=== PATIENT | female | born 1950 | race Caucasian/White ===

== ENCOUNTER 2020-04-26 14:50 | Outpatient (REF) | payer MEDICARE, SELFPAY ==
--- NOTE | 2020-04-26 14:50 | MM_ITS ---
EXAMINATION: BONE DENSITOMETRY CLINICAL INDICATION: Screening for osteoporosis. COMPARISON: Previous BD dated 04/26/2018 and baseline BD dated 04/28/2012. TECHNIQUE: Using a [employer] DXA System (software version: 13.1) manufactured by [employer], dual-energy x-ray absorptiometry was performed of the lumbar spine and left hip. The images are of good technical quality. Summary results are attached. FINDINGS: AP SPINE L1-L4: Current: BMD 0.833 g/cm2, Z-score -1.1, T-score -2.9, osteoporosis, 1.0% decrease from previous, 7.8% decrease from baseline (<5% change is not significant). Prior: BMD 0.841 g/cm2. Baseline: BMD 0.903 g/cm2. LEFT FEMUR, NECK: Current: BMD 0.647 g/cm2, Z-score -1.1, T-score -2.8, osteoporosis. Prior: BMD 0.638 g/cm2. Baseline: BMD 0.714 g/cm2. LEFT FEMUR, TOTAL: Current: BMD 0.711 g/cm2, Z-score -0.9, T-score -2.4, osteopenia, 3.8% decrease from previous, 9.8% decrease from baseline (<5% change is not significant). Prior: BMD 0.739 g/cm2. Baseline: BMD 0.788 g/cm2. IDENTIFIED RISK FACTORS: Rheumatoid arthritis, osteoporosis, tobacco use (current smoker), glucocorticoids (chronic), menopause. HISTORY OF FRACTURE: None listed. MEDICATIONS: None listed. MM/XR DEXA axial skeleton IMPRESSION: 1. DIAGNOSIS: Osteoporosis based on the lowest T-score value of -2.9 in the lumbar spine applying World Health Organization criteria. 2. 10-YEAR FRACTURE RISK PREDICTION, FRAX: Major osteoporotic fracture (clinical spine, forearm, hip or shoulder) 37.0%. Hip fracture 19.8%. 3. Treatment Recommendations: NOF guidelines recommend consideration for treatment in postmenopausal women and men age 50 and older presenting with the following: -A hip or vertebral (clinical or morphometric) fracture. -T-score less than or equal to -2.5 at the femoral neck or spine after appropriate evaluation to exclude secondary causes. -Low bone mass at the hip or spine and a 10-year fracture probability by FRAX of greater than or equal to 3% for hip fracture or greater than or equal to 20% for major osteoporotic fracture based on the [place] adapted WHO algorithm. 4. Other Recommendations: All treatment decisions require clinical judgment and consideration of individual patient factors, including patient preferences, comorbidities, previous drug use, risk factors not captured in the FRAX model (e.g. frailty, falls, vitamin D deficiency, increased bone turnover, interval significant decline in bone density) and possible under or overestimation of fracture risk by FRAX. Additional medical evaluation for secondary cause of low bone mineral density may be appropriate. FUTURE SCAN RECOMMENDATION: People with diagnosed cases of osteoporosis or at high risk for fracture should have regular bone mineral density tests. For patients eligible for Medicare, routine testing is allowed once every 2 years. The testing frequency can be increased to one year for patients who have rapidly progressing disease, those who are receiving or discontinuing medical therapy to restore bone mass, or have additional risk factors.
== END 2020-04-26 14:51 | disposition home or self-care (01) ==
LOC: HO.MAMMO 14:50
PROVIDERS: PCP Internal Medicine; Visit Provider Student in an Organized Health Care Education/Training Program
DX: M81.0 Age-related osteoporosis without current pathological fracture (principal); M06.9 Rheumatoid arthritis, unspecified; F17.200 Nicotine dependence, unspecified, uncomplicated; M11.20 Other chondrocalcinosis, unspecified site; Z78.0 Asymptomatic menopausal state; Z79.52 Long term (current) use of systemic steroids
CPT/HCPCS: 77080

== ENCOUNTER 2020-09-03 14:16 | Outpatient (REF) | payer MEDICARE, SELFPAY ==
--- NOTE | ~2020-09-03 | XR_ITS ---
EXAMINATION: XR CHEST CLINICAL INFORMATION: Cough COMPARISON: Chest radiographs 03/16/2019, 10/19/2018 TECHNIQUE: 2 views of the chest were obtained. FINDINGS: There is mild hyperinflation similar to prior exams. There is no airspace consolidation or definite groundglass opacity. The heart is normal in size and the vascularity is normal. The costophrenic sulci are clear. The hilar and mediastinal contours and bony structures are unremarkable. XR/XR chest 2V IMPRESSION: Unremarkable examination.
[2020-09-03 16:27] LABS: Alanine Aminotransferase 17 U/L (0-31); Albumin Level 4.2 g/dL (3.5-5.0); Alkaline Phosphatase 59 U/L (39-117); Anion Gap 15 (12-20); Aspartate Amino Transferase 18 U/L (5-31); Bilirubin Total 0.6 mg/dL (0.0-1.0); Blood Urea Nitrogen 19 mg/dL (9-16); Calcium 9.5 mg/dL (8.4-10.2); Carbon Dioxide 34 mmol/L (22-29); Chloride 99 mmol/L (96-108); Cholesterol 195 mg/dL; Estimated Glomerular Filt Rate > 60; Glucose Random 79 mg/dL (60-115); HDL Cholesterol 49 mg/dL; LDL Cholesterol Calculated 106 mg/dl; Potassium 3.6 mmol/L (3.3-5.1); Sodium 144 mmol/L (135-145); Total Protein 6.8 g/dL (6.5-8.0); Triglycerides 201 mg/dL
[2020-09-07 13:26] LABS: Vitamin D 25-OH, D2 <4 ng/mL; Vitamin D 25-OH, D3 22 ng/mL; Vitamin D 25-OH, Total 22 ng/mL (30-100)
== END 2020-09-03 14:17 | disposition home or self-care (01) ==
LOC: HO.LAB 14:16
PROVIDERS: PCP Internal Medicine; Referring Provider Internal Medicine; Visit Provider Student in an Organized Health Care Education/Training Program
DX: M11.20 Other chondrocalcinosis, unspecified site (principal); M81.0 Age-related osteoporosis without current pathological fracture; R05 Cough; E11.9 Type 2 diabetes mellitus without complications; Z79.52 Long term (current) use of systemic steroids
CPT/HCPCS: 36415; 71046; 80053; 80061; 82306; 99212

== ENCOUNTER → 2021-03-18 13:04 | Outpatient (BNVA) | payer MEDICARE, SELFPAY | PROVIDERS: PCP Internal Medicine; Visit Provider Nurse Practitioner Family | DX: M81.0 Age-related osteoporosis without current pathological fracture (principal); M11.20 Other chondrocalcinosis, unspecified site; F17.200 Nicotine dependence, unspecified, uncomplicated; Z71.6 Tobacco abuse counseling; Z79.52 Long term (current) use of systemic steroids | CPT/HCPCS: 99212 ==

== ENCOUNTER 2021-06-06 08:26 | Outpatient (REF) | payer MEDICARE, SELFPAY ==
[2021-06-06 08:46] LABS: MANUAL DIFF FLAG NO
[2021-06-06 09:13] LABS: Basophils Absolute Auto 0.1 X10*3/uL (0.0-0.2); Basophils Percent Auto 0.4 % (0-2); Eosinophils Absolute Auto 0.3 X10*3/uL (0.0-0.4); Eosinophils Percent Auto 2.1 % (0-4); Hematocrit 43.6 % (37.0-47.0); Hemoglobin 14.9 g/dl (12.0-16.0); Imm Gran Abs Auto 0.07 X10*3/uL (0.00-0.03); Imm Gran Pct Auto 0.6 % (0.0-0.4); Lymphocytes Absolute Auto 1.9 X10*3/uL (1.2-4.9); Lymphocytes Percent Auto 15.1 % (20-40); Mean Corpuscular HGB Conc 34.2 g/dl (31.0-35.0); Mean Corpuscular Volume 93.6 fL (80.0-98.0); Mean Platelet Volume 10.7 fL (9.4-12.3); Monocytes Percent Auto 7.6 % (2-11); Neutrophils Absolute Auto 9.4 x10*3/uL (2.0-8.3); Neutrophils Percent Auto 74.2 % (45-73); Platelet Count 266 X10*3/uL (160-400); Red Blood Count 4.66 X10*6/uL (4.20-5.50); Red Cell Distribution Width 12.3 % (11.0-16.0); White Blood Count 12.7 X10*3/uL (4.8-10.8)
[2021-06-06 10:16] LABS: Thyroid Stimulating Hormone 1.83 uIU/mL (0.32-4.0)
[2021-06-06 10:22] LABS: Alanine Aminotransferase 10 U/L (0-31); Albumin Level 3.9 g/dL (3.5-5.0); Alkaline Phosphatase 58 U/L (39-117); Anion Gap 15 (12-20); Aspartate Amino Transferase 16 U/L (5-31); Bilirubin Total 0.8 mg/dL (0.0-1.0); Blood Urea Nitrogen 21 mg/dL (9-16); Calcium 9.4 mg/dL (8.4-10.2); Carbon Dioxide 29 mmol/L (22-29); Chloride 99 mmol/L (96-108); Cholesterol 165 mg/dL; Estimated Glomerular Filt Rate 51; Glucose Fasting 90 mg/dL (60-99); HDL Cholesterol 43 mg/dL; LDL Cholesterol Calculated 100 mg/dl; Potassium 3.1 mmol/L (3.3-5.1); Sodium 140 mmol/L (135-145); Total Protein 6.5 g/dL (6.5-8.0); Triglycerides 110 mg/dL
== END 2021-06-06 08:27 | disposition home or self-care (01) ==
LOC: HO.LAB 08:26
PROVIDERS: PCP Internal Medicine; Visit Provider Internal Medicine
DX: Z00.00 Encounter for general adult medical examination without abnormal findings (principal); Z20.822 Contact with and (suspected) exposure to COVID-19; E03.9 Hypothyroidism, unspecified; E11.9 Type 2 diabetes mellitus without complications; R09.89 Other specified symptoms and signs involving the circulatory and respiratory systems
CPT/HCPCS: 36415; 80053; 80061; 84443; 85025; U0003; U0005

== ENCOUNTER 2021-07-27 09:47 | Emergency (ER) | payer MEDICARE, SELFPAY ==
--- NOTE | ~2021-07-27 | US_ITS ---
EXAMINATION: US VENOUS WITH DOPPLER UPPER EXTREMITY, RIGHT CLINICAL INFORMATION: Swelling COMPARISON: None TECHNIQUE: Ultrasound of the upper extremity is performed using compression sonography and color and pulse Doppler flow with assessment of augmentation of flow. There is also imaging and Doppler assessment of the jugular and subclavian veins. Spectral analysis with color-flow imaging is performed. FINDINGS: Respiratory variation, normal compression, and augmented flow are noted throughout the upper extremity including the axillary, brachial, cubital, and radial and ulnar veins. The distal brachial veins are not well visualized which may be due to small size. There is normal flow in the internal jugular and subclavian veins. There is no visible deep or superficial thrombophlebitis. If the patient's symptoms progress, a followup ultrasound in 5 -7 days might be of value to exclude proximal propagation from a nonvisualized distal arm vein. There is a mildly prominent lymph node in the right axilla that measures up to 0.8 cm in short axis. US/US venous duplex UE RT IMPRESSION: No DVT demonstrated in the right upper extremity.
[2021-07-27 09:51] VITALS: BP 146/78; PULSE 71; RESP 18; TEMP 36.8; O2SAT 97; BMI 21.6
--- NOTE | 2021-07-27 10:16 | ED_ITS ---
HPI - Extremity Problem General Chief complaint: Extremity Problem Stated complaint: R ARM SWELLING PAIN Time Seen by Provider: 07/27/21 10:14 Source: patient Mode of arrival: ambulatory Limitations: no limitations History of Present Illness HPI Narrative: Patient is a 70 year old female presenting to the emergency department today with right arm pain. Patient states that for the last few weeks, she has had right arm pain, specifically in the right shoulder. Patient states that she has not been able to lift her right shoulder up anymore. Patient denies any dizziness, lightheadedness, abdominal pain, nausea, vomiting, fever, chills, blurry vision, double vision, loss of vision, chest pain, difficulty breathing, shortness of breath, back pain, night sweats, pain with urination, increased urinary frequency, increased urinary urgency, blood in her urine or stool, syncope or a near syncopal episode, recent trauma or falls, bowel incontinence, bladder incontinence, bowel retention, bladder retention, or any other complaints at this time. Patient states that she has a history of rheumatoid arthritis and she is not currently taking any medication for it or following up with her assistant branch manager. MD Complaint: extremity pain Onset (ago): week(s) Pain Consistency: intermittent Location: right and upper extremity Quality: aching Radiation: none Relieving factors: nothing Exacerbating factors: range of motion Associated symptoms: denies other symptoms Related Data Previous Rx's Medication Instructions Recorded hydrochlorothiazide 25 mg tablet 25 mg PO DAILY #90 tab 08/12/20 ibuprofen 800 mg tablet 800 mg PO Q8H PRN #90 tab 01/21/21 atorvastatin 10 mg tablet 10 mg PO DAILY #90 tab 03/27/21 nadolol 40 mg tablet 40 mg PO DAILY #100 tab 04/09/21 lorazepam 1 mg tablet 1 mg PO BEDTIME #90 tab 04/17/21 prednisone 2.5 mg tablet 2.5 mg PO DAILY #30 tab 06/23/21 Allergies Allergy/AdvReac Type Severity Reaction Status Date / Time Penicillins [PENICILLINS] Allergy Intermediate HIVES/ITCHI Verified 06/23/21 09:19 NG Review of Systems Constitutional: Constitutional: Reports no additional constitutional complaints, Denies chills, Denies fever(s) and Denies night sweats Eyes: Eyes: Reports no additional eye complaints, Denies blurry vision, Denies change in vision, Denies diplopia, Denies eye discharge, Denies loss of vision and Denies eye pain ENT: Denies dizziness Cardiovascular: Cardiovascular: Reports no additional cardiovascular complaints, Denies chest pain, Denies lightheadedness, Denies Loss of Consciousness and Denies dyspnea Respiratory: Respiratory: Reports no additional respiratory complaints and Denies dyspnea Gastrointestinal: Gastrointestinal: Reports no additional gastrointestinal complaints, Denies abdominal pain, Denies melena, Denies hematochezia, Denies change in bowel habits and Denies change in stool character Genitourinary: Genitourinary: Denies hematuria, Denies urinary frequency, Denies dysuria, Denies urinary incontinence, Denies urinary hesitancy and Denies urinary urgency Musculoskeletal: Musculoskeletal: Reports no additional musculoskeletal complaints, Denies numbness and Denies tingling Comments: right shoudler pain Neurologic: Denies dizziness, Denies loss of vision, Denies numbness and Denies tingling Psychiatric: Psychiatric: Reports no additional psychiatric complaints Endocrine: Endocrine: Reports no additional endocrine complaints Hematologic/Lymphatic: Hematologic/Lymphatic: Reports no additional hematologic/lymphatic complaints Allergic/Immunologic: Allergic/Immunologic: Reports no additional allergic/immunologic complaints [facility] Past Medical History Attestation statement: The following information was validated with the patient. Source: old records reviewed Medical History Anxiety Back pain Hyperlipidemia Hypertension Osteoporosis Pseudogout Surgical History No pertinent past surgical history Family History Family History Father Lung cancer Mother Diabetes Renal failure Social History Social History Housing: House Alcohol intake: never Patient Tobacco Use Status: Current everyday Tobacco user Tobacco use type: Cigarette Cigarettes Per Day: 10 e-Cigarette/Vaping Use: Never Used Second Hand Smoke Exposure: No Advance Directives: No Advance Directives Information Provided: Yes service: No Current occupational status: retired Physical Exam Vital Signs: Vital Signs: Last Vital Signs Temp 98.3 F 07/27/21 09:51 Pulse 71 07/27/21 09:51 Resp 18 07/27/21 09:51 BP 146/78 H 07/27/21 09:51 Pulse Ox 97 07/27/21 09:51 BMI result Body Mass Index 21.6 Const: General: cooperative, no acute distress, alert and awake Nutritional Appearance: well nourished Orientation/consciousness: patient oriented x3 Limitations: no limitations HENMT: Head: Yes normal to inspection and Yes atraumatic Ears: hearing grossly normal bilaterally and external ears normal General nose exam: Normal external nose present, no nasal discharge noted and no epistaxis Face and sinus: Yes normal facial exam, No abrasion and No laceration Mouth: Normal oral and palatal mucosa present, no drooling and no muffled voice Eyes: General: appearance normal, both eyes and all related structures Periorbital: periorbital findings normal Eyelids: Yes eyelids normal Conjunctivae: conjunctivae normal Pupils: Equal, round and reactive pupils present EOM: EOMs intact bilaterally Neck: Neck: Yes normal visual inspection, Yes full ROM and Yes no lymphadenopathy Chest: Chest palpation & inspection: normal inspection of the chest Resp: Effort & Inspection: normal respiratory effort and able to speak in complete sentences Auscultation: clear to auscultation bilaterally Cardio: Rhythm: regular rhythm Heart sounds: S1 normal heart sound present GI: Inspection: Yes normal to inspection Neuro: General: patient oriented x3 and moves all extremities Cranial nerves: Yes Equal, round and reactive pupils present Cognition (Neuro): normal cognition Motor exam (neuro): 5/5 motor strength present throughout Sensory Exam: Normal double simultaneous stimulation for sensation Coordination: [id number] test normal Extrem: General: Yes normal to inspection and Yes capillary refill normal Right upper extremity: normal to inspection and shoulder/upper arm Details: tenderness Location: of the proximal humerus and abnormal ROM Details: pain with passive ROM (unable to lift the right shoulder ) Psych: Appearance: grossly normal Mental Status: mental status grossly normal Affect: normal affect Attitude: cooperative Thought process: Normal thought process present Thought content: Normal thought content present Insight: Good insight present (Psych) NIH Stroke Scale Internal: Initial- Upon Arrival Time: 10:14 Level of Consciousness: Alert Level of Consciousness Questions: Answers both questions correctly Level of Consciousness Commands: Performs both tasks correctly Best Gaze: Normal Visual: No visual loss Facial Palsy: Normal Motor Arm (Right): No drift Motor Arm (Left): No drift Motor Leg (Right): No drift Motor Leg (Left): No drift Limb Ataxia: Absent Sensory: Normal Best Language: No aphasia Dysarthia: Normal Extinction and Inattention: No abnormality Score: 0 MDM - Extremity (Nontraumatic) MDM Narrative Medical decision making narrative: Patient is a 70 year old female presenting to the emergency department today with right shoulder pain. Patient's physical exam showed pain to palpation of the right upper arm as well as the patient's inability to lift the right arm above her head. Patient's right upper arm US was negative for DVT. Patient's current presentation is most consistent with a frozen shoulder. I explained my physical exam findings as well as all test results to the patient. I answered all questions asked by the patient. I stressed the importance of the patient taking her medication as prescribed. I stressed the importance of the patient following up with her primary care provider, her assistant branch manager, and an orthopedist. I stressed the importance of the patient returning to the emergency department immediately if her symptoms were to worsen or if she were to develop any dizziness, shortness of breath, difficulty breathing, chest pain, blurry vision, loss of vision, nausea, vomiting, abdominal pain, fever, chills, back pain, or any other complaints. Patient verbalized agreement and understanding with this treatment plan and discharge. Differential Diagnosis Differential diagnosis: Likely deep venous thrombosis of upper extremity (frozen shoulder, rotator cuff injury) Medical Records Attestation: I reviewed the patient's medical records. Imaging Data US Right Upper Extremeity: Attestation: I personally reviewed and interpreted this imaging study as follows: Radiologist's impression: EXAMINATION:? US VENOUS WITH DOPPLER UPPER EXTREMITY, RIGHT CLINICAL INFORMATION:? Swelling COMPARISON:? None TECHNIQUE: Ultrasound of the upper extremity is performed using compression sonography and color and pulse Doppler flow with assessment of augmentation of flow. There is also imaging and Doppler assessment of the jugular and subclavian veins. Spectral analysis with color-flow imaging is performed. FINDINGS: Respiratory variation, normal compression, and augmented flow are noted throughout the upper extremity including the axillary, brachial, cubital, and radial and ulnar veins. The distal brachial veins are not well visualized which may be due to small size. There is normal flow in the internal jugular and subclavian veins. There is no visible deep or superficial thrombophlebitis. If the patient's symptoms progress, a followup ultrasound in 5 -7 days might be of value to exclude proximal propagation from a nonvisualized distal arm vein. There is a mildly prominent lymph node in the right axilla that measures up to 0.8 cm in short axis. US/US venous duplex UE RT IMPRESSION: No DVT demonstrated in the right upper extremity. Dictated By: LETICIA SHARMA MD Signed By: Electronically signed by LETICIA SHARMA MD Discharge Plan Discharge Clinical Impression: Frozen shoulder syndrome Patient Disposition: Home, Self-Care Instructions: Adhesive Capsulitis (ED) Additional Instructions: Call to schedule a follow up appointment with an Orthopedic provider. Follow up with your primary care provider. Return to the emergency department immediately if your symptoms worsen or if you develop any dizziness, shortness of breath, difficulty breathing, chest pain, blurry vision, loss of vision, nausea, vomiting, abdominal pain, fever, chills, back pain, or any other complaints. Prescriptions: No Action hydrochlorothiazide 25 mg tablet 25 mg PO DAILY Qty: 90 8RF ibuprofen 800 mg tablet 800 mg PO Q8H PRN (Reason: pain) Qty: 90 8RF atorvastatin 10 mg tablet 10 mg PO DAILY Qty: 90 2RF nadolol 40 mg tablet 40 mg PO DAILY Qty: 100 5RF lorazepam 1 mg tablet 1 mg PO BEDTIME Qty: 90 5RF prednisone 2.5 mg tablet 2.5 mg PO DAILY Qty: 30 0RF Referrals: Andriy Sherwood MD [Primary Care Provider] - 2 days Interventions: ED Discharge Assessment Last Done: 07/27/21 11:44 Discharge Date/Time: 07/27/21 11:44 Print Language: Ukrainian
== END 2021-07-27 11:44 | disposition home or self-care (01) ==
PROVIDERS: Emergency Provider Emergency Medicine; PCP Internal Medicine
DX: M75.01 Adhesive capsulitis of right shoulder (principal); R60.0 Localized edema; Z79.899 Other long term (current) drug therapy
CPT/HCPCS: 93971; 99283

== ENCOUNTER 2021-12-01 09:24 | Outpatient (REF) | payer MEDICARE, SELFPAY ==
--- NOTE | ~2021-12-01 | XR_ITS ---
EXAMINATION: XR CHEST CLINICAL INFORMATION: R07.9 - Chest pain, unspecified COMPARISON: Chest radiographs 09/03/2020, 03/16/2019 TECHNIQUE: 2 views of the chest were obtained. FINDINGS: There is a vague 1.6 cm opacity left midlung field, 5 cm lateral to the hilum representing new finding from prior studies. There is no correlate on the lateral view. The finding overlies confluence of the left anterior and left posterior ribs. There is no visible rib fracture or bony destructive process. The remainder of the lungs are clear clear and there is no lobar or segmental airspace consolidation, pneumothorax, pleural reaction, or effusion. Mild hyperinflation is stable. Heart size normal. Hilar and mediastinal contours are unremarkable. PSA to call report. XR/XR chest 2V IMPRESSION: -Irregular opacity overlying left midlung zone on frontal view. No correlate on lateral projection. -Heart size normal. No pneumothorax, pleural reaction, or effusion. -Further evaluation may be obtained with noncontrast CT chest.
[2021-12-01 09:44] LABS: MANUAL DIFF FLAG NO
[2021-12-01 10:12] LABS: Basophils Percent Auto 0.5 % (0-2); Eosinophils Absolute Auto 0.4 X10*3/uL (0.0-0.4); Eosinophils Percent Auto 4.8 % (0-4); Hematocrit 47.6 % (37.0-47.0); Imm Gran Abs Auto 0.02 X10*3/uL (0.00-0.03); Imm Gran Pct Auto 0.2 % (0.0-0.4); Lymphocytes Absolute Auto 2.3 X10*3/uL (1.2-4.9); Lymphocytes Percent Auto 27.6 % (20-40); Mean Corpuscular HGB Conc 33.6 g/dl (31.0-35.0); Mean Corpuscular Hemoglobin 31.5 pg (27.0-33.0); Mean Corpuscular Volume 93.7 fL (80.0-98.0); Mean Platelet Volume 10.4 fL (9.4-12.3); Monocytes Absolute Auto 0.7 X10*3/uL (0.1-1.2); Monocytes Percent Auto 7.8 % (2-11); Neutrophils Percent Auto 59.1 % (45-73); Platelet Count 209 X10*3/uL (160-400); Red Blood Count 5.08 X10*6/uL (4.20-5.50); Red Cell Distribution Width 13.2 % (11.0-16.0); White Blood Count 8.5 X10*3/uL (4.8-10.8)
[2021-12-01 10:58] LABS: Alanine Aminotransferase 20 U/L (0-31); Albumin Level 4.3 g/dL (3.5-5.0); Alkaline Phosphatase 57 U/L (39-117); Anion Gap 14 (12-20); Aspartate Amino Transferase 20 U/L (5-31); Bilirubin Total 0.8 mg/dL (0.0-1.0); Blood Urea Nitrogen 20 mg/dL (9-16); Calcium 9.7 mg/dL (8.4-10.2); Carbon Dioxide 30 mmol/L (22-29); Chloride 99 mmol/L (96-108); Cholesterol 203 mg/dL; Estimated Glomerular Filt Rate > 60; Glucose Fasting 97 mg/dL (60-99); HDL Cholesterol 55 mg/dL; LDL Cholesterol Calculated 130 mg/dl; Potassium 3.8 mmol/L (3.3-5.1); Sodium 139 mmol/L (135-145); Total Protein 6.8 g/dL (6.5-8.0); Triglycerides 93 mg/dL
[2021-12-01 11:12] LABS: Thyroid Stimulating Hormone 1.42 uIU/mL (0.32-4.0)
== END 2021-12-01 09:25 | disposition home or self-care (01) ==
LOC: HO.LAB 09:24
PROVIDERS: PCP Internal Medicine; Visit Provider Internal Medicine
DX: Z00.00 Encounter for general adult medical examination without abnormal findings (principal); Z13.9 Encounter for screening, unspecified; Z13.0 Encounter for screening for diseases of the blood and blood-forming organs and certain disorders involving the immune mechanism; R07.9 Chest pain, unspecified; E03.9 Hypothyroidism, unspecified
CPT/HCPCS: 36415; 71046; 80053; 80061; 84443; 85025

== ENCOUNTER 2021-12-12 07:47 | Emergency (ER) | payer MEDICARE, SELFPAY ==
[2021-12-12 07:50] VITALS: BP 182/86; PULSE 67; RESP 17; TEMP 36.1; O2SAT 98; BMI 21.9
--- NOTE | 2021-12-12 08:03 | ED_ITS ---
HPI - Back Pain/Injury General Chief Complaint: Back Pain/Injury Stated Complaint: muscle spasms in back and side Time Seen by Provider: 12/12/21 08:03 Source: patient Mode of arrival: ambulatory Limitations: no limitations History of Present Illness HPI Narrative: 70-year-old female with the history of chronic back pain presents for muscle spasms that have been ongoing for months. Muscle spasm is worsening yesterday, patient says it started in the left side of her neck muscles and is now radiating all the way down her left side of her back. She has pain with movement. Patient states she has a history of rheumatoid arthritis but is not on medication for this. Patient states she took 800 ibuprofen this morning and it did not help. NO chest pain, no shortness of breath, no abdominal pain, admitting no, no urinary retention, no incontinence of bowel or bladder, no history of IV drug use, no history of cancer, no saddle paresthesias. Related Data Previous Rx's Medication Instructions Recorded hydrochlorothiazide 25 mg tablet 25 mg PO DAILY #90 tabs 08/12/20 atorvastatin 10 mg tablet 10 mg PO DAILY #90 tabs 03/27/21 nadolol 40 mg tablet 40 mg PO DAILY #100 tabs 04/09/21 albuterol sulfate 2.5 mg (3 mL) inhalation Q4H PRN 08/06/21 bronchospasm 30 days #90 mL lorazepam 1 mg tablet 1 mg PO BID anxiety #60 tabs 09/24/21 tizanidine 4 mg capsule 4 mg PO Q8H PRN muscle spasticity 12/04/21 #60 caps azithromycin 250 mg tablet See Rx Instructions PO .COMPLEX #6 12/08/21 tabs triamcinolone acetonide 0.5 % 1 appl topical TID #15 grams 12/08/21 topical cream cyclobenzaprine 5 mg tablet 5 mg PO TID 5 days #15 tabs 12/12/21 prednisone 20 mg tablet 40 mg PO DAILY 5 days #10 tabs 12/12/21 Allergies Allergy/AdvReac Type Severity Reaction Status Date / Time Penicillins [PENICILLINS] Allergy Intermediate HIVES/ITCHI Verified 12/08/21 10:44 NG Review of Systems Constitutional: Constitutional: Denies body ache(s), Denies chills, Denies fatigue, Denies fever(s), Denies malaise and Denies weakness Eyes: Eyes: Denies diplopia Cardiovascular: Cardiovascular: Denies chest pain, Denies syncope, Denies leg edema, Denies lightheadedness, Denies Loss of Consciousness, Denies palpitations and Denies dyspnea Respiratory: Respiratory: Denies chest congestion, Denies cough and Denies dyspnea Gastrointestinal: Gastrointestinal: Denies abdominal pain, Denies hem atochezia, Denies constipation, Denies fecal incontinence, Denies diarrhea and Denies vomiting Genitourinary: Genitourinary: Denies urinary incontinence Musculoskeletal: Musculoskeletal: Denies abnormal gait, Reports back pain, Reports muscle cramps and Denies numbness Neurologic: Denies abnormal gait, Denies confusion, Denies syncope, Denies focal weakness, Denies numbness, Denies radicular pain, Denies Sensory deficit (Neuro), Denies paresthesias and Denies weakness Psychiatric: Psychiatric: Denies anxiety, Denies confusion and Denies depression Endocrine: Endocrine: Denies fatigue and Denies palpitations PMFSH Past Medical History Surgical History No pertinent past surgical history Family History Family History Father Lung cancer Mother Diabetes Renal failure Social History Social History Housing: House Alcohol intake: never Patient Tobacco Use Status: Current everyday Tobacco user Tobacco use type: Cigarette Cigarettes Per Day: 10 e-Cigarette/Vaping Use: Never Used Second Hand Smoke Exposure: No Advance Directives: No Advance Directives Information Provided: Yes service: No Current occupational status: retired Current occupational exposures/hazards: No Cognitive needs: No Hearing needs: No Vision needs: Yes Physical Exam Vital Signs: Vital Signs: Last Vital Signs Temp 97 F 12/12/21 07:50 Pulse 67 12/12/21 07:50 Resp 17 12/12/21 07:50 BP 182/86 H 12/12/21 07:50 Pulse Ox 98 12/12/21 07:50 O2 Del Method 12/12/21 07:50 BMI result Body Mass Index 21.9 Const: General: No confusion Nutritional Appearance: well nourished Orientation/consciousness: No confusion Limitations: no limitations Eyes: Conjunctivae: conjunctivae normal Pupils: Equal, round and reactive pupils present EOM: EOMs intact bilaterally Neck: Neck: Yes full ROM, Yes no lymphadenopathy and Yes supple Resp: Effort & Inspection: normal respiratory effort and able to speak in complete sentences Auscultation: clear to auscultation bilaterally, no crackles, no rales, no rhonchi and no wheezes Cardio: Rate: regular rate Rhythm: regular rhythm Heart sounds: S1 normal heart sound present and S2 normal heart sound present GI: Inspection: Yes normal to inspection Palpation (GI): Soft to palpation, nontender, no guarding and not rigid Percussion: Yes normal to percussion Auscultation: normal bowel sounds : General: Yes no CVA tenderness Back/Spine/Pelvis: Back: no CVA tenderness Cervical Spine: normal cervical lordosis, cervical ROM normal, No Cervical spine tenderness and No cervical ROM abnormal Thoracic/Lumbar Spine: straight leg raise negative bilaterally, paraspinal muscle tenderness on the left, No thoracic spinal tenderness and No lumbar spinal tenderness Pelvis: no pain with anterior-posterior compression and no pain with lateral compression Skin: General skin exam: no rashes or lesions noted Neuro: General: No confusion Cranial nerves: Yes Equal, round and reactive pupils present Sensory Exam: No Sensory deficit (Neuro) Extrem: Right lower extremity: normal to inspection, full ROM and normal capillary refill Left lower extremity: normal to inspection, full ROM and normal capillary refill Psych: Appearance: grossly normal Affect: normal affect Attitude: cooperative Thought process: Normal thought process present Course Course Course Narrative: 7-year-old female presents with muscle spasm in the left side of her back that has been ongoing and worsened yesterday. On exam, patient is hypertensive but otherwise has stable vitals Patient has no vertebral point tenderness, no red flag symptoms Patient is very tender over her left upper trapezius, and all along her left side of her paraspinous back muscle Patient has a normal gait, has intact bilateral lower extremity motor strength, pulses, DTRs, and sensation Will discharge paper shunt with prescription for prednisone and Flexeril, counseled patient to stop her tizanidine, counseled patient to continue with her ibuprofen, counseled patient to contact her PCP for physical therapy referral Gave return precautions of sudden leg weakness, bowel or bladder incontinence, being unable to pass urine, saddle paresthesias, fevers. Discharge Plan Discharge Clinical Impression: Muscle spasm of back Patient Disposition: Home, Self-Care Instructions: Muscle Spasm (ED) Additional Instructions: You have in his prescribed tizanidine by another physician. Please stop this medication. Please continue to take your 800 ibuprofen at home. Please take the prednisone I prescribed to your pharmacy. Please take the cyclobenzaprine which is a muscle relaxant I prescribed to her pharmacy. Please return to the emergency room if you have sudden leg weakness, fevers, incontinence of bowel or bladder, or numbness or tingling in your groin, or for any other new or concerning symptoms Prescriptions: New prednisone 20 mg tablet 40 mg PO DAILY 5 Days Qty: 10 0RF cyclobenzaprine 5 mg tablet 5 mg PO TID 5 Days Qty: 15 0RF No Action hydrochlorothiazide 25 mg tablet 25 mg PO DAILY Qty: 90 8RF atorvastatin 10 mg tablet 10 mg PO DAILY Qty: 90 2RF nadolol 40 mg tablet 40 mg PO DAILY Qty: 100 5RF albuterol sulfate 2.5 mg /3 mL (0.083 %) solution for nebulization 2.5 mg inhalation Q4H PRN (Reason: bronchospasm) 30 Days Qty: 90 8RF Rx Instructions: DX: J44.9 tizanidine 4 mg capsule 4 mg PO Q8H PRN (Reason: muscle spasticity) Qty: 60 5RF Rx Instructions: substitute tabs lorazepam 1 mg tablet 1 mg PO BID Qty: 60 5RF azithromycin 250 mg tablet See Rx Instructions PO .COMPLEX Qty: 6 0RF Rx Instructions: take 500 mg today (day 1), then 250 mg for 4 days (days 2-5) PO triamcinolone acetonide 0.5 % cream 1 appl topical TID Qty: 15 3RF Interventions: ED Discharge Assessment Last Done: 12/12/21 09:24 Discharge Date/Time: 12/12/21 09:25
== END 2021-12-12 09:25 | disposition home or self-care (01) ==
PROVIDERS: Emergency Provider Emergency Medicine Emergency Medical Services; PCP Internal Medicine
DX: M54.50 Low back pain, unspecified (principal); M62.830 Muscle spasm of back; F17.210 Nicotine dependence, cigarettes, uncomplicated; Z71.6 Tobacco abuse counseling; Z79.899 Other long term (current) drug therapy
CPT/HCPCS: 99283

== ENCOUNTER 2021-12-15 10:18 | Outpatient (REF) | payer MEDICARE, SELFPAY ==
--- NOTE | ~2021-12-15 | CT_ITS ---
EXAMINATION: CT CHEST WITHOUT CONTRAST CLINICAL INFORMATION: Follow-up left lung opacity. COMPARISON: Previous chest x-ray most recent November 2021. TECHNIQUE: Multidetector volumetric CT imaging of the chest was done. Axial MIP volume rendering provided. Sagittal and coronal reformatted images were obtained. This CT examination was performed using dose optimization techniques as appropriate, variously including the following: *Automated exposure control *Adjustment of mA and/or kV according to patient size (this includes techniques or standardized protocols for targeted exams where dose is matched to indication/reason for exam; i.e. extremities or head) *Use of iterative reconstruction technique DLP: 186 mGy-cm FINDINGS: LUNGS: There is evidence of paraseptal emphysema. There is a 5 mm irregularly-shaped right upper lobe nodule axial image 149 series 5. There is an irregular parenchymal density in the posterior segment of the left upper lobe abutting the major fissure. This retracts the pleural fissure. There is surrounding mild bronchiectasis and increased peribronchial attenuation. This measures 0.3 x 1.6 cm in AP and transverse dimension axial image 183 series 5, and 2 cm in longitudinal dimension for example sagittal reconstructed image 37. There is a heterogeneous semisolid left lower lobe nodule. This measures 3 x 2 cm. There are several denser more solid-appearing components. Largest solid component measures 5 x 12 mm. This abuts the pleural surface and there is some adjacent pleural thickening. There is a 1 cm ground-glass attenuation right lower lobe nodule axial image 291 series 5. There is a heterogeneous semisolid irregularly-shaped 5 x 13 mm left lower lobe nodule axial image 375 series 5. There is scarring or subsegmental atelectasis in the dependent bilateral lower lobes. No endobronchial or endotracheal lesion seen. MEDIASTINUM: The thoracic aorta is upper normal in size. There is mild aortic valve and coronary artery calcification. The heart does not appear enlarged. There is no pericardial effusion. There are no enlarged hilar or mediastinal lymph nodes. The visualized thyroid gland is normal. PLEURA: There is no pleural effusion. No pleural mass or thickening. AXILLA: No lymphadenopathy. UPPER ABDOMEN: There is a 3 cm left renal cyst. There is a small left renal stone. There is dilatation of the abdominal aorta measuring at least 3.2 cm. There are small low-attenuation lesions in the liver probably representing small cysts. The largest measures 7 mm in the left lobe. There is diverticulosis of the colon. OSSEOUS STRUCTURES: There are degenerative changes of the spine. CT/CT chest wo con IMPRESSION: Paraseptal emphysema. Multiple pulmonary nodules suspicious for neoplasm, largest measuring 2 x 3 cm in the left lower lobe. Follow-up PET/CT scan recommended. Fleischner guidelines were followed. Findings will be communicated by the [place] work flow cut out operator.
== END 2021-12-15 10:19 | disposition home or self-care (01) ==
LOC: HO.CT 10:18
PROVIDERS: PCP Internal Medicine; Visit Provider Internal Medicine
DX: R91.8 Other nonspecific abnormal finding of lung field (principal)
CPT/HCPCS: 71250

== ENCOUNTER → 2021-12-19 13:33 | Outpatient (BNVA) | payer MEDICARE, SELFPAY | PROVIDERS: PCP Internal Medicine; Visit Provider Internal Medicine Pulmonary Disease | DX: R91.8 Other nonspecific abnormal finding of lung field (principal); J43.9 Emphysema, unspecified; Z80.1 Family history of malignant neoplasm of trachea, bronchus and lung | CPT/HCPCS: 99202 ==

== ENCOUNTER 2022-01-04 08:51 | Emergency (ER) | payer MEDICARE, SELFPAY ==
[2022-01-04 09:47] VITALS: BP 144/84; PULSE 78; RESP 18; TEMP 36.6; O2SAT 98; BMI 21.6
== END 2022-01-04 14:34 | disposition left against medical advice (07) ==
PROVIDERS: Emergency Provider Emergency Medicine; PCP Internal Medicine
DX: M54.50 Low back pain, unspecified (principal); R42 Dizziness and giddiness
CPT/HCPCS: 99281

== ENCOUNTER 2022-02-02 07:43 | Outpatient (REF) | payer MEDICARE, SELFPAY ==
--- NOTE | 2022-02-02 16:07 | PFT_ITS ---
FLOWS: FEV1 50% of predicted at 1.10 L. FVC 62% of predicted at 1.82 L. FEV1 to FVC ratio of 0.60. No bronchodilator response. LUNG VOLUMES: Total lung capacity 95% of predicted at 4.76 L. Residual volume 135% of predicted at 2.97 L. Slow vital capacity 64% predicted at 1.79 L. Expiratory reserve volume 80% of predicted at 0.52 L. Diffusion capacity is moderately decreased. In comparison to pulmonary function test from January 2017, FEV1 has decreased by 0.27 L, FVC has decreased by 0.27 L, total lung capacity has been without significant changes, residual volume has increased by 0.20 L, slow vital capacity has decreased by 0.49 L, diffusion capacity has decreased by 5.29 mL/minute per mmHg. IMPRESSION: Moderate to severe obstructive ventilatory defect with no bronchodilator response. Increased residual volume suggests air trapping. Decreased diffusion capacity suggests emphysema. MD LATESHA Hill/MODL / [id number]
== END 2022-02-02 07:44 | disposition home or self-care (01) ==
LOC: HO.RESP 07:43
PROVIDERS: PCP Internal Medicine; Visit Provider Internal Medicine Pulmonary Disease
DX: J43.9 Emphysema, unspecified (principal)
CPT/HCPCS: 94060; 94727; 94729

== ENCOUNTER 2022-02-03 09:03 | Outpatient (REF) | payer MEDICARE, SELFPAY ==
--- NOTE | ~2022-02-03 | PE_ITS ---
EXAMINATION: Fluorine-18 FDG PET/CT Scan CLINICAL INDICATION: Initial treatment management. Pulmonary nodules. PROCEDURE: 64 minutes following the intravenous administration of 15.6 mCi of fluorine 18 FDG, images from the base of the skull to the mid thighs were obtained using a combined PET/CT scanner with CT scan based attenuation correction. No oral contrast was administered. No intravenous contrast was administered. Transverse, coronal, sagittal, and volume reconstruction projections were obtained. The patient's blood glucose as determined by a finger stick, was 105 mg/dl immediately prior to injection. Total CT exam dose-length product 255.10 mGy-cm * These CT images were obtained using dose optimization techniques as appropriate, variously including the following: Automated exposure control * Adjustment of mA and/or kV according to patient size (this includes techniques or standardized protocols for targeted exams where dose is matched to indication/reason for exam; i.e. extremities or head) * Use of iterative reconstruction technique COMPARISON: No previous PET/CT scan is available for comparison. CT scan of the chest dated 12/15/2021 is available for comparison. FINDINGS: (Slice numbers described in this report are numbered superiorly to inferiorly with slice #1 in the head) NECK AND VISUALIZED HEAD: There is a focus of abnormally increased FDG activity in the posterior aspect of the mid left parotid gland, SUVmax 6.4, slice 29/267. This corresponds to a soft tissue density on the CT images that measures 0.9 x 0.7 cm in largest transverse dimensions. There is mild diffusely increased FDG activity in the thyroid gland, likely related to autoimmune thyroid disease such as Christina's thyroiditis or Graves' disease. No other foci of abnormal FDG activity are noted in the neck or visualized head. The distribution of FDG activity is otherwise physiological. There is no cervical lymphadenopathy. THORAX: There is a focus of mildly increased activity abutting the posterolateral pleura in the superior segment of the left lower lobe, SUVmax 2.7, slice 91/267. This corresponds to a subcentimeter solid pulmonary nodule on the CT images that measures 2.6 x 2.1 cm in largest transverse dimensions, and approximately 2.6 cm cephalocaudad. This is not significantly changed in appearance from the CT scan dated 12/15/2021. A more intense left upper lobe FDG avid focus abuts the medial aspect of the interlobar fissure and is inseparable on the CT images from the superior surface of the left pulmonary artery. No additional foci of abnormal FDG activity are present in the chest. There is a 0.6 cm right upper lobe nodule, slice 77/267 which is too small to be characterized on the FDG PET images and is unchanged in appearance from 12/15/2021. There is an additional 0.9 x 0.5 cm nodule, slice 108/267 which is also too small to be characterized on the FDG PET images and is unchanged from 12/15/2021. A few additional small subcentimeter nodules visualized on that diagnostic CT scan are not apparent on these nondiagnostic CT images. There is some mild by basilar scarring or atelectasis unchanged from 12/15/2021 with no associated abnormal FDG activity. There is no pleural or pericardial fluid, or pneumothorax. There is no mediastinal, supraclavicular, or axillary lymphadenopathy. ABDOMEN AND PELVIS: There are no foci of abnormal FDG activity present in the abdomen or pelvis. T there is diverticulosis without evidence of diverticulitis. Here is mild FDG activity throughout the gastrointestinal tract without a suspicious focal component. There is diverticulosis without evidence of diverticulitis. The hollow viscera are otherwise unremarkable. The liver, gallbladder, and spleen are unremarkable. A hypodense cyst laterally in the upper pole of the left kidney is markedly FDG photopenic and likely a simple cyst, and appears unchanged from 12/15/2021. A punctate calcified nonobstructing left lower pole renal calculus is unchanged from 12/15/2021. The kidneys, adrenal glands, and pancreas are otherwise unremarkable. There is no retroperitoneal, mesenteric, pelvic or inguinal lymphadenopathy. Multiple subcentimeter densely calcified foci which likely represent calcified lymph nodes are present in the mid left abdomen, most prominently at the level of the pelvic inlet. MUSCULOSKELETAL: No foci of abnormal FDG activity are present in the osseous structures. There are degenerative changes in the spine. There is compression deformity in the superior endplate of L4, with no associated abnormal FDG activity, likely due to a chronic compression fracture. There are no suspicious sclerotic or lytic lesions visualized. VASCULAR: Diffuse vascular calcifications including coronary are noted. There is aneurysmal dilatation of the infrarenal abdominal aorta measuring 3.5 cm in largest diameter. PET/PET CT fusion skull to thigh IMPRESSION: 1. A subsolid 2.6 cm nodule that abuts the posterolateral pleura of the left lower lobe shows mild FDG activity and is strongly suspicious for malignancy. 2. A second more intense focus of abnormal FDG activity activity is present medially and posteriorly in the left upper lobe abutting the interlobar fissure. This is not well delineated on the CT images, but is strongly suspicious for a malignant lesion, possibly a synchronous primary malignancy because of the marked difference in FDG intensity compared to the previously described nodule, or this may represent a metastasis. 3. A few additional subcentimeter pulmonary nodules are visualized, unchanged from the prior 12/15/2021 CT scan and all too small to be characterized on the FDG PET images. Additional small nodules visualized on the 12/15/2021 CT scan are not well visualized on these nondiagnostic CT images. 4. There there is a soft tissue density in the left parotid gland that shows abnormal FDG activity. While this could be due to a primary or metastatic malignancy, benign lesions such as pleomorphic adenomas and Warthin's tumors are frequently FDG avid. Clinical correlation is recommended. Biopsy may be necessary to determine the etiology of this lesion, if clinically indicated. 5. No additional abnormalities suspicious for other metastatic or malignant lesions are noted. 6. Aneurysmal dilatation of the infrarenal abdominal aorta, measuring 3.5 cm. 7. Diffuse vascular calcifications including coronary.
== END 2022-02-03 09:04 | disposition home or self-care (01) ==
LOC: HO.PET 09:03
PROVIDERS: Visit Provider Internal Medicine Pulmonary Disease
DX: Z13.89 Encounter for screening for other disorder (principal)

== ENCOUNTER → 2022-02-05 09:37 | Outpatient (BNVA) | payer MEDICARE, SELFPAY | PROVIDERS: PCP Internal Medicine; Visit Provider Internal Medicine Pulmonary Disease | DX: J43.9 Emphysema, unspecified (principal); R91.8 Other nonspecific abnormal finding of lung field | CPT/HCPCS: 99212 ==

== ENCOUNTER → 2022-02-16 09:02 | Outpatient (BNVA) | payer MEDICARE, SELFPAY | PROVIDERS: PCP Internal Medicine; Visit Provider Internal Medicine Pulmonary Disease | DX: J43.9 Emphysema, unspecified (principal); R91.8 Other nonspecific abnormal finding of lung field | CPT/HCPCS: 99212 ==

== ENCOUNTER → 2022-04-06 10:12 | Outpatient (BNVA) | payer MEDICARE, SELFPAY | PROVIDERS: PCP Internal Medicine; Visit Provider Internal Medicine Pulmonary Disease | DX: J43.9 Emphysema, unspecified (principal); R91.8 Other nonspecific abnormal finding of lung field; K11.8 Other diseases of salivary glands | CPT/HCPCS: 99212 ==

== ENCOUNTER 2022-04-20 10:23 | Day surgery (SDC) | payer MEDICARE, SELFPAY ==
[2022-04-15 14:49] VITALS: BMI 21.2
[2022-04-20] VITALS (9 sets, daily range): BP systolic 124–154; BP diastolic 54–74; PULSE 56–68; RESP 16–22; TEMP 36.6–36.7; O2SAT 92–100; BMI 21.1
--- NOTE | 2022-04-20 10:37 | MHC.SHP ---
Pre-Procedural Eval Section A Date of Service: 04/20/22 The patient is an INPATIENT: No Changes since office visit: Yes Patient answered all questions; No Cold of Flu in the past 2 weeks, No New Medical Problems and No Changes in Medication The History & Physical has been completed within 30 days and I have reviewed it.: Yes Section B Chief Complaint: Other nonspecific abnormal finding of lung field Allergies: Allergies Allergy/AdvReac Type Severity Reaction Status Date / Time Penicillins [PENICILLINS] Allergy Intermediate HIVES/ITCHI Verified 04/06/22 10:27 NG Plan I have reviewed the history and physical and performed a pertinent physical examination on my patient. No changes have occurred unless specified.
--- NOTE | 2022-04-20 11:12 | HO.ANESPROP2 ---
HPI - Anesthesia Eval Consult details Narrative: 71 F F for EBUS PMFSH Active Problems Active Problems: All Active Problems (Updated 04/15/22 @ 14:37 by Aniya Ledezma RN) half-way systemic steroid user (Acute) Pulmonary nodules (Acute) Emphysema lung (Acute) Dilatation of aorta (Acute) Nodule of parotid gland (Acute) Personal history of nicotine dependence (Acute) Pseudogout (Acute ~2016) Osteoporosis (Acute ~2018) Hypertension (Acute) Hyperlipidemia (Acute) Anxiety (Acute) Past Medical History Medical History (Updated 04/15/22 @ 14:37 by Aniya Ledezma RN) Anxiety Back pain Family history of lung cancer Hyperlipidemia Hypertension Osteoporosis (~2018) Personal history of nicotine dependence Pseudogout (~2016) Family History Family History Father Lung cancer Mother Diabetes Renal failure Family history of problems with anesthesia: No Surgical History Surgical History (Updated 02/05/22 @ 13:04 by Monserrat Drake PA-C) History of colonoscopy History of Problems with Anesthesia: No Social History Social History Housing: House Alcohol intake: never Patient Tobacco Use Status: Never used Tobacco Tobacco use type: Cigarette Cigarettes Per Day: 10 e-Cigarette/Vaping Use: Never Used Second Hand Smoke Exposure: No service: No Current occupational status: retired Current occupational exposures/hazards: No Cognitive needs: No Hearing needs: No Vision needs: Yes Meds Allergies Allergy/AdvReac Type Severity Reaction Status Date / Time Penicillins [PENICILLINS] Allergy Intermediate HIVES/ITCHI Verified 04/06/22 10:27 NG Exam Exam Date and Time: April 20, 2022 1112 Height,Weight and Vital Signs: Height 5 ft 5 in Weight 57.606 kg Airway Mallampati Class: III TM Dist: >3cm Neck ROM: Full Denture: Upper and Lower Loose/Missing/Broken Teeth: Yes Heart: S1,S2 Lungs: b/l breath sounds Assessment and Plan Assessment Anesthesia Assessment: Anesthesia Plan Discussed and Chart Reviewed Final Anesthetic Review Family History of Problems with Anesthesia: No History of Problems with Anesthesia: No NPO: Yes ASA Class: III Final Preanesthetic Review: Meds/Allgs Chart Reviewed, Consent Obtained/Reviewed and Anes Risks/Benef Reviewed Patient Risk: Intermediate Procedure Risk: Intermediate Anesthetic Plan Anesthetic Plan: GA Disposition: Standard PACU
[2022-04-20] MEDS: Lactated Ringers 1,000 ML 50 ML IVCONT (11:40)
--- NOTE | 2022-04-20 15:02 | PM.OP ---
Brief Operative Note Date of Service: 04/20/22 Pre-op diagnosis: Lung cancer Post-op diagnosis: same Procedure: Flexible bronchoscope with EBUS advanced through the ET tube with patient intubated for the procedure. Secondary to never diameter patient airways it was impossible to reach left upper lobe bronchus with the EBUS scope. Lymph node sampling under EBUS guidance at station 7 and proximal station 5 was performed with aspirate sent for pathologic testing. After the biopsies no further bleeding was noted. Patient was returned to PACU in stable condition. Surgeon: Garland Pena MD Anesthesia: GETA Was an Post Hole Digging Machine Operator used for this Procedure?: No Estimated blood loss (mL): 0 Disposition: PACU
== END 2022-04-20 15:17 | disposition home or self-care (01) ==
PROVIDERS: PCP Internal Medicine; Visit Provider Internal Medicine Pulmonary Disease
DX: R91.8 Other nonspecific abnormal finding of lung field (principal); J43.9 Emphysema, unspecified; Z80.1 Family history of malignant neoplasm of trachea, bronchus and lung; K11.8 Other diseases of salivary glands; M54.9 Dorsalgia, unspecified; F41.1 Generalized anxiety disorder; Z88.0 Allergy status to penicillin; E78.5 Hyperlipidemia, unspecified; I10 Essential (primary) hypertension; M81.0 Age-related osteoporosis without current pathological fracture; F17.210 Nicotine dependence, cigarettes, uncomplicated
CPT/HCPCS: 31652; 31615; 88172; 88173; 88177; 88305; J0171; J1100; J2250; J2405; J3010

== ENCOUNTER 2022-05-04 16:22 | Inpatient (IN) | payer MEDICARE, SELFPAY ==
--- NOTE | ~2022-05-04 | XR_ITS ---
EXAMINATION: XR CHEST CLINICAL INFORMATION: Covid and shortness of breath COMPARISON: CT chest 12/15/2021, PET/CT 02/03/2022 Chest radiograph 12/01/2021 TECHNIQUE: Frontal view of the chest was obtained. FINDINGS: The heart Vessels appear normal. No infiltrates or pleural effusions are seen. No masses that were seen on the prior chest CT and PET/CT are not well visualized on the current study. There is one area of increased density seen in the left mid to upper lobe overlying the left anterior 2nd-3rd intercostal space anteriorly corresponding to the mass and the superior segment of the left lower lobe seen on the prior CT (3:26). XR/XR chest 1V IMPRESSION: 1. No acute intrathoracic disease. 2. Multiple mass lesions seen previously not well identified on the current study. There is one area of increased density seen in the left mid to upper lobe.
--- NOTE | ~2022-05-04 | CT_ITS ---
EXAMINATION: CT ANGIOGRAM OF THE CHEST WITH AND WITHOUT CONTRAST (CT PULMONARY ANGIOGRAM FOR PE) CLINICAL INFORMATION: Reason for Exam SOB, COVID+, DDIMER+ COMPARISON: Chest radiograph earlier today, prior chest CTs 12/15/2021 and PET/CT 02/03/2022 TECHNIQUE: Prior to contrast administration, noncontrast localization images were obtained. Subsequently, multidetector volumetric imaging was performed from the thoracic inlet to below the diaphragms following the administration of 44 mL Omnipaque 350 intravenous contrast. No contrast reaction reported Sagittal, coronal, and MIP oblique sagittal reformatted images were obtained on the CT workstation, uploaded to PACS, and reviewed. This CT examination was performed using dose optimization techniques as appropriate, variously including the following: *Automated exposure control *Adjustment of mA and/or kV according to patient size (this includes techniques or standardized protocols for targeted exams where dose is matched to indication/reason for exam; i.e. extremities or head) *Use of iterative reconstruction technique Total exam dose-length product 225 mGy-cm FINDINGS: QUALITY OF STUDY/CONTRAST BOLUS: Satisfactory. PULMONARY ARTERIES: No central or segmental pulmonary emboli. THORACIC AORTA: No aneurysm or dissection. LUNG: Again seen is a groundglass masslike area in the superior segment of the left lower lobe measuring about 2.4 cm (8:93) A plaque-like density is seen in the left upper lobe running along the major fissure, similar in appearance to prior (8:144). A pleural-based right lower lobe opacity seen posterior medially measuring about 1.4 cm is unchanged (8:235). A 1.2 cm subpleural opacity is again noted in the left upper lobe, unchanged (8:285). There is a new smaller branching opacity seen in the right upper lobe (8:114-125). PLEURA: No pleural effusion or pneumothorax. MEDIASTINUM: Normal heart size. No pericardial effusion. No hilar or mediastinal lymphadenopathy. No evidence of septal bowing or right heart strain. CHEST WALL/AXILLA: No axillary or internal mammary lymphadenopathy. OSSEOUS STRUCTURES: No acute or suspicious osseous abnormality. UPPER ABDOMEN: Benign Bosniak class I 3.4 cm left renal cyst. Multiple hepatic hypodensities seen, none larger than a centimeter most of which measure fluid density and are all consistent with hepatic cysts. Abnormal FDG activity was not noted on the PET/CT in the abdomen or pelvis. There is partial visualization of atherosclerotic changes in the infrarenal aorta. No reflux of contrast into the hepatic veins to suggest elevated right heart pressures. CT/CT angio chest PE protocol IMPRESSION: 1. No evidence of pulmonary emboli. 2. Multiple lung opacities as described above, the majority of which are unchanged. A number of these sites were FDG avid on the prior PET/CT. There is a new branching opacity seen in the right upper lobe. VTE: negative
[2022-05-04 16:32] VITALS: BP 157/78; PULSE 54; PULSE 55; RESP 19; TEMP 37.1; O2SAT 100; O2SAT 99; BMI 20.7
--- NOTE | 2022-05-04 17:00 | ECG_ITS ---
Test Reason : dyspnea Blood Pressure : / mmHG Vent. Rate : 053 BPM Atrial Rate : 053 BPM P-R Int : 194 ms QRS Dur : 080 ms QT Int : 440 ms P-R-T Axes : 024 026 031 degrees QTc Int : 412 ms Sinus bradycardia Cannot rule out Anterior infarct (cited on or before 11-OCT-2018) Abnormal ECG When compared with ECG of 11-OCT-2018 12:40, No significant change was found Referred By: Sejal Coronado Electronically Signed By:CARRIE ZEE MD
--- NOTE | 2022-05-04 17:01 | ED.SOB ---
HPI - SOB/Dyspnea General Chief Complaint: Dyspnea Stated Complaint: INCR SOB, +COVID 2 DAYS Time Seen by Provider: 05/04/22 16:59 Source: patient and EMS Mode of arrival: EMS Limitations: no limitations History of Present Illness HPI Narrative: 71-year-old female with a history of severe emphysema on chronic steroids, with 30+ pack-year smoking history with PET+ pulmonary nodules and recent EBUS onm 04/20 for biopsy, HTN, HLD, osteoporosis, anxiety, back pain who presents to the ER from home via EMS for evaluation of shortness of breath and poor p.o. intake since she was diagnosed with COVID last week on 04/29. She was seen at [facility] last Wednesday, found to be COVID positive and was discharged with Annil of it. She completed the course of PACs elevated, although she was reporting adverse side effects she did complete the entire course. When she finished the medication she continued to feel even worse. Her breathing got worse this morning, mostly with minimal exertion she cannot catch her breath. She ultimately called 911. She arrives to the ER on 4 L of oxygen, saturating 100%. MD elicited complaint: shortness of breath and cough Pertinent past history: COPD Onset (ago): day(s) Context: recent illness Timing: constant and progressively worsening Severity: moderate Exacerbating factors: exertion and coughing Relieving factors: oxygen and rest Known history of: COPD Treatment prior to arrival: oxygen Related Data Home oxygen amount: none Previous Rx's Medication Instructions Recorded hydrochlorothiazide 25 mg tablet 25 mg PO DAILY #90 tabs 08/12/20 nadolol 40 mg tablet 40 mg PO DAILY #100 tabs 04/09/21 albuterol sulfate 2.5 mg/3 mL 2.5 mg (3 mL) inhalation Q4H PRN 08/06/21 (0.083 %) solution for nebulization bronchospasm 30 days #90 mL atorvastatin 10 mg tablet 10 mg PO DAILY #90 tabs 04/08/22 lorazepam 1 mg tablet 1 mg PO BID anxiety #60 tabs 04/13/22 azithromycin 250 mg tablet See Rx Instructions PO .COMPLEX #6 04/27/22 tabs prednisone 10 mg tablet 40 mg PO DAILY 5 days #20 tabs 04/27/22 Allergies Allergy/AdvReac Type Severity Reaction Status Date / Time Penicillins [PENICILLINS] Allergy Intermediate HIVES/ITCHI Verified 04/06/22 10:27 NG Review of Systems Review of Systems: Constitutional: No Fever, +Chills ENT/Mouth: No sore throat, No Rhinorrhea, No Swallowing Difficulty Eyes: No Eye Pain, No Swelling, No Redness Cardiovascular: No Chest Pain, + SOB, No Orthopnea, No Edema Respiratory: + Cough, No Sputum, + Wheezing, + dyspnea Gastrointestinal: +Nausea, No Vomiting, No Diarrhea, No abdominal Pain, Genitourinary: No Dysuria, No Urinary Frequency, No Hematuria Musculoskeletal: No joint pain, No Myalgias Skin: No Skin Lesions, No rash Neuro: + Weakness, No Numbness, No Dizziness, +Headache Psych: + Anxiety/Panic, No Depression Heme/Lymph: No Bruising, No Lymphadenopathy Endocrine: No Polyuria, No Polydipsia [facility] Past Medical History Medical History (Updated 05/04/22 @ 21:40 by KRISTOPHER Hill) Anxiety Back pain Family history of lung cancer Hyperlipidemia Hypertension Osteoporosis (~2017) Personal history of nicotine dependence Pseudogout (~2015) Surgical History (Updated 02/05/22 @ 13:04 by oMnserrat Drake PA-C) History of colonoscopy Family History Family History Father Lung cancer Mother Diabetes Renal failure Social History Social History Housing: House Alcohol intake: never Patient Tobacco Use Status: Never used Tobacco Tobacco use type: Cigarette Cigarettes Per Day: 10 e-Cigarette/Vaping Use: Never Used Second Hand Smoke Exposure: No Advance Directives: No Advance Directives Information Provided: No service: No Current occupational status: retired Current occupational exposures/hazards: No Cognitive needs: No Hearing needs: No Vision needs: Yes Physical Exam Vital Signs: Vital Signs: Last Vital Signs Temp 98.8 F 05/04/22 16:32 Pulse 51 05/04/22 18:32 Resp 16 05/04/22 18:32 BP 129/62 05/04/22 18:32 Pulse Ox 95 05/04/22 18:32 O2 Del Method 05/04/22 18:32 O2 Flow Rate 1 05/04/22 18:32 Oxygen Flow Rate 3 05/04/22 16:32 BMI result Body Mass Index 20.7 Appearance: Alert. Oriented X3. No acute distres, appears ill Eyes: Pupils equal, round and reactive to light. ENT: Pharynx normal. Neck: Normal inspection. Neck supple. CVS: Tachycardic, regular rhythm. Pulses normal. Respiratory: No respiratory distress. Breath sounds with R>L wheezes and coarseness. Abdomen: Soft and nontender. +BS x4 Skin: Skin warm and dry. Normal skin color. Normal skin turgor. No rashes. Extremities: No lower extremity edema. Neuro: Oriented X 3. global, generalized weakness, nonfocal. strength is equal and symmetrical throughout Course Course Course Narrative: 71-year-old female with history of severe emphysema, pulmonary nodules status post recent biopsy (neg for malignancy), active smoker who presents to the ER for evaluation of shortness of breath and dyspnea on exertion that acutely worsened today. She was diagnosed with COVID-19 on 04/29, completed course of Paxlovid despite its negative side effects. She writes the ER on 4 L nasal cannula with wheezing, coarse breath sounds, dyspneic with minimal exertion in the bed. Will get basic COVID workup, chest x-ray, treat with IV steroids and nebulizer treatment given her lung disease. Anticipate she will require admission to the hospital. Reevaluation(s) Reevaluation #1: D-dimer is greater than 1000. Will get CTA to rule out PE. She has a WBC count of 14 but was recently on prednisone. No bacterial infection suspected at this time. Patient is not septic. Procalitonin is low, doubt bacterial pneumonia. Labs show sodium 130, potassium 3.1. Likely mild hypokalemia, will give 1 L of IV fluids. Reevaluation #2: CTA is negative for PE. She remains on supplemental oxygen. She remains wheezy and coarse throughout the right lung greater than the left. She feels significantly weak and unwell. Will plan to admit the patient for COPD exacerbation and COVID-19 treatment. Patient is agreeable with plan. Medications Administered Discontinued Medications Generic Name Dose Route Start Last Admin Trade Name Freq PRN Reason Stop Dose Admin Albuterol/Ipratropium 3 ml 05/04/22 17:32 05/04/22 17:59 Albuterol/Iprat 2.5/0.5mg 3 Ml Ampul.Neb INHALE 05/04/22 17:33 3 ml ONCE ONE Administration Sodium Chloride 1,000 mls @ 999 mls/hr 05/04/22 18:45 05/04/22 18:51 Ns IVCONT 05/04/22 19:45 999 mls/hr .Q1H1M EREN Administration Iohexol 100 ml 05/04/22 19:56 05/04/22 19:57 Iohexol 350 Mg/Ml 100 Ml Infus..Btl IV 05/04/22 19:57 44 ml ONCE ONE Administration Methylprednisolone Sodium Succinate 125 mg 05/04/22 17:32 05/04/22 18:30 Methylprednisolone Sod Succ 125 Mg/2 Ml Vial IVPUSH 05/04/22 17:33 125 mg ONCE ONE Administration Potassium Chloride 40 meq 05/04/22 18:39 05/04/22 18:48 Potassium Chloride Er 20 Meq Tab.Er.Prt PO 05/04/22 18:40 40 meq ONCE ONE Administration MDM - SOB/Dyspnea Medical Records Attestation: I reviewed the patient's medical records. Lab Data Attestation: I reviewed the patient's lab results. Result diagrams: 05/04/22 17:54 05/04/22 17:54 Labs: Lab Results 05/04/22 05/04/22 05/04/22 Range/Units 17:54 17:54 17:54 WBC 14.0 H (4.8-10.8) X10*3/uL RBC 5.93 H (4.20-5.50) X10*6/uL Hgb 18.2 H (12.0-16.0) g/dl Hct 50.9 H (37.0-47.0) % MCV 85.8 (80.0-98.0) fL MCH 30.7 (27.0-33.0) pg MCHC 35.8 H (31.0-35.0) g/dl RDW 12.0 (11.0-16.0) % Plt Count 203 (160-400) X10*3/uL MPV 11.1 (9.4-12.3) fL Immature Gran % (Auto) 1.7 H (0.0-0.4) % Neut % (Auto) 69.4 (45-73) % Lymph % (Auto) 19.6 L (20-40) % [place] % (Auto) 8.5 (2-11) % Eos % (Auto) 0.6 (0-4) % Baso % (Auto) 0.2 (0-2) % Lymph # (Auto) 2.8 (1.2-4.9) X10*3/uL [place] # (Auto) 1.2 (0.1-1.2) X10*3/uL Eos # (Auto) 0.1 (0.0-0.4) X10*3/uL Baso # (Auto) 0.0 (0.0-0.2) X10*3/uL Abs Immat Gran (auto) 0.24 H (0.00-0.03) X10*3/uL Absolute Neuts (auto) 9.7 H (2.0-8.3) x10*3/uL Absolute Nucleated RBC 0.000 (0.0-0.012) X10*3/uL Nucleated RBC % (auto) 0.0 (0.0-0.2) /100WBC D-Dimer High Sensitivty NG/ML VBG pH (7.32-7.43) VBG pCO2 mmHg VBG pO2 mmHg VBG HCO3 (22-26) mmol/L VBG O2 Saturation % VBG Base Excess mmol/L Sodium 130 L (135-145) mmol/L Potassium 3.1 L (3.3-5.1) mmol/L Chloride 90 L (96-108) mmol/L Carbon Dioxide 25 (22-29) mmol/L Anion Gap 18 (12-20) BUN 20 H (9-16) mg/dL Creatinine 0.99 (0.5-1.4) mg/dL Estim Creat Clear Calc 46.6 Estimated GFR 55 Random Glucose 82 (60-115) mg/dL Calcium 9.0 D (8.4-10.2) mg/dL Magnesium 1.7 (1.6-2.6) mg/dL Ferritin (10-250) ng/mL Total Bilirubin 1.2 H (0.0-1.0) mg/dL Direct Bilirubin 0.4 (0.0-0.5) mg/dL AST 27 (5-31) U/L ALT 45 H (0-31) U/L Alkaline Phosphatase 73 D (39-117) U/L Lactate Dehydrogenase 229 H (122-220) U/L Troponin I High Sens 6.5 (<3.5-17.0) ng/L C-Reactive Protein 0.08 (< or = 0.50) mg/dL B-Natriuretic Peptide (<100) pg/mL Total Protein 7.3 (6.5-8.0) g/dL Albumin 4.5 (3.5-5.0) g/dL Procalcitonin ng/mL Urine Color Urine Appearance Urine pH (5.0-9.0) Ur Specific [place]rill (1.005-1.025) Urine Protein (Neg-Trace) mg/dL Urine Glucose (UA) (Negative) mg/dL Urine Ketones (Negative) mg/dL Urine Blood (Negative) Urine Nitrite (Negative) Ur Leukocyte Esterase (Negative) Urine RBC (0-2) /HPF Urine WBC (0-5) /HPF Ur Squamous Epith Cells (0-2) /HPF Urine Bacteria (None Seen) Hyaline Casts (0-2) /LPF COVID-19 (MATTHEW) (Negative) COVID-19 Clin Com 05/04/22 05/04/22 05/04/22 Range/Units 17:54 17:54 17:54 WBC (4.8-10.8) X10*3/uL RBC (4.20-5.50) X10*6/uL Hgb (12.0-16.0) g/dl Hct (37.0-47.0) % MCV (80.0-98.0) fL MCH (27.0-33.0) pg MCHC (31.0-35.0) g/dl RDW (11.0-16.0) % Plt Count (160-400) X10*3/uL MPV (9.4-12.3) fL Immature Gran % (Auto) (0.0-0.4) % Neut % (Auto) (45-73) % Lymph % (Auto) (20-40) % [place] % (Auto) (2-11) % Eos % (Auto) (0-4) % Baso % (Auto) (0-2) % Lymph # (Auto) (1.2-4.9) X10*3/uL [place] # (Auto) (0.1-1.2) X10*3/uL Eos # (Auto) (0.0-0.4) X10*3/uL Baso # (Auto) (0.0-0.2) X10*3/uL Abs Immat Gran (auto) (0.00-0.03) X10*3/uL Absolute Neuts (auto) (2.0-8.3) x10*3/uL Absolute Nucleated RBC (0.0-0.012) X10*3/uL Nucleated RBC % (auto) (0.0-0.2) /100WBC D-Dimer High Sensitivty 1009 NG/ML VBG pH (7.32-7.43) VBG pCO2 mmHg VBG pO2 mmHg VBG HCO3 (22-26) mmol/L VBG O2 Saturation % VBG Base Excess mmol/L Sodium (135-145) mmol/L Potassium (3.3-5.1) mmol/L Chloride (96-108) mmol/L Carbon Dioxide (22-29) mmol/L Anion Gap (12-20) BUN (9-16) mg/dL Creatinine (0.5-1.4) mg/dL Estim Creat Clear Calc Estimated GFR Random Glucose (60-115) mg/dL Calcium (8.4-10.2) mg/dL Magnesium (1.6-2.6) mg/dL Ferritin 525 H (10-250) ng/mL Total Bilirubin (0.0-1.0) mg/dL Direct Bilirubin (0.0-0.5) mg/dL AST (5-31) U/L ALT (0-31) U/L Alkaline Phosphatase (39-117) U/L Lactate Dehydrogenase (122-220) U/L Troponin I High Sens (<3.5-17.0) ng/L C-Reactive Protein (< or = 0.50) mg/dL B-Natriuretic Peptide 50 (<100) pg/mL Total Protein (6.5-8.0) g/dL Albumin (3.5-5.0) g/dL Procalcitonin ng/mL Urine Color Urine Appearance Urine pH (5.0-9.0) Ur Specific [place] (1.005-1.025) Urine Protein (Neg-Trace) mg/dL Urine Glucose (UA) (Negative) mg/dL Urine Ketones (Negative) mg/dL Urine Blood (Negative) Urine Nitrite (Negative) Ur Leukocyte Esterase (Negative) Urine RBC (0-2) /HPF Urine WBC (0-5) /HPF Ur Squamous Epith Cells (0-2) /HPF Urine Bacteria (None Seen) Hyaline Casts (0-2) /LPF COVID-19 (MATTHEW) (Negative) COVID-19 Clin Com 05/04/22 05/04/22 05/04/22 Range/Units 17:54 17:54 17:56 WBC (4.8-10.8) X10*3/uL RBC (4.20-5.50) X10*6/uL Hgb (12.0-16.0) g/dl Hct (37.0-47.0) % MCV (80.0-98.0) fL MCH (27.0-33.0) pg MCHC (31.0-35.0) g/dl RDW (11.0-16.0) % Plt Count (160-400) X10*3/uL MPV (9.4-12.3) fL Immature Gran % (Auto) (0.0-0.4) % Neut % (Auto) (45-73) % Lymph % (Auto) (20-40) % [place] % (Auto) (2-11) % Eos % (Auto) (0-4) % Baso % (Auto) (0-2) % Lymph # (Auto) (1.2-4.9) X10*3/uL [place] # (Auto) (0.1-1.2) X10*3/uL Eos # (Auto) (0.0-0.4) X10*3/uL Baso # (Auto) (0.0-0.2) X10*3/uL Abs Immat Gran (auto) (0.00-0.03) X10*3/uL Absolute Neuts (auto) (2.0-8.3) x10*3/uL Absolute Nucleated RBC (0.0-0.012) X10*3/uL Nucleated RBC % (auto) (0.0-0.2) /100WBC D-Dimer High Sensitivty NG/ML VBG pH (7.32-7.43) VBG pCO2 mmHg VBG pO2 mmHg VBG HCO3 (22-26) mmol/L VBG O2 Saturation % VBG Base Excess mmol/L Sodium (135-145) mmol/L Potassium (3.3-5.1) mmol/L Chloride (96-108) mmol/L Carbon Dioxide (22-29) mmol/L Anion Gap (12-20) BUN (9-16) mg/dL Creatinine (0.5-1.4) mg/dL Estim Creat Clear Calc Estimated GFR Random Glucose (60-115) mg/dL Calcium (8.4-10.2) mg/dL Magnesium (1.6-2.6) mg/dL Ferritin (10-250) ng/mL Total Bilirubin (0.0-1.0) mg/dL Direct Bilirubin (0.0-0.5) mg/dL AST (5-31) U/L ALT (0-31) U/L Alkaline Phosphatase (39-117) U/L Lactate Dehydrogenase (122-220) U/L Troponin I High Sens (<3.5-17.0) ng/L C-Reactive Protein (< or = 0.50) mg/dL B-Natriuretic Peptide (<100) pg/mL Total Protein (6.5-8.0) g/dL Albumin (3.5-5.0) g/dL Procalcitonin 0.02 ng/mL Urine Color Yellow Urine Appearance Clear Urine pH 7.5 (5.0-9.0) Ur Specific [place] 1.010 (1.005-1.025) Urine Protein Negative (Neg-Trace) mg/dL Urine Glucose (UA) Negative (Negative) mg/dL Urine Ketones Negative (Negative) mg/dL Urine Blood Negative (Negative) Urine Nitrite Negative (Negative) Ur Leukocyte Esterase Small (1+) H (Negative) Urine RBC 0-2 (0-2) /HPF Urine WBC 6-10 (0-5) /HPF Ur Squamous Epith Cells 6-10 (0-2) /HPF Urine Bacteria 1+ (None Seen) Hyaline Casts 0-2 (0-2) /LPF COVID-19 (MATTHEW) Positive A (Negative) COVID-19 Clin Com See Note 05/04/22 Range/Units 18:14 WBC (4.8-10.8) X10*3/uL RBC (4.20-5.50) X10*6/uL Hgb (12.0-16.0) g/dl Hct (37.0-47.0) % MCV (80.0-98.0) fL MCH (27.0-33.0) pg MCHC (31.0-35.0) g/dl RDW (11.0-16.0) % Plt Count (160-400) X10*3/uL MPV (9.4-12.3) fL Immature Gran % (Auto) (0.0-0.4) % Neut % (Auto) (45-73) % Lymph % (Auto) (20-40) % [place] % (Auto) (2-11) % Eos % (Auto) (0-4) % Baso % (Auto) (0-2) % Lymph # (Auto) (1.2-4.9) X10*3/uL [place] # (Auto) (0.1-1.2) X10*3/uL Eos # (Auto) (0.0-0.4) X10*3/uL Baso # (Auto) (0.0-0.2) X10*3/uL Abs Immat Gran (auto) (0.00-0.03) X10*3/uL Absolute Neuts (auto) (2.0-8.3) x10*3/uL Absolute Nucleated RBC (0.0-0.012) X10*3/uL Nucleated RBC % (auto) (0.0-0.2) /100WBC D-Dimer High Sensitivty NG/ML VBG pH 7.40 (7.32-7.43) VBG pCO2 54 mmHg VBG pO2 47 mmHg VBG HCO3 34 H (22-26) mmol/L VBG O2 Saturation 73.0 % VBG Base Excess 7.5 mmol/L Sodium (135-145) mmol/L Potassium (3.3-5.1) mmol/L Chloride (96-108) mmol/L Carbon Dioxide (22-29) mmol/L Anion Gap (12-20) BUN (9-16) mg/dL Creatinine (0.5-1.4) mg/dL Estim Creat Clear Calc Estimated GFR Random Glucose (60-115) mg/dL Calcium (8.4-10.2) mg/dL Magnesium (1.6-2.6) mg/dL Ferritin (10-250) ng/mL Total Bilirubin (0.0-1.0) mg/dL Direct Bilirubin (0.0-0.5) mg/dL AST (5-31) U/L ALT (0-31) U/L Alkaline Phosphatase (39-117) U/L Lactate Dehydrogenase (122-220) U/L Troponin I High Sens (<3.5-17.0) ng/L C-Reactive Protein (< or = 0.50) mg/dL B-Natriuretic Peptide (<100) pg/mL Total Protein (6.5-8.0) g/dL Albumin (3.5-5.0) g/dL Procalcitonin ng/mL Urine Color Urine Appearance Urine pH (5.0-9.0) Ur Specific [place] (1.005-1.025) Urine Protein (Neg-Trace) mg/dL Urine Glucose (UA) (Negative) mg/dL Urine Ketones (Negative) mg/dL Urine Blood (Negative) Urine Nitrite (Negative) Ur Leukocyte Esterase (Negative) Urine RBC (0-2) /HPF Urine WBC (0-5) /HPF Ur Squamous Epith Cells (0-2) /HPF Urine Bacteria (None Seen) Hyaline Casts (0-2) /LPF COVID-19 (MATTHEW) (Negative) COVID-19 Clin Com ECG Data Attestation: I personally reviewed and interpreted this ECG as follows: ECG interpretation date: 05/04/22 ECG interpretation time: 21:40 Prior ECG tracings: available for review Interpretation: Sinus bradycardia, ventricular rate 53 beats per minute, artifact present. Normal CT interval, no ST segment elevations or depressions. No significant change from 2019. Critical Care Time Critical Care Time Critical Care Time: Yes Total Critical Care Time: 36 Attestation: I have personally provided critical care time exclusive of time spent on separately billable procedures. Time includes review of lab data, radiology results, discussion with consultants, and monitoring for potential decompensation. Intervention performed as documented. Discharge Plan Discharge Clinical Impression: COVID-19, Acute hypokalemia, Weakness, COPD exacerbation Patient Disposition: Admitted As Inpatient
[2022-05-04] MEDS: Albuterol/Iprat 2.5/0.5MG 3 ML AMPUL.NEB INHALE (17:59)
[2022-05-04 18:00] VITALS: PULSE 54; RESP 18; O2SAT 96
[2022-05-04 18:06] LABS: MANUAL DIFF FLAG NO
[2022-05-04 18:13] LABS: Basophils Percent Auto 0.2 % (0-2); Eosinophils Absolute Auto 0.1 X10*3/uL (0.0-0.4); Eosinophils Percent Auto 0.6 % (0-4); Hematocrit 50.9 % (37.0-47.0); Hemoglobin 18.2 g/dl (12.0-16.0); Imm Gran Abs Auto 0.24 X10*3/uL (0.00-0.03); Imm Gran Pct Auto 1.7 % (0.0-0.4); Lymphocytes Absolute Auto 2.8 X10*3/uL (1.2-4.9); Lymphocytes Percent Auto 19.6 % (20-40); Mean Corpuscular HGB Conc 35.8 g/dl (31.0-35.0); Mean Corpuscular Hemoglobin 30.7 pg (27.0-33.0); Mean Corpuscular Volume 85.8 fL (80.0-98.0); Mean Platelet Volume 11.1 fL (9.4-12.3); Monocytes Absolute Auto 1.2 X10*3/uL (0.1-1.2); Monocytes Percent Auto 8.5 % (2-11); Neutrophils Absolute Auto 9.7 x10*3/uL (2.0-8.3); Neutrophils Percent Auto 69.4 % (45-73); Platelet Count 203 X10*3/uL (160-400); Red Blood Count 5.93 X10*6/uL (4.20-5.50)
[2022-05-04 18:19] LABS: Venous Blood Gas Refer to POC result
[2022-05-04 18:20] LABS: VBG Base Excess 7.5 mmol/L; VBG HCO3 34 mmol/L (22-26); VBG pCO2 54 mmHg; VBG pO2 47 mmHg
[2022-05-04 18:24] LABS: D Dimer High Sensitivity 1009 NG/ML
[2022-05-04 18:27] LABS: COVID-19 Test Positive (Negative); IDNOW Serial# BCCEAD1C
[2022-05-04 18:29] LABS: Alanine Aminotransferase 45 U/L (0-31); Albumin Level 4.5 g/dL (3.5-5.0); Alkaline Phosphatase 73 U/L (39-117); Anion Gap 18 (12-20); Aspartate Amino Transferase 27 U/L (5-31); Bilirubin Direct 0.4 mg/dL (0.0-0.5); Bilirubin Total 1.2 mg/dL (0.0-1.0); Blood Urea Nitrogen 20 mg/dL (9-16); C Reactive Protein 0.08 mg/dL (< or = 0.50); Carbon Dioxide 25 mmol/L (22-29); Chloride 90 mmol/L (96-108); Creatinine Clr Calc Pharmacy 46.6; Estimated Glomerular Filt Rate 55; Glucose Random 82 mg/dL (60-115); Lactate Dehydrogenase 229 U/L (122-220); Magnesium 1.7 mg/dL (1.6-2.6); Potassium 3.1 mmol/L (3.3-5.1); Sodium 130 mmol/L (135-145); Total Protein 7.3 g/dL (6.5-8.0)
[2022-05-04] MEDS: methylPREDNISolone Sod Succ 125 MG/2 ML VIAL IVPUSH (18:30)
[2022-05-04 18:32] VITALS: BP 129/62; PULSE 51; RESP 16; O2SAT 95
[2022-05-04 18:34] LABS: B Type Natriuretic Peptide 50 pg/mL (<100); Troponin-I High Sensitivity 6.5 ng/L (<3.5-17.0)
[2022-05-04 18:43] LABS: Appearance Urine Clear; Color Urine Yellow; Glucose Urine UA Negative (Negative); Leukocyte Esterase Urine Small (1+) (Negative); Nitrite Urine Negative (Negative); PH 7.5 (5.0-9.0); UMIC TRIGGER UACC YES; Urine Blood Negative (Negative); Urine Ketones Negative (Negative); Urine Protein Negative (Neg-Trace)
[2022-05-04 18:48] LABS: Procalcitonin 0.02 ng/mL
[2022-05-04] MEDS: Potassium Chloride ER 20 MEQ TAB.ER.PRT 40 MEQ PO (18:48)
[2022-05-04 18:49] LABS: Ferritin 525 ng/mL (10-250)
[2022-05-04] MEDS: 0.9 % Sodium Chloride 1,000 ML 999 ML IVCONT (18:51)
[2022-05-04 19:02] LABS: Bacteria Urine 1+ (None Seen); RBC Urine 0-2 /HPF (0-2); UACC Culture Trigger YES
[2022-05-04 19:03] LABS: Hyaline Casts Urine 0-2 /LPF (0-2)
[2022-05-04] MEDS: iohexoL 350 MG/ML 100 ML INFUS..BTL IV (19:57)
--- NOTE | 2022-05-04 21:51 | PM.IMHP ---
History of Present Illness Date of Service: 05/05/22 Chief Complaint: Shortness of breath This is a 71-year-old female with past medical history of COPD severe emphysema chronic steroids, lifelong smoker, history pulmonary nodules and recent E BUN is around 1031 for biopsy, HTN, HLD, osteoporosis, anxiety, back pain who presents to the ER with complaints of shortness of breath. She reports that she was seen at an outside hospital on 04/29 and diagnosed with COVID. She is unvaccinated. She was discharged on Paxlovid but reports her symptoms have remained. She is generally weak, has poor oral intake, has a cough with some sputum production, denies any fever or chills. She is short of breath with minimal exertion. Denies any orthopnea or PND, no lower extremity edema. Patient denies any chest pain, no abdominal pain nausea or vomiting, no diarrhea constipation, no urinary symptoms and no lower extremity edema Vitals are arrival unremarkable, patient is satting 100% on 3 L of oxygen. Oxygen was placed for comfort. No evidence of hypoxia Labs are significant for WBC count of 14, hemoglobin of 18.2, hematocrit 50.9, her pH of 7.40, sodium of 130, potassium of 3.1, chloride of 90, UA positive for small amount of leukocyte Estrace, COVID-[address] angiogram is negative for PE, shows multiple lung opacities Review of Systems Review of Systems: Yes all other systems are reviewed and are negative [facility] Medical History Anxiety Back pain Family history of lung cancer Hyperlipidemia Hypertension Osteoporosis (~2017) Personal history of nicotine dependence Pseudogout (~2016) Family History Father Lung cancer Mother Diabetes Renal failure Surgical History History of colonoscopy Social History (Updated 05/05/22 @ 05:55 by Mars Sanchez MD) Housing: House Alcohol intake: never Patient Tobacco Use Status: Current everyday Tobacco user Tobacco use type: Cigarette Cigarettes Per Day: 10 e-Cigarette/Vaping Use: Never Used Second Hand Smoke Exposure: No Advance Directives: No Advance Directives Information Provided: No service: No Current occupational status: retired Current occupational exposures/hazards: No Cognitive needs: No Hearing needs: No Vision needs: Yes Meds Allergies Allergy/AdvReac Type Severity Reaction Status Date / Time Penicillins [PENICILLINS] Allergy Intermediate HIVES/ITCHI Verified 04/06/22 10:27 NG Active Medications: Current Medications Doxycycline Hyclate 100 mg/ (Sodium Chloride) 250 mls @ 166.67 mls/hr IV ONCE ONE Stop: 05/04/22 22:22 Physical Exam Vital Signs and Narrative: Vital Signs: Last Vital Signs Temp 98.8 F 05/04/22 16:32 Pulse 51 05/04/22 18:32 Resp 16 05/04/22 18:32 BP 129/62 05/04/22 18:32 Pulse Ox 95 05/04/22 18:32 O2 Del Method 05/04/22 18:32 O2 Flow Rate 1 05/04/22 18:32 Oxygen Flow Rate 3 05/04/22 16:32 BMI result Body Mass Index 20.7 Const: Other: Patient lower to oriented, slightly rude, General: cooperative and no acute distress Orientation/consciousness: patient oriented x3 Eyes: General: appearance normal, both eyes and all related structures Resp: Other: Crackles bilaterally Effort & Inspection: normal respiratory effort Cardio: Rate: regular rate Rhythm: regular rhythm GI: Palpation (GI): Soft to palpation Auscultation: normal bowel sounds Skin: General skin exam: no rashes or lesions noted Neuro: General: patient oriented x3 Cognition (Neuro): normal cognition Extrem: General: Yes normal to inspection and Yes no pedal edema Results Labs CBC and Chem 7: 05/05/22 05:32 05/04/22 17:54 Labs: Laboratory Results - last 24 hr 05/04/22 05/04/22 05/04/22 17:54 17:54 17:54 MCV 85.8 MCH 30.7 MCHC 35.8 H RDW 12.0 Plt Count 203 MPV 11.1 Immature Gran % (Auto) 1.7 H Neut % (Auto) 69.4 Lymph % (Auto) 19.6 L [place] % (Auto) 8.5 Eos % (Auto) 0.6 Baso % (Auto) 0.2 Lymph # (Auto) 2.8 [place] # (Auto) 1.2 Eos # (Auto) 0.1 Baso # (Auto) 0.0 Abs Immat Gran (auto) 0.24 H Absolute Neuts (auto) 9.7 H Absolute Nucleated RBC 0.000 Nucleated RBC % (auto) 0.0 D-Dimer High Sensitivty VBG pH VBG pCO2 VBG pO2 VBG HCO3 VBG O2 Saturation VBG Base Excess Anion Gap 18 Estim Creat Clear Calc 46.6 Estimated GFR 55 Random Glucose 82 Calcium 9.0 D Magnesium 1.7 Ferritin Total Bilirubin 1.2 H Direct Bilirubin 0.4 AST 27 ALT 45 H Alkaline Phosphatase 73 D Lactate Dehydrogenase 229 H Troponin I High Sens 6.5 C-Reactive Protein 0.08 B-Natriuretic Peptide Total Protein 7.3 Albumin 4.5 Procalcitonin Urine Color Urine Appearance Urine pH Ur Specific [place] Urine Protein Urine Glucose (UA) Urine Ketones Urine Blood Urine Nitrite Ur Leukocyte Esterase Urine RBC Urine WBC Ur Squamous Epith Cells Urine Bacteria Hyaline Casts COVID-19 (MATTHEW) COVID-19 Clin Com 05/04/22 05/04/22 05/04/22 17:54 17:54 17:54 MCV MCH MCHC RDW Plt Count MPV Immature Gran % (Auto) Neut % (Auto) Lymph % (Auto) [place] % (Auto) Eos % (Auto) Baso % (Auto) Lymph # (Auto) [place] # (Auto) Eos # (Auto) Baso # (Auto) Abs Immat Gran (auto) Absolute Neuts (auto) Absolute Nucleated RBC Nucleated RBC % (auto) D-Dimer High Sensitivty 1009 VBG pH VBG pCO2 VBG pO2 VBG HCO3 VBG O2 Saturation VBG Base Excess Anion Gap Estim Creat Clear Calc Estimated GFR Random Glucose Calcium Magnesium Ferritin 525 H Total Bilirubin Direct Bilirubin AST ALT Alkaline Phosphatase Lactate Dehydrogenase Troponin I High Sens C-Reactive Protein B-Natriuretic Peptide 50 Total Protein Albumin Procalcitonin Urine Color Urine Appearance Urine pH Ur Specific [place] Urine Protein Urine Glucose (UA) Urine Ketones Urine Blood Urine Nitrite Ur Leukocyte Esterase Urine RBC Urine WBC Ur Squamous Epith Cells Urine Bacteria Hyaline Casts COVID-19 (MATTHEW) COVID-19 Clin Com 05/04/22 05/04/22 05/04/22 17:54 17:54 17:56 MCV MCH MCHC RDW Plt Count MPV Immature Gran % (Auto) Neut % (Auto) Lymph % (Auto) [place] % (Auto) Eos % (Auto) Baso % (Auto) Lymph # (Auto) [place] # (Auto) Eos # (Auto) Baso # (Auto) Abs Immat Gran (auto) Absolute Neuts (auto) Absolute Nucleated RBC Nucleated RBC % (auto) D-Dimer High Sensitivty VBG pH VBG pCO2 VBG pO2 VBG HCO3 VBG O2 Saturation VBG Base Excess Anion Gap Estim Creat Clear Calc Estimated GFR Random Glucose Calcium Magnesium Ferritin Total Bilirubin Direct Bilirubin AST ALT Alkaline Phosphatase Lactate Dehydrogenase Troponin I High Sens C-Reactive Protein B-Natriuretic Peptide Total Protein Albumin Procalcitonin 0.02 Urine Color Yellow Urine Appearance Clear Urine pH 7.5 Ur Specific [place] 1.010 Urine Protein Negative Urine Glucose (UA) Negative Urine Ketones Negative Urine Blood Negative Urine Nitrite Negative Ur Leukocyte Esterase Small (1+) H Urine RBC 0-2 Urine WBC 6-10 Ur Squamous Epith Cells 6-10 Urine Bacteria 1+ Hyaline Casts 0-2 COVID-19 (MATTHEW) Positive A COVID-19 Clin Com See Note 05/04/22 18:14 MCV MCH MCHC RDW Plt Count MPV Immature Gran % (Auto) Neut % (Auto) Lymph % (Auto) [place] % (Auto) Eos % (Auto) Baso % (Auto) Lymph # (Auto) [place] # (Auto) Eos # (Auto) Baso # (Auto) Abs Immat Gran (auto) Absolute Neuts (auto) Absolute Nucleated RBC Nucleated RBC % (auto) D-Dimer High Sensitivty VBG pH 7.40 VBG pCO2 54 VBG pO2 47 VBG HCO3 34 H VBG O2 Saturation 73.0 VBG Base Excess 7.5 Anion Gap Estim Creat Clear Calc Estimated GFR Random Glucose Calcium Magnesium Ferritin Total Bilirubin Direct Bilirubin AST ALT Alkaline Phosphatase Lactate Dehydrogenase Troponin I High Sens C-Reactive Protein B-Natriuretic Peptide Total Protein Albumin Procalcitonin Urine Color Urine Appearance Urine pH Ur Specific [place] Urine Protein Urine Glucose (UA) Urine Ketones Urine Blood Urine Nitrite Ur Leukocyte Esterase Urine RBC Urine WBC Ur Squamous Epith Cells Urine Bacteria Hyaline Casts COVID-19 (MATTHEW) COVID-19 Clin Com Imaging Radiologist's Impressions: Impressions Chest X-Ray 05/04/22 18:40 IMPRESSION: 1. No acute intrathoracic disease. 2. Multiple mass lesions seen previously not well identified on the current study. There is one area of increased density seen in the left mid to upper lobe. Chest CTA 05/04/22 19:57 IMPRESSION: 1. No evidence of pulmonary emboli. 2. Multiple lung opacities as described above, the majority of which are unchanged. A number of these sites were FDG avid on the prior PET/CT. There is a new branching opacity seen in the right upper lobe. VTE: negative Assessment and Plan (1) Pneumonia due to COVID-19 virus: Status: Acute (2) COPD exacerbation: Status: Acute (3) Weakness: Status: Acute (4) Acute hypokalemia: Status: Acute Plan 71-year-old male with past medical history of COPD presents to the hospital with complaints of shortness of breath, cough, and recently diagnosed COVID-19 infection # acute COPD exacerbation - secondary to COVID-19 infection - evidence of infiltrates on chest x-ray - has cough, dyspnea, sputum production - will treat with Solu-Medrol, DuoNeb p.r.n. as well as scheduled - monitor respiratory status # COVID-19 infection - unvaccinated - status post Paxlovid - treat underlying COPD - steroids - monitor oxygen requirement # weakness - likely secondary to COVID-19 infection - consider PT prior to discharge # acute hyperkalemia - repleted - follow BMP # hypertension - stable - continue antihypertensive DVT ppx: lovenox Given COPD exacerbation and requirement for steroids and scheduled breathing treatment patient required minimum 2 night inpatient hospital stay Quality Stroke Does the patient have a stroke diagnosis?: No VTE Prior VTE?: No VTE Risk Level:: Medical - moderate - high VTE Device Contraindication: Treatment Not Indicated VTE Drug Contraindication: N/A - Med Ordered
[2022-05-04 21:59] LABS: Lactic Acid 0.9 mmol/L (0.5-2.0)
[2022-05-04] MEDS: LORazepam 1 MG TABLET PO (22:20)
[2022-05-04] MEDS: Doxycycline Hyclate 100 MG in 0.9 % Sodium Chloride 250 ML 166.67 MG IV (22:20)
[2022-05-04] MEDS: Nicotine 21 MG PATCH.TD24 TRANSDERMA (22:20)
[2022-05-04 22:47] VITALS: BP 123/60; PULSE 52; RESP 18; O2SAT 95
[2022-05-05] VITALS (11 sets, daily range): BP systolic 98–160; BP diastolic 51–71; PULSE 51–60; RESP 14–20; TEMP 36.1–36.7; O2SAT 93–96; BMI 20.7
[2022-05-05] MEDS: Zolpidem Tartrate 5 MG TABLET PO ×2 (02:32→22:25)
[2022-05-05] MEDS: Enoxaparin Sodium 40 MG/0.4 ML SYRINGE SUBCUT ×2 (02:32→22:25)
[2022-05-05] MEDS: methylPREDNISolone Sod Succ 40 MG/ML VIAL IVPUSH ×2 (05:31→17:09)
[2022-05-05 05:37] LABS: Basophils Percent Auto 0.1 % (0-2); Hematocrit 47.7 % (37.0-47.0); Hemoglobin 16.8 g/dl (12.0-16.0); Imm Gran Abs Auto 0.17 X10*3/uL (0.00-0.03); Imm Gran Pct Auto 2.2 % (0.0-0.4); Lymphocytes Absolute Auto 0.8 X10*3/uL (1.2-4.9); Lymphocytes Percent Auto 10.3 % (20-40); MANUAL DIFF FLAG NO; Mean Corpuscular HGB Conc 35.2 g/dl (31.0-35.0); Mean Corpuscular Hemoglobin 30.4 pg (27.0-33.0); Mean Corpuscular Volume 86.4 fL (80.0-98.0); Mean Platelet Volume 10.3 fL (9.4-12.3); Monocytes Absolute Auto 0.1 X10*3/uL (0.1-1.2); Monocytes Percent Auto 1.2 % (2-11); Neutrophils Absolute Auto 6.5 x10*3/uL (2.0-8.3); Neutrophils Percent Auto 86.2 % (45-73); Platelet Count 183 X10*3/uL (160-400); Red Blood Count 5.52 X10*6/uL (4.20-5.50); Red Cell Distribution Width 12.1 % (11.0-16.0); White Blood Count 7.6 X10*3/uL (4.8-10.8)
[2022-05-05 06:01] LABS: Anion Gap 16 (12-20); Blood Urea Nitrogen 17 mg/dL (9-16); Calcium 8.1 mg/dL (8.4-10.2); Carbon Dioxide 23 mmol/L (22-29); Chloride 97 mmol/L (96-108); Creatinine Clr Calc Pharmacy 57.7; Estimated Glomerular Filt Rate > 60; Glucose Random 142 mg/dL (60-115); Potassium 3.2 mmol/L (3.3-5.1); Sodium 133 mmol/L (135-145)
--- NOTE | 2022-05-05 06:13 | PC.NURSE ---
pt is resting comfortably
--- NOTE | 2022-05-05 07:10 | PHA.MEDREC ---
Pharmacy Consult ? Medication Reconciliation Pharmacy has reviewed the medication reconciliation done by
[2022-05-05] MEDS: 0.9 % Sodium Chloride Flush 3 ML SYRINGE IVFLUSH ×3 (07:36→23:38)
--- NOTE | 2022-05-05 09:49 | PC.NURSE ---
patient a&ox3, oob independently to bedside commode, [employer] school biology teacher nsr 70s, currently denying pain/discomfort, call mcgill within reach, will continue to monitor
[2022-05-05] MEDS: Potassium Chloride Packet 20 MEQ PACKET 40 MEQ PO (11:26)
--- NOTE | 2022-05-05 11:33 | MHC.CM.PN ---
Patient is covid (+); CM spoke with her over the phone at Ext. [phone] and addressed IMM with her. Patient lives alone in a house and she required no services nor [employer]. Home, self care is her goal and CM has initiated and will follow for dc planning. Patient's Son will provide transportation to home. PCP is Dr. Andriy Sherwood and Patient has received no Covid vax.
[2022-05-05] MEDS: Albuterol/Iprat 2.5/0.5MG 3 ML AMPUL.NEB INHALE ×3 (11:36→20:35)
--- NOTE | 2022-05-05 16:32 | P.PNIM_ITS ---
Subjective Subjective Date of Service: 05/05/22 Interval History: acute COPD exacerbation Review of Systems still Shortness of breath,hypokalemia denies any chest pain or abdominal abdominal pain or nausea vomiting Physical Exam Vital Signs: Vital Signs: Last Vital Signs Temp 97.8 F 05/05/22 15:01 Pulse 55 05/05/22 15:30 Resp 20 05/05/22 15:30 BP 160/71 H 05/05/22 15:01 Pulse Ox 94 05/05/22 15:01 O2 Del Method 05/05/22 15:01 O2 Flow Rate 2 05/05/22 06:11 Oxygen Flow Rate 3 05/04/22 16:32 BMI result Body Mass Index 20.7 Appearance: Alert.? Oriented X3.? still sob with minimum excersion cvs: rrr, [id number] , no murmur res: clear to auscultation ,no rhonchii or wheezing abd: no rebound or guarding ,nt, bs present. ext pulses present , no cyanosis . neuro: axo3 , nonfocal. Objective Data Active Medications Acetaminophen (Acetaminophen 325 Mg Tablet) 650 mg PO Q6H PRN PRN Reason: Pain, Mild (Pain Scale 1-3) Albuterol/Ipratropium (Albuterol/Iprat 2.5/0.5mg 3 Ml Ampul.Neb) 3 ml INHALE RQ4H PRN PRN Reason: Shortness of Breath/Wheezing Albuterol/Ipratropium (Albuterol/Iprat 2.5/0.5mg 3 Ml Ampul.Neb) 3 ml INHALE RQ4H WHILE AWAKE [facility] Last Admin: 05/05/22 15:30 Dose: 3 ml Documented By: TYSON Docusate Sodium (Docusate Sodium 100 Mg Capsule) 100 mg PO DAILY PRN PRN Reason: Constipation Enoxaparin Sodium (Enoxaparin Sodium 40 Mg/0.4 Ml Syringe) 40 mg SUBCUT Q24H [facility] Last Admin: 05/05/22 02:32 Dose: 40 mg Documented By: LENARD Methylprednisolone Sodium Succinate (Methylprednisolone Sod Succ 40 Mg/Ml Vial) 40 mg IVPUSH Q12H [facility] Last Admin: 05/05/22 05:31 Dose: 40 mg Documented By: LENARD Ondansetron HCl (Ondansetron Hcl 4 Mg/2 Ml Vial) 4 mg IVPUSH Q8H PRN PRN Reason: Nausea and Vomiting Sodium Chloride (0.9 % Sodium Chloride Flush 3 Ml Syringe) 3 ml IVFLUSH QSHIFT [facility] Last Admin: 05/05/22 07:36 Dose: 3 ml Documented By: DAPHNEY Labs CBC & Chem 7: 05/05/22 05:32 05/05/22 05:32 Labs: Laboratory Results - last 24 hr 05/04/22 05/04/22 05/04/22 17:54 17:54 17:54 MCV 85.8 MCH 30.7 MCHC 35.8 H RDW 12.0 Plt Count 203 MPV 11.1 Immature Gran % (Auto) 1.7 H Neut % (Auto) 69.4 Lymph % (Auto) 19.6 L [place] % (Auto) 8.5 Eos % (Auto) 0.6 Baso % (Auto) 0.2 Lymph # (Auto) 2.8 [place] # (Auto) 1.2 Eos # (Auto) 0.1 Baso # (Auto) 0.0 Abs Immat Gran (auto) 0.24 H Absolute Neuts (auto) 9.7 H Absolute Nucleated RBC 0.000 Nucleated RBC % (auto) 0.0 D-Dimer High Sensitivty VBG pH VBG pCO2 VBG pO2 VBG HCO3 VBG O2 Saturation VBG Base Excess Anion Gap 18 Estim Creat Clear Calc 46.6 Estimated GFR 55 Random Glucose 82 Lactic Acid Calcium 9.0 D Magnesium 1.7 Ferritin Total Bilirubin 1.2 H Direct Bilirubin 0.4 AST 27 ALT 45 H Alkaline Phosphatase 73 D Lactate Dehydrogenase 229 H Troponin I High Sens 6.5 C-Reactive Protein 0.08 B-Natriuretic Peptide Total Protein 7.3 Albumin 4.5 Procalcitonin Urine Color Urine Appearance Urine pH Ur Specific [place] Urine Protein Urine Glucose (UA) Urine Ketones Urine Blood Urine Nitrite Ur Leukocyte Esterase Urine RBC Urine WBC Ur Squamous Epith Cells Urine Bacteria Hyaline Casts COVID-19 (MATTHEW) COVID-19 Clin Com 05/04/22 05/04/22 05/04/22 17:54 17:54 17:54 MCV MCH MCHC RDW Plt Count MPV Immature Gran % (Auto) Neut % (Auto) Lymph % (Auto) [place] % (Auto) Eos % (Auto) Baso % (Auto) Lymph # (Auto) [place] # (Auto) Eos # (Auto) Baso # (Auto) Abs Immat Gran (auto) Absolute Neuts (auto) Absolute Nucleated RBC Nucleated RBC % (auto) D-Dimer High Sensitivty 1009 VBG pH VBG pCO2 VBG pO2 VBG HCO3 VBG O2 Saturation VBG Base Excess Anion Gap Estim Creat Clear Calc Estimated GFR Random Glucose Lactic Acid Calcium Magnesium Ferritin 525 H Total Bilirubin Direct Bilirubin AST ALT Alkaline Phosphatase Lactate Dehydrogenase Troponin I High Sens C-Reactive Protein B-Natriuretic Peptide 50 Total Protein Albumin Procalcitonin Urine Color Urine Appearance Urine pH Ur Specific [place] Urine Protein Urine Glucose (UA) Urine Ketones Urine Blood Urine Nitrite Ur Leukocyte Esterase Urine RBC Urine WBC Ur Squamous Epith Cells Urine Bacteria Hyaline Casts COVID-19 (MATTHEW) COVID-19 [facility] 05/04/22 05/04/22 05/04/22 17:54 17:54 17:56 MCV MCH MCHC RDW Plt Count MPV Immature Gran % (Auto) Neut % (Auto) Lymph % (Auto) [place] % (Auto) Eos % (Auto) Baso % (Auto) Lymph # (Auto) [place] # (Auto) Eos # (Auto) Baso # (Auto) Abs Immat Gran (auto) Absolute Neuts (auto) Absolute Nucleated RBC Nucleated RBC % (auto) D-Dimer High Sensitivty VBG pH VBG pCO2 VBG pO2 VBG HCO3 VBG O2 Saturation VBG Base Excess Anion Gap Estim Creat Clear Calc Estimated GFR Random Glucose Lactic Acid Calcium Magnesium Ferritin Total Bilirubin Direct Bilirubin AST ALT Alkaline Phosphatase Lactate Dehydrogenase Troponin I High Sens C-Reactive Protein B-Natriuretic Peptide Total Protein Albumin Procalcitonin 0.02 Urine Color Yellow Urine Appearance Clear Urine pH 7.5 Ur Specific [place] 1.010 Urine Protein Negative Urine Glucose (UA) Negative Urine Ketones Negative Urine Blood Negative Urine Nitrite Negative Ur Leukocyte Esterase Small (1+) H Urine RBC 0-2 Urine WBC 6-10 Ur Squamous Epith Cells 6-10 Urine Bacteria 1+ Hyaline Casts 0-2 COVID-19 (MATTHEW) Positive A COVID-19 [facility] See Note 05/04/22 05/04/22 05/05/22 18:14 21:36 05:32 MCV 86.4 MCH 30.4 MCHC 35.2 H RDW 12.1 Plt Count 183 MPV 10.3 Immature Gran % (Auto) 2.2 H Neut % (Auto) 86.2 H Lymph % (Auto) 10.3 L [place] % (Auto) 1.2 L Eos % (Auto) 0.0 Baso % (Auto) 0.1 Lymph # (Auto) 0.8 L [place] # (Auto) 0.1 Eos # (Auto) 0.0 Baso # (Auto) 0.0 Abs Immat Gran (auto) 0.17 H Absolute Neuts (auto) 6.5 Absolute Nucleated RBC 0.000 Nucleated RBC % (auto) 0.0 D-Dimer High Sensitivty VBG pH 7.40 VBG pCO2 54 VBG pO2 47 VBG HCO3 34 H VBG O2 Saturation 73.0 VBG Base Excess 7.5 Anion Gap Estim Creat Clear Calc Estimated GFR Random Glucose Lactic Acid 0.9 Calcium Magnesium Ferritin Total Bilirubin Direct Bilirubin AST ALT Alkaline Phosphatase Lactate Dehydrogenase Troponin I High Sens C-Reactive Protein B-Natriuretic Peptide Total Protein Albumin Procalcitonin Urine Color Urine Appearance Urine pH Ur Specific [place] Urine Protein Urine Glucose (UA) Urine Ketones Urine Blood Urine Nitrite Ur Leukocyte Esterase Urine RBC Urine WBC Ur Squamous Epith Cells Urine Bacteria Hyaline Casts COVID-19 (MATTHEW) COVID-[facility] [place] Com 05/05/22 05:32 MCV MCH MCHC RDW Plt Count MPV Immature Gran % (Auto) Neut % (Auto) Lymph % (Auto) [place] % (Auto) Eos % (Auto) Baso % (Auto) Lymph # (Auto) [place] # (Auto) Eos # (Auto) Baso # (Auto) Abs Immat Gran (auto) Absolute Neuts (auto) Absolute Nucleated RBC Nucleated RBC % (auto) D-Dimer High Sensitivty VBG pH VBG pCO2 VBG pO2 VBG HCO3 VBG O2 Saturation VBG Base Excess Anion Gap 16 Estim Creat Clear Calc 57.7 Estimated GFR > 60 Random Glucose 142 H Lactic Acid Calcium 8.1 L D Magnesium Ferritin Total Bilirubin Direct Bilirubin AST ALT Alkaline Phosphatase Lactate Dehydrogenase Troponin I High Sens C-Reactive Protein B-Natriuretic Peptide Total Protein Albumin Procalcitonin Urine Color Urine Appearance Urine pH Ur Specific [place] Urine Protein Urine Glucose (UA) Urine Ketones Urine Blood Urine Nitrite Ur Leukocyte Esterase Urine RBC Urine WBC Ur Squamous Epith Cells Urine Bacteria Hyaline Casts COVID-19 (MATTHEW) COVID-19 Clin Com Microbiology Microbiology Results: Microbiology 05/04/22 19:04 Urine Culture - Final Urine clean catch - Urine giles top Strep agalactiae (Grp B) Assessment and Plan (1) Pneumonia due to COVID-19 virus: Status: Acute (2) Acute hypokalemia: Status: Acute (3) COPD exacerbation: Status: Acute Plan 71-year-old male with past medical history of COPD presents to the hospital with complaints of shortness of breath, cough, and recently diagnosed COVID-19 infection # acute COPD exacerbation - secondary to COVID-19 infection - evidence of infiltrates on chest x-ray - has cough, still sob With minimal exertion and talking in broken sentences,sputum production - will treat with Solu-Medrol, DuoNeb p.r.n. as well as scheduled - monitor respiratory status # COVID-19 infection - unvaccinated - status post Paxlovid - treat underlying COPD - steroids - monitor oxygen requirement # weakness - likely secondary to COVID-19 infection - consider PT prior to discharge # acute hyperkalemia - repleted - follow BMP # hypertension - stable - continue antihypertensive DVT ppx: lovenox Ongoing in patient need: COPD exacerbation and requirement for steroids and scheduled breathing treatment patient . Quality Stroke Does the patient have a stroke diagnosis?: No VTE Prior VTE?: No VTE Risk Level:: Medical - moderate - high VTE Device Contraindication: Treatment Not Indicated VTE Drug Contraindication: N/A - Med Ordered
[2022-05-06 03:09] VITALS: BP 139/75; PULSE 63; RESP 14; TEMP 36.2; O2SAT 92
[2022-05-06] MEDS: methylPREDNISolone Sod Succ 40 MG/ML VIAL IVPUSH (05:21)
[2022-05-06 07:53] VITALS: BP 143/66; PULSE 56; RESP 16; TEMP 37; O2SAT 93
--- NOTE | 2022-05-06 07:57 | MHC.CDI.CONC ---
CDI Concurrent Query Documentation Clarification: PHYSICIAN'S DOCUMENTATION REQUEST Date of Query: 05/06/22 0757 Patient Name: Carmina Maria Admit Date: 05/04/22 Dear Doctor, A review of the medical record indicates additional documentation may be needed. Please review below and update the documentation accordingly. Is there a diagnosis that correlates with the lab findings below: Risk Factors/Clinical Indicators/Treatments LABS: sodium 130 L IV fluids Please clarify based on the above if: Hyponatremia, poa, resolved etc. [ ] was present on admission [ ] was not present on admission Unable to determine Use of terms such as suspected, likely, concern for, or probable (associated with a specific diagnosis that is being evaluated, monitored, or treated as if it exists) are acceptable and can be coded in the inpatient setting, when documented at the time of discharge. Thank you, Eula Mascorro [facility], CDIS Extension: [phone] Please use your independent medical judgment in providing your response. THIS QUERY IS PART OF THE PERMANENT MEDICAL RECORD Provider Response: Other Other Diagnosis: mild hyponatremia possibly related to decreased p.o. intake- improving with better p.o. intake.
[2022-05-06 08:25] VITALS: PULSE 64; RESP 18; O2SAT 96
[2022-05-06] MEDS: Albuterol/Iprat 2.5/0.5MG 3 ML AMPUL.NEB INHALE (08:25)
[2022-05-06] MEDS: 0.9 % Sodium Chloride Flush 3 ML SYRINGE IVFLUSH (09:31)
[2022-05-06 10:16] LABS: Potassium 3.5 mmol/L (3.3-5.1)
[2022-05-06 11:41] VITALS: BP 149/69; PULSE 60; RESP 16; TEMP 36.3; O2SAT 94
--- NOTE | 2022-05-06 12:37 | P.DS_ITS ---
DS: Providers Provider Date of Service: 05/06/22 Date of admission: 05/04/22 21:50 Primary care physician: Unknown Physician DS: Diagnosis Discharge Diagnosis (1) Pneumonia due to COVID-19 virus: Status: Acute (2) Acute hypokalemia: Status: Acute (3) COPD exacerbation: Status: Acute DS: Summary Hospital Course Hospital Course: 71-year-old female with past medical history of COPD severe emphysema chronic steroids, lifelong smoker, history pulmonary nodules and recent E BUN is around 1031 for biopsy, HTN, HLD, osteoporosis, anxiety, back pain who presents to the ER with complaints of shortness of breath.? She reports that she was seen at an outside hospital on 04/29 and diagnosed with COVID.? She is unvaccinated.? She was discharged on Paxlovid but reports her symptoms have remained.? She is generally weak, has poor oral intake, has a cough with some sputum production, denies any fever or chills.? She is short of breath with minimal exertion.? Denies any orthopnea or PND, no lower extremity edema. Patient denies any chest pain, no abdominal pain nausea or vomiting, no diarrhea constipation, no urinary symptoms and no lower extremity edema Vitals are arrival unremarkable, patient is satting 100% on 3 L of oxygen.? Oxygen was placed for comfort.? No evidence of hypoxia Labs are significant for WBC count of 14, hemoglobin of 18.2, hematocrit 50.9, her pH of 7.40, sodium of 130, potassium of 3.1, chloride of 90, UA positive for small amount of leukocyte Estrace, COVID-[address] angiogram is negative for PE, shows multiple lung opacities. hospital course: Patient was admitted for COPD exacerbation and COVID positive: patient was treated with steroid and nebs and seems to be improved. sats are fine around 94% on room air. going home with p.o. steroids and advised. Recommended self isolation for a week for COVID. above management discussed with the patient in detail and she understand in agreement with the above plan, time spent 50 minute. Time Spent with Patient Time attestation: Total time spent providing and/or coordinating discharge services: Discharge coordination time: Greater than 30 minutes Quality: Safe Use of Opioids Does Pt have an Active Cancer Diagnosis on the Problem List?: No Quality: Stroke Does the patient have a stroke diagnosis?: No Physical Exam Vital Signs: Vital Signs: Last Vital Signs Temp 97.4 F 05/06/22 11:41 Pulse 60 05/06/22 11:41 Resp 16 05/06/22 11:41 BP 149/69 H 05/06/22 11:41 Pulse Ox 94 05/06/22 11:41 O2 Del Method 05/06/22 11:41 O2 Flow Rate 2 05/05/22 06:11 Oxygen Flow Rate 3 05/04/22 16:32 BMI result Body Mass Index 20.7 Appearance: Alert.? Oriented X3.? still sob with minimum excersion cvs: rrr, [id number] , no murmur res: clear to auscultation ,no rhonchii or wheezing abd: no rebound or guarding ,nt, bs present. ext pulses present , no cyanosis . neuro: axo3 , nonfocal. DS: Data Data Completed and Pending Labs on day of discharge: Laboratory Results - last 24 hr 05/06/22 09:43 Potassium 3.5 Preliminary micro results at discharge 05/04/22 21:36 Blood Culture - Preliminary Blood - Venous No growth after 24 hours. 05/04/22 21:36 Blood Culture - Preliminary Blood - Venous No growth after [address] scan - chest: Radiologist's impression: ITS Impressions Chest X-Ray 05/04/22 18:40 IMPRESSION: 1. No acute intrathoracic disease. 2. Multiple mass lesions seen previously not well identified on the current study. There is one area of increased density seen in the left mid to upper lobe. Chest CTA 05/04/22 19:57 IMPRESSION: 1. No evidence of pulmonary emboli. 2. Multiple lung opacities as described above, the majority of which are unchanged. A number of these sites were FDG avid on the prior PET/CT. There is a new branching opacity seen in the right upper lobe. VTE: negative Discharge Plan Discharge Anticipated Discharge Date/Time: 05/06/22 12:19 Patient Disposition: Home, Self-Care Discharge Diagnosis: COPD exacerbation in setting of COVID infection. hy pokalemia. Referrals: Physician,Unknown J [Primary Care Provider] - 1 Week Discharge Medications: New prednisone 10 mg tablet See Taper PO DAILY Qty: 30 0RF Taper: Prednisone 40 mg daily for 3 Days and 0 Hour 30 mg daily for 3 Days and 0 Hour 20 mg daily for 3 Days and 0 Hour 10 mg daily for 3 Days and 0 Hour Continued hydrochlorothiazide 25 mg tablet 25 mg PO DAILY Qty: 90 8RF nadolol 40 mg tablet 40 mg PO DAILY Qty: 100 5RF albuterol sulfate 2.5 mg /3 mL (0.083 %) solution for nebulization 2.5 mg inhalation Q4H PRN (Reason: bronchospasm) 30 Days Qty: 90 8RF Rx Instructions: DX: J44.9 atorvastatin 10 mg tablet 10 mg PO DAILY Qty: 90 2RF lorazepam 1 mg tablet 1 mg PO BID Qty: 60 5RF Discontinued azithromycin 250 mg tablet See Rx Instructions PO .COMPLEX Qty: 6 0RF Rx Instructions: For 250 mg dose pack: take 500 mg today (day 1), then 250 mg for 4 days (days 2-5) PO prednisone 10 mg tablet 40 mg PO DAILY 5 Days Qty: 20 0RF Discharge Orders: Discharge Order (Routine); Ordered 05/06/22 Ordered By: Kamaljit Yuen Diet: Advance to usual diet Activity on Discharge: As tolerated Stand Alone Forms: Patient Portal Discharge page Care Plan Goals: Patient was admitted for COPD exacerbation and COVID positive: patient was treated with steroid and nebs and seems to be improved. sats are fine around 94% on room air. going home with p.o. steroids and advised. Recommended self isolation for a week for COVID. Health Concerns: continue home COPD medications and p.o. steroids. Follow-up with PCP in 1 week. Plan of Treatment: As above. Assessment: As above. Discharge Date/Time: 05/06/22 14:46
--- NOTE | 2022-05-06 12:40 | MHC.CM.PN ---
Patient has been medically cleared for dc to home today, self care. Last IMM addressed yesterday.
== END 2022-05-06 14:46 | disposition home or self-care (01) | DRG 190 ==
LOC: HO.ED 20:52 → HO.EDOVER 21:54 → HO.S3 23:42 → HO.EDOVER 23:49 → HO.IMC 05-05 09:28
PROVIDERS: Physician Assistant; Admitting Provider Internal Medicine; Emergency Provider Internal Medicine; PCP Internal Medicine; Visit Provider Internal Medicine
DX: J43.9 Emphysema, unspecified (principal); J12.82 Pneumonia due to coronavirus disease 2019; U07.1 COVID-19; E78.5 Hyperlipidemia, unspecified; I10 Essential (primary) hypertension; E87.6 Hypokalemia; E78.1 Pure hyperglyceridemia; M81.0 Age-related osteoporosis without current pathological fracture; Z80.1 Family history of malignant neoplasm of trachea, bronchus and lung; F17.210 Nicotine dependence, cigarettes, uncomplicated; Z28.310 Unvaccinated for COVID-19; Z71.6 Tobacco abuse counseling; Z88.0 Allergy status to penicillin; Z79.899 Other long term (current) drug therapy
CPT/HCPCS: 36415; 71045; 71275; 80048; 80076; 81001; 82728; 82803; 83605; 83615; 83735; 83880; 84132; 84145; 84484; 85025; 85379; 86140; 87040; 87086; 87147; 87635; 93005; 94640; 97161; 99285; J1650; J2920; J2930; Q9967

== ENCOUNTER 2023-03-16 09:26 | Outpatient (AMB) | payer MEDICARE, SELFPAY ==
[2023-03-16 09:27] VITALS: BP 150/74; PULSE 75; O2SAT 99; BMI 20.1
--- NOTE | 2023-03-16 09:27 | MHC.PC.OV ---
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 per policy Accompanied by: Self / Same As Patient Allergies Penicillins [PENICILLINS] Allergy (Intermediate, Verified 03/16/23 09:28) HIVES/ITCHING Medication List - Last Reconciled 03/16/23 by Andriy Sherwood MD albuterol sulfate 2.5 mg (3 mL) inhalation Q4H PRN 30 days atorvastatin 10 mg PO DAILY hydrochlorothiazide 25 mg PO DAILY ibuprofen 800 mg PO Q8H PRN lorazepam 1 mg PO BID nadolol 40 mg PO DAILY prednisone See Taper mg PO DAILY Tobacco use date assessed: 12/14/22 Fall risk assessment: No Falls in past year Last assessed Fall Risk: 03/16/23 Dental Screening Dental Screen Date: 03/16/23 Did you have a dental visit in the last 12 months?: No Did you have a dental problem in the last 6 months where you did not have access to dental care?: No Was dental information given to patient?: Patient has dentist HPI Muscle Spasms Pain HPI Details left tapez muscle spasm; recurrent PFSH Medical History Family history of lung cancer Personal history of nicotine dependence Back pain Osteoporosis (~2018) Pseudogout (~2016) Anxiety Hypertension Hyperlipidemia Surgical History History of colonoscopy Family History Father Lung cancer Mother Diabetes Renal failure Social History Household Members: None Housing: House Do you presently have visiting nurse or other home services: No Alcohol intake: never Patient Tobacco Use Status: Current everyday Tobacco user Tobacco use type: Cigarette Cigarettes Per Day: 10 e-Cigarette/Vaping Use: Never Used Second Hand Smoke Exposure: No service: No Current occupational status: retired Current occupational exposures/hazards: No Cognitive needs: No Hearing needs: No Vision needs: Yes Questionnaire PHQ-9 Over the last 2 weeks, how often have you been bothered by any of the following problems? 1. Little interest or pleasure in doing things: not at all 2. Feeling down, depressed, or hopeless: not at all 3. Trouble falling or staying asleep, or sleeping too much: not at all 4. Feeling tired or having little energy: not at all 5. Poor appetite or overeating: not at all 6. Feeling bad about yourself - or that you are a failure or have let yourself or your family down: not at all 7. Trouble concentrating on things, such as reading the newspaper or watching television: not at all 8. Moving or speaking so slowly that other people could have noticed. Or the opposite - being so fidgety or restless that you have been moving around a lot more than usual: not at all 9. Thoughts that you would be better off or of hurting yourself in some way: not at all Total score: 0 Depression Screening Interpretation: Negative 22037 - PHQ-9 Billing: Yes Source: Developed by Drs. Alex Barkley, Nilam Rainey, Júnior Haro and colleagues, with an educational elsie from [employer]. Thrive Questionnaire Date Thrive assessed: 08/17/22 AUDIT C Alcohol Use Questionnaire (AUDIT-C) 1. How often do you have a drink containing alcohol?: Never 2. How many drinks containing alcohol do you have on a typical day when you are drinking?: 5 or 6 Total Score: 2 Score Reviewed/Action Taken: Yes NICOLE-7 AMB Questionnaire NICOLE-7 Date NICOLE - 7 assessed: 08/17/22 Source: Developed by Drs. Alex Barkley, Nilam Rainey, Júnior Haro and colleagues, with an educational elsie from [employer]. Review of Systems Const Denies chills, Denies headache(s) and Denies weight loss ENT Denies headache(s) Card Denies chest pain, Denies syncope, Denies irregular heart rhythm and Denies dyspnea Resp Denies chest congestion, Denies cough and Denies dyspnea GI Denies abdominal pain, Denies change in stool character, Denies nausea and Denies vomiting Musc Denies deformity and Denies joint swelling Neuro Denies syncope and Denies headache(s) Physical exam (Primary Care) Vital Signs: Last Vital Signs Pulse 75 03/16/23 09:27 BP 150/74 H 03/16/23 09:27 Pulse Ox 99 03/16/23 09:27 Oxygen Delivery Method Room Air 03/16/23 09:27 BMI result Body Mass Index 20.1 Tobacco/Smoking Status: Tobacco use Status Tobacco use date assessed 12/14/22 03/16/23 09:29 Patient Tobacco Use Status Current everyday Tobacco 03/16/23 09:29 Tobacco use type Cigarette 03/16/23 09:29 e-Cigarette/Vaping Use Never Used 03/16/23 09:29 PHQ-9: PHQ-9 Score PHQ-9: Total score 0 03/16/23 09:29 Depression Screening Interpretation: Negative Thrive Assessment: Date of Thrive Assessment Date Thrive assessed 08/17/22 03/16/23 09:29 Const General: cooperative, comfortable, no acute distress and alert Neck Neck: Yes no lymphadenopathy Thyroid: Thyroid normal Resp Effort & Inspection: normal respiratory effort Auscultation: clear to auscultation bilaterally Percussion: percussion normal Cardio Jugular venous distension: no JVD Palpation: normal PMI Rate: regular rate Rhythm: regular rhythm Heart sounds: S1 normal heart sound present and S2 normal heart sound present GI Inspection: Yes normal to inspection Palpation (GI): No hepatosplenomegaly present Skin General skin exam: no rashes or lesions noted Extrem General: Yes no clubbing, cyanosis or edema Assessment and Plan Assessment & Plan (1) Shoulder pain: Code(s): M25.519 - Pain in unspecified shoulder Plan: rx and heat Medications: Refilled prednisone See Taper PO DAILY 30 tabs 0RF albuterol sulfate DX: J44.9 2.5 mg (3 mL) inhalation Q4H PRN 90 mL 8RF bronchospasm 30 days Coding Level of Care Code Est Pt Level 3 (43153) Diagnoses Shoulder pain M25.519
== END 2023-03-16 09:54 | disposition home or self-care (01) ==
PROVIDERS: PCP Internal Medicine; Visit Provider Internal Medicine
DX: M25.519 Pain in unspecified shoulder (principal)
CPT/HCPCS: 99213

== ENCOUNTER 2023-04-19 08:28 | Outpatient (REF) | payer MEDICARE, SELFPAY ==
[2023-04-19 08:42] LABS: MANUAL DIFF FLAG NO
[2023-04-19 08:54] LABS: Basophils Absolute Auto 0.1 X10*3/uL (0.0-0.2); Basophils Percent Auto 0.6 % (0-2); Eosinophils Absolute Auto 0.1 X10*3/uL (0.0-0.4); Eosinophils Percent Auto 1.4 % (0-4); Hematocrit 47.4 % (37.0-47.0); Hemoglobin 16.4 g/dl (12.0-16.0); Imm Gran Abs Auto 0.06 X10*3/uL (0.00-0.03); Imm Gran Pct Auto 0.6 % (0.0-0.4); Lymphocytes Absolute Auto 2.3 X10*3/uL (1.2-4.9); Lymphocytes Percent Auto 23.5 % (20-40); Mean Corpuscular HGB Conc 34.6 g/dl (31.0-35.0); Mean Corpuscular Hemoglobin 31.2 pg (27.0-33.0); Mean Corpuscular Volume 90.3 fL (80.0-98.0); Mean Platelet Volume 9.4 fL (9.4-12.3); Monocytes Absolute Auto 0.9 X10*3/uL (0.1-1.2); Monocytes Percent Auto 8.8 % (2-11); Neutrophils Absolute Auto 6.4 x10*3/uL (2.0-8.3); Neutrophils Percent Auto 65.1 % (45-73); Platelet Count 374 X10*3/uL (160-400); Red Blood Count 5.25 X10*6/uL (4.20-5.50); White Blood Count 9.8 X10*3/uL (4.8-10.8)
[2023-04-19 09:25] LABS: Alanine Aminotransferase 15 U/L (0-31); Albumin Level 4.1 g/dL (3.5-5.0); Alkaline Phosphatase 75 U/L (39-117); Anion Gap 16 (12-20); Aspartate Amino Transferase 20 U/L (5-31); Bilirubin Total 0.5 mg/dL (0.0-1.0); Blood Urea Nitrogen 18 mg/dL (9-16); Carbon Dioxide 28 mmol/L (22-29); Chloride 98 mmol/L (96-108); Cholesterol 180 mg/dL (<200); Estimated Glomerular Filt Rate > 60; Glucose Fasting 99 mg/dL (60-99); HDL Cholesterol 46 mg/dL (>40); LDL Cholesterol Calculated 113 mg/dL (<100); Potassium 3.6 mmol/L (3.3-5.1); Sodium 138 mmol/L (135-145); Total Protein 7.2 g/dL (6.5-8.0); Triglycerides 109 mg/dL (<150)
== END 2023-04-19 08:29 | disposition home or self-care (01) ==
LOC: HO.LAB 08:28
PROVIDERS: PCP Internal Medicine; Visit Provider Internal Medicine
DX: E03.9 Hypothyroidism, unspecified (principal); N28.9 Disorder of kidney and ureter, unspecified; D64.9 Anemia, unspecified; E78.5 Hyperlipidemia, unspecified
CPT/HCPCS: 36415; 80053; 80061; 84443; 85025

== ENCOUNTER 2023-04-19 08:47 | Outpatient (AMB) | payer MEDICARE, SELFPAY ==
[2023-04-19 09:02] VITALS: BP 130/76; PULSE 63; O2SAT 98
--- NOTE | 2023-04-19 09:02 | A.OFFPC_ITS ---
Vital Signs 04/19/23 09:02 Height 5 ft 5 in Weight 120 lb BMI 20.0 BP 130/76 Blood Pressure Location Lt brachial Position Sitting Pulse 63 Pulse Source Pulse Oximeter Pulse Oximetry (%) 98 Oxygen Delivery Method Room Air Intake Visit Reasons: 4mth f/u Allergies Penicillins [PENICILLINS] Allergy (Intermediate, Verified 04/19/23 09:02) HIVES/ITCHING Medication List - Last Reconciled 04/19/23 by Andriy Sherwood MD albuterol sulfate 2.5 mg (3 mL) inhalation Q4H PRN 30 days albuterol sulfate 90 mcg/actuation (ProAir HFA) 1 puff inhalation QID PRN atorvastatin 10 mg PO DAILY hydrochlorothiazide 25 mg PO DAILY ibuprofen 800 mg PO Q8H PRN lorazepam 1 mg PO BID nadolol 40 mg PO DAILY prednisone 10 mg See Taper PO DAILY Tobacco use date assessed: 12/14/22 Fall risk assessment: No Falls in past year Last assessed Fall Risk: 04/19/23 Dental Screening Dental Screen Date: 04/19/23 Did you have a dental visit in the last 12 months?: No Did you have a dental problem in the last 6 months where you did not have access to dental care?: No Was dental information given to patient?: Patient has dentist HPI 4mth f/u HPI Details asthma hyperlip and htn; stable and compliant [facility] Medical History Family history of lung cancer Personal history of nicotine dependence Back pain Osteoporosis (~2018) Pseudogout (~2016) Anxiety Hypertension Hyperlipidemia Surgical History History of colonoscopy Family History Father Lung cancer Mother Diabetes Renal failure Social History Household Members: None Housing: House Do you presently have visiting nurse or other home services: No Alcohol intake: never Patient Tobacco Use Status: Current everyday Tobacco user Tobacco use type: Cigarette Cigarettes Per Day: 10 e-Cigarette/Vaping Use: Never Used Second Hand Smoke Exposure: No service: No Current occupational status: retired Current occupational exposures/hazards: No Cognitive needs: No Hearing needs: No Vision needs: Yes Questionnaire PHQ-9 Over the last 2 weeks, how often have you been bothered by any of the following problems? 1. Little interest or pleasure in doing things: not at all 2. Feeling down, depressed, or hopeless: not at all 3. Trouble falling or staying asleep, or sleeping too much: not at all 4. Feeling tired or having little energy: not at all 5. Poor appetite or overeating: not at all 6. Feeling bad about yourself - or that you are a failure or have let yourself or your family down: not at all 7. Trouble concentrating on things, such as reading the newspaper or watching television: not at all 8. Moving or speaking so slowly that other people could have noticed. Or the opposite - being so fidgety or restless that you have been moving around a lot more than usual: not at all 9. Thoughts that you would be better off or of hurting yourself in some way: not at all Total score: 0 Depression Screening Interpretation: Negative Depression Screening Done: Yes 66856 - PHQ-9 Billing: Yes Source: Developed by Drs. Alex Barkley, Nilam Rainey, Júnior Haro and colleagues, with an educational elsie from [employer]. Thrive Questionnaire Date Thrive assessed: 08/17/22 AUDIT C Alcohol Use Questionnaire (AUDIT-C) 1. How often do you have a drink containing alcohol?: Never 2. How many drinks containing alcohol do you have on a typical day when you are drinking?: 5 or 6 Total Score: 2 Score Reviewed/Action Taken: Yes NICOLE-7 AMB Questionnaire NICOLE-7 Date NICOLE - 7 assessed: 08/17/22 Source: Developed by Drs. Alex Barkley, Nilam Rainey, Júnior Haro and colleagues, with an educational elsie from [employer]. Review of Systems Const Denies chills, Denies headache(s) and Denies weight loss ENT Denies headache(s) Card Denies chest pain, Denies syncope, Denies irregular heart rhythm and Denies dyspnea Resp Denies chest congestion, Denies cough and Denies dyspnea GI Denies abdominal pain, Denies change in stool character, Denies nausea and Denies vomiting Musc Denies deformity and Denies joint swelling Neuro Denies syncope and Denies headache(s) Physical exam (Primary Care) Vital Signs: Last Vital Signs Pulse 63 04/19/23 09:02 BP 130/76 04/19/23 09:02 Pulse Ox 98 04/19/23 09:02 Oxygen Delivery Method Room Air 04/19/23 09:02 BMI result Body Mass Index 20.0 Tobacco/Smoking Status: Tobacco use Status Tobacco use date assessed 12/14/22 04/19/23 09:03 Patient Tobacco Use Status Current everyday Tobacco 04/19/23 09:03 Tobacco use type Cigarette 04/19/23 09:03 e-Cigarette/Vaping Use Never Used 04/19/23 09:03 PHQ-9: PHQ-9 Score PHQ-9: Total score 0 04/19/23 09:03 Depression Screening Interpretation: Negative Thrive Assessment: Date of Thrive Assessment Date Thrive assessed 08/17/22 04/19/23 09:03 Const General: cooperative, comfortable, no acute distress and alert Neck Neck: Yes no lymphadenopathy Thyroid: Thyroid normal Resp Effort & Inspection: normal respiratory effort Auscultation: clear to auscultation bilaterally Percussion: percussion normal Cardio Jugular venous distension: no JVD Palpation: normal PMI Rate: regular rate Rhythm: regular rhythm Heart sounds: S1 normal heart sound present and S2 normal heart sound present GI Inspection: Yes normal to inspection Palpation (GI): No hepatosplenomegaly present Skin General skin exam: no rashes or lesions noted Extrem General: Yes no clubbing, cyanosis or edema Assessment and Plan Assessment & Plan (1) Asthma: Code(s): J45.909 - Unspecified asthma, uncomplicated Plan: stable; same rx (2) Hypertension: Code(s): I10 - Essential (primary) hypertension Plan: stable; same rx (3) Hyperlipidemia: Code(s): E78.5 - Hyperlipidemia, unspecified Plan: stable; same rx Orders: Orders Lipid Panel Today E78.5 - Hyperlipidemia, unspecified Coding Level of Care Code Est Pt Level 4 (13494) Diagnoses Asthma J45.909 Hypertension I10 Hyperlipidemia E78.5
== END 2023-04-19 09:33 | disposition home or self-care (01) ==
PROVIDERS: PCP Internal Medicine; Visit Provider Internal Medicine
DX: J45.909 Unspecified asthma, uncomplicated (principal); I10 Essential (primary) hypertension; E78.5 Hyperlipidemia, unspecified
CPT/HCPCS: 99214

== ENCOUNTER 2023-05-10 10:26 | Inpatient (IN) | payer MEDICARE, SELFPAY ==
[2023-05-10] VITALS (11 sets, daily range): BP systolic 100–157; BP diastolic 52–72; PULSE 62–75; RESP 16–20; TEMP 36–36.9; O2SAT 93–98; BMI 19.8; BMI 20.5
--- NOTE | ~2023-05-10 | XR_ITS ---
EXAMINATION: XR CHEST CLINICAL INFORMATION: Hemoptysis COMPARISON: 05/04/2022 TECHNIQUE: 2 views of the chest were obtained. FINDINGS: There is a new right lower lobe 3.5 cm area of masslike consolidation in the superior segment posteriorly. Patchy opacity in the left midlung zone is not significantly changed. The right hilum appears prominent. The cardiac silhouette is unchanged. XR/XR chest 2V IMPRESSION: 1. New 3.5 cm masslike consolidation in the superior segment of the right lower lobe with associated right hilar enlargement. Findings raise concern of developing bronchogenic neoplasm although pneumonia is within the differential diagnosis. Suggest close follow-up, and if persistent, contrast-enhanced thoracic CT. 2. No change in patchy nodular opacity in the left midlung zone since 12/01/2021 suggesting a benign postinflammatory etiology.
--- NOTE | ~2023-05-10 | CT_ITS ---
EXAMINATION: CT CHEST WITH CONTRAST CLINICAL INFORMATION: Cough, SOB. Question mass on CT. COMPARISON: None available. TECHNIQUE: Multidetector volumetric CT imaging of the chest was obtained after the administration of 50 mL of Omnipaque 350 intravenous contrast without immediate adverse reactions. Axial MIP volume rendering provided. Sagittal and coronal reformatted images were obtained. This CT examination was performed using dose optimization techniques as appropriate, variously including the following: *Automated exposure control *Adjustment of mA and/or kV according to patient size (this includes techniques or standardized protocols for targeted exams where dose is matched to indication/reason for exam; i.e. extremities or head) *Use of iterative reconstruction technique DLP: 171 mGy-cm FINDINGS: COFOUNDER: Well-inflated lungs. LUNGS: There is diffuse centrilobular emphysematous changes of both lungs. There is right lower lobe superior segment consolidative mass seen on chest x-ray. There is a cavitary formation with air-fluid level within. Adjacent and pleural-based is a ill-defined opacity measuring 1.5 cm on axial slice 79/8. There is a left lower lobe superior segment ill-defined consolidation/mass measuring approximately 2.5 x 1.6 cm on axial slice 65/8. There is associated posterior left pleural thickening. Bilateral ill-defined opacities are seen in both upper lobes more nodule in the right side on axial slice 42/8 and image 51/8. Ill-defined nodular component on the right measures 9 mm. There is interval fine opacity in the anterior basal segment of left lower lobe measuring 1.1 cm on axial slice 94/8 MEDIASTINUM: Thyroid lobes are symmetric and normal. The central trachea and the bronchi widely patent. Heart size and the great vessels are normal caliber. There are reactive lymph nodes with a precarinal lymph node measuring 1.7 x 1.1 cm in axial slice 24/3. There are reactive lymph nodes in the aortic window and bilateral hilum. PLEURA: There is no pleural effusion. No pleural mass or thickening. AXILLA: No lymphadenopathy. UPPER ABDOMEN: Several hypodense areas is seen in the left hepatic lobe. No intrahepatic ductal dilatation. No enhancing liver lesion seen. Hepatomegaly. There are multiple nonenhancing cyst upper pole left kidney. Largest cyst measures 3.4 x 3.2 cm. There is proximal aortic aneurysm with certainty cerebral femoral thrombus. The aneurysm measures 3.2 x 3.3) axial image 83/3 OSSEOUS STRUCTURES: No aggressive lytic or sclerotic process seen. CT/CT chest w IV con IMPRESSION: Multilobar ill-defined patchy opacities with a cavitary lesion in the right lower lobe likely multifocal inflammatory process. However underlying metastatic disease is hard to exclude. Recommend follow-up chest in 2 weeks following antibiotic treatment. Reactive lymph nodes in the mediastinum and bilateral ashley. Multiple hypodense left lobe liver lesions, left renal cysts and proximal abdominal aortic aneurysm. Fleischner guidelines were followed.
--- NOTE | 2023-05-10 10:54 | ECG_ITS ---
Test Reason : SOB Blood Pressure : / mmHG Vent. Rate : 071 BPM Atrial Rate : 071 BPM P-R Int : 152 ms QRS Dur : 070 ms QT Int : 398 ms P-R-T Axes : 057 020 -01 degrees QTc Int : 432 ms Normal sinus rhythm Nonspecific ST abnormality RSR' or QR pattern in V1 suggests right ventricular conduction delay Possible Anterior infarct (cited on or before 11-OCT-2018) Abnormal ECG When compared with ECG of 04-MAY-2022 18:14, Non-specific change in ST segment in Anterolateral leads Referred By: Generic ED Physician Electronically Signed By:CARRIE ZEE MD
[2023-05-10 11:20] LABS: Basophils Absolute Auto 0.1 X10*3/uL (0.0-0.2); Basophils Percent Auto 0.3 % (0-2); Eosinophils Absolute Auto 0.1 X10*3/uL (0.0-0.4); Eosinophils Percent Auto 0.7 % (0-4); Hematocrit 43.6 % (37.0-47.0); Imm Gran Abs Auto 0.37 X10*3/uL (0.00-0.03); Imm Gran Pct Auto 2.4 % (0.0-0.4); Lymphocytes Absolute Auto 2.1 X10*3/uL (1.2-4.9); Lymphocytes Percent Auto 13.6 % (20-40); MANUAL DIFF FLAG SCAN; Mean Corpuscular HGB Conc 34.4 g/dl (31.0-35.0); Mean Corpuscular Hemoglobin 30.7 pg (27.0-33.0); Mean Corpuscular Volume 89.2 fL (80.0-98.0); Mean Platelet Volume 10.4 fL (9.4-12.3); Monocytes Absolute Auto 1.4 X10*3/uL (0.1-1.2); Monocytes Percent Auto 8.6 % (2-11); Neutrophils Absolute Auto 11.7 x10*3/uL (2.0-8.3); Neutrophils Percent Auto 74.4 % (45-73); Platelet Count 331 X10*3/uL (160-400); Red Blood Count 4.89 X10*6/uL (4.20-5.50); SCAN SMEAR FLAG 1; White Blood Count 15.7 X10*3/uL (4.8-10.8)
[2023-05-10 11:37] LABS: COVID-19 Test Negative (Negative); IDNOW Serial# BCCEAD1C
[2023-05-10 11:40] LABS: SLIDE REVIEW VERIFIED
[2023-05-10 11:42] LABS: Troponin-I High Sensitivity 2.7 ng/L (<3.5-17.0)
[2023-05-10 11:44] LABS: Alanine Aminotransferase 8 U/L (0-31); Albumin Level 3.5 g/dL (3.5-5.0); Alkaline Phosphatase 88 U/L (39-117); Anion Gap 14 (12-20); Aspartate Amino Transferase 14 U/L (5-31); Bilirubin Total 0.6 mg/dL (0.0-1.0); Blood Urea Nitrogen 27 mg/dL (9-16); Carbon Dioxide 32 mmol/L (22-29); Chloride 92 mmol/L (96-108); Creatinine Clr Calc Pharmacy 38.7; Estimated Glomerular Filt Rate 48; Glucose Random 108 mg/dL (60-115); Potassium 2.5 mmol/L (3.3-5.1); Sodium 135 mmol/L (135-145); Total Protein 6.6 g/dL (6.5-8.0)
[2023-05-10 11:50] LABS: IDNOW Serial# 58CA691E; Influenza A Negative (Negative); Influenza B2 Negative (Negative)
--- NOTE | 2023-05-10 11:50 | ED.GENADULT ---
HPI - General Adult General Chief complaint: General Medical Stated complaint: urinating and coughing up blood Time Seen by Provider: 05/10/23 11:49 Source: patient, RN notes reviewed and old records reviewed Mode of arrival: wheelchair History of Present Illness HPI narrative: 72-year-old female with a past medical history of emphysema, HLD, osteoporosis, anxiety, asthma, HTN, anemia, presenting to the ED complaining of generalized fatigue/weakness, decreased p.o. intake and worsening SOB x2 weeks. Patient also reports a few days of bloody streaked sputum and hematuria last week, resolved at present. Denies known fever/chills, chest pain, abdominal pain, nausea/vomiting, dysuria, pedal edema. Denies taking anticoagulation Onset (ago): week(s) Related Data Previous Rx's Medication Instructions Recorded nadolol 40 mg tablet 40 mg PO DAILY #100 tabs 07/07/22 hydrochlorothiazide 25 mg tablet 25 mg PO DAILY #90 tabs 10/05/22 atorvastatin 10 mg tablet 10 mg PO DAILY #90 tabs 01/14/23 albuterol sulfate 2.5 mg/3 mL 2.5 mg (3 mL) inhalation Q4H PRN 03/16/23 (0.083 %) solution for nebulization bronchospasm 30 days #90 mL albuterol sulfate 90 mcg/actuation 1 puff inhalation QID PRN 03/16/23 aerosol inhaler (ProAir HFA) shortness of breath or wheezing #8.5 grams prednisone 10 mg tablet 10 mg PO DAILY #30 tabs 03/16/23 ibuprofen 800 mg tablet 800 mg PO Q8H PRN pain #60 tabs 04/28/23 lorazepam 1 mg tablet 1 mg PO BID anxiety #60 tabs 04/28/23 Allergies Allergy/AdvReac Type Severity Reaction Status Date / Time Penicillins [PENICILLINS] Allergy Intermediate HIVES/ITCHI Verified 04/19/23 09:02 NG Review of Systems Review of Systems: Constitutional: No Fever, No Chills, +Fatigue, + Malaise, + anorexia ENT/Mouth: No Ear Pain, No Nasal Congestion, No Sinus Pain, No Hoarseness, No sore throat, No Rhinorrhea, No Swallowing Difficulty Eyes: No Eye Pain, No Swelling, No Redness, No Vision Changes Cardiovascular: No Chest Pain, + SOB, + Dyspnea on Exertion, No Orthopnea, No Edema, No Palpitations Respiratory: + Cough, + bloody streaked Sputum (resolved), No Wheezing, +Dyspnea Gastrointestinal: No Nausea, No Vomiting, No Diarrhea, No Constipation, No Abdominal pain Genitourinary: No Dysuria, No Urinary Frequency, + Hematuria (resolved), No Urinary Incontinence/retention, No Flank Pain Musculoskeletal: No joint pain, No Myalgias, No Joint Swelling Skin: No Skin Lesions, No rash Neuro: + Weakness, No Loss of Consciousness, No Dizziness, No Headache Yes all other systems are reviewed and are negative Constitutional: Constitutional: Reports as per HPI Neurologic: Reports Abnormal speech present [facility] Past Medical History Attestation statement: The following information was validated with the patient. Source: old records reviewed Medical History Family history of lung cancer Personal history of nicotine dependence Back pain Osteoporosis (~2017) Pseudogout (~2015) Anxiety Hypertension Hyperlipidemia Surgical History History of colonoscopy Family History Family History Father Lung cancer Mother Diabetes Renal failure Social History Social History Household Members: None Housing: House Do you presently have visiting nurse or other home services: No Alcohol intake: never Patient Tobacco Use Status: Current everyday Tobacco user Tobacco use type: Cigarette Cigarettes Per Day: 10 Smoked in Last 30 Days: Yes e-Cigarette/Vaping Use: Never Used Second Hand Smoke Exposure: No Use of substances other than those prescribed or required for medical reasons: No Advance Directives: Yes Advance Directives Information Provided: No Advance Directives on File: No service: No Current occupational status: retired Current occupational exposures/hazards: No Cognitive needs: No Hearing needs: No Vision needs: Yes Physical Exam ED Vital Signs: Vital Signs - 24 hr 05/10/23 10:51 05/10/23 11:59 05/10/23 12:26 Temperature 96.8 F Pulse Rate 70 70 70 Respiratory Rate 16 20 16 Blood Pressure 110/72 157/69 H Pulse Oximetry 98 98 Oxygen Delivery Method Room Air Room Air 05/10/23 12:31 05/10/23 12:33 05/10/23 12:34 Temperature Pulse Rate 62 66 68 Respiratory Rate Blood Pressure 105/52 L 100/60 108/62 Pulse Oximetry Oxygen Delivery Method 05/10/23 13:59 Temperature Pulse Rate 68 Respiratory Rate 20 Blood Pressure 128/67 Pulse Oximetry 97 Oxygen Delivery Method Room Air BMI result Body Mass Index 19.8 Const General: cooperative, healthy appearing and no acute distress Orientation/consciousness: patient oriented x3 Limitations: no limitations HENMT Head: Yes normal to inspection and Yes atraumatic Ears: hearing grossly normal bilaterally General nose exam: Normal external nose present Face and sinus: Yes normal facial exam Eyes General: appearance normal, both eyes and all related structures EOM: EOMs intact bilaterally Neck Neck: Yes normal visual inspection and Yes no meningeal signs Resp Effort & Inspection: normal respiratory effort and no respiratory distress Auscultation: wheezes expiratory wheezes (scant) Cardio Rate: regular rate Heart sounds: S1 normal heart sound present and S2 normal heart sound present GI Inspection: Yes normal to inspection Palpation (GI): Soft to palpation, nontender, no guarding and not rigid Skin Rashes: no rashes Wounds: no wounds Neuro General: patient oriented x3, tone normal, moves all extremities, no meningeal signs, no focal motor deficits and CN's II-XI intact bilaterally Cranial nerves: Yes CN's II-XII intact bilaterally Cognition (Neuro): normal cognition Speech: Abnormal speech present Motor exam (neuro): 5/5 motor strength present throughout Extrem General: Yes normal to inspection and Yes edema (+1) Course Course Course Narrative: -1300--leukocytosis of 15.7. Hypokalemic to 2.5 > p.o. and IV repletion ordered. BUN elevated to 27 likely from dehydration/volume status. Lactic acid WNL -UA contaminated > will try to obtain repeat XR chest 2V IMPRESSION: 1. New 3.5 cm masslike consolidation in the superior segment of the right lower lobe with associated right hilar enlargement. Findings raise concern of developing bronchogenic neoplasm although pneumonia is within the differential diagnosis. Suggest close follow-up, and if persistent, contrast-enhanced thoracic CT. 2. No change in patchy nodular opacity in the left midlung zone since 12/01/2021 suggesting a benign postinflammatory etiology. > will obtain CT chest with IV contrast, lactic/blood cultures & give empiric IV Rocephin -COVID and influenza negative CT chest w IV con IMPRESSION: Multilobar ill-defined patchy opacities with a cavitary lesion in the right lower lobe likely multifocal inflammatory process. However underlying metastatic disease is hard to exclude. Recommend follow-up chest in 2 weeks following antibiotic treatment. Reactive lymph nodes in the mediastinum and bilateral ashley. Multiple hypodense left lobe liver lesions, left renal cysts and proximal abdominal aortic aneurysm. Fleischner guidelines were followed. >1558-- Will add Doxycycline. CT results discussed with patient including possible malignancy. Additional 60 mEq p.o. potassium ordered as well as repeat Chem7. Recommended admission to patient, however is she states she would like to sign out AMA. Risks discussed, patient is A&O x3, competent to make decisions -1628--repeat UA appears infected. Antibiotics will cover -1630--patient's son now in the emergency department, patient agreeable for admission Medications Administered Generic Name Dose Route Start Last Admin Trade Name Freq PRN Reason Stop Dose Admin Doxycycline Hyclate 100 mg/ 250 mls @ 166.67 mls/hr 05/10/23 16:00 05/10/23 16:19 Sodium Chloride IV 05/10/23 17:29 166.67 mls/hr ONCE ONE Administration Discontinued Medications Generic Name Dose Route Start Last Admin Trade Name Freq PRN Reason Stop Dose Admin Albuterol Sulfate 2 puff 05/10/23 12:20 05/10/23 12:23 Albuterol Sulfate 90 Mcg 8 Gm Inhaler INHALE 05/10/23 12:21 2 puff ONCE ONE Administration Albuterol/Ipratropium 3 ml 05/10/23 16:06 05/10/23 16:23 Albuterol/Iprat 2.5/0.5mg 3 Ml Ampul.Neb INHALE 05/10/23 16:07 3 ml ONCE ONE Administration Sodium Chloride 500 mls @ 999 mls/hr 05/10/23 12:15 05/10/23 14:19 Ns IV 05/10/23 12:45 Infused .Q31M EREN Infusion Potassium Chloride 10 meq in 100 mls @ 100 mls/hr 05/10/23 12:15 05/10/23 16:22 Potassium Chloride/H20 IV 05/10/23 14:14 Infused Q1H EREN Infusion Ceftriaxone Sodium 1 gm/ 50 mls @ 100 mls/hr 05/10/23 12:05 05/10/23 13:20 Sodium Chloride IV 05/10/23 12:34 Infused ONCE ONE Infusion Iohexol 65 ml 05/10/23 13:26 05/10/23 13:28 Iohexol 350 Mg/Ml 75 Ml Infus..Btl IV 05/10/23 13:27 65 ml ONCE ONE Administration Potassium Chloride 60 meq 05/10/23 12:05 05/10/23 12:37 Potassium Chloride Packet 20 Meq Packet PO 05/10/23 12:06 60 meq ONCE ONE Administration Potassium Chloride 40 meq 05/10/23 15:50 05/10/23 16:25 Potassium Chloride Packet 20 Meq Packet PO 05/10/23 15:51 Not Given ONCE ONE Potassium Chloride 60 meq 05/10/23 15:50 05/10/23 16:20 Potassium Chloride Packet 20 Meq Packet PO 05/10/23 15:51 60 meq ONCE ONE Administration Medical Decision Making Medical Decision Making MDM Narrative: 72-year-old female with a past medical history of emphysema, HLD, osteoporosis, anxiety, asthma, HTN, anemia, presenting to the ED complaining of generalized fatigue/weakness, decreased p.o. intake and worsening SOB x2 weeks. Patient also reports a few days of bloody streaked sputum and hematuria last week, resolved at present. On exam vital signs stable, NAD, nontoxic appearing, lungs with scant expiratory wheeze, abdomen soft/nontender, 1+ LE bilateral pitting edema. No focal neuro deficits. Concern for COPD/asthma exacerbation vs pneumonia vs metabolic/infectious etiologies including dehydration vs CHF vs bronchitis. Rule out UTI. Lower suspicion for renal stone/pyelo. Lower suspicion for PE/malignancy. Symptoms atypical for ACS Low suspicion for severe sepsis at this time Plan: EKG, labs, viral testing, CXR, UA, DuoNeb Please refer to course for remaining clinical decision making, interpretation of labs/imaging results, and discussions with consultants and/or family members. Differential Diagnosis Differential Diagnoses: The differential diagnosis associated with the presentation includes As above Admission/Observation Consideration of admission/observation: Escalation of care including admission/observation considered Consult Healthcare Provider Management of the patient was discussed with: Business Applications Analyst Lab Data MDM Lab Attestation statement: I reviewed the patient's lab results. 05/10/23 11:13 05/10/23 16:03 Labs: Lab Results 05/10/23 05/10/23 05/10/23 Range/Units 11:13 11:59 11:59 WBC 15.7 H (4.8-10.8) X10*3/uL RBC 4.89 (4.20-5.50) X10*6/uL Hgb 15.0 (12.0-16.0) g/dl Hct 43.6 (37.0-47.0) % MCV 89.2 (80.0-98.0) fL MCH 30.7 (27.0-33.0) pg MCHC 34.4 (31.0-35.0) g/dl RDW 13.0 (11.0-16.0) % Plt Count 331 (160-400) X10*3/uL MPV 10.4 (9.4-12.3) fL Immature Gran % (Auto) 2.4 H (0.0-0.4) % Neut % (Auto) 74.4 H (45-73) % Lymph % (Auto) 13.6 L (20-40) % Gar[place] % (Auto) 8.6 (2-11) % Eos % (Auto) 0.7 (0-4) % Baso % (Auto) 0.3 (0-2) % Lymph # (Auto) 2.1 (1.2-4.9) X10*3/uL [place] # (Auto) 1.4 H (0.1-1.2) X10*3/uL Eos # (Auto) 0.1 (0.0-0.4) X10*3/uL Baso # (Auto) 0.1 (0.0-0.2) X10*3/uL Abs Immat Gran (auto) 0.37 H (0.00-0.03) X10*3/uL Absolute Neuts (auto) 11.7 H (2.0-8.3) x10*3/uL Absolute Nucleated RBC 0.000 (0.0-0.012) X10*3/uL Nucleated RBC % (auto) 0.0 (0.0-0.2) /100WBC Smear Tech's Comments VERIFIED Sodium 135 (135-145) mmol/L Potassium 2.5 L* D (3.3-5.1) mmol/L Chloride 92 L (96-108) mmol/L Carbon Dioxide 32 H (22-29) mmol/L Anion Gap 14 (12-20) BUN 27 H (9-16) mg/dL Creatinine 1.12 (0.5-1.4) mg/dL Estim Creat Clear Calc 38.7 Estimated GFR 48 Random Glucose 108 (60-115) mg/dL Lactic Acid (0.5-2.0) mmol/L Calcium 9.0 D (8.4-10.2) mg/dL Magnesium 1.7 (1.6-2.6) mg/dL Total Bilirubin 0.6 (0.0-1.0) mg/dL AST 14 (5-31) U/L ALT 8 (0-31) U/L Alkaline Phosphatase 88 (39-117) U/L Troponin I High Sens 2.7 (<3.5-17.0) ng/L B-Natriuretic Peptide 53 (<100) pg/mL Total Protein 6.6 (6.5-8.0) g/dL Albumin 3.5 (3.5-5.0) g/dL Urine Color Yellow Cancelled Urine Appearance Cloudy Urine pH (5.0-9.0) Ur Specific [place] (1.005-1.025) Urine Protein (Neg-Trace) mg/dL Urine Glucose (UA) (Negative) mg/dL Urine Ketones (Negative) mg/dL Urine Blood (Negative) Urine Nitrite (Negative) Ur Leukocyte Esterase (Negative) Urine RBC (0-2) /HPF Urine WBC (0-5) /HPF Urine WBC Clumps Ur Squamous Epith Cells (0-2) /HPF Ur Transition Epith Cell Ur Renal Epithelial Cell Calcium Oxalate Crystal Leucine Crystals Cystine Crystals Tyrosine Crystals Other Crystals Urine Bacteria (None Seen) Urine Parasites Bilirubin Casts Epithelial Casts Fatty Casts Hyaline Casts (0-2) /LPF Granular Casts Waxy Casts Broad Casts RBC Casts WBC Casts Other Casts Urine Trichomonas Urine Yeast COVID-19 (MATTHEW) Negative (Negative) COVID-19 Clin Com See Note Influenza Type A (LOLIS) Negative (Negative) Influenza Type B (LOLIS) Negative (Negative) Influenza A & B Note See Note 05/10/23 05/10/23 05/10/23 Range/Units 11:59 11:59 11:59 WBC (4.8-10.8) X10*3/uL RBC (4.20-5.50) X10*6/uL Hgb (12.0-16.0) g/dl Hct (37.0-47.0) % MCV (80.0-98.0) fL MCH (27.0-33.0) pg MCHC (31.0-35.0) g/dl RDW (11.0-16.0) % Plt Count (160-400) X10*3/uL MPV (9.4-12.3) fL Immature Gran % (Auto) (0.0-0.4) % Neut % (Auto) (45-73) % Lymph % (Auto) (20-40) % Garland % (Auto) (2-11) % Eos % (Auto) (0-4) % Baso % (Auto) (0-2) % Lymph # (Auto) (1.2-4.9) X10*3/uL [place] # (Auto) (0.1-1.2) X10*3/uL Eos # (Auto) (0.0-0.4) X10*3/uL Baso # (Auto) (0.0-0.2) X10*3/uL Abs Immat Gran (auto) (0.00-0.03) X10*3/uL Absolute Neuts (auto) (2.0-8.3) x10*3/uL Absolute Nucleated RBC (0.0-0.012) X10*3/uL Nucleated RBC % (auto) (0.0-0.2) /100WBC Smear Tech's Comments Sodium (135-145) mmol/L Potassium (3.3-5.1) mmol/L Chloride (96-108) mmol/L Carbon Dioxide (22-29) mmol/L Anion Gap (12-20) BUN (9-16) mg/dL Creatinine (0.5-1.4) mg/dL Estim Creat Clear Calc Estimated GFR Random Glucose (60-115) mg/dL Lactic Acid (0.5-2.0) mmol/L Calcium (8.4-10.2) mg/dL Magnesium (1.6-2.6) mg/dL Total Bilirubin (0.0-1.0) mg/dL AST (5-31) U/L ALT (0-31) U/L Alkaline Phosphatase (39-117) U/L Troponin I High Sens (<3.5-17.0) ng/L B-Natriuretic Peptide (<100) pg/mL Total Protein (6.5-8.0) g/dL Albumin (3.5-5.0) g/dL Urine Color Urine Appearance Cancelled Urine pH 6.0 Cancelled (5.0-9.0) Ur Specific [place] 1.020 Cancelled (1.005-1.025) Urine Protein Trace (Neg-Trace) mg/dL Urine Glucose (UA) (Negative) mg/dL Urine Ketones (Negative) mg/dL Urine Blood (Negative) Urine Nitrite (Negative) Ur Leukocyte Esterase (Negative) Urine RBC (0-2) /HPF Urine WBC (0-5) /HPF Urine WBC Clumps Ur Squamous Epith Cells (0-2) /HPF Ur Transition Epith Cell Ur Renal Epithelial Cell Calcium Oxalate Crystal Leucine Crystals Cystine Crystals Tyrosine Crystals Other Crystals Urine Bacteria (None Seen) Urine Parasites Bilirubin Casts Epithelial Casts Fatty Casts Hyaline Casts (0-2) /LPF Granular Casts Waxy Casts Broad Casts RBC Casts WBC Casts Other Casts Urine Trichomonas Urine Yeast COVID-19 (MATTHEW) (Negative) COVID-19 Clin Com Influenza Type A (LOLSI) (Negative) Influenza Type B (LOLIS) (Negative) Influenza A & B Note 05/10/23 05/10/23 05/10/23 Range/Units 11:59 11:59 11:59 WBC (4.8-10.8) X10*3/uL RBC (4.20-5.50) X10*6/uL Hgb (12.0-16.0) g/dl Hct (37.0-47.0) % MCV (80.0-98.0) fL MCH (27.0-33.0) pg MCHC (31.0-35.0) g/dl RDW (11.0-16.0) % Plt Count (160-400) X10*3/uL MPV (9.4-12.3) fL Immature Gran % (Auto) (0.0-0.4) % Neut % (Auto) (45-73) % Lymph % (Auto) (20-40) % Garland % (Auto) (2-11) % Eos % (Auto) (0-4) % Baso % (Auto) (0-2) % Lymph # (Auto) (1.2-4.9) X10*3/uL [place] # (Auto) (0.1-1.2) X10*3/uL Eos # (Auto) (0.0-0.4) X10*3/uL Baso # (Auto) (0.0-0.2) X10*3/uL Abs Immat Gran (auto) (0.00-0.03) X10*3/uL Absolute Neuts (auto) (2.0-8.3) x10*3/uL Absolute Nucleated RBC (0.0-0.012) X10*3/uL Nucleated RBC % (auto) (0.0-0.2) /100WBC Smear Tech's Comments Sodium (135-145) mmol/L Potassium (3.3-5.1) mmol/L Chloride (96-108) mmol/L Carbon Dioxide (22-29) mmol/L Anion Gap (12-20) BUN (9-16) mg/dL Creatinine (0.5-1.4) mg/dL Estim Creat Clear Calc Estimated GFR Random Glucose (60-115) mg/dL Lactic Acid (0.5-2.0) mmol/L Calcium (8.4-10.2) mg/dL Magnesium (1.6-2.6) mg/dL Total Bilirubin (0.0-1.0) mg/dL AST (5-31) U/L ALT (0-31) U/L Alkaline Phosphatase (39-117) U/L Troponin I High Sens (<3.5-17.0) ng/L B-Natriuretic Peptide (<100) pg/mL Total Protein (6.5-8.0) g/dL Albumin (3.5-5.0) g/dL Urine Color Urine Appearance Urine pH (5.0-9.0) Ur Specific [place] (1.005-1.025) Urine Protein Cancelled (Neg-Trace) mg/dL Urine Glucose (UA) Negative Cancelled (Negative) mg/dL Urine Ketones Negative Cancelled (Negative) mg/dL Urine Blood Negative (Negative) Urine Nitrite (Negative) Ur Leukocyte Esterase (Negative) Urine RBC (0-2) /HPF Urine WBC (0-5) /HPF Urine WBC Clumps Ur Squamous Epith Cells (0-2) /HPF Ur Transition Epith Cell Ur Renal Epithelial Cell Calcium Oxalate Crystal Leucine Crystals Cystine Crystals Tyrosine Crystals Other Crystals Urine Bacteria (None Seen) Urine Parasites Bilirubin Casts Epithelial Casts Fatty Casts Hyaline Casts (0-2) /LPF Granular Casts Waxy Casts Broad Casts RBC Casts WBC Casts Other Casts Urine Trichomonas Urine Yeast COVID-19 (MATTHEW) (Negative) COVID-19 Clin Com Influenza Type A (LOLIS) (Negative) Influenza Type B (LOLIS) (Negative) Influenza A & B Note 05/10/23 05/10/23 05/10/23 Range/Units 11:59 11:59 11:59 WBC (4.8-10.8) X10*3/uL RBC (4.20-5.50) X10*6/uL Hgb (12.0-16.0) g/dl Hct (37.0-47.0) % MCV (80.0-98.0) fL MCH (27.0-33.0) pg MCHC (31.0-35.0) g/dl RDW (11.0-16.0) % Plt Count (160-400) X10*3/uL MPV (9.4-12.3) fL Immature Gran % (Auto) (0.0-0.4) % Neut % (Auto) (45-73) % Lymph % (Auto) (20-40) % Garland % (Auto) (2-11) % Eos % (Auto) (0-4) % Baso % (Auto) (0-2) % Lymph # (Auto) (1.2-4.9) X10*3/uL [place] # (Auto) (0.1-1.2) X10*3/uL Eos # (Auto) (0.0-0.4) X10*3/uL Baso # (Auto) (0.0-0.2) X10*3/uL Abs Immat Gran (auto) (0.00-0.03) X10*3/uL Absolute Neuts (auto) (2.0-8.3) x10*3/uL Absolute Nucleated RBC (0.0-0.012) X10*3/uL Nucleated RBC % (auto) (0.0-0.2) /100WBC Smear Tech's Comments Sodium (135-145) mmol/L Potassium (3.3-5.1) mmol/L Chloride (96-108) mmol/L Carbon Dioxide (22-29) mmol/L Anion Gap (12-20) BUN (9-16) mg/dL Creatinine (0.5-1.4) mg/dL Estim Creat Clear Calc Estimated GFR Random Glucose (60-115) mg/dL Lactic Acid (0.5-2.0) mmol/L Calcium (8.4-10.2) mg/dL Magnesium (1.6-2.6) mg/dL Total Bilirubin (0.0-1.0) mg/dL AST (5-31) U/L ALT (0-31) U/L Alkaline Phosphatase (39-117) U/L Troponin I High Sens (<3.5-17.0) ng/L B-Natriuretic Peptide (<100) pg/mL Total Protein (6.5-8.0) g/dL Albumin (3.5-5.0) g/dL Urine Color Urine Appearance Urine pH (5.0-9.0) Ur Specific [place] (1.005-1.025) Urine Protein (Neg-Trace) mg/dL Urine Glucose (UA) (Negative) mg/dL Urine Ketones (Negative) mg/dL Urine Blood Cancelled (Negative) Urine Nitrite Negative Cancelled (Negative) Ur Leukocyte Esterase Moderate (2+) H Cancelled (Negative) Urine RBC 3-5 H (0-2) /HPF Urine WBC (0-5) /HPF Urine WBC Clumps Ur Squamous Epith Cells (0-2) /HPF Ur Transition Epith Cell Ur Renal Epithelial Cell Calcium Oxalate Crystal Leucine Crystals Cystine Crystals Tyrosine Crystals Other Crystals Urine Bacteria (None Seen) Urine Parasites Bilirubin Casts Epithelial Casts Fatty Casts Hyaline Casts (0-2) /LPF Granular Casts Waxy Casts Broad Casts RBC Casts WBC Casts Other Casts Urine Trichomonas Urine Yeast COVID-19 (MATTHEW) (Negative) COVID-19 Clin Com Influenza Type A (LOLIS) (Negative) Influenza Type B (LOLIS) (Negative) Influenza A & B Note 05/10/23 05/10/23 05/10/23 Range/Units 11:59 11:59 11:59 WBC (4.8-10.8) X10*3/uL RBC (4.20-5.50) X10*6/uL Hgb (12.0-16.0) g/dl Hct (37.0-47.0) % MCV (80.0-98.0) fL MCH (27.0-33.0) pg MCHC (31.0-35.0) g/dl RDW (11.0-16.0) % Plt Count (160-400) X10*3/uL MPV (9.4-12.3) fL Immature Gran % (Auto) (0.0-0.4) % Neut % (Auto) (45-73) % Lymph % (Auto) (20-40) % [place] % (Auto) (2-11) % Eos % (Auto) (0-4) % Baso % (Auto) (0-2) % Lymph # (Auto) (1.2-4.9) X10*3/uL [place] # (Auto) (0.1-1.2) X10*3/uL Eos # (Auto) (0.0-0.4) X10*3/uL Baso # (Auto) (0.0-0.2) X10*3/uL Abs Immat Gran (auto) (0.00-0.03) X10*3/uL Absolute Neuts (auto) (2.0-8.3) x10*3/uL Absolute Nucleated RBC (0.0-0.012) X10*3/uL Nucleated RBC % (auto) (0.0-0.2) /100WBC Smear Tech's Comments Sodium (135-145) mmol/L Potassium (3.3-5.1) mmol/L Chloride (96-108) mmol/L Carbon Dioxide (22-29) mmol/L Anion Gap (12-20) BUN (9-16) mg/dL Creatinine (0.5-1.4) mg/dL Estim Creat Clear Calc Estimated GFR Random Glucose (60-115) mg/dL Lactic Acid (0.5-2.0) mmol/L Calcium (8.4-10.2) mg/dL Magnesium (1.6-2.6) mg/dL Total Bilirubin (0.0-1.0) mg/dL AST (5-31) U/L ALT (0-31) U/L Alkaline Phosphatase (39-117) U/L Troponin I High Sens (<3.5-17.0) ng/L B-Natriuretic Peptide (<100) pg/mL Total Protein (6.5-8.0) g/dL Albumin (3.5-5.0) g/dL Urine Color Urine Appearance Urine pH (5.0-9.0) Ur Specific [place] (1.005-1.025) Urine Protein (Neg-Trace) mg/dL Urine Glucose (UA) (Negative) mg/dL Urine Ketones (Negative) mg/dL Urine Blood (Negative) Urine Nitrite (Negative) Ur Leukocyte Esterase (Negative) Urine RBC Cancelled (0-2) /HPF Urine WBC 21-50 H Cancelled (0-5) /HPF Urine WBC Clumps Cancelled Ur Squamous Epith Cells 11-20 Cancelled (0-2) /HPF Ur Transition Epith Cell Cancelled Ur Renal Epithelial Cell Cancelled Calcium Oxalate Crystal Cancelled Leucine Crystals Cancelled Cystine Crystals Cancelled Tyrosine Crystals Cancelled Other Crystals Cancelled Urine Bacteria 4+ (None Seen) Urine Parasites Bilirubin Casts Epithelial Casts Fatty Casts Hyaline Casts (0-2) /LPF Granular Casts Waxy Casts Broad Casts RBC Casts WBC Casts Other Casts Urine Trichomonas Urine Yeast COVID-19 (MATTHEW) (Negative) COVID-19 Clin Com Influenza Type A (LOLIS) (Negative) Influenza Type B (LOLIS) (Negative) Influenza A & B Note 05/10/23 05/10/23 05/10/23 Range/Units 11:59 11:59 12:15 WBC (4.8-10.8) X10*3/uL RBC (4.20-5.50) X10*6/uL Hgb (12.0-16.0) g/dl Hct (37.0-47.0) % MCV (80.0-98.0) fL MCH (27.0-33.0) pg MCHC (31.0-35.0) g/dl RDW (11.0-16.0) % Plt Count (160-400) X10*3/uL MPV (9.4-12.3) fL Immature Gran % (Auto) (0.0-0.4) % Neut % (Auto) (45-73) % Lymph % (Auto) (20-40) % [place] % (Auto) (2-11) % Eos % (Auto) (0-4) % Baso % (Auto) (0-2) % Lymph # (Auto) (1.2-4.9) X10*3/uL [place] # (Auto) (0.1-1.2) X10*3/uL Eos # (Auto) (0.0-0.4) X10*3/uL Baso # (Auto) (0.0-0.2) X10*3/uL Abs Immat Gran (auto) (0.00-0.03) X10*3/uL Absolute Neuts (auto) (2.0-8.3) x10*3/uL Absolute Nucleated RBC (0.0-0.012) X10*3/uL Nucleated RBC % (auto) (0.0-0.2) /100WBC Smear Tech's Comments Sodium (135-145) mmol/L Potassium (3.3-5.1) mmol/L Chloride (96-108) mmol/L Carbon Dioxide (22-29) mmol/L Anion Gap (12-20) BUN (9-16) mg/dL Creatinine (0.5-1.4) mg/dL Estim Creat Clear Calc Estimated GFR Random Glucose (60-115) mg/dL Lactic Acid 1.3 (0.5-2.0) mmol/L Calcium (8.4-10.2) mg/dL Magnesium (1.6-2.6) mg/dL Total Bilirubin (0.0-1.0) mg/dL AST (5-31) U/L ALT (0-31) U/L Alkaline Phosphatase (39-117) U/L Troponin I High Sens (<3.5-17.0) ng/L B-Natriuretic Peptide (<100) pg/mL Total Protein (6.5-8.0) g/dL Albumin (3.5-5.0) g/dL Urine Color Urine Appearance Urine pH (5.0-9.0) Ur Specific [place] (1.005-1.025) Urine Protein (Neg-Trace) mg/dL Urine Glucose (UA) (Negative) mg/dL Urine Ketones (Negative) mg/dL Urine Blood (Negative) Urine Nitrite (Negative) Ur Leukocyte Esterase (Negative) Urine RBC (0-2) /HPF Urine WBC (0-5) /HPF Urine WBC Clumps Ur Squamous Epith Cells (0-2) /HPF Ur Transition Epith Cell Ur Renal Epithelial Cell Calcium Oxalate Crystal Leucine Crystals Cystine Crystals Tyrosine Crystals Other Crystals Urine Bacteria Cancelled (None Seen) Urine Parasites Cancelled Bilirubin Casts Cancelled Epithelial Casts Cancelled Fatty Casts Cancelled Hyaline Casts 0-2 Cancelled (0-2) /LPF Granular Casts Cancelled Waxy Casts Cancelled Broad Casts Cancelled RBC Casts Cancelled WBC Casts Cancelled Other Casts Cancelled Urine Trichomonas Cancelled Urine Yeast Cancelled COVID-19 (MATTHEW) (Negative) COVID-19 Clin Com Influenza Type A (LOLIS) (Negative) Influenza Type B (LOLIS) (Negative) Influenza A & B Note 05/10/23 05/10/23 Range/Units 15:48 16:03 WBC (4.8-10.8) X10*3/uL RBC (4.20-5.50) X10*6/uL Hgb (12.0-16.0) g/dl Hct (37.0-47.0) % MCV (80.0-98.0) fL MCH (27.0-33.0) pg MCHC (31.0-35.0) g/dl RDW (11.0-16.0) % Plt Count (160-400) X10*3/uL MPV (9.4-12.3) fL Immature Gran % (Auto) (0.0-0.4) % Neut % (Auto) (45-73) % Lymph % (Auto) (20-40) % [place] % (Auto) (2-11) % Eos % (Auto) (0-4) % Baso % (Auto) (0-2) % Lymph # (Auto) (1.2-4.9) X10*3/uL [place] # (Auto) (0.1-1.2) X10*3/uL Eos # (Auto) (0.0-0.4) X10*3/uL Baso # (Auto) (0.0-0.2) X10*3/uL Abs Immat Gran (auto) (0.00-0.03) X10*3/uL Absolute Neuts (auto) (2.0-8.3) x10*3/uL Absolute Nucleated RBC (0.0-0.012) X10*3/uL Nucleated RBC % (auto) (0.0-0.2) /100WBC Smear Tech's Comments Sodium 135 (135-145) mmol/L Potassium 3.8 D (3.3-5.1) mmol/L Chloride 97 (96-108) mmol/L Carbon Dioxide 31 H (22-29) mmol/L Anion Gap 11 L (12-20) BUN 23 H (9-16) mg/dL Creatinine 0.81 (0.5-1.4) mg/dL Estim Creat Clear Calc 53.5 Estimated GFR > 60 Random Glucose 96 (60-115) mg/dL Lactic Acid (0.5-2.0) mmol/L Calcium 8.5 (8.4-10.2) mg/dL Magnesium (1.6-2.6) mg/dL Total Bilirubin (0.0-1.0) mg/dL AST (5-31) U/L ALT (0-31) U/L Alkaline Phosphatase (39-117) U/L Troponin I High Sens (<3.5-17.0) ng/L B-Natriuretic Peptide (<100) pg/mL Total Protein (6.5-8.0) g/dL Albumin (3.5-5.0) g/dL Urine Color Yellow Urine Appearance Clear Urine pH 7.0 (5.0-9.0) Ur Specific [place] >= 1.030 H (1.005-1.025) Urine Protein Negative (Neg-Trace) mg/dL Urine Glucose (UA) Negative (Negative) mg/dL Urine Ketones Negative (Negative) mg/dL Urine Blood Negative (Negative) Urine Nitrite Negative (Negative) Ur Leukocyte Esterase Small (1+) H (Negative) Urine RBC 0-2 (0-2) /HPF Urine WBC 6-10 H (0-5) /HPF Urine WBC Clumps Ur Squamous Epith Cells 0-2 (0-2) /HPF Ur Transition Epith Cell Ur Renal Epithelial Cell Calcium Oxalate Crystal Leucine Crystals Cystine Crystals Tyrosine Crystals Other Crystals Urine Bacteria 2+ (None Seen) Urine Parasites Bilirubin Casts Epithelial Casts Fatty Casts Hyaline Casts 0-2 (0-2) /LPF Granular Casts Waxy Casts Broad Casts RBC Casts WBC Casts Other Casts Urine Trichomonas Urine Yeast COVID-19 (MATTHEW) (Negative) COVID-19 Clin Com Influenza Type A (LOLIS) (Negative) Influenza Type B (LOLIS) (Negative) Influenza A & B Note Independent Interpretation I performed an independent interpretation of an: EKG (EKG normal sinus rhythm rate of 71. Pr interval 152. QRS 70. QTC 432. No STEMI) Radiology Impression Discussion of test interpretation with radiology: I have reviewed the radiologist's reading. External Record Review External record reviewed: Inpatient record, Office record, Outpatient record, Prior outpatient labs, Prior outpatient radiology, Primary care record and Outside ED record Tests considered The following testing was considered but not selected: As above Chronic Conditions Patient?s care impacted by: Other (asthma, copd) Critical Care Time Critical Care Time Critical Care Time: Yes Total Critical Care Time: 45 Attestation: I have personally provided critical care time exclusive of time spent on separately billable procedures. Time includes review of lab data, radiology results, discussion with consultants, and monitoring for potential decompensation. Intervention performed as documented. Discharge Plan Discharge Clinical Impression: Multifocal pneumonia, Acute hypokalemia Patient Disposition: Admitted As Inpatient
[2023-05-10 12:06] LABS: Appearance Urine Cloudy; Color Urine Yellow; Glucose Urine UA Negative (Negative); Leukocyte Esterase Urine Moderate (2+) (Negative); Nitrite Urine Negative (Negative); UMIC TRIGGER UACC YES; Urine Blood Negative (Negative); Urine Ketones Negative (Negative); Urine Protein Trace mg/dL (Neg-Trace)
[2023-05-10 12:08] LABS: Bacteria Urine 4+ (None Seen); Hyaline Casts Urine 0-2 /LPF (0-2); UACC Culture Trigger YES; WBC Urine 21-50 /HPF (0-5)
--- NOTE | 2023-05-10 12:10 | PC.NURSE ---
pt is alert and oriented, skin pwd, respirations even at rest but gets sob and labored with minim exertion, ls course and expiatory wheezing, pt reports having a chronic junky cough which has gotten worse in the last couple of months, general weakness and poor appetite the last couple of days, about 4 days ago states coughing up bloody sputum and having hematuria which also has cleared up since then. denies pain at this time, vs stable and ns on the monitor
[2023-05-10 12:23] LABS: Magnesium 1.7 mg/dL (1.6-2.6)
[2023-05-10] MEDS: Albuterol Sulfate 90 MCG 8 GM INHALER 2 PUFF INHALE (12:23)
[2023-05-10 12:31] LABS: Lactic Acid 1.3 mmol/L (0.5-2.0)
[2023-05-10 12:33] LABS: B Type Natriuretic Peptide 53 pg/mL (<100)
[2023-05-10] MEDS: Potassium Chloride/H20 10 MEQ/100 ML PIGGYBACK 100 MEQ IV ×2 (12:36→14:19)
[2023-05-10] MEDS: cefTRIAXone sodium 1 GM in 0.9 % Sodium Chloride 50 ML IV (12:36)
[2023-05-10] MEDS: 0.9 % Sodium Chloride 500 ML 999 ML IV (12:37)
[2023-05-10] MEDS: Potassium Chloride Packet 20 MEQ PACKET 60 MEQ PO ×2 (12:37→16:20)
[2023-05-10] MEDS: iohexoL 350 MG/ML 75 ML INFUS..BTL 65 ML IV (13:28)
[2023-05-10 16:03] LABS: Appearance Urine Clear; Color Urine Yellow; Glucose Urine UA Negative (Negative); Leukocyte Esterase Urine Small (1+) (Negative); Nitrite Urine Negative (Negative); Specific Gravity - Urine >= 1.030 (1.005-1.025); UMIC TRIGGER UACC YES; Urine Blood Negative (Negative); Urine Ketones Negative (Negative); Urine Protein Negative (Neg-Trace)
[2023-05-10 16:08] LABS: Bacteria Urine 2+ (None Seen); Hyaline Casts Urine 0-2 /LPF (0-2); RBC Urine 0-2 /HPF (0-2); Squamous Epithelial Cell Urine 0-2 /HPF (0-2); UACC Culture Trigger YES
[2023-05-10] MEDS: Doxycycline Hyclate 100 MG in 0.9 % Sodium Chloride 250 ML 166.67 MG IV (16:19)
[2023-05-10] MEDS: Albuterol/Iprat 2.5/0.5MG 3 ML AMPUL.NEB INHALE ×2 (16:23→19:34)
[2023-05-10 16:34] LABS: Anion Gap 11 (12-20); Blood Urea Nitrogen 23 mg/dL (9-16); Calcium 8.5 mg/dL (8.4-10.2); Carbon Dioxide 31 mmol/L (22-29); Chloride 97 mmol/L (96-108); Creatinine Clr Calc Pharmacy 53.5; Estimated Glomerular Filt Rate > 60; Glucose Random 96 mg/dL (60-115); Potassium 3.8 mmol/L (3.3-5.1); Sodium 135 mmol/L (135-145)
--- NOTE | 2023-05-10 17:19 | PHA.MEDREC ---
Pharmacy Consult ? Medication Reconciliation Pharmacy has completed the medication reconciliation. Patient report medications. Hailey Casanova, RafaD
--- NOTE | 2023-05-10 18:26 | P.HPHOSP_ITS ---
<Statement entered by An Barr MD - 05/11/23 14:48> The patient was seen and evaluated with KRISTOPHER White. I agree with her note, assessment and plan with the following. In summary, A 72 years old lady with PMH of HTN, HLD, emphysema presented with cough and weakness. found to have hypokalemia and cavitary lung lesion. # pneumonia with cavitary lesion chest CT shows multi lobar opacities as well as cavitary lesion in right lower lobe likely inflammatory but cannot exclude malignancy. Pulmonology consult Start IV ceftriaxone and doxycycline # acute hypokalemia No EKG changes, replacement given with good response Rest of evaluations by PA note. History of Present Illness Date of Service: 05/10/23 Attending physician on admission: An Barr Chief Complaint: sob, cough 72-year-old female with history of emphysema, osteoporosis, hypertension, hyperlipidemia, anxiety, pseudogout who is a current 4-5 cigarettes per day smoker with 30+ pack year history presented to the ED earlier today for evaluation of generalized weakness, shortness of breath, productive cough ongoing for several days. She denies any wheezing or increased usage of her albuterol inhaler. States she has had white sputum crit production that has been tinged with bright red blood but no tasha hemoptysis. She also states she had hematuria initially but this resolved several days ago. No associated fevers, chills, congestion, sore throat, abdominal pain, nausea, vomiting, diarrhea, dysuria, increased urinary frequency or urgency, lightheadedness, palpitations, or chest pain. She has non oxygen dependent at home. On arrival, vitals stable, afebrile, no hypoxia. She has a leukocytosis of 15.7. Renal function normal. Initially, had hypokalemia of 2.5, electrolytes otherwise normal. After repletion was 60 mg potassium chloride, potassium improved to 3.8. Negative for COVID-19, influenza. Urinalysis with elevated specific gravity, 1+ leukocytes, negative nitrites, negative blood, slight urinary sediment and 2+ bacteria. CXR showed new 3.5 cm masslike consolidation in the superior segment of the right lower lobe with associated right hilar enlargement. Findings concerning for developing bronchogenic neoplasm although pneumonia is within the differential. On subsequent chest CT there is multi lobar ill-defined opacities with a cavitary lesion in the right lower lobe likely multifactorial inflammatory process however underlying metastatic disease hard to exclude. There also reactive lymph nodes in the mediastinum and bilateral ashley. In the ED, has received 60 mEq potassium chloride as previously noted as well as 20 mEq IV potassium chloride, 1 g IV ceftriaxone, 100 mg IV doxycycline, and DuoNeb. Review of Systems 2 Review of Systems: General: No fevers, malaise, unintentional weight loss. + generalized weakness HEENT: No blurred vision, diplopia. No sore throat, nasal congestion, rhinorrhea, sinus pain, ear pain Cardiovascular: No chest pain, palpitations, or leg edema Respiratory: +shortness of breath, +productive cough GI: No abdominal pain, nausea, vomiting, diarrhea, constipation, melena, hematochezia : No dysuria, hematuria, increased urinary frequency, decreased urinary output MSK: No myalgia, back pain Neuro: No headaches, focal weakness, paresthesias Skin: No rashes or lesions [facility] Medical History Family history of lung cancer Personal history of nicotine dependence Back pain Osteoporosis (~2018) Pseudogout (~2016) Anxiety Hypertension Hyperlipidemia Family History Father Lung cancer Mother Diabetes Renal failure Surgical History History of colonoscopy Social History Household Members: None Housing: House Do you presently have visiting nurse or other home services: No Alcohol intake: never Patient Tobacco Use Status: Current everyday Tobacco user Tobacco use type: Cigarette Cigarettes Per Day: 10 Smoked in Last 30 Days: Yes e-Cigarette/Vaping Use: Never Used Second Hand Smoke Exposure: No Use of substances other than those prescribed or required for medical reasons: No Advance Directives: Yes Advance Directives Information Provided: No Advance Directives on File: No service: No Current occupational status: retired Current occupational exposures/hazards: No Cognitive needs: No Hearing needs: No Vision needs: Yes Meds Allergies Allergy/AdvReac Type Severity Reaction Status Date / Time Penicillins [PENICILLINS] Allergy Intermediate HIVES/ITCHI Verified 04/19/23 09:02 NG Active Medications: Current Medications Acetaminophen (Acetaminophen 325 Mg Tablet) 650 mg PO Q6H PRN PRN Reason: Pain, Mild (Pain Scale 1-3) Docusate Sodium (Docusate Sodium 100 Mg Capsule) 100 mg PO DAILY PRN PRN Reason: Constipation Enoxaparin Sodium (Enoxaparin Sodium 40 Mg/0.4 Ml Syringe) 40 mg SUBCUT Q24H EREN Ceftriaxone Sodium 1 gm/ (Sodium Chloride) 50 mls @ 100 mls/hr IV Q24H EREN Doxycycline Hyclate 100 mg/ (Sodium Chloride) 250 mls @ 166.67 mls/hr IV Q12H EREN Ondansetron HCl (Ondansetron Hcl 4 Mg/2 Ml Vial) 4 mg IVPUSH Q8H PRN PRN Reason: Nausea and Vomiting Sodium Chloride (0.9 % Sodium Chloride Flush 3 Ml Syringe) 3 ml IVFLUSH QSHIFT EREN Home Medications Medication Instructions Recorded Confirmed Last Taken Type lorazepam 1 mg tablet 2 mg PO BEDTIME anxiety 05/10/23 05/10/23 Unknown History Physical Exam 2 Vital Signs and Narrative: Vital Signs: Last Vital Signs Temp 96.8 F 05/10/23 10:51 Pulse 68 05/10/23 17:39 Resp 20 05/10/23 17:39 BP 127/56 L 05/10/23 17:39 Pulse Ox 94 05/10/23 17:39 O2 Del Method Room Air 05/10/23 17:39 BMI result Body Mass Index 19.8 Constitutional - Awake and Alert, No apparent distress Eyes - PERRLA, EOMI Cardiovascular - S1S2, RRR, No edema Respiratory - Normal lung expansion, Normal respiratory effort, No respiratory distress, diminished bilaterally with crackles RLL and distant wheezing b/l upper lobes Gastrointestinal - NT / ND; +BS; No rebound or guarding Extremities - no calf tenderness bilaterally, no swelling Skin - Warm/Dry Neurological - Alert & oriented x3 Psychological - Appropriate affect Results Labs 05/10/23 11:13 05/10/23 16:03 Labs: Laboratory Results - last 24 hr 05/10/23 05/10/23 05/10/23 11:13 11:59 11:59 MCV 89.2 MCH 30.7 MCHC 34.4 RDW 13.0 Plt Count 331 MPV 10.4 Immature Gran % (Auto) 2.4 H Neut % (Auto) 74.4 H Lymph % (Auto) 13.6 L [place] % (Auto) 8.6 Eos % (Auto) 0.7 Baso % (Auto) 0.3 Lymph # (Auto) 2.1 [place] # (Auto) 1.4 H Eos # (Auto) 0.1 Baso # (Auto) 0.1 Abs Immat Gran (auto) 0.37 H Absolute Neuts (auto) 11.7 H Absolute Nucleated RBC 0.000 Nucleated RBC % (auto) 0.0 Smear Tech's Comments VERIFIED Anion Gap 14 Estim Creat Clear Calc 38.7 Estimated GFR 48 Random Glucose 108 Lactic Acid Calcium 9.0 D Magnesium 1.7 Total Bilirubin 0.6 AST 14 ALT 8 Alkaline Phosphatase 88 B-Natriuretic Peptide 53 Total Protein 6.6 Albumin 3.5 Urine Color Yellow Cancelled Urine Appearance Cloudy Urine pH Ur Specific [place] Urine Protein Urine Glucose (UA) Urine Ketones Urine Blood Urine Nitrite Ur Leukocyte Esterase Urine RBC Urine WBC Urine WBC Clumps Ur Squamous Epith Cells Ur Transition Epith Cell Ur Renal Epithelial Cell Calcium Oxalate Crystal Leucine Crystals Cystine Crystals Tyrosine Crystals Other Crystals Urine Bacteria Urine Parasites Bilirubin Casts Epithelial Casts Fatty Casts Hyaline Casts Granular Casts Waxy Casts Broad Casts RBC Casts WBC Casts Other Casts Urine Trichomonas Urine Yeast COVID-19 (MATTHEW) Negative COVID-19 Clin Com See Note Influenza Type A (LOLIS) Negative Influenza Type B (LOLIS) Negative Influenza A & B Note See Note 05/10/23 05/10/23 05/10/23 11:59 11:59 11:59 MCV MCH MCHC RDW Plt Count MPV Immature Gran % (Auto) Neut % (Auto) Lymph % (Auto) [place] % (Auto) Eos % (Auto) Baso % (Auto) Lymph # (Auto) [place] # (Auto) Eos # (Auto) Baso # (Auto) Abs Immat Gran (auto) Absolute Neuts (auto) Absolute Nucleated RBC Nucleated RBC % (auto) Smear Tech's Comments Anion Gap Estim Creat Clear Calc Estimated GFR Random Glucose Lactic Acid Calcium Magnesium Total Bilirubin AST ALT Alkaline Phosphatase B-Natriuretic Peptide Total Protein Albumin Urine Color Urine Appearance Cancelled Urine pH 6.0 Cancelled Ur Specific [place] 1.020 Cancelled Urine Protein Trace Urine Glucose (UA) Urine Ketones Urine Blood Urine Nitrite Ur Leukocyte Esterase Urine RBC Urine WBC Urine WBC Clumps Ur Squamous Epith Cells Ur Transition Epith Cell Ur Renal Epithelial Cell Calcium Oxalate Crystal Leucine Crystals Cystine Crystals Tyrosine Crystals Other Crystals Urine Bacteria Urine Parasites Bilirubin Casts Epithelial Casts Fatty Casts Hyaline Casts Granular Casts Waxy Casts Broad Casts RBC Casts WBC Casts Other Casts Urine Trichomonas Urine Yeast COVID-19 (MATTHEW) COVID-19 Clin Com Influenza Type A (LOLIS) Influenza Type B (LOLIS) Influenza A & B Note 05/10/23 05/10/23 05/10/23 11:59 11:59 11:59 MCV MCH MCHC RDW Plt Count MPV Immature Gran % (Auto) Neut % (Auto) Lymph % (Auto) [place] % (Auto) Eos % (Auto) Baso % (Auto) Lymph # (Auto) [place] # (Auto) Eos # (Auto) Baso # (Auto) Abs Immat Gran (auto) Absolute Neuts (auto) Absolute Nucleated RBC Nucleated RBC % (auto) Smear Tech's Comments Anion Gap Estim Creat Clear Calc Estimated GFR Random Glucose Lactic Acid Calcium Magnesium Total Bilirubin AST ALT Alkaline Phosphatase B-Natriuretic Peptide Total Protein Albumin Urine Color Urine Appearance Urine pH Ur Specific [place] Urine Protein Cancelled Urine Glucose (UA) Negative Cancelled Urine Ketones Negative Cancelled Urine Blood Negative Urine Nitrite Ur Leukocyte Esterase Urine RBC Urine WBC Urine WBC Clumps Ur Squamous Epith Cells Ur Transition Epith Cell Ur Renal Epithelial Cell Calcium Oxalate Crystal Leucine Crystals Cystine Crystals Tyrosine Crystals Other Crystals Urine Bacteria Urine Parasites Bilirubin Casts Epithelial Casts Fatty Casts Hyaline Casts Granular Casts Waxy Casts Broad Casts RBC Casts WBC Casts Other Casts Urine Trichomonas Urine Yeast COVID-19 (MATTHEW) COVID-19 Clin Com Influenza Type A (LOLIS) Influenza Type B (LOLIS) Influenza A & B Note 05/10/23 05/10/23 05/10/23 11:59 11:59 11:59 MCV MCH MCHC RDW Plt Count MPV Immature Gran % (Auto) Neut % (Auto) Lymph % (Auto) [place] % (Auto) Eos % (Auto) Baso % (Auto) Lymph # (Auto) [place] # (Auto) Eos # (Auto) Baso # (Auto) Abs Immat Gran (auto) Absolute Neuts (auto) Absolute Nucleated RBC Nucleated RBC % (auto) Smear Tech's Comments Anion Gap Estim Creat Clear Calc Estimated GFR Random Glucose Lactic Acid Calcium Magnesium Total Bilirubin AST ALT Alkaline Phosphatase B-Natriuretic Peptide Total Protein Albumin Urine Color Urine Appearance Urine pH Ur Specific [place] Urine Protein Urine Glucose (UA) Urine Ketones Urine Blood Cancelled Urine Nitrite Negative Cancelled Ur Leukocyte Esterase Moderate (2+) H Cancelled Urine RBC 3-5 H Urine WBC Urine WBC Clumps Ur Squamous Epith Cells Ur Transition Epith Cell Ur Renal Epithelial Cell Calcium Oxalate Crystal Leucine Crystals Cystine Crystals Tyrosine Crystals Other Crystals Urine Bacteria Urine Parasites Bilirubin Casts Epithelial Casts Fatty Casts Hyaline Casts Granular Casts Waxy Casts Broad Casts RBC Casts WBC Casts Other Casts Urine Trichomonas Urine Yeast COVID-19 (MATTHEW) COVID-19 Clin Com Influenza Type A (LOLIS) Influenza Type B (LOLIS) Influenza A & B Note 05/10/23 05/10/23 05/10/23 11:59 11:59 11:59 MCV MCH MCHC RDW Plt Count MPV Immature Gran % (Auto) Neut % (Auto) Lymph % (Auto) [place] % (Auto) Eos % (Auto) Baso % (Auto) Lymph # (Auto) [place] # (Auto) Eos # (Auto) Baso # (Auto) Abs Immat Gran (auto) Absolute Neuts (auto) Absolute Nucleated RBC Nucleated RBC % (auto) Smear Tech's Comments Anion Gap Estim Creat Clear Calc Estimated GFR Random Glucose Lactic Acid Calcium Magnesium Total Bilirubin AST ALT Alkaline Phosphatase B-Natriuretic Peptide Total Protein Albumin Urine Color Urine Appearance Urine pH Ur Specific [place] Urine Protein Urine Glucose (UA) Urine Ketones Urine Blood Urine Nitrite Ur Leukocyte Esterase Urine RBC Cancelled Urine WBC 21-50 H Cancelled Urine WBC Clumps Cancelled Ur Squamous Epith Cells 11-20 Cancelled Ur Transition Epith Cell Cancelled Ur Renal Epithelial Cell Cancelled Calcium Oxalate Crystal Cancelled Leucine Crystals Cancelled Cystine Crystals Cancelled Tyrosine Crystals Cancelled Other Crystals Cancelled Urine Bacteria 4+ Urine Parasites Bilirubin Casts Epithelial Casts Fatty Casts Hyaline Casts Granular Casts Waxy Casts Broad Casts RBC Casts WBC Casts Other Casts Urine Trichomonas Urine Yeast COVID-19 (MATTHEW) COVID-19 Clin Com Influenza Type A (LOLIS) Influenza Type B (LOLIS) Influenza A & B Note 05/10/23 05/10/23 05/10/23 11:59 11:59 12:15 MCV MCH MCHC RDW Plt Count MPV Immature Gran % (Auto) Neut % (Auto) Lymph % (Auto) [place] % (Auto) Eos % (Auto) Baso % (Auto) Lymph # (Auto) [place] # (Auto) Eos # (Auto) Baso # (Auto) Abs Immat Gran (auto) Absolute Neuts (auto) Absolute Nucleated RBC Nucleated RBC % (auto) Smear Tech's Comments Anion Gap Estim Creat Clear Calc Estimated GFR Random Glucose Lactic Acid 1.3 Calcium Magnesium Total Bilirubin AST ALT Alkaline Phosphatase B-Natriuretic Peptide Total Protein Albumin Urine Color Urine Appearance Urine pH Ur Specific [place] Urine Protein Urine Glucose (UA) Urine Ketones Urine Blood Urine Nitrite Ur Leukocyte Esterase Urine RBC Urine WBC Urine WBC Clumps Ur Squamous Epith Cells Ur Transition Epith Cell Ur Renal Epithelial Cell Calcium Oxalate Crystal Leucine Crystals Cystine Crystals Tyrosine Crystals Other Crystals Urine Bacteria Cancelled Urine Parasites Cancelled Bilirubin Casts Cancelled Epithelial Casts Cancelled Fatty Casts Cancelled Hyaline Casts 0-2 Cancelled Granular Casts Cancelled Waxy Casts Cancelled Broad Casts Cancelled RBC Casts Cancelled WBC Casts Cancelled Other Casts Cancelled Urine Trichomonas Cancelled Urine Yeast Cancelled COVID-19 (MATTHEW) COVID-19 Clin Com Influenza Type A (LOLIS) Influenza Type B (LOLIS) Influenza A & B Note 05/10/23 05/10/23 15:48 16:03 MCV MCH MCHC RDW Plt Count MPV Immature Gran % (Auto) Neut % (Auto) Lymph % (Auto) [place] % (Auto) Eos % (Auto) Baso % (Auto) Lymph # (Auto) [place] # (Auto) Eos # (Auto) Baso # (Auto) Abs Immat Gran (auto) Absolute Neuts (auto) Absolute Nucleated RBC Nucleated RBC % (auto) Smear Tech's Comments Anion Gap 11 L Estim Creat Clear Calc 53.5 Estimated GFR > 60 Random Glucose 96 Lactic Acid Calcium 8.5 Magnesium Total Bilirubin AST ALT Alkaline Phosphatase B-Natriuretic Peptide Total Protein Albumin Urine Color Yellow Urine Appearance Clear Urine pH 7.0 Ur Specific [place] >= 1.030 H Urine Protein Negative Urine Glucose (UA) Negative Urine Ketones Negative Urine Blood Negative Urine Nitrite Negative Ur Leukocyte Esterase Small (1+) H Urine RBC 0-2 Urine WBC 6-10 H Urine WBC Clumps Ur Squamous Epith Cells 0-2 Ur Transition Epith Cell Ur Renal Epithelial Cell Calcium Oxalate Crystal Leucine Crystals Cystine Crystals Tyrosine Crystals Other Crystals Urine Bacteria 2+ Urine Parasites Bilirubin Casts Epithelial Casts Fatty Casts Hyaline Casts 0-2 Granular Casts Waxy Casts Broad Casts RBC Casts WBC Casts Other Casts Urine Trichomonas Urine Yeast COVID-19 (MATTHEW) COVID-19 Clin Com Influenza Type A (LOLIS) Influenza Type B (LOLIS) Influenza A & B Note Imaging Radiologist's Impressions: Impressions Chest X-Ray 05/10/23 11:21 IMPRESSION: 1. New 3.5 cm masslike consolidation in the superior segment of the right lower lobe with associated right hilar enlargement. Findings raise concern of developing bronchogenic neoplasm although pneumonia is within the differential diagnosis. Suggest close follow-up, and if persistent, contrast-enhanced thoracic CT. 2. No change in patchy nodular opacity in the left midlung zone since 12/01/2021 suggesting a benign postinflammatory etiology. Chest CT 05/10/23 13:35 IMPRESSION: Multilobar ill-defined patchy opacities with a cavitary lesion in the right lower lobe likely multifocal inflammatory process. However underlying metastatic disease is hard to exclude. Recommend follow-up chest in 2 weeks following antibiotic treatment. Reactive lymph nodes in the mediastinum and bilateral ashley. Multiple hypodense left lobe liver lesions, left renal cysts and proximal abdominal aortic aneurysm. Fleischner guidelines were followed. Assessment and Plan (1) Acute hypokalemia: Status: Acute (2) Multifocal pneumonia: Status: Acute (3) Cavitary lesion of lung: Status: Acute Plan 72-year-old female with history of emphysema, osteoporosis, hypertension, hyperlipidemia, anxiety, pseudogout who is a current 4-5 cigarettes per day smoker with 30+ pack year history admitted for multifocal pneumonia with cavitary lesion and hypokalemia. #Multifocal pneumonia with cavitary lesion -leukocytosis 15.7, no other sirs criteria. No hypoxia -chest CT shows multi lobar opacities as well as cavitary lesion in right lower lobe likely inflammatory but cannot exclude malignancy. Pulmonology consult -IV ceftriaxone and doxycycline (initiated 05/10) -guaifenesin p.r.n. -DuoNebs q.4h, albuterol p.r.n. -follow CBC, cultures # acute hypokalemia -likely secondary to albuterol usage -no flattened t waves -repleted in ED, now resolved -follow BMP # COPD -possible mild exacerbation given slight wheezing in the upper lobes -no indication for steroids at this time -DuoNebs, albuterol as above # hypertension -blood pressure reasonably controlled -continue hydrochlorothiazide, nadolol # hyperlipidemia -continue statin # anxiety -continue lorazepam # cigarette smoker -declines NRT at this time -cessation counseling DVT prophylaxis-Lovenox DNR/DNI Patient requires inpatient stay at least 2 midnights for management of multifocal pneumonia with cavitary lesion requiring IV antibiotics, expert consultation as well as close monitoring of electrolyte levels given severe hypokalemia requiring IV repletion Quality Stroke Does the patient have a stroke diagnosis?: No VTE Prior VTE?: No VTE Risk Level:: Medical - moderate - high VTE Device Contraindication: Treatment Not Indicated VTE Drug Contraindication: N/A - Med Ordered
[2023-05-10] MEDS: Enoxaparin Sodium 40 MG/0.4 ML SYRINGE SUBCUT (19:26)
--- NOTE | 2023-05-10 19:35 | PC.NURSE ---
this rn assumed care of pt. pt a&ox4, respirations even and unlabored. pt has productive cough noted at this time. vss. normal sinus on tele . pt medicated per aug.
--- NOTE | 2023-05-10 19:44 | PC.NURSE ---
report given to Melvi SPAULDING on S3.
[2023-05-10] MEDS: LORazepam 1 MG TABLET 2 MG PO (20:59)
[2023-05-10] MEDS: 0.9 % Sodium Chloride Flush 3 ML SYRINGE IVFLUSH (21:00)
[2023-05-11 03:58] VITALS: BP 137/76; PULSE 76; RESP 16; TEMP 36.2; O2SAT 93
[2023-05-11] MEDS: Doxycycline Hyclate 100 MG in 0.9 % Sodium Chloride 250 ML 166.67 MG IV (04:16)
[2023-05-11 05:56] LABS: Anion Gap 13 (12-20); Blood Urea Nitrogen 15 mg/dL (9-16); Calcium 8.6 mg/dL (8.4-10.2); Carbon Dioxide 26 mmol/L (22-29); Chloride 100 mmol/L (96-108); Creatinine Clr Calc Pharmacy 60.7; Estimated Glomerular Filt Rate > 60; Glucose Random 84 mg/dL (60-115); Potassium 3.5 mmol/L (3.3-5.1); Sodium 135 mmol/L (135-145)
[2023-05-11 05:57] LABS: Basophils Absolute Auto 0.1 X10*3/uL (0.0-0.2); Basophils Percent Auto 0.3 % (0-2); Eosinophils Absolute Auto 0.2 X10*3/uL (0.0-0.4); Eosinophils Percent Auto 1.2 % (0-4); Hemoglobin 14.4 g/dl (12.0-16.0); Imm Gran Abs Auto 0.52 X10*3/uL (0.00-0.03); Imm Gran Pct Auto 3.5 % (0.0-0.4); Lymphocytes Absolute Auto 2.1 X10*3/uL (1.2-4.9); Lymphocytes Percent Auto 14.1 % (20-40); MANUAL DIFF FLAG SCAN; Mean Corpuscular HGB Conc 34.3 g/dl (31.0-35.0); Mean Corpuscular Volume 90.5 fL (80.0-98.0); Mean Platelet Volume 10.2 fL (9.4-12.3); Monocytes Absolute Auto 1.2 X10*3/uL (0.1-1.2); Monocytes Percent Auto 8.2 % (2-11); Neutrophils Absolute Auto 10.7 x10*3/uL (2.0-8.3); Neutrophils Percent Auto 72.7 % (45-73); Platelet Count 328 X10*3/uL (160-400); Red Blood Count 4.64 X10*6/uL (4.20-5.50); Red Cell Distribution Width 13.2 % (11.0-16.0); SCAN SMEAR FLAG 1; White Blood Count 14.7 X10*3/uL (4.8-10.8)
[2023-05-11 06:20] LABS: SLIDE REVIEW VERIFIED
[2023-05-11 07:13] VITALS: BP 135/66; PULSE 71; RESP 18; TEMP 36.1; O2SAT 91
[2023-05-11 07:21] VITALS: BP 128/66; PULSE 69; RESP 16; TEMP 36.1; O2SAT 93
[2023-05-11] MEDS: Albuterol/Iprat 2.5/0.5MG 3 ML AMPUL.NEB INHALE (07:58)
[2023-05-11 08:00] VITALS: PULSE 75; RESP 18; O2SAT 94
[2023-05-11] MEDS: Atorvastatin Calcium 10 MG TABLET PO (09:01)
[2023-05-11] MEDS: 0.9 % Sodium Chloride Flush 3 ML SYRINGE IVFLUSH (09:01)
[2023-05-11] MEDS: hydroCHLOROthiazide 25 MG TABLET PO (09:01)
--- NOTE | 2023-05-11 09:26 | MHC.CM.PN ---
Addendum entered by Dinah Mohamud 05/11/23 10:33: PT HAS BEEN MEDICALLY CLEARED FOR DC HOME, NO SERVICES. SON TO TRANSPORT Original Note: [facility]MM DELIVERED PT LIVES ALONE. INDEPENDENT AT BASELINE. +DRIVES EMPLOYED P/T. NO HCP BUT WILLING TO COMPLETE WHILE I/P. PCP DR. LAW DP: HOME, NO SERVICES ANTICIPATED. SON WILL TRANSPORT. CM WILL CONTINE TO FOLLOW FOR ANY CHANGE IN DC PLAN.
--- NOTE | 2023-05-11 10:24 | P.CONPL_ITS ---
History of Present Illness History of Present Illness Consult date: 05/11/23 Chief complaint: multifocal pneumonia, sepsis, cavitary lesion Narrative: 72-year-old lady with underlying history of emphysema, lung nodules PET positive with negative EBUS, and patient refusing to be evaluated by thoracic surgery or Interventional Radiology for percutaneous biopsy admitted on 05/10/2023 with dyspnea and productive cough. CT chest demonstrated right lower lobe cavitary lesion. She does admitted and started on empiric antibiotics. Today patient denies any dyspnea, but does complain of cough productive of whitish sputum. Review of Systems 2 Constitutional: Constitutional: Denies daytime sleepiness, Denies excessive sweating, Denies fatigue, Denies fever(s), Denies lethargy, Denies malaise, Denies night sweats, Denies snoring and Denies weight loss Eyes: Eyes: Denies blurry vision and Denies itchy eyes ENT: Denies nasal congestion, Denies post nasal drip, Denies sinus pain, Denies sinus pressure and Denies other ( Thrush) Cardiovascular: Cardiovascular: Denies chest pain, Denies pedal edema, Denies dyspnea, Denies orthopnea and Denies paroxysmal nocturnal dyspnea Respiratory: Respiratory: Reports cough, Denies hemoptysis, Reports excessive phlegm production, Denies dyspnea, Denies snoring and Denies wheezing Gastrointestinal: Gastrointestinal: Denies abdominal pain and Denies heartburn Musculoskeletal: Musculoskeletal: Denies myalgias, Denies arthralgias and Denies joint swelling Integumentary/Breasts: Skin/Breast: Denies rash Neurologic: Denies memory loss and Denies seizure-like activity Psychiatric: Psychiatric: Denies abnormal sleep pattern, Denies anxiety and Denies memory loss Endocrine: Endocrine: Denies excessive sweating, Denies fatigue and Denies heat intolerance Hematologic/Lymphatic: Hematologic/Lymphatic: Denies easy bruising Allergic/Immunologic: Allergic/Immunologic: Denies itchy eyes, Denies seasonal rhinorrhea and Denies wheezing PMFSH Past Medical History Medical History Family history of lung cancer Personal history of nicotine dependence Back pain Osteoporosis (~2018) Pseudogout (~2016) Anxiety Hypertension Hyperlipidemia Family History Family History Father Lung cancer Mother Diabetes Renal failure Surgical History Surgical History History of colonoscopy Social History Household Members: None Housing: House Do you presently have visiting nurse or other home services: No Alcohol intake: never Patient Tobacco Use Status: Never used Tobacco Tobacco use type: Cigarette Cigarettes Per Day: 10 e-Cigarette/Vaping Use: Never Used Second Hand Smoke Exposure: No Advance Directives Date on File: 05/10/23 service: No Current occupational status: retired Current occupational exposures/hazards: No Cognitive needs: No Hearing needs: No Vision needs: Yes Meds Allergies Allergy/AdvReac Type Severity Reaction Status Date / Time Penicillins [PENICILLINS] Allergy Intermediate HIVES/ITCHI Verified 04/19/23 09:02 NG Active Medications: Current Medications Acetaminophen (Acetaminophen 325 Mg Tablet) 650 mg PO Q6H PRN PRN Reason: Pain, Mild (Pain Scale 1-3) Albuterol Sulfate (Albuterol Sulfate (0.083%) 2.5 Mg/3 Ml Vial.Neb) 2.5 mg INHALE Q2H PRN PRN Reason: Shortness of Breath/Wheezing Albuterol/Ipratropium (Albuterol/Iprat 2.5/0.5mg 3 Ml Ampul.Neb) 3 ml INHALE RQ4H WHILE AWAKE [facility] Last Admin: 05/11/23 07:58 Dose: 3 ml Atorvastatin Calcium (Atorvastatin Calcium 10 Mg Tablet) 10 mg PO DAILY EREN Last Admin: 05/11/23 09:01 Dose: 10 mg Docusate Sodium (Docusate Sodium 100 Mg Capsule) 100 mg PO DAILY PRN PRN Reason: Constipation Enoxaparin Sodium (Enoxaparin Sodium 40 Mg/0.4 Ml Syringe) 40 mg SUBCUT Q24H EREN Last Admin: 05/10/23 19:26 Dose: 40 mg Guaifenesin (Guaifenesin 200 Mg/10 Ml 10 Ml Liquid) 10 ml PO Q6H PRN PRN Reason: Cough Hydrochlorothiazide (Hydrochlorothiazide 25 Mg Tablet) 25 mg PO DAILY [facility]; Protocol Last Admin: 05/11/23 09:01 Dose: 25 mg Ceftriaxone Sodium 1 gm/ (Sodium Chloride) 50 mls @ 100 mls/hr IV Q24H EREN Doxycycline Hyclate 100 mg/ (Sodium Chloride) 250 mls @ 166.67 mls/hr IV Q12H [facility] Last Infusion: 05/11/23 06:09 Dose: Infused Lorazepam (Lorazepam 1 Mg Tablet) 2 mg PO BEDTIME EREN Last Admin: 05/10/23 20:59 Dose: 2 mg Nadolol (Nadolol 40 Mg Tablet) 40 mg PO DAILY [facility]; Protocol Last Admin: 05/11/23 09:00 Dose: 40 mg Ondansetron HCl (Ondansetron Hcl 4 Mg/2 Ml Vial) 4 mg IVPUSH Q8H PRN PRN Reason: Nausea and Vomiting Sodium Chloride (0.9 % Sodium Chloride Flush 3 Ml Syringe) 3 ml IVFLUSH QSHIFT [facility] Last Admin: 05/11/23 09:01 Dose: 3 ml Home Medications Medication Instructions Recorded Confirmed Last Taken Type lorazepam 1 mg tablet 2 mg PO BEDTIME anxiety 05/10/23 05/10/23 Unknown History Physical Exam 2 Vital Signs: Vital Signs: Last Vital Signs Temp 96.9 F 05/11/23 07:21 Pulse 75 05/11/23 08:00 Resp 18 05/11/23 08:00 BP 128/66 05/11/23 07:21 Pulse Ox 93 05/11/23 07:21 O2 Del Method Room Air 05/11/23 07:21 BMI result Body Mass Index 20.5 Const: General: no acute distress and alert Nutritional Appearance: not obese Orientation/consciousness: Other orientation findings ( oriented) HEENT: Head: Yes atraumatic Eyes: General: appearance normal, both eyes and all related structures S clerae: sclerae normal EOM: EOMs intact bilaterally Neck: Neck: Yes supple Lymphatic: no lymphadenopathy noted Resp: Effort & Inspection: normal respiratory effort and no use of accessory muscles Auscultation: clear to auscultation bilaterally Cardio: Rate: regular rate Rhythm: regular rhythm Heart sounds: no gallops, no murmurs and no rubs Skin: General skin exam: other ( warm) Extrem: General: No clubbing, No cyanosis and No edema Results Laboratory Findings 05/11/23 05:31 05/11/23 05:31 Abnormal lab findings: Abnormal Labs 05/10/23 05/10/23 05/10/23 11:13 11:59 15:48 WBC 15.7 H Immature Gran % (Auto) 2.4 H Neut % (Auto) 74.4 H Lymph % (Auto) 13.6 L [place] # (Auto) 1.4 H Abs Immat Gran (auto) 0.37 H Absolute Neuts (auto) 11.7 H Potassium 2.5 L* D Chloride 92 L Carbon Dioxide 32 H Anion Gap BUN 27 H Ur Specific [place] >= 1.030 H Ur Leukocyte Esterase Moderate (2+) H Small (1+) H Urine RBC 3-5 H Urine WBC 21-50 H 6-10 H 05/10/23 05/11/23 16:03 05:31 WBC 14.7 H Immature Gran % (Auto) 3.5 H Neut % (Auto) Lymph % (Auto) 14.1 L [place] # (Auto) Abs Immat Gran (auto) 0.52 H Absolute Neuts (auto) 10.7 H Potassium Chloride Carbon Dioxide 31 H Anion Gap 11 L BUN 23 H Ur Specific [place] Ur Leukocyte Esterase Urine RBC Urine WBC Assessment and Plan (1) Lung abscess: Status: Acute (2) Pulmonary nodules: Status: Acute Plan Impression: 72-year-old lady with underlying known PET positive lung nodules admitted with pulmonary abscess. Recommendations: Four week course of Levaquin, followed by CT scan and outpatient pulmonary follow-up. Procedures Date of Service Date of Service: 05/11/23
--- NOTE | 2023-05-11 10:28 | PM.DS ---
DS: Providers Provider Date of Service: 05/11/23 Date of admission: 05/10/23 18:19 Primary care physician: Andriy Sherwood MD Consults: 05/10/23 18:19 Consult to Pulmonology Routine Consulting Provider: [facility] Reason for consultation: cavitary lesion DS: Diagnosis Discharge Diagnosis (1) Acute hypokalemia: Status: Acute (2) Multifocal pneumonia: Status: Acute (3) Cavitary lesion of lung: Status: Acute DS: Summary Hospital Course Hospital Course: Admission note HPI 72-year-old female with history of emphysema, osteoporosis, hypertension, hyperlipidemia, anxiety, pseudogout who is a current 4-5 cigarettes per day smoker with 30+ pack year history presented to the ED earlier today for evaluation of generalized weakness, shortness of breath, productive cough ongoing for several days. She denies any wheezing or increased usage of her albuterol inhaler. States she has had white sputum crit production that has been tinged with bright red blood but no tasha hemoptysis. She also states she had hematuria initially but this resolved several days ago. No associated fevers, chills, congestion, sore throat, abdominal pain, nausea, vomiting, diarrhea, dysuria, increased urinary frequency or urgency, lightheadedness, palpitations, or chest pain. She has non oxygen dependent at home. On arrival, vitals stable, afebrile, no hypoxia. She has a leukocytosis of 15.7. Renal function normal. Initially, had hypokalemia of 2.5, electrolytes otherwise normal. After repletion was 60 mg potassium chloride, potassium improved to 3.8. Negative for COVID-19, influenza. Urinalysis with elevated specific gravity, 1+ leukocytes, negative nitrites, negative blood, slight urinary sediment and 2+ bacteria. CXR showed new 3.5 cm masslike consolidation in the superior segment of the right lower lobe with associated right hilar enlargement. Findings concerning for developing bronchogenic neoplasm although pneumonia is within the differential. On subsequent chest CT there is multi lobar ill-defined opacities with a cavitary lesion in the right lower lobe likely multifactorial inflammatory process however underlying metastatic disease hard to exclude. There also reactive lymph nodes in the mediastinum and bilateral ashley. In the ED, has received 60 mEq potassium chloride as previously noted as well as 20 mEq IV potassium chloride, 1 g IV ceftriaxone, 100 mg IV doxycycline, and DuoNeb. Hospital course # pneumonia with cavitary lesion Not septic. no hypoxia. chest CT shows multi lobar opacities as well as cavitary lesion in right lower lobe likely inflammatory but cannot exclude malignancy. Treated with IV Doxycycline and Ceftriaxone. Pulmonology consulted and recommended outpatient follow up in 1 month after finishing 4 weeks of PO Levofloxacin. # acute hypokalemia Improved with replacement back to baseline. The patient has quick recovery and does not require 2 nights stay in the hospital as strap machine operator automatic recommended no intervention at this stage and to be treated with oral antibiotics for 4 weeks. Continue 4 weeks of Levofloxacin Follow up with dr Pena as outpatient to repeat CT scan and further evaluation Time Attestation Discharge coordination time: Greater than 30 minutes Quality: Safe Use of Opioids Does Pt have an Active Cancer Diagnosis on the Problem List?: No Quality: Stroke Does the patient have a stroke diagnosis?: No Physical Exam Vital Signs: Vital Signs: Last Vital Signs Temp 96.9 F 05/11/23 07:21 Pulse 75 05/11/23 08:00 Resp 18 05/11/23 08:00 BP 128/66 05/11/23 07:21 Pulse Ox 93 05/11/23 07:21 O2 Del Method Room Air 05/11/23 07:21 BMI result Body Mass Index 20.5 Const: Other: Constitutional : Awake, interactive, not in distress Neck : Normal inspection, Supple Cardiovascular : RRR, no JVP, no lower extremity edema Respiratory : good bilateral air entry, no crackles, wheezes or rhonchi Gastrointestinal: soft, lax, Normal bowel sounds, Non tender Skin : Warm, Dry Neurological : Alert & oriented x3, No focal deficit DS: Data Data Completed and Pending Labs on day of discharge: Laboratory Results - last 24 hr 05/10/23 05/10/23 05/10/23 11:13 11:59 11:59 WBC 15.7 H RBC 4.89 Hgb 15.0 Hct 43.6 MCV 89.2 MCH 30.7 MCHC 34.4 RDW 13.0 Plt Count 331 MPV 10.4 Immature Gran % (Auto) 2.4 H Neut % (Auto) 74.4 H Lymph % (Auto) 13.6 L [place] % (Auto) 8.6 Eos % (Auto) 0.7 Baso % (Auto) 0.3 Lymph # (Auto) 2.1 [place] # (Auto) 1.4 H Eos # (Auto) 0.1 Baso # (Auto) 0.1 Abs Immat Gran (auto) 0.37 H Absolute Neuts (auto) 11.7 H Absolute Nucleated RBC 0.000 Nucleated RBC % (auto) 0.0 Smear Tech's Comments VERIFIED Sodium 135 Potassium 2.5 L* D Chloride 92 L Carbon Dioxide 32 H Anion Gap 14 BUN 27 H Creatinine 1.12 Estim Creat Clear Calc 38.7 Estimated GFR 48 Random Glucose 108 Lactic Acid Calcium 9.0 D Magnesium 1.7 Total Bilirubin 0.6 AST 14 ALT 8 Alkaline Phosphatase 88 Troponin I High Sens 2.7 B-Natriuretic Peptide 53 Total Protein 6.6 Albumin 3.5 Urine Color Yellow Cancelled Urine Appearance Cloudy Urine pH Ur Specific [place] Urine Protein Urine Glucose (UA) Urine Ketones Urine Blood Urine Nitrite Ur Leukocyte Esterase Urine RBC Urine WBC Urine WBC Clumps Ur Squamous Epith Cells Ur Transition Epith Cell Ur Renal Epithelial Cell Calcium Oxalate Crystal Leucine Crystals Cystine Crystals Tyrosine Crystals Other Crystals Urine Bacteria Urine Parasites Bilirubin Casts Epithelial Casts Fatty Casts Hyaline Casts Granular Casts Waxy Casts Broad Casts RBC Casts WBC Casts Other Casts Urine Trichomonas Urine Yeast COVID-19 (MATTHEW) Negative COVID-19 Clin Com See Note Influenza Type A (LOLIS) Negative Influenza Type B (LOLIS) Negative Influenza A & B Note See Note 05/10/23 05/10/23 05/10/23 11:59 11:59 11:59 WBC RBC Hgb Hct MCV MCH MCHC RDW Plt Count MPV Immature Gran % (Auto) Neut % (Auto) Lymph % (Auto) [place] % (Auto) Eos % (Auto) Baso % (Auto) Lymph # (Auto) [place] # (Auto) Eos # (Auto) Baso # (Auto) Abs Immat Gran (auto) Absolute Neuts (auto) Absolute Nucleated RBC Nucleated RBC % (auto) Smear Tech's Comments Sodium Potassium Chloride Carbon Dioxide Anion Gap BUN Creatinine Estim Creat Clear Calc Estimated GFR Random Glucose Lactic Acid Calcium Magnesium Total Bilirubin AST ALT Alkaline Phosphatase Troponin I High Sens B-Natriuretic Peptide Total Protein Albumin Urine Color Urine Appearance Cancelled Urine pH 6.0 Cancelled Ur Specific [place] 1.020 Cancelled Urine Protein Trace Urine Glucose (UA) Urine Ketones Urine Blood Urine Nitrite Ur Leukocyte Esterase Urine RBC Urine WBC Urine WBC Clumps Ur Squamous Epith Cells Ur Transition Epith Cell Ur Renal Epithelial Cell Calcium Oxalate Crystal Leucine Crystals Cystine Crystals Tyrosine Crystals Other Crystals Urine Bacteria Urine Parasites Bilirubin Casts Epithelial Casts Fatty Casts Hyaline Casts Granular Casts Waxy Casts Broad Casts RBC Casts WBC Casts Other Casts Urine Trichomonas Urine Yeast COVID-19 (MATTHEW) COVID-19 Clin Com Influenza Type A (LOLIS) Influenza Type B (LOLIS) Influenza A & B Note 05/10/23 05/10/23 05/10/23 11:59 11:59 11:59 WBC RBC Hgb Hct MCV MCH MCHC RDW Plt Count MPV Immature Gran % (Auto) Neut % (Auto) Lymph % (Auto) [place] % (Auto) Eos % (Auto) Baso % (Auto) Lymph # (Auto) [place] # (Auto) Eos # (Auto) Baso # (Auto) Abs Immat Gran (auto) Absolute Neuts (auto) Absolute Nucleated RBC Nucleated RBC % (auto) Smear Tech's Comments Sodium Potassium Chloride Carbon Dioxide Anion Gap BUN Creatinine Estim Creat Clear Calc Estimated GFR Random Glucose Lactic Acid Calcium Magnesium Total Bilirubin AST ALT Alkaline Phosphatase Troponin I High Sens B-Natriuretic Peptide Total Protein Albumin Urine Color Urine Appearance Urine pH Ur Specific [place] Urine Protein Cancelled Urine Glucose (UA) Negative Cancelled Urine Ketones Negative Cancelled Urine Blood Negative Urine Nitrite Ur Leukocyte Esterase Urine RBC Urine WBC Urine WBC Clumps Ur Squamous Epith Cells Ur Transition Epith Cell Ur Renal Epithelial Cell Calcium Oxalate Crystal Leucine Crystals Cystine Crystals Tyrosine Crystals Other Crystals Urine Bacteria Urine Parasites Bilirubin Casts Epithelial Casts Fatty Casts Hyaline Casts Granular Casts Waxy Casts Broad Casts RBC Casts WBC Casts Other Casts Urine Trichomonas Urine Yeast COVID-19 (MATTHEW) COVID-19 Clin Com Influenza Type A (LOLIS) Influenza Type B (LOLIS) Influenza A & B Note 05/10/23 05/10/23 05/10/23 11:59 11:59 11:59 WBC RBC Hgb Hct MCV MCH MCHC RDW Plt Count MPV Immature Gran % (Auto) Neut % (Auto) Lymph % (Auto) [place] % (Auto) Eos % (Auto) Baso % (Auto) Lymph # (Auto) [place] # (Auto) Eos # (Auto) Baso # (Auto) Abs Immat Gran (auto) Absolute Neuts (auto) Absolute Nucleated RBC Nucleated RBC % (auto) Smear Tech's Comments Sodium Potassium Chloride Carbon Dioxide Anion Gap BUN Creatinine Estim Creat Clear Calc Estimated GFR Random Glucose Lactic Acid Calcium Magnesium Total Bilirubin AST ALT Alkaline Phosphatase Troponin I High Sens B-Natriuretic Peptide Total Protein Albumin Urine Color Urine Appearance Urine pH Ur Specific [place] Urine Protein Urine Glucose (UA) Urine Ketones Urine Blood Cancelled Urine Nitrite Negative Cancelled Ur Leukocyte Esterase Moderate (2+) H Cancelled Urine RBC 3-5 H Urine WBC Urine WBC Clumps Ur Squamous Epith Cells Ur Transition Epith Cell Ur Renal Epithelial Cell Calcium Oxalate Crystal Leucine Crystals Cystine Crystals Tyrosine Crystals Other Crystals Urine Bacteria Urine Parasites Bilirubin Casts Epithelial Casts Fatty Casts Hyaline Casts Granular Casts Waxy Casts Broad Casts RBC Casts WBC Casts Other Casts Urine Trichomonas Urine Yeast COVID-19 (MATTHEW) COVID-19 Clin Com Influenza Type A (LOLIS) Influenza Type B (LOLIS) Influenza A & B Note 05/10/23 05/10/23 05/10/23 11:59 11:59 11:59 WBC RBC Hgb Hct MCV MCH MCHC RDW Plt Count MPV Immature Gran % (Auto) Neut % (Auto) Lymph % (Auto) [place] % (Auto) Eos % (Auto) Baso % (Auto) Lymph # (Auto) [place] # (Auto) Eos # (Auto) Baso # (Auto) Abs Immat Gran (auto) Absolute Neuts (auto) Absolute Nucleated RBC Nucleated RBC % (auto) Smear Tech's Comments Sodium Potassium Chloride Carbon Dioxide Anion Gap BUN Creatinine Estim Creat Clear Calc Estimated GFR Random Glucose Lactic Acid Calcium Magnesium Total Bilirubin AST ALT Alkaline Phosphatase Troponin I High Sens B-Natriuretic Peptide Total Protein Albumin Urine Color Urine Appearance Urine pH Ur Specific [place] Urine Protein Urine Glucose (UA) Urine Ketones Urine Blood Urine Nitrite Ur Leukocyte Esterase Urine RBC Cancelled Urine WBC 21-50 H Cancelled Urine WBC Clumps Cancelled Ur Squamous Epith Cells 11-20 Cancelled Ur Transition Epith Cell Cancelled Ur Renal Epithelial Cell Cancelled Calcium Oxalate Crystal Cancelled Leucine Crystals Cancelled Cystine Crystals Cancelled Tyrosine Crystals Cancelled Other Crystals Cancelled Urine Bacteria 4+ Urine Parasites Bilirubin Casts Epithelial Casts Fatty Casts Hyaline Casts Granular Casts Waxy Casts Broad Casts RBC Casts WBC Casts Other Casts Urine Trichomonas Urine Yeast COVID-19 (MATTHEW) COVID-19 Clin Com Influenza Type A (LOLIS) Influenza Type B (LOLIS) Influenza A & B Note 05/10/23 05/10/23 05/10/23 11:59 11:59 12:15 WBC RBC Hgb Hct MCV MCH MCHC RDW Plt Count MPV Immature Gran % (Auto) Neut % (Auto) Lymph % (Auto) [place] % (Auto) Eos % (Auto) Baso % (Auto) Lymph # (Auto) [place] # (Auto) Eos # (Auto) Baso # (Auto) Abs Immat Gran (auto) Absolute Neuts (auto) Absolute Nucleated RBC Nucleated RBC % (auto) Smear Tech's Comments Sodium Potassium Chloride Carbon Dioxide Anion Gap BUN Creatinine Estim Creat Clear Calc Estimated GFR Random Glucose Lactic Acid 1.3 Calcium Magnesium Total Bilirubin AST ALT Alkaline Phosphatase Troponin I High Sens B-Natriuretic Peptide Total Protein Albumin Urine Color Urine Appearance Urine pH Ur Specific [place] Urine Protein Urine Glucose (UA) Urine Ketones Urine Blood Urine Nitrite Ur Leukocyte Esterase Urine RBC Urine WBC Urine WBC Clumps Ur Squamous Epith Cells Ur Transition Epith Cell Ur Renal Epithelial Cell Calcium Oxalate Crystal Leucine Crystals Cystine Crystals Tyrosine Crystals Other Crystals Urine Bacteria Cancelled Urine Parasites Cancelled Bilirubin Casts Cancelled Epithelial Casts Cancelled Fatty Casts Cancelled Hyaline Casts 0-2 Cancelled Granular Casts Cancelled Waxy Casts Cancelled Broad Casts Cancelled RBC Casts Cancelled WBC Casts Cancelled Other Casts Cancelled Urine Trichomonas Cancelled Urine Yeast Cancelled COVID-19 (MATTHEW) COVID-19 Clin Com Influenza Type A (LOLIS) Influenza Type B (LOLIS) Influenza A & B Note 05/10/23 05/10/23 05/11/23 15:48 16:03 05:31 WBC 14.7 H RBC 4.64 Hgb 14.4 Hct 42.0 MCV 90.5 MCH 31.0 MCHC 34.3 RDW 13.2 Plt Count 328 MPV 10.2 Immature Gran % (Auto) 3.5 H Neut % (Auto) 72.7 Lymph % (Auto) 14.1 L [place] % (Auto) 8.2 Eos % (Auto) 1.2 Baso % (Auto) 0.3 Lymph # (Auto) 2.1 [place] # (Auto) 1.2 Eos # (Auto) 0.2 Baso # (Auto) 0.1 Abs Immat Gran (auto) 0.52 H Absolute Neuts (auto) 10.7 H Absolute Nucleated RBC 0.000 Nucleated RBC % (auto) 0.0 Smear Tech's Comments VERIFIED Sodium 135 135 Potassium 3.8 D 3.5 Chloride 97 100 Carbon Dioxide 31 H 26 Anion Gap 11 L 13 BUN 23 H 15 Creatinine 0.81 0.74 Estim Creat Clear Calc 53.5 60.7 Estimated GFR > 60 > 60 Random Glucose 96 84 Lactic Acid Calcium 8.5 8.6 Magnesium Total Bilirubin AST ALT Alkaline Phosphatase Troponin I High Sens B-Natriuretic Peptide Total Protein Albumin Urine Color Yellow Urine Appearance Clear Urine pH 7.0 Ur Specific [place] >= 1.030 H Urine Protein Negative Urine Glucose (UA) Negative Urine Ketones Negative Urine Blood Negative Urine Nitrite Negative Ur Leukocyte Esterase Small (1+) H Urine RBC 0-2 Urine WBC 6-10 H Urine WBC Clumps Ur Squamous Epith Cells 0-2 Ur Transition Epith Cell Ur Renal Epithelial Cell Calcium Oxalate Crystal Leucine Crystals Cystine Crystals Tyrosine Crystals Other Crystals Urine Bacteria 2+ Urine Parasites Bilirubin Casts Epithelial Casts Fatty Casts Hyaline Casts 0-2 Granular Casts Waxy Casts Broad Casts RBC Casts WBC Casts Other Casts Urine Trichomonas Urine Yeast COVID-19 (MATTHEW) COVID-19 Clin Com Influenza Type A (LOLIS) Influenza Type B (LOLIS) Influenza A & B Note Imaging Chest x-ray: Radiologist's impression: ITS Impressions Chest X-Ray 05/10/23 11:21 IMPRESSION: 1. New 3.5 cm masslike consolidation in the superior segment of the right lower lobe with associated right hilar enlargement. Findings raise concern of developing bronchogenic neoplasm although pneumonia is within the differential diagnosis. Suggest close follow-up, and if persistent, contrast-enhanced thoracic CT. 2. No change in patchy nodular opacity in the left midlung zone since 12/01/2021 suggesting a benign postinflammatory etiology. Chest CT 05/10/23 13:35 IMPRESSION: Multilobar ill-defined patchy opacities with a cavitary lesion in the right lower lobe likely multifocal inflammatory process. However underlying metastatic disease is hard to exclude. Recommend follow-up chest in 2 weeks following antibiotic treatment. Reactive lymph nodes in the mediastinum and bilateral ashley. Multiple hypodense left lobe liver lesions, left renal cysts and proximal abdominal aortic aneurysm. Fleischner guidelines were followed. Discharge Plan Discharge Anticipated Discharge Date/Time: 05/11/23 10:23 Patient Disposition: Home, Self-Care Discharge Diagnosis: Cavitary lesion Hypokalemia Referrals: Andriy Sherwood MD [Primary Care Provider] - 2 days Discharge Medications: New levofloxacin 750 mg tablet 750 mg PO Q24H Qty: 28 0RF Continued nadolol 40 mg tablet 40 mg PO DAILY Qty: 100 5RF hydrochlorothiazide 25 mg tablet 25 mg PO DAILY Qty: 90 8RF atorvastatin 10 mg tablet 10 mg PO DAILY Qty: 90 2RF lorazepam 1 mg tablet 2 mg PO BEDTIME Discharge Orders: Discharge Order (Routine); Ordered 05/11/23 Ordered By: An Barr Diet: Advance to usual diet Activity on Discharge: As tolerated Stand Alone Forms: Patient Portal Discharge page Other Ambulatory Orders: CT chest w IV con (Routine) Timeframe: 1 Month Facility: [facility] - Location: CT Scan Ordered By: An Barr Care Plan Goals: Read below Health Concerns: Read below Plan of Treatment: Read below Assessment: CT scan showed evidence of cavitation in your lung with surrounding inflammation and likely infection. evaluated by lung specialist who recommended 4 weeks of antibiotics then repeat images. Continue 4 weeks of Levofloxacin Follow up with dr Pena as outpatient to repeat CT scan and further evaluation Patient Instructions: Hypokalemia (ED), Community Acquired Pneumonia (DC)
== END 2023-05-11 12:08 | disposition home or self-care (01) | DRG 195 ==
LOC: HO.ED 16:35 → HO.EDOVER 19:08 → HO.S3 19:35
PROVIDERS: Physician Assistant; Admitting Provider Physician Assistant; Emergency Provider Emergency Medicine; PCP Internal Medicine; Visit Provider Student in an Organized Health Care Education/Training Program
DX: J18.9 Pneumonia, unspecified organism (principal); J98.4 Other disorders of lung; F17.210 Nicotine dependence, cigarettes, uncomplicated; J43.9 Emphysema, unspecified; Z66 Do not resuscitate; E78.5 Hyperlipidemia, unspecified; E87.6 Hypokalemia; I10 Essential (primary) hypertension; F41.9 Anxiety disorder, unspecified; Z20.822 Contact with and (suspected) exposure to COVID-19; Z71.6 Tobacco abuse counseling; Z80.1 Family history of malignant neoplasm of trachea, bronchus and lung; Z88.0 Allergy status to penicillin; Z79.899 Other long term (current) drug therapy
CPT/HCPCS: 36415; 71046; 71260; 80048; 80053; 81001; 81003; 83605; 83735; 83880; 84484; 85025; 87040; 87086; 87502; 87635; 93005; 94640; 99285; J0696; J1650; J3480; Q9967

== ENCOUNTER → 2023-05-10 18:19 | Outpatient (BNV) | payer MEDICARE, SELFPAY | PROVIDERS: Admitting Provider Physician Assistant; Emergency Provider Emergency Medicine; PCP Internal Medicine; Visit Provider Internal Medicine Pulmonary Disease | DX: J85.2 Abscess of lung without pneumonia (principal); R91.8 Other nonspecific abnormal finding of lung field | CPT/HCPCS: 99222 ==

== ENCOUNTER → 2023-05-10 18:19 | Outpatient (BNV) | payer MEDICARE, SELFPAY | PROVIDERS: Admitting Provider Physician Assistant; Emergency Provider Emergency Medicine; PCP Internal Medicine; Visit Provider Student in an Organized Health Care Education/Training Program | DX: J44.9 Chronic obstructive pulmonary disease, unspecified (principal); J18.9 Pneumonia, unspecified organism; E87.6 Hypokalemia; J98.4 Other disorders of lung | CPT/HCPCS: 99223; 99239 ==

== ENCOUNTER 2023-05-20 14:17 | Outpatient (AMB) | payer MEDICARE, SELFPAY ==
[2023-05-20 14:20] VITALS: BP 130/80; PULSE 70; O2SAT 98; BMI 19.6
--- NOTE | 2023-05-20 14:20 | MHC.PC.OV ---
Vital Signs 05/20/23 14:20 Height 5 ft 5 in Weight 118 lb BMI 19.6 BP 130/80 Blood Pressure Location Lt brachial Position Sitting Pulse 70 Pulse Source Pulse Oximeter Pulse Oximetry (%) 98 Oxygen Delivery Method Room Air Intake Visit Reasons: [facility], multifocal pneumonia, 05/10-05/11 Forms Analysis Manager Required: No Sound Mixer: Present Accompanied by: Son Allergies Penicillins [PENICILLINS] Allergy (Intermediate, Verified 05/20/23 14:21) HIVES/ITCHING Medication List - Last Reconciled 05/21/23 by Andriy Sherwood MD atorvastatin 10 mg PO DAILY hydrochlorothiazide 25 mg PO DAILY levofloxacin 750 mg PO Q24H lorazepam 2 mg PO BEDTIME nadolol 40 mg PO DAILY Tobacco use date assessed: 12/14/22 Fall risk assessment: No Falls in past year Last assessed Fall Risk: 05/20/23 Dental Screening Dental Screen Date: 05/20/23 Did you have a dental visit in the last 12 months?: No Did you have a dental problem in the last 6 months where you did not have access to dental care?: No Was dental information given to patient?: Patient has dentist HPI [facility], multifocal pneumonia, 05/10-05/11 HPI Details admitted with pneumonia with air fluid levels and concern about malignancy; seeing pulmonary and f/y CT already scheduled; may need Bx probably PFSH Medical History Family history of lung cancer Personal history of nicotine dependence Back pain Osteoporosis (~2018) Pseudogout (~2016) Anxiety Hypertension Hyperlipidemia Surgical History History of colonoscopy Family History Father Lung cancer Mother Diabetes Renal failure Social History Household Members: None Housing: House Do you presently have visiting nurse or other home services: No Alcohol intake: never Patient Tobacco Use Status: Never used Tobacco Tobacco use type: Cigarette Cigarettes Per Day: 10 e-Cigarette/Vaping Use: Never Used Second Hand Smoke Exposure: No Advance Directives Date on File: 05/10/23 service: No Current occupational status: retired Current occupational exposures/hazards: No Cognitive needs: No Hearing needs: No Vision needs: Yes Questionnaire Thrive Questionnaire Date Thrive assessed: 05/11/23 NICOLE-7 AMB Questionnaire NICOLE-7 Date NICOLE - 7 assessed: 08/17/22 Source: Developed by Drs. Alex Barkley, Nilam Rainey, Júnior Haro and colleagues, with an educational elsie from [employer]. Review of Systems Const Denies chills, Denies headache(s) and Denies weight loss ENT Denies headache(s) Card Denies chest pain, Denies syncope, Denies irregular heart rhythm and Denies dyspnea Resp Denies chest congestion, Denies cough and Denies dyspnea GI Denies abdominal pain, Denies change in stool character, Denies nausea and Denies vomiting Musc Denies deformity and Denies joint swelling Neuro Denies syncope and Denies headache(s) Physical exam (Primary Care) Vital Signs: Last Vital Signs Pulse 70 05/20/23 14:20 BP 130/80 05/20/23 14:20 Pulse Ox 98 05/20/23 14:20 Oxygen Delivery Method Room Air 05/20/23 14:20 BMI result Body Mass Index 19.6 Tobacco/Smoking Status: Tobacco use Status Tobacco use date assessed 12/14/22 05/20/23 14:27 Patient Tobacco Use Status Never used Tobacco 05/20/23 14:27 Tobacco use type Cigarette 05/20/23 14:27 e-Cigarette/Vaping Use Never Used 05/20/23 14:27 Thrive Assessment: Date of Thrive Assessment Date Thrive assessed 05/11/23 05/20/23 14:27 Const General: cooperative, comfortable, no acute distress and alert Neck Neck: Yes no lymphadenopathy Thyroid: Thyroid normal Resp Effort & Inspection: normal respiratory effort Auscultation: clear to auscultation bilaterally Percussion: percussion normal Cardio Jugular venous distension: no JVD Palpation: normal PMI Rate: regular rate Rhythm: regular rhythm Heart sounds: S1 normal heart sound present and S2 normal heart sound present GI Inspection: Yes normal to inspection Palpation (GI): No hepatosplenomegaly present Skin General skin exam: no rashes or lesions noted Extrem General: Yes no clubbing, cyanosis or edema Assessment and Plan Assessment & Plan (1) Multifocal pneumonia: Code(s): J18.9 - Pneumonia, unspecified organism Plan: f/u per pulmonary Coding Level of Care Code Est Pt Level 3 (37558) Diagnoses Multifocal pneumonia J18.9
== END 2023-05-20 14:50 | disposition home or self-care (01) ==
PROVIDERS: PCP Internal Medicine; Visit Provider Internal Medicine
DX: J18.9 Pneumonia, unspecified organism (principal)
CPT/HCPCS: 99213

== ENCOUNTER 2023-06-23 08:30 | Outpatient (REF) | payer MEDICARE, SELFPAY ==
--- NOTE | ~2023-06-23 | CT_ITS ---
EXAMINATION: CT CHEST WITHOUT CONTRAST CLINICAL INFORMATION: Abscess of lung without pneumonia. COMPARISON: CT chest 05/10/2023. PET/CT 02/03/2022. TECHNIQUE: Multidetector volumetric CT imaging of the chest was done. Axial MIP volume rendering provided. Sagittal and coronal reformatted images were obtained. This CT examination was performed using dose optimization techniques as appropriate, variously including the following: *Automated exposure control *Adjustment of mA and/or kV according to patient size (this includes techniques or standardized protocols for targeted exams where dose is matched to indication/reason for exam; i.e. extremities or head) *Use of iterative reconstruction technique DLP: 91 mGy-cm FINDINGS: LUNGS: Again seen are diffuse changes of emphysema. There has been significant improvement in the cavitary mass seen in the superior segment of the right lower lobe which has decreased in size considerably since the prior exam. Maximal transverse measurements had been 5.2 x 4.2 cm (prior 5:217), now measuring 2.7 x 2.1 cm (5:252). There are 2 pleural-based spiculated masses which are unchanged. There is a right-sided superior segment mass measuring 1 cm in maximal transverse dimension (5:302 compare prior 5:257) along with a 2.1 x 1.2 cm mass in the superior segment of the left upper lobe (5:255 compare prior 5:214). There is some surrounding ground-glass change present along with some dilated peripheral bronchi. There are some other unchanged lung densities seen including a lingular 1.2 cm nodule (5:372 compare prior 5:311). Sherwood images of all have been saved. Bibasilar scarring/atelectasis is unchanged. MEDIASTINUM: Some mildly prominent reactive lymph nodes are seen with the largest in the precarinal area without significant change measuring 1.1 cm in short axis dimension. CORONARY ARTERY CALCIFICATION: Mild. PLEURA: There is no pleural effusion. No pleural mass or thickening. AXILLA: No lymphadenopathy. UPPER ABDOMEN: Partial visualization of abdominal aortic aneurysm with maximal dimension of 3.5 cm on the included portions of the aorta, unchanged from prior (3:64 compare prior 3:64). Again seen is a benign left upper pole Bosniak class I renal cyst which requires no additional imaging or follow up. No solid renal masses are seen. OSSEOUS STRUCTURES: Degenerative changes are present in the spine. No bony destructive lesions. CT/CT chest wo IV con IMPRESSION: 1. Significant improvement in the cavitary mass in the superior segment of the right lower lobe which I suspect is infectious given the marked improvement. 2. Other lung masses are unchanged with 2 pleural-based. The mass in the superior segment of the left lower lobe was PET-avid and concerning for malignancy at the time of the prior PET/CT. 3. Other incidental findings, as described above, including stable 3.5 cm abdominal aortic aneurysm and benign left renal cyst which requires no additional imaging or follow up. Fleischner guidelines were followed.
== END 2023-06-23 08:31 | disposition home or self-care (01) ==
LOC: HO.CT 08:30
PROVIDERS: PCP Internal Medicine; Visit Provider Internal Medicine Pulmonary Disease
DX: J85.2 Abscess of lung without pneumonia (principal)
CPT/HCPCS: 71250

== ENCOUNTER 2023-06-29 10:13 | Outpatient (AMB) | payer MEDICARE, SELFPAY ==
--- NOTE | 2023-06-29 10:23 | A.OFFVIS_ITS ---
Intake Vital Signs 06/29/23 10:24 Height 5 ft 5 in Weight 115 lb 11.883 oz BMI 19.3 BP 158/77 H Blood Pressure Location Rt brachial Position Sitting Pulse 66 Pulse Source Doppler Pulse Oximetry (%) 97 Oxygen Delivery Method Room Air Intake Visit Reasons: ED follow up cavitary lesion/ f/u CT Allergies Penicillins [PENICILLINS] Allergy (Intermediate, Verified 06/29/23 10:28) HIVES/ITCHING HPI ED follow up cavitary lesion/ f/u CT HPI Details 72-year-old lady with underlying history of emphysema, lung nodules PET positive with negative EBUS, and patient previously refusing to be evaluated by thoracic surgery or Interventional Radiology for percutaneous biopsy admitted on 05/10/2023 with dyspnea and productive cough. CT chest demonstrated right lower lobe cavitary lesion. She was treated with a four-week course of Levaquin and follow-up CT chest showed essentially resolution of right-sided abscess, but persistence of unknown left-sided PET positive nodule. Patient is also complaining of weight loss. FOR[facility]LY [facility], [facility] Medical History Family history of lung cancer Personal history of nicotine dependence Back pain Osteoporosis (~2018) Pseudogout (~2016) Anxiety Hypertension Hyperlipidemia Surgical History History of colonoscopy Family History Father Lung cancer Mother Diabetes Renal failure Social History Household Members: None Housing: House Do you presently have visiting nurse or other home services: No Alcohol intake: never Patient Tobacco Use Status: Never used Tobacco Tobacco use type: Cigarette Cigarettes Per Day: 10 e-Cigarette/Vaping Use: Never Used Second Hand Smoke Exposure: No Advance Directives Date on File: 05/10/23 service: No Current occupational status: retired Current occupational exposures/hazards: No Cognitive needs: No Hearing needs: No Vision needs: Yes Review of Systems Const Denies daytime sleepiness, Denies excessive sweating, Denies fatigue, Denies fever(s), Denies lethargy, Denies malaise, Denies night sweats, Denies snoring and Reports weight loss Eyes Denies blurry vision and Denies itchy eyes ENT Denies nasal congestion, Denies post nasal drip, Denies sinus pain, Denies sinus pressure and Denies other ( Thrush) Card Denies chest pain, Denies pedal edema, Denies dyspnea, Denies orthopnea and Denies paroxysmal nocturnal dyspnea Resp Denies cough, Denies hemoptysis, Denies excessive phlegm production, Denies dyspnea, Denies snoring and Denies wheezing GI Denies abdominal pain and Denies heartburn Musc Reports other (Left iliac crest pain) Skin/Breast Denies rash Neuro Denies memory loss and Denies seizure-like activity Psych Denies abnormal sleep pattern, Denies anxiety and Denies memory loss Endo Denies excessive sweating, Denies fatigue and Denies heat intolerance Luis Carlos/Lymph Denies easy bruising Aller/Immun Denies itchy eyes, Denies seasonal rhinorrhea and Denies wheezing Physical Exam Vital Signs: Last Vital Signs Pulse 66 06/29/23 10:24 BP 158/77 H 06/29/23 10:24 Pulse Ox 97 06/29/23 10:24 Oxygen Delivery Method Room Air 06/29/23 10:24 BMI result Body Mass Index 19.3 Const General: no acute distress and alert Nutritional Appearance: not obese Orientation/consciousness: Other orientation findings ( oriented) HEENT Head: Yes atraumatic Eyes General: appearance normal, both eyes and all related structures Sclerae: sclerae normal EOM: EOMs intact bilaterally Neck Neck: Yes supple Lymphatic: no lymphadenopathy noted Resp Effort & Inspection: normal respiratory effort and no use of accessory muscles Auscultation: clear to auscultation bilaterally Cardio Rate: regular rate Rhythm: regular rhythm Heart sounds: no gallops, no murmurs and no rubs Skin General skin exam: other ( warm) Extrem General: No clubbing, No cyanosis and No edema Assessment & Plan Assessment & Plan (1) Cavitary lesion of lung: Code(s): J98.4 - Other disorders of lung Plan: Essentially resolution of right-sided abscess cavity on CT chest reviewed by me. (2) Pulmonary nodule 1 cm or greater in diameter: Code(s): R91.1 - Solitary pulmonary nodule Plan: Known left-sided PET positive nodule. Percutaneous biopsy ordered. Patient is refusing repeat PET scan. Orders: Orders CT biopsy lung LT Today R91.1 - Solitary pulmonary nodule Coding Level of Care Code Est Pt Level 4 (46943) Diagnoses Cavitary lesion of lung J98.4 Pulmonary nodule 1 cm or greater in diameter R91.1
[2023-06-29 10:24] VITALS: BP 158/77; PULSE 66; O2SAT 97; BMI 19.3
== END 2023-06-29 10:58 | disposition home or self-care (01) ==
PROVIDERS: PCP Internal Medicine; Visit Provider Internal Medicine Pulmonary Disease
DX: J98.4 Other disorders of lung (principal); R91.1 Solitary pulmonary nodule
CPT/HCPCS: 99214

== ENCOUNTER → 2023-06-29 10:13 | Outpatient (BNVA) | payer MEDICARE, SELFPAY | PROVIDERS: PCP Internal Medicine; Visit Provider Internal Medicine Pulmonary Disease | DX: R91.1 Solitary pulmonary nodule (principal); J98.4 Other disorders of lung | CPT/HCPCS: 99212 ==

== ENCOUNTER 2023-07-01 08:49 | Outpatient (REF) | payer MEDICARE, SELFPAY ==
[2023-07-01 10:26] LABS: Thyroid Stimulating Hormone 1.71 uIU/mL (0.32-4.0)
== END 2023-07-01 08:50 | disposition home or self-care (01) ==
LOC: HO.LAB 08:49
PROVIDERS: PCP Internal Medicine; Visit Provider Internal Medicine
DX: E03.9 Hypothyroidism, unspecified (principal)
CPT/HCPCS: 36415; 84443

== ENCOUNTER 2023-07-12 10:51 | Day surgery (SDC) | payer MEDICARE, SELFPAY ==
[2023-07-12] VITALS (8 sets, daily range): BP systolic 109–154; BP diastolic 51–73; PULSE 56–68; RESP 16–18; TEMP 36.3–37.1; O2SAT 90–98; BMI 20.7
--- NOTE | ~2023-07-12 | XR_ITS ---
EXAMINATION: XR CHEST CLINICAL INFORMATION: Postbiopsy evaluation COMPARISON: None available. TECHNIQUE: Frontal view of the chest was obtained. FINDINGS: vascularity. LUNGS: Irregular nodular alveolar density surrounded by hazy and streaky alveolar infiltrates is seen in left mid lung, corresponding to the left lower lobe superior segment lesion. No pneumothorax is seen. BONES: Bony skeleton is intact. XR/XR chest 1V IMPRESSION: Interval increase in hazy density surrounding the left lower lobe superior segment mass lesion compatible with postbiopsy hemorrhage. No evidence of pneumothorax is seen.
--- NOTE | ~2023-07-12 | CT_ITS ---
PROCEDURE: CT GUIDED BIOPSY, LUNG CLINICAL INFORMATION: Left upper lobe lung nodule COMPARISON: CT chest 07/20/2023 Medications for conscious sedation: The patient received intravenous conscious sedation under my direct supervision. A registered nurse monitored the patient and the patient's vital signs throughout the procedure. The total sedation was 30 minutes utilizing fentanyl and Versed. TECHNIQUE: Informed consent was obtained following a discussion of the risks and benefits of the procedure with the patient. Patient was placed prone on the CT gantry and a CT chest was performed. A site over the left posterior chest wall was selected and marked and then sterilely prepped and draped. Following the administration of 1% lidocaine for local anesthesia, the left upper lobe pulmonary nodule was accessed with a 17-gauge coaxial needle under intermittent CT fluoroscopic guidance. 2 18-gauge core needle biopsy specimens were obtained and placed in formalin. The coaxial needle was removed while delivering a 5 mL blood patch. The patient was repositioned to be supine. Post biopsy CT images were obtained. This CT examination was performed using dose optimization techniques as appropriate, variously including the following: *Automated exposure control *Adjustment of mA and/or kV according to patient size (this includes techniques or standardized protocols for targeted exams where dose is matched to indication/reason for exam; i.e. extremities or head) *Use of iterative reconstruction technique DLP: 144 mGy-cm FINDINGS: CT demonstrates known left upper lobe pulmonary nodule. Additional findings are similar to recent cross-sectional imaging. CT-guided biopsy of left upper lobe pulmonary nodule as detailed above. Postbiopsy images demonstrate minimal perilesional postbiopsy hemorrhage within normal limits. No significant pneumothorax or other complication. CT/CT biopsy lung LT IMPRESSION: CT guided core needle biopsy of left upper lobe pulmonary nodule
--- NOTE | ~2023-07-12 | XR_ITS ---
EXAMINATION: XR CHEST CLINICAL INFORMATION: Evaluate for pneumo post biopsy 2 hours post. COMPARISON: 07/12/2023 and prior. TECHNIQUE: Frontal view of the chest was obtained. FINDINGS: Redemonstration of prominent right hilum and similar cardiomediastinal silhouette. Rightward curvature of the thoracic spine with degenerative changes. Heart size is normal. Similar patchy opacity in the left midlung. There is no gross pneumothorax. XR/XR chest 1V IMPRESSION: Similar patchy opacity in the left midlung. No gross pneumothorax.
[2023-07-12 12:07] LABS: MANUAL DIFF FLAG NO
[2023-07-12 12:17] LABS: Basophils Percent Auto 0.4 % (0-2); Eosinophils Absolute Auto 0.3 X10*3/uL (0.0-0.4); Hematocrit 43.4 % (37.0-47.0); Imm Gran Abs Auto 0.03 X10*3/uL (0.00-0.03); Imm Gran Pct Auto 0.4 % (0.0-0.4); Lymphocytes Absolute Auto 2.2 X10*3/uL (1.2-4.9); Lymphocytes Percent Auto 25.7 % (20-40); Mean Corpuscular HGB Conc 34.6 g/dl (31.0-35.0); Mean Corpuscular Volume 92.5 fL (80.0-98.0); Mean Platelet Volume 10.1 fL (9.4-12.3); Monocytes Absolute Auto 0.7 X10*3/uL (0.1-1.2); Monocytes Percent Auto 7.6 % (2-11); Neutrophils Absolute Auto 5.4 x10*3/uL (2.0-8.3); Neutrophils Percent Auto 62.9 % (45-73); Platelet Count 199 X10*3/uL (160-400); Red Blood Count 4.69 X10*6/uL (4.20-5.50); Red Cell Distribution Width 13.6 % (11.0-16.0); White Blood Count 8.5 X10*3/uL (4.8-10.8)
[2023-07-12 12:20] LABS: INTERNATIONAL NORM RATIO 0.9 (0.9-1.1); Prothrombin Time 11.3 SEC (11.1-13.3)
[2023-07-12 12:23] LABS: Partial Thromboplastin Time 25.8 SEC (26.0-36.4)
--- NOTE | 2023-08-05 12:02 | PC.NURSE ---
08/05/2022 Chart review for QA
== END 2023-07-12 16:04 | disposition home or self-care (01) ==
LOC: HO.SSS 10:53
PROVIDERS: Physician Assistant Surgical; PCP Internal Medicine; Visit Provider Student in an Organized Health Care Education/Training Program
DX: C34.12 Malignant neoplasm of upper lobe, left bronchus or lung (principal); R91.8 Other nonspecific abnormal finding of lung field; J98.4 Other disorders of lung; R06.00 Dyspnea, unspecified; J43.9 Emphysema, unspecified; M54.9 Dorsalgia, unspecified; I10 Essential (primary) hypertension; R05.8 Other specified cough; E78.5 Hyperlipidemia, unspecified; R63.4 Abnormal weight loss; Z68.1 Body mass index [BMI] 19.9 or less, adult; M11.20 Other chondrocalcinosis, unspecified site; M81.0 Age-related osteoporosis without current pathological fracture; F41.9 Anxiety disorder, unspecified; Z88.0 Allergy status to penicillin; Z87.891 Personal history of nicotine dependence
CPT/HCPCS: 32408; 36415; 71045; 85025; 85610; 85730; 88305; 88341; 88342; 99152; 99153; J2250; J2310; J3010

== ENCOUNTER → 2023-07-12 12:06 | Outpatient (BNV) | payer MEDICARE, SELFPAY | PROVIDERS: PCP Internal Medicine; Visit Provider Student in an Organized Health Care Education/Training Program | DX: R91.1 Solitary pulmonary nodule (principal) | CPT/HCPCS: 32408 ==

== ENCOUNTER 2023-07-21 10:16 | Outpatient (AMB) | payer MEDICARE, SELFPAY ==
[2023-07-21 10:18] VITALS: BP 138/67; PULSE 73; O2SAT 96; BMI 19.9
--- NOTE | 2023-07-21 10:18 | A.OFFVIS_ITS ---
Intake Vital Signs 07/21/23 10:18 Height 5 ft 4 in Weight 115 lb 11.883 oz BMI 19.9 BP 138/67 Blood Pressure Location Lt brachial Position Sitting Pulse 73 Pulse Source Doppler Pulse Oximetry (%) 96 Oxygen Delivery Method Room Air Intake Visit Reasons: cavitary lesion of lung/ lung ct bx Allergies Penicillins [PENICILLINS] Allergy (Intermediate, Verified 07/21/23 10:21) HIVES/ITCHING HPI cavitary lesion of lung/ lung ct bx HPI Details 72-year-old lady with underlying history of emphysema, lung nodules PET positive with negative EBUS, and patient previously refusing to be evaluated by thoracic surgery or Interventional Radiology for percutaneous biopsy admitted on 05/10/2023 with dyspnea and productive cough. CT chest demonstrated right lower lobe cavitary lesion. She was treated with a four-week course of Levaquin and follow-up CT chest showed essentially resolution of right-sided abscess, but persistence of known left-sided PET positive nodule. Patient is also complaining of weight loss. After the last office visit patient had percutaneous biopsy previously PET positive nodule that showed adenocarcinoma. Patient previously refused a repeat PET scan, but now she agrees to proceeding with one. [facility] Medical History Family history of lung cancer Personal history of nicotine dependence Back pain Osteoporosis (~2017) Pseudogout (~2015) Anxiety Hypertension Hyperlipidemia Surgical History History of colonoscopy Family History Father Lung cancer Mother Diabetes Renal failure Social History Household Members: None Housing: House Do you presently have visiting nurse or other home services: No Alcohol intake: never Patient Tobacco Use Status: Never used Tobacco Tobacco use type: Cigarette Cigarettes Per Day: 10 e-Cigarette/Vaping Use: Never Used Second Hand Smoke Exposure: No Advance Directives Date on File: 05/10/23 service: No Current occupational status: retired Current occupational exposures/hazards: No Cognitive needs: No Hearing needs: No Vision needs: Yes Review of Systems Const Denies daytime sleepiness, Denies excessive sweating, Denies fatigue, Denies fever(s), Denies lethargy, Denies malaise, Denies night sweats, Denies snoring and Denies weight loss Eyes Denies blurry vision and Denies itchy eyes ENT Denies nasal congestion, Denies post nasal drip, Denies sinus pain, Denies sinus pressure and Denies other ( Thrush) Card Denies chest pain, Denies pedal edema, Denies dyspnea, Denies orthopnea and Denies paroxysmal nocturnal dyspnea Resp Denies cough, Denies hemoptysis, Denies excessive phlegm production, Denies dyspnea, Denies snoring and Denies wheezing GI Denies abdominal pain and Denies heartburn Musc Denies myalgias, Denies arthralgias and Denies joint swelling Skin/Breast Denies rash Neuro Denies memory loss and Denies seizure-like activity Psych Denies abnormal sleep pattern, Denies anxiety and Denies memory loss Endo Denies excessive sweating, Denies fatigue and Denies heat intolerance Luis Carlos/Lymph Denies easy bruising Aller/Immun Denies itchy eyes, Denies seasonal rhinorrhea and Denies wheezing Physical Exam Vital Signs: Last Vital Signs Pulse 73 07/21/23 10:18 BP 138/67 07/21/23 10:18 Pulse Ox 96 07/21/23 10:18 Oxygen Delivery Method Room Air 07/21/23 10:18 BMI result Body Mass Index 19.9 Const General: no acute distress and alert Nutritional Appearance: not obese Orientation/consciousness: Other orientation findings ( oriented) HEENT Head: Yes atraumatic Eyes General: appearance normal, both eyes and all related structures Sclerae: sclerae normal EOM: EOMs intact bilaterally Neck Neck: Yes supple Lymphatic: no lymphadenopathy noted Resp Effort & Inspection: normal respiratory effort and no use of accessory muscles Auscultation: clear to auscultation bilaterally Cardio Rate: regular rate Rhythm: regular rhythm Heart sounds: no gallops, no murmurs and no rubs Skin General skin exam: other ( warm) Extrem General: No clubbing, No cyanosis and No edema Assessment & Plan Assessment & Plan (1) Lung cancer, upper lobe: Code(s): C34.10 - Malignant neoplasm of upper lobe, unspecified bronchus or lung Plan: Adenocarcinoma on transthoracic biopsy. Will repeat PET, refer to thoracic surgery. (2) Emphysema lung: Code(s): J43.9 - Emphysema, unspecified Plan: Asymptomatic, continue to monitor clinically. Orders: Orders PET CT fusion skull to thigh Today C34.10 - Malignant neoplasm of upper lobe, unspecified bronchus or lung PFT pulmonary function test Today C34.10 - Malignant neoplasm of upper lobe, unspecified bronchus or lung Referrals Thoracic Surgery Referral C34.10 - Malignant neoplasm of upper lobe, unspecified bronchus or lung Coding Level of Care Code Est Pt Level 4 (11144) Diagnoses Lung cancer, upper lobe C34.10 Emphysema lung J43.9
== END 2023-07-21 10:41 | disposition home or self-care (01) ==
PROVIDERS: PCP Internal Medicine; Visit Provider Internal Medicine Pulmonary Disease
DX: C34.10 Malignant neoplasm of upper lobe, unspecified bronchus or lung (principal); J43.9 Emphysema, unspecified
CPT/HCPCS: 94060; 94727; 94729; 99214

== ENCOUNTER → 2023-07-21 10:16 | Outpatient (BNVA) | payer MEDICARE, SELFPAY | PROVIDERS: PCP Internal Medicine; Visit Provider Internal Medicine Pulmonary Disease | DX: C34.10 Malignant neoplasm of upper lobe, unspecified bronchus or lung (principal); J43.9 Emphysema, unspecified | CPT/HCPCS: 99212 ==

== ENCOUNTER 2023-07-21 10:45 | Outpatient (REF) | payer MEDICARE, SELFPAY ==
--- NOTE | 2023-07-21 11:50 | PFT_ITS ---
Indication: lung cancer Spirometry [FEV1 to FVC 54%; FEV1 1.1 L; FVC 2.03 L. No significant response to bronchodilators noted. Maximum voluntary ventilation 39% predicted.] Lung Volumes [Total lung capacity 96% predicted; residual volume 135% predicted] Diffusion Capacity [DLCO 43% predicted] Comparisons [None] Interpretation [There has an obstructive ventilatory defect consistent with severe COPD. No significant response to bronchodilators noted. This is severe decrease in the maximum voluntary ventilation secondary to deconditioning and also worsening dynamic inspiratory capacity. Lung volumes do demonstrate air trapping due to the COPD. The patient also has a moderate to severe diffusion impairment secondary to emphysema and other parenchymal lung condition should be considered. Clinical correlation warranted.] MTDD
== END 2023-07-21 10:46 | disposition home or self-care (01) ==
LOC: HO.RESP 10:45
PROVIDERS: Visit Provider Internal Medicine Pulmonary Disease
DX: C34.10 Malignant neoplasm of upper lobe, unspecified bronchus or lung (principal)
CPT/HCPCS: 94010; 94640; 94727; 94729

== ENCOUNTER 2023-08-10 07:44 | Outpatient (REF) | payer MEDICARE, SELFPAY ==
--- NOTE | ~2023-08-10 | PE_ITS ---
EXAMINATION: Fluorine-18 FDG PET/CT Scan CLINICAL INDICATION: Subsequent treatment management. Malignant neoplasm of left lower lobe of the lung. PROCEDURE: 60 minutes following the intravenous administration of 15.7 mCi of fluorine 18 FDG, images from the base of the skull to the mid thighs were obtained using a combined PET/CT scanner with CT scan based attenuation correction. No intravenous contrast was administered. Transverse, coronal, sagittal, and volume reconstruction projections were obtained. The patient's blood glucose as determined by a finger stick, was 96 mg/dl immediately prior to injection. The radiotracer was injected intravenously through the right antecubital superficial vein, without any complications. Total CT exam dose-length product 348.28 mGy-cm * These CT images were obtained using dose optimization techniques as appropriate, variously including the following: Automated exposure control * Adjustment of mA and/or kV according to patient size (this includes techniques or standardized protocols for targeted exams where dose is matched to indication/reason for exam; i.e. extremities or head) * Use of iterative reconstruction technique COMPARISON: Available baseline PET CT study done on 02/03/2022 and most recent prior CT of the chest done on 06/23/[address]-guided left lower lobar lung nodule biopsy done on 07/12/2023. FINDINGS: SUV max REFERENCE: Blood: 2.0 (current). 2.7 (baseline). Liver: 2.3 (current). 2.9 (baseline). HEAD AND NECK: Persistent stable approximately 1 cm maximum dimension hypermetabolic nodule within the left parotid gland currently shows SUV max of 7.0 (90/223), previously 6.4, appear stable since the baseline study dated 02/03/2022. Interval development of approximately 1 cm maximum short axis dimension hypermetabolic right supraclavicular lymph node noted with SUV max of 8.0 (49/223). No large intracranial hemorrhage, acute territorial infarct or significant shift of midline structures. CHEST: Ports and Devices: None Lungs: The index biopsy proved malignancy at the superior subpleural posterolateral aspect of the superior segment of of the left lower lobe of the lung currently measures approximately 3.6 x 2.0 cm, shows mixed groundglass as well as solid nodular component. The solid nodular component shows intense focal tracer avidity with SUV max of 5.0 (70/223), previously 2.7, consistent with known malignancy. Interval development of thin walled cavitation and surrounding linear pleuroparenchymal mild tracer avid disease is noted at superior segment of right lower lobe of the lung with SUV max of 1.7 (74/223). This may represent evolving infectious, inflammatory process in unlikely to represent second site of cavitary neoplasm. Adjacent pleural-based approximately 1 cm maximum dimension lung nodule also within the superior segment of right lower lobe of the lung along the paraspinal region do not show any significant tracer avidity and is unchanged since the baseline study. Additional subpleural irregular ill-defined approximately 1 cm nodule seen within the left lower lobe posterior to the left major fissure is not tracer avid and is unchanged (90/223). Also unchanged approximately 8 mm nontracer avid noncalcified nontracer avid nodule at right upper lobe of the lung centrally (61/223). Background moderate emphysematous disease is noted. Specific note is made of thin walled bullous disease at right lower lobe just above the hemidiaphragm, similar to prior study. Pleura: No significant pleural effusion. Lymph Nodes: Interval increase in tracer avidity at the left suprahilar subcentimeter lymph node with previous SUV max of 4.6, currently 5.4 (68/223). Interval development of additional left perihilar tracer avid lymph nodes as well as intense tracer avid right lower paratracheal and subcarinal lymph nodes. The dominant subcarinal lymph node measures approximately 2.0 cm at its maximum short axis dimension with SUV max of 13.1 (72/223). Note is also made of interval development of superior paratracheal tracer avid subcentimeter lymph nodes seen at superior middle mediastinum (50/223). Mediastinum: There is no significant pericardial effusion/thickening. Breasts/Chest Wall: No abnormal radiotracer uptake. ABDOMEN/PELVIS: Liver/Biliary System: No focal tracer-avid liver lesion. The gallbladder appears unremarkable. Pancreas: No evidence of pancreatic ductal dilatation. Spleen: No abnormal radiotracer uptake. No evidence of splenomegaly. Adrenal Glands: No abnormal radiotracer uptake. Kidneys: No hydronephrosis, hydroureter or renal calculi bilaterally. Exophytic photopenic cortical renal cyst is noted at superior anterior cortex of the left kidney, unchanged. Bowel: Colonic diverticulosis without any CT features of superimposed acute diverticulitis. Lymph Nodes: No tracer avid retroperitoneal, mesenteric or pelvic and/or groin lymphadenopathy. Pelvic Organs: The urinary bladder is underdistended. Stable simple appearing left adnexal cyst is noted within the left lower hemipelvis (185/223). MUSCULOSKELETAL: Osteoarthrosis at the acromioclavicular joint on the right. No suspicious tracer avid osseous disease. No significant change. VASCULAR: Infrarenal abdominal fusiform aortic aneurysm is present, currently measures 3.6 cm at its maximum dimension, previously 3.5 cm. Diffuse calcific atherosclerotic disease of the aorta including carotid and coronary artery calcifications. The ascending thoracic aorta measures 4.0 cm at the level of the main pulmonary artery (84/223), upper limits of normal. THE SITE(S) OF MOST INTENSE FDG AVIDITY AND SUV MAX: New dominant subcarinal hypermetabolic lymph node measuring 2.0 cm at its maximum short axis dimension with SUV max of 13.1. The biopsy proved left lower lobar lung malignancy shows SUV max of 5.0. PET/PET CT fusion skull to thigh IMPRESSION: Compared to most recent prior available baseline PET CT study done on 02/03/2022- 1. Interval increase in size and hypermetabolism corresponding to the site of biopsy proved malignancy involving superior segment of left lower lobe of the lung with current SUV max of 5.0. 2. Interval development of multiple hypermetabolic mediastinal and right supraclavicular lymphadenopathy, presumed metastatic disease. 3. Interval progression of previously documented left perihilar hypermetabolic lymph nodes. 4. Relatively indeterminate approximately 1 cm left parotid hypermetabolic nodule with SUV max of 7.0, previously 6.4. 5. No evidence of any hypermetabolic metastatic disease below the diaphragm. 6. Persistent fusiform infrarenal abdominal aortic aneurysm measuring approximately 3.6 cm, shows interval increase in size by 0.1 cm since the prior study.
== END 2023-08-10 07:45 | disposition home or self-care (01) ==
LOC: HO.PET 07:44
PROVIDERS: PCP Internal Medicine; Visit Provider Internal Medicine Pulmonary Disease
DX: Z13.89 Encounter for screening for other disorder (principal)

== ENCOUNTER 2023-08-11 12:45 | Outpatient (AMB) | payer MEDICARE, SELFPAY ==
--- NOTE | 2023-08-11 12:54 | MHC.OFFVIS ---
Intake Vital Signs 08/11/23 12:58 Height 5 ft 4 in Weight 116 lb BMI 19.9 BP 170/73 H Blood Pressure Location Rt brachial Position Sitting Pulse 71 Intake Visit Reasons: malignant neoplasm upper lobe Intake Note: Patient referred by Dr. Sherwood for malignant neoplasm upper lobe. Lung bx 07-12-23. Patient c/o: fatigue. Denies SOB. Public Relations Professional Required: No Accompanied by: Son Allergies Penicillins [PENICILLINS] Allergy (Intermediate, Verified 08/11/23 12:55) HIVES/ITCHING HPI HPI Comments History of Present Illness Details Patient along with her son, presents for evaluation of a left lower lobe lung [id number] lung cancer. Patient apparently has been somewhat reluctant for any interventions regarding this. She has had workup in the past including CT scan, PET scan, EBUS, and recent repeat PET scan which confirms the suspicious left lung lesion as well as concern of metastatic mediastinal adenopathy/disease. Patient states she is status post pneumonia. Is a small possibility that these hypermetabolic nodes may be related to the pneumonia. At present, she states she is lost approximately 30 lb which may be related to the recent of her . She denies any hemoptysis, wheeze, or chest pain. Energy and appetite are marginal. Patient has a very significant smoking history since age 16. She smokes half a pack a day currently. Chart was reviewed and patient evaluated [facility] Medical History Family history of lung cancer Personal history of nicotine dependence Back pain Osteoporosis (~2018) Pseudogout (~2016) Anxiety Hypertension Hyperlipidemia Surgical History History of colonoscopy Family History Father Lung cancer Mother Diabetes Renal failure Social History (Updated 08/11/23 @ 12:57 by MULUGETA Dias) Household Members: None Housing: House Do you presently have visiting nurse or other home services: No Alcohol intake: never Patient Tobacco Use Status: Current everyday Tobacco user Tobacco use type: Cigarette Cigarette Packs Per Day: 14 Cigarettes Per Day: 10 e-Cigarette/Vaping Use: Never Used Second Hand Smoke Exposure: No Advance Directives Date on File: 05/10/23 service: No Current occupational status: retired Current occupational exposures/hazards: No Cognitive needs: No Hearing needs: No Vision needs: Yes Physical Exam Vital Signs: Last Vital Signs Pulse 71 08/11/23 12:58 BP 170/73 H 08/11/23 12:58 BMI result Body Mass Index 19.9 Const Other: Thin female in no acute distress Chest Other: Chest breath sounds bilaterally, no obvious cervical periclavicular or axillary adenopathy bilaterally. Chest breast sounds consistent with COPD. HS 1 and 2. GI Other: Abdomen soft, benign Assessment & Plan Assessment & Plan (1) Lung cancer: Code(s): C34.90 - Malignant neoplasm of unspecified part of unspecified bronchus or lung Plan Current plan is to direct patient back to Dr. Jose smith for reconsideration for repeat EBUS to evaluate recent PET scan which demonstrated multiple suspicious mediastinal lymph nodes. Further interventions and studies will be directed by the results of the above-mentioned procedure. All questions answered. Patient will see me after the EBUS. Coding Level of Care Code New Pt Level 4 (34145) Diagnoses Lung cancer C34.90
[2023-08-11 12:58] VITALS: BP 170/73; PULSE 71; BMI 19.9
== END 2023-08-11 13:18 | disposition home or self-care (01) ==
PROVIDERS: PCP Internal Medicine; Visit Provider Surgery
DX: C34.90 Malignant neoplasm of unspecified part of unspecified bronchus or lung (principal)
CPT/HCPCS: 99204

== ENCOUNTER → 2023-08-11 12:45 | Outpatient (BNVA) | payer MEDICARE, SELFPAY | PROVIDERS: PCP Internal Medicine; Visit Provider Surgery | DX: C34.90 Malignant neoplasm of unspecified part of unspecified bronchus or lung (principal) | CPT/HCPCS: 99202 ==

== ENCOUNTER 2023-08-23 09:40 | Outpatient (AMB) | payer MEDICARE, SELFPAY ==
[2023-08-23 09:46] VITALS: BP 144/76; PULSE 62; O2SAT 99; BMI 19.6
--- NOTE | 2023-08-23 09:46 | A.OFFPC_ITS ---
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 Cheese Cutter: Not Required per policy Accompanied by: Self / Same As Patient Allergies Penicillins [PENICILLINS] Allergy (Intermediate, Verified 08/23/23 09:46) HIVES/ITCHING Medication List - Last Reconciled 08/24/23 by Andriy Sherwood MD atorvastatin 10 mg PO DAILY hydrochlorothiazide 25 mg PO DAILY ibuprofen 800 mg PO TID lorazepam 2 mg PO BEDTIME Tobacco use date assessed: 08/23/23 Fall risk assessment: No Falls in past year Last assessed Fall Risk: 08/23/23 Dental Screening Dental Screen Date: 08/23/23 Did you have a dental visit in the last 12 months?: Yes Did you have a dental problem in the last 6 months where you did not have access to dental care?: No Was dental information given to patient?: Patient has dentist HPI Annual Exam HPI Details HTN hayperlipidemia; has a lung mass being evaluated [facility] Medical History Family history of lung cancer Personal history of nicotine dependence Back pain Osteoporosis (~2017) Pseudogout (~2015) Anxiety Hypertension Hyperlipidemia Surgical History History of colonoscopy Family History Father Lung cancer Mother Diabetes Renal failure Social History (Updated 08/11/23 @ 12:57 by MULUGETA Dias) Household Members: None Housing: House Do you presently have visiting nurse or other home services: No Alcohol intake: never Patient Tobacco Use Status: Current everyday Tobacco user Tobacco use type: Cigarette Cigarette Packs Per Day: 14 Cigarettes Per Day: 10 e-Cigarette/Vaping Use: Never Used Second Hand Smoke Exposure: No Advance Directives Date on File: 05/10/23 service: No Current occupational status: retired Current occupational exposures/hazards: No Cognitive needs: No Hearing needs: No Vision needs: Yes Questionnaire PHQ-9 Over the last 2 weeks, how often have you been bothered by any of the following problems? 1. Little interest or pleasure in doing things: not at all 2. Feeling down, depressed, or hopeless: not at all 3. Trouble falling or staying asleep, or sleeping too much: not at all 4. Feeling tired or having little energy: not at all 5. Poor appetite or overeating: not at all 6. Feeling bad about yourself - or that you are a failure or have let yourself or your family down: not at all 7. Trouble concentrating on things, such as reading the newspaper or watching television: not at all 8. Moving or speaking so slowly that other people could have noticed. Or the opposite - being so fidgety or restless that you have been moving around a lot more than usual: not at all 9. Thoughts that you would be better off or of hurting yourself in some way: not at all Total score: 0 Depression Screening Interpretation: Negative Depression Screening Done: Yes 23857 - PHQ-9 Billing: Yes Source: Developed by Drs. Alex Barkley, Nilam Rainey, Júnior Haro and colleagues, with an educational elsie from [employer]. Thrive Questionnaire Date Thrive assessed: 08/23/23 I am a: Patient What is your living situation today?: I have a steady place to live Within the past 12 months, did the food you bought not last and you didn't have the money to get more?: Never true Within the past 12 months, did you worry whether your food would run out before you got money to buy more?: Never true Do you have trouble paying for medicines?: No Do you have trouble getting transportation to medical appointments?: No Do you have trouble paying your heating and electricity bill?: No Do you have trouble taking care of your child, family member or friend?: No Do you have trouble with day-to-day activities such as bathing, preparing meals, shopping, managing finances, etc.?: No Are you currently unemployed and looking for a job?: No Are you interested in more education?: No Please select the resources that you would like help with: None THRIVE Score: 0 AUDIT C Alcohol Use Questionnaire (AUDIT-C) 1. How often do you have a drink containing alcohol?: Never 2. How many drinks containing alcohol do you have on a typical day when you are drinking?: 5 or 6 Total Score: 2 Score Reviewed/Action Taken: Yes NICOLE-7 AMB Questionnaire NICOLE-7 Date NICOLE - 7 assessed: 08/23/23 Feeling nervous, anxious, or on edge: 0 = Not at all Not being able to stop or control worryin = Not at all Worrying too much about different things: 0 = Not at all Trouble relaxin = Not at all Being so restless that it is hard to sit still: 0 = Not at all Becoming easily annoyed or irritable: 0 = Not at all Feeling afraid as if something awful might happen: 0 = Not at all Total NICOLE-7 score (0-4 normal; 5-9 mild; 10-14 moderate; 15-21 severe): 0 Source: Developed by Drs. Alex Barkley, Nilam Rainey, Júnior Haro and colleagues, with an educational elsie from [employer]. NICOLE-7 Assessment Billing NICOLE-7 Assessment Tool: NICOLE-7 Assessment 62104 Review of Systems Const Denies chills, Denies fatigue, Denies headache(s) and Denies weight loss Eyes Denies change in vision, Denies diplopia and Denies eye pain ENT Denies vertigo, Denies dizziness, Denies headache(s) and Denies nasal discharge Card Denies chest pain, Denies rapid heart rate and Denies dyspnea on exertion Resp Denies chest congestion, Denies cough, Denies pain with cough and Denies dyspnea on exertion GI Denies abdominal pain, Denies hematochezia and Denies change in bowel habits Musc Denies myalgias, Denies arthralgias and Denies joint swelling Skin/Breast Denies lesions and Denies unusual bruising Neuro Denies vertigo, Denies dizziness, Denies headache(s) and Denies focal weakness Endo Denies fatigue Physical exam (Primary Care) Vital Signs: Last Vital Signs Pulse 62 08/23/23 09:46 BP 144/76 H 08/23/23 09:46 Pulse Ox 99 08/23/23 09:46 Oxygen Delivery Method Room Air 08/23/23 09:46 BMI result Body Mass Index 19.6 Tobacco/Smoking Status: Tobacco use Status Tobacco use date assessed 08/23/23 08/23/23 09:48 Patient Tobacco Use Status Current everyday Tobacco 08/23/23 09:48 Tobacco use type Cigarette 08/23/23 09:48 e-Cigarette/Vaping Use Never Used 08/23/23 09:48 PHQ-9: PHQ-9 Score PHQ-9: Total score 0 08/23/23 11:24 Depression Screening Interpretation: Negative Thrive Assessment: Date of Thrive Assessment Date Thrive assessed 08/23/23 08/23/23 09:48 Const General: cooperative, healthy appearing and no acute distress Orientation/consciousness: oriented to person, oriented to place and oriented to time HENMT Head: Yes normal to inspection, Yes normocephalic and Yes atraumatic Mouth: Normal oral and palatal mucosa present and tongue normal Throat: Yes posterior oropharynx normal and Yes uvula midline Eyes General: appearance normal, both eyes and all related structures Neck Neck: Yes normal visual inspection, Yes full ROM and Yes no lymphadenopathy Thyroid: Thyroid normal Carotids: normal carotid upstroke Chest Chest palpation & inspection: normal inspection of the chest Resp Effort & Inspection: normal respiratory effort and able to speak in complete sentences Auscultation: clear to auscultation bilaterally Cardio Jugular venous distension: no JVD Palpation: normal PMI Rate: regular rate Rhythm: regular rhythm Heart sounds: S1 normal heart sound present and S2 normal heart sound present GI Inspection: Yes normal to inspection Palpation (GI): Soft to palpation and No hepatosplenomegaly present Auscultation: normal bowel sounds General: Yes no CVA tenderness Back/Spine/Pelvis Back: no CVA tenderness Skin General skin exam: no rashes or lesions noted Neuro General: oriented to person, oriented to place and oriented to time Extrem General: Yes normal to inspection and Yes full ROM Assessment and Plan Assessment & Plan (1) Physical exam: Code(s): Z00.00 - Encounter for general adult medical examination without abnormal findings Plan: labs (2) Hypertension: Code(s): I10 - Essential (primary) hypertension Plan: stable; same rx (3) Hyperlipidemia: Code(s): E78.5 - Hyperlipidemia, unspecified Plan: stable; same rx (4) Pulmonary nodules: Code(s): R91.8 - Other nonspecific abnormal finding of lung field Plan: per pulmonary Coding Level of Care Code Est Pt Prev Care >65y(62245) Diagnoses Physical exam Z00.00 Hypertension I10 Hyperlipidemia E78.5 Pulmonary nodules R91.8 Additional Codes NICOLE-7 Assessment Billing - NICOLE-7 Assessment Tool: NICOLE-7 Assessment [id number] ([id number])
--- NOTE | 2023-08-23 11:24 | AM.OFFVISNUR ---
Intake Vital Signs 08/23/23 09:46 Height 5 ft 4 in Weight 114 lb BMI 19.6 BP 144/76 H Blood Pressure Location Lt brachial Position Sitting Pulse 62 Pulse Source Pulse Oximeter Pulse Oximetry (%) 99 Oxygen Delivery Method Room Air Intake Visit Reasons: Annual Exam Allergies Penicillins [PENICILLINS] Allergy (Intermediate, Verified 08/23/23 09:46) HIVES/ITCHING Coding
== END 2023-08-23 10:11 | disposition home or self-care (01) ==
PROVIDERS: PCP Internal Medicine; Visit Provider Internal Medicine
DX: Z00.00 Encounter for general adult medical examination without abnormal findings (principal); I10 Essential (primary) hypertension; E78.5 Hyperlipidemia, unspecified; R91.8 Other nonspecific abnormal finding of lung field
CPT/HCPCS: 99397

== ENCOUNTER 2023-08-26 07:45 | Day surgery (SDC) | payer MEDICARE, SELFPAY ==
--- NOTE | 2023-08-24 13:40 | HO.ANESPROP2 ---
Documented by User: Flaquita Meier NP 08/24/23 14:13 HPI - Anesthesia Eval Consult details Narrative: 72yo F for Endoscopic Bronchial Ultrasound s/p lung bx 06/2023 with CS [facility] Active Problems Active Problems: All Active Problems (Updated 07/21/23 @ 10:37 by Garland Pena MD) Lung cancer (Acute) Lung cancer, upper lobe (Acute) Pulmonary nodule 1 cm or greater in diameter (Acute) Lung abscess (Acute) Multifocal pneumonia (Acute) Cavitary lesion of lung (Acute) Asthma (Acute) Physical exam (Acute) Pneumonia due to COVID-19 virus (Acute) prison systemic steroid user (Acute) Pulmonary nodules (Acute) Emphysema lung (Acute) Dilatation of aorta (Acute) Nodule of parotid gland (Acute) COVID-19 (Acute) Weakness (Acute) COPD exacerbation (Acute) Personal history of nicotine dependence (Acute) Pseudogout (Acute ~2016) Osteoporosis (Acute ~2018) Hypertension (Acute) Hyperlipidemia (Acute) Anxiety (Acute) Past Medical History Medical History Family history of lung cancer Personal history of nicotine dependence Back pain Osteoporosis (~2018) Pseudogout (~2016) Anxiety Hypertension Hyperlipidemia Family History Family History Father Lung cancer Mother Diabetes Renal failure Family history of problems with anesthesia: No Surgical History Surgical History History of colonoscopy History of Problems with Anesthesia: No Social History Social History (Updated 08/11/23 @ 12:57 by MULUGETA Dias) Household Members: None Housing: House Do you presently have visiting nurse or other home services: No Alcohol intake: never Patient Tobacco Use Status: Current everyday Tobacco user Tobacco use type: Cigarette Cigarette Packs Per Day: 14 Cigarettes Per Day: 10 e-Cigarette/Vaping Use: Never Used Second Hand Smoke Exposure: No Are you DNR?: No Advance Directives: No Advance Directives Information Provided: Yes Advance Directives Date on File: 05/10/23 service: No Current occupational status: retired Current occupational exposures/hazards: No Cognitive needs: No Hearing needs: No Vision needs: Yes Meds Allergies Allergy/AdvReac Type Severity Reaction Status Date / Time Penicillins [PENICILLINS] Allergy Intermediate HIVES/ITCHI Verified 08/23/23 09:46 NG Home Medications Medication Instructions Recorded Confirmed Last Taken Type lorazepam 1 mg tablet 2 mg PO BEDTIME anxiety 05/10/23 08/26/23 Unknown History ibuprofen 800 mg tablet 800 mg PO TID 06/29/23 08/26/23 08/26/23 History 800 mg Exam Pertinent Lab Results Pertinent Lab Results: Laboratory Tests 05/11/23 07/12/23 05:31 12:04 WBC 8.5 Hgb 15.0 Hct 43.4 Plt Count 199 D Sodium 135 Potassium 3.5 Chloride 100 Carbon Dioxide 26 BUN 15 Creatinine 0.74 Narrative Narrative: EKG 04/2023 Vent. Rate : 071 BPM Atrial Rate : 071 BPM P-R Int : 152 ms QRS Dur : 070 ms QT Int : 398 ms P-R-T Axes : 057 020 -01 degrees QTc Int : 432 ms Normal sinus rhythm Nonspecific ST abnormality RSR' or QR pattern in V1 suggests right ventricular conduction delay Possible Anterior infarct (cited on or before 11-OCT-2018) Abnormal ECG When compared with ECG of 04-MAY-2022 18:14, Non-specific change in ST segment in Anterolateral leads Assessment and Plan Assessment Anesthesia Assessment: Chart Reviewed Final Anesthetic Review Family History of Problems with Anesthesia: No History of Problems with Anesthesia: No Documented by User: Angela Thompson MD 08/26/23 09:02 [facility] Past Medical History Medical History Family history of lung cancer Personal history of nicotine dependence Back pain Osteoporosis (~2017) Pseudogout (~2015) Anxiety Hypertension Hyperlipidemia Family History Family History Father Lung cancer Mother Diabetes Renal failure Surgical History Surgical History History of colonoscopy Social History Social History (Updated 08/11/23 @ 12:57 by MULUGETA Dias) Household Members: None Housing: House Do you presently have visiting nurse or other home services: No Alcohol intake: never Patient Tobacco Use Status: Current everyday Tobacco user Tobacco use type: Cigarette Cigarette Packs Per Day: 14 Cigarettes Per Day: 10 e-Cigarette/Vaping Use: Never Used Second Hand Smoke Exposure: No Are you DNR?: No Advance Directives: No Advance Directives Information Provided: Yes Advance Directives Date on File: 05/10/23 service: No Current occupational status: retired Current occupational exposures/hazards: No Cognitive needs: No Hearing needs: No Vision needs: Yes Meds Allergies Allergy/AdvReac Type Severity Reaction Status Date / Time Penicillins [PENICILLINS] Allergy Intermediate HIVES/ITCHI Verified 08/23/23 09:46 NG Home Medications Medication Instructions Recorded Confirmed Last Taken Type lorazepam 1 mg tablet 2 mg PO BEDTIME anxiety 05/10/23 08/26/23 Unknown History ibuprofen 800 mg tablet 800 mg PO TID 06/29/23 08/26/23 08/26/23 History 800 mg Exam Airway Mallampati Class: II TM Dist: >3cm Neck ROM: Full Denture: Upper and Lower Assessment and Plan Assessment Anesthesia Assessment: Anesthesia Plan Discussed Final Anesthetic Review NPO: Yes ASA Class: III Final Preanesthetic Review: No Changes in Pt Med Stat, Meds/Allgs Chart Reviewed, Consent Obtained/Reviewed and Anes Risks/Benef Reviewed Patient Risk: Intermediate Procedure Risk: Intermediate Anesthetic Plan Anesthetic Plan: GA Disposition: Standard PACU
[2023-08-26] VITALS (9 sets, daily range): BP systolic 124–145; BP diastolic 55–68; PULSE 57–62; RESP 16–19; TEMP 36.1–36.4; O2SAT 97–100
--- NOTE | 2023-08-26 08:40 | MHC.SHP ---
Pre-Procedural Eval Section A - 24 Hr Update-Section A only Date of Service: 08/26/23 The patient is an INPATIENT: No Changes since office visit: Yes Patient answered all questions; No Cold of Flu in the past 2 weeks, No New Medical Problems and No Changes in Medication The patient has been examined within 24 hours of the surgical procedure. The History & Physical has been completed within 30 days and I have reviewed it.: Yes Section B - Complete if H&P > 30 days Chief Complaint: Malignant neoplasm of upper lobe, unspecified bron Allergies: Allergies Allergy/AdvReac Type Severity Reaction Status Date / Time Penicillins [PENICILLINS] Allergy Intermediate HIVES/ITCHI Verified 08/23/23 09:46 NG Plan Diagnosis/Plan: Unchanged (Will proceed with endobronchial ultrasound guided mediastinal lymph nodes biopsy) I have reviewed the history and physical and performed a pertinent physical examination on my patient. No changes have occurred unless specified. Time Spent With Patient Time: Total time managing care of this patient today ____ minutes.
[2023-08-26] MEDS: Lactated Ringers 1,000 ML 100 ML IVCONT (08:56)
--- NOTE | 2023-08-26 10:47 | PM.OP ---
Brief Operative Note Date of Service: 08/26/23 Pre-op diagnosis: Lung cancer Post-op diagnosis: same Procedure: Flexible bronchoscope advanced via the ET tube through the tracheobronchial tree with patient intubated for the procedure. Normal endobronchial mucosa noted. Endoscopic ultrasound-guided lymph node biopsy of station 7 performed with 3 passes with samples evaluated by pathology at the bedside and deemed adequate. Samples sent for further pathologic testing. Biopsy site observed and no active bleeding noted. Patient tolerated the procedure well and was returned to PACU in stable condition. Surgeon: Garland Pena MD Anesthesia: GETA Was an Nurse First Aid used for this Procedure?: No Estimated blood loss (mL): 0 Condition: stable Disposition: PACU
== END 2023-08-26 12:20 | disposition home or self-care (01) ==
PROVIDERS: PCP Internal Medicine; Visit Provider Internal Medicine Pulmonary Disease
PROC: (CPT 31652; principal; 2023-08-26 09:10)
DX: C34.12 Malignant neoplasm of upper lobe, left bronchus or lung (principal); C77.1 Secondary and unspecified malignant neoplasm of intrathoracic lymph nodes; J43.9 Emphysema, unspecified; R91.8 Other nonspecific abnormal finding of lung field; R63.4 Abnormal weight loss; Z68.1 Body mass index [BMI] 19.9 or less, adult; I10 Essential (primary) hypertension; E78.5 Hyperlipidemia, unspecified; M81.0 Age-related osteoporosis without current pathological fracture; F41.9 Anxiety disorder, unspecified; Z79.1 Long term (current) use of non-steroidal anti-inflammatories (NSAID); Z79.899 Other long term (current) drug therapy; Z88.0 Allergy status to penicillin; Z80.1 Family history of malignant neoplasm of trachea, bronchus and lung; F17.210 Nicotine dependence, cigarettes, uncomplicated
CPT/HCPCS: 31652; 88172; 88173; 88177; 88305; 88341; 88342; J0171; J1100; J2250; J2371; J2405; J2704; J3010

== ENCOUNTER → 2023-08-26 07:45 | Outpatient (BNV) | payer MEDICARE, SELFPAY | PROVIDERS: PCP Internal Medicine; Visit Provider Internal Medicine Pulmonary Disease | DX: C34.10 Malignant neoplasm of upper lobe, unspecified bronchus or lung (principal) | CPT/HCPCS: 31652 ==

== ENCOUNTER 2023-08-31 09:43 | Outpatient (AMB) | payer MEDICARE, SELFPAY ==
[2023-08-31 09:53] VITALS: BP 132/72; PULSE 69; O2SAT 95; BMI 19.5
--- NOTE | 2023-08-31 09:53 | A.OFFVIS_ITS ---
Intake Vital Signs 08/31/23 09:53 Height 5 ft 4 in Weight 113 lb 8.609 oz BMI 19.5 BP 132/72 Blood Pressure Location Lt brachial Position Sitting Pulse 69 Pulse Source Doppler Pulse Oximetry (%) 95 Oxygen Delivery Method Room Air Intake Visit Reasons: cavitary lesion of lung Allergies Penicillins [PENICILLINS] Allergy (Intermediate, Verified 08/31/23 09:59) HIVES/ITCHING HPI cavitary lesion of lung HPI Details 72-year-old lady with underlying history of emphysema, lung nodules PET positive with negative EBUS, and patient previously refusing to be evaluated by thoracic surgery or Interventional Radiology for percutaneous biopsy admitted on 05/10/2023 with dyspnea and productive cough. CT chest demonstrated right lower lobe cavitary lesion. She was treated with a four-week course of Levaquin and follow-up CT chest showed essentially resolution of right-sided abscess, but persistence of known left-sided PET positive nodule. Patient is also complaining of weight loss. After the last office visit patient had percutaneous biopsy previously PET positive nodule that showed adenocarcinoma and EBUS of mediastinal lymph nodes showing positive station 7. [facility] Medical History Family history of lung cancer Personal history of nicotine dependence Back pain Osteoporosis (~2018) Pseudogout (~2015) Anxiety Hypertension Hyperlipidemia Surgical History History of colonoscopy Family History Father Lung cancer Mother Diabetes Renal failure Social History (Updated 08/11/23 @ 12:57 by MULUGETA Dias) Household Members: None Housing: House Do you presently have visiting nurse or other home services: No Alcohol intake: never Patient Tobacco Use Status: Current everyday Tobacco user Tobacco use type: Cigarette Cigarette Packs Per Day: 14 Cigarettes Per Day: 10 e-Cigarette/Vaping Use: Never Used Second Hand Smoke Exposure: No Advance Directives Date on File: 05/10/23 service: No Current occupational status: retired Current occupational exposures/hazards: No Cognitive needs: No Hearing needs: No Vision needs: Yes Review of Systems Const Denies daytime sleepiness, Denies excessive sweating, Denies fatigue, Denies fever(s), Denies lethargy, Denies malaise, Denies night sweats, Denies snoring and Reports weight loss Eyes Denies blurry vision and Denies itchy eyes ENT Denies nasal congestion, Denies post nasal drip, Denies sinus pain, Denies sinus pressure and Denies other ( Thrush) Card Denies chest pain, Denies pedal edema, Denies dyspnea, Denies orthopnea and Denies paroxysmal nocturnal dyspnea Resp Denies cough, Denies hemoptysis, Denies excessive phlegm production, Denies dyspnea, Denies snoring and Denies wheezing GI Denies abdominal pain and Denies heartburn Musc Denies myalgias, Denies arthralgias and Denies joint swelling Skin/Breast Denies rash Neuro Denies memory loss and Denies seizure-like activity Psych Denies abnormal sleep pattern, Denies anxiety and Denies memory loss Endo Denies excessive sweating, Denies fatigue and Denies heat intolerance Luis Carlos/Lymph Denies easy bruising Aller/Immun Denies itchy eyes, Denies seasonal rhinorrhea and Denies wheezing Physical Exam Vital Signs: Last Vital Signs Pulse 69 08/31/23 09:53 BP 132/72 08/31/23 09:53 Pulse Ox 95 08/31/23 09:53 Oxygen Delivery Method Room Air 08/31/23 09:53 BMI result Body Mass Index 19.5 Const General: no acute distress and alert Nutritional Appearance: thin Orientation/consciousness: Other orientation findings ( oriented) HEENT Head: Yes atraumatic Eyes General: appearance normal, both eyes and all related structures Sclerae: sclerae normal EOM: EOMs intact bilaterally Neck Neck: Yes supple Lymphatic: no lymphadenopathy noted Resp Effort & Inspection: normal respiratory effort and no use of accessory muscles Auscultation: clear to auscultation bilaterally Cardio Rate: regular rate Rhythm: regular rhythm Heart sounds: no gallops, no murmurs and no rubs Skin General skin exam: other ( warm) Extrem General: No clubbing, No cyanosis and No edema Assessment & Plan Assessment & Plan (1) Lung cancer: Code(s): C34.90 - Malignant neoplasm of unspecified part of unspecified bronchus or lung Plan: At least IIIb lung adenocarcinoma. Nonsurgical. Will refer to Oncology. (2) Emphysema lung: Code(s): J43.9 - Emphysema, unspecified Plan: Essentially clinically asymptomatic. Continue to monitor clinically. Orders: Referrals Hematology & Oncology Referral C34.90 - Malignant neoplasm of unspecified part of unspecified bronchus or lung Medications: New levofloxacin 500 mg PO DAILY 5 tabs 0RF Coding Level of Care Code Est Pt Level 4 (03216) Diagnoses Lung cancer C34.90 Emphysema lung J43.9
== END 2023-08-31 10:15 | disposition home or self-care (01) ==
PROVIDERS: PCP Internal Medicine; Visit Provider Internal Medicine Pulmonary Disease
DX: C34.90 Malignant neoplasm of unspecified part of unspecified bronchus or lung (principal); J43.9 Emphysema, unspecified
CPT/HCPCS: 99214

== ENCOUNTER → 2023-08-31 09:43 | Outpatient (BNVA) | payer MEDICARE, SELFPAY | PROVIDERS: PCP Internal Medicine; Visit Provider Internal Medicine Pulmonary Disease | DX: C34.31 Malignant neoplasm of lower lobe, right bronchus or lung (principal); J43.9 Emphysema, unspecified | CPT/HCPCS: 99212 ==

== ENCOUNTER → 2023-09-07 11:30 | Outpatient (BNV) | payer MEDICARE, SELFPAY | PROVIDERS: PCP Internal Medicine; Visit Provider Internal Medicine | DX: C34.12 Malignant neoplasm of upper lobe, left bronchus or lung (principal); C34.31 Malignant neoplasm of lower lobe, right bronchus or lung | CPT/HCPCS: 99205; 99214; G2211 ==

== ENCOUNTER 2023-09-09 13:33 | Outpatient (REF) | payer MEDICARE, SELFPAY ==
--- NOTE | ~2023-09-09 | MR_ITS ---
EXAMINATION: MR BRAIN WITHOUT AND WITH CONTRAST CLINICAL INFORMATION: Staging for lung cancer COMPARISON: CT had on 04/10/2016 TECHNIQUE: Multiplanar, multisequence MRI of the brain was obtained before and after the intravenous administration of 5 mL Gadavist. FINDINGS: Multiple enhancing foci scattered through the supratentorial brain are seen. For reference: -Cortical enhancing focus involving the left middle frontal gyrus (series 11, image 112 of 144). -Enhancing focus involving the left postcentral gyrus cortex (series 11, image 104). -Enhancing focus involving the right parietal lobe (series 11, image 94). -Enhancing focus involving the posterior left temporal lobe (series 11, image 65). Probable developmental venous anomaly in the right cerebral hemisphere. Focus of restricted diffusion involving the left middle frontal gyrus cortex (series 4, image 24 of 28) may represent a tiny cortical infarct. There are several additional foci of DWI hyperintensity in the left parietal and right frontal white matter without definitive corresponding loss of signal on ADC. These likely represent T2 shine through artifacts versus subacute infarct. No acute intracranial hemorrhage. Scattered and confluent periventricular and deep white matter T2/FLAIR hyperintensities, nonspecific however commonly seen with small vessel ischemic disease. Diffuse prominence of the sulci with associated ex vacuo dilation of the ventricles compatible with global cerebral atrophy. No midline shift or hydrocephalus. No acute extra-axial fluid collections. The osseous structures are unremarkable. The pituitary gland, pineal gland and remaining midline structures are unremarkable. No orbital pathology. The paranasal sinuses and mastoid air cells are clear. MR/MR head/brain wo/w con IMPRESSION: -Multiple enhancing foci scattered through the supratentorial brain are suspicious for metastatic disease. -Restricted diffusion focus of the left middle frontal gyrus cortex concerning for tiny acute cortical infarct.
[2023-09-09] MEDS: gadobutroL 7.5 ML VIAL IVPUSH (14:06)
== END 2023-09-09 13:34 | disposition home or self-care (01) ==
LOC: HO.MRI 13:33
PROVIDERS: PCP Internal Medicine; Visit Provider Internal Medicine
DX: C34.90 Malignant neoplasm of unspecified part of unspecified bronchus or lung (principal); R42 Dizziness and giddiness
CPT/HCPCS: 70553; A9585

== ENCOUNTER 2023-09-22 11:31 | Day surgery (SDC) | payer MEDICARE, SELFPAY ==
--- NOTE | ~2023-09-22 | IR_ITS ---
CLINICAL HISTORY: Left lung cancer. The patient presents to interventional radiology for placement of a port for chemotherapy. PROCEDURES: 1. Real-time ultrasound-guided access into the right internal jugular vein after documentation of selected vessel patency, and permanent image storing in the patient records. 2. Placement of a 6.6 [place] single-lumen power port. CLINICIAN: Maximiliano Montiel PA-C MEDICATIONS: - Versed 1.5 mg, Fentanyl 75 mcg, Lidocaine 1% 10 mL SQ -Antibiotics: Clindamycin 600 mg -For additional details, please see nursing flowsheet. Complications: None. Estimated blood loss: <5 ml Specimens: None. Contrast: None. Fluoroscopy time: 0.7 min MODERATE SEDATION TIME: 36 min PROCEDURE NOTE: The procedure, risks, benefits, and alternatives were carefully explained to the patient and written informed consent was obtained. The patient was placed supine on the fluoroscopy table. A timeout was performed. The right neck and chest was prepped and draped in usual sterile fashion. Maximum barrier technique was utilized. Local anesthesia was administered to the access site with 1% lidocaine. Under ultrasound guidance, the right internal jugular vein was accessed with a 5 fr micropuncture set. A 0.035 in wire was advanced into the IVC. A peel-away sheath was advanced over the wire and into the SVC, and the wire was removed. Next, subcutaneous lidocaine was administered to the chest. The port pocket was created after the skin incision, utilizing blunt dissection. Using blunt dissection, a subcutaneous tunnel was created that connects from the port pocket to the venotomy site. Through the peel-away sheath, the 6.6 [place] port catheter was placed. The catheter position was verified with fluoroscopy to be at the superior vena cava/right atrial junction. The port was connected to the catheter and was placed in the pocket. The venotomy site was closed with a 3-0 Vicryl subcutaneous suture. The port incision site was closed with interrupted 3-0 Vicryl subcutaneous sutures and surgical glue. The port was tested, flushed, and packed with heparin per routine protocol. The patient tolerated the procedure well. The patient was stable after the procedure and was transferred to the PACU. The procedure was performed under moderate sedation and with a dedicated nurse with continuous monitoring of vital signs. A permanent image of the ultrasound the neck and fluoroscopic image of the chest was saved and sent to PACS. FINDINGS: 1. Patent right internal jugular vein 2. Placement of a 6.6 [place] single lumen power port. 3. Port flushes and aspirates very well with a 10 mL syringe. No pneumothorax. IR/IR cvc insert tunnel w prt/mass spectrometry manager IMPRESSION: Placement of a 6.6 [place] single-lumen power port. PLAN: - The patient will be discharged home when stable by sedation protocol. - Port may be used immediately. This procedure was performed by Maximiliano Montiel PA-C, and directly supervised by Dr. Ceja
[2023-09-22 11:55] VITALS: BMI 19.1
[2023-09-22 12:10] VITALS: BP 134/75; PULSE 69; RESP 22; TEMP 36.7; O2SAT 96
[2023-09-22] MEDS: Lidocaine HCl 1 % MPF 30 ML VIAL 10 ML SUBCUT (14:09)
[2023-09-22 14:10] VITALS: BP 132/64; PULSE 60; RESP 18; TEMP 36.8; O2SAT 94
[2023-09-22 14:46] VITALS: BP 125/76; PULSE 60; RESP 20; TEMP 36.9; O2SAT 95
== END 2023-09-22 14:54 | disposition home or self-care (01) ==
PROVIDERS: Physician Assistant Surgical; PCP Internal Medicine; Visit Provider Internal Medicine
DX: Z45.2 Encounter for adjustment and management of vascular access device (principal); C34.92 Malignant neoplasm of unspecified part of left bronchus or lung; Z80.1 Family history of malignant neoplasm of trachea, bronchus and lung; F41.9 Anxiety disorder, unspecified; R42 Dizziness and giddiness; R26.9 Unspecified abnormalities of gait and mobility; R63.4 Abnormal weight loss; I10 Essential (primary) hypertension; M81.0 Age-related osteoporosis without current pathological fracture; E78.5 Hyperlipidemia, unspecified; Z79.1 Long term (current) use of non-steroidal anti-inflammatories (NSAID); Z79.899 Other long term (current) drug therapy
CPT/HCPCS: 36561; 99152; 99153; A4364; C1769; C1788; J0736; J1642; J1644; J2250; J2310; J3010

== ENCOUNTER → 2023-09-22 12:53 | Outpatient (BNV) | payer MEDICARE, SELFPAY | PROVIDERS: PCP Internal Medicine; Visit Provider Physician Assistant Surgical | DX: C34.92 Malignant neoplasm of unspecified part of left bronchus or lung (principal) | CPT/HCPCS: 36561; 76937; 77001 ==

== ENCOUNTER 2023-10-15 10:46 | Outpatient (AMB) | payer MEDICARE, SELFPAY ==
--- NOTE | 2023-10-15 10:48 | MHC.OFFVIS ---
Vital Signs 10/15/23 10:50 Height 5 ft 4 in Weight 110 lb BMI 18.9 BP 119/77 Blood Pressure Location Rt brachial Position Sitting Pulse 74 Pulse Source Doppler Pulse Oximetry (%) 96 Oxygen Delivery Method Room Air Intake Visit Reasons: Cavitary Lesion of Lung Allergies Penicillins [PENICILLINS] Allergy (Intermediate, Verified 09/14/23 14:00) HIVES/ITCHING HPI HPI Cavitary Lesion of Lung: Details: 72-year-old lady with underlying history of emphysema, lung nodules PET positive with negative EBUS, and patient previously refusing to be evaluated by thoracic surgery or Interventional Radiology for percutaneous biopsy admitted on 05/10/2023 with dyspnea and productive cough. CT chest demonstrated right lower lobe cavitary lesion. She was treated with a four-week course of Levaquin and follow-up CT chest showed essentially resolution of right-sided abscess, but persistence of known left-sided PET positive nodule. Patient is also complaining of weight loss. After the last office visit patient had percutaneous biopsy previously PET positive nodule that showed adenocarcinoma and EBUS of mediastinal lymph nodes showing positive station 7. After the last office visit brain MRI positive for metastatic disease. Now on combination chemotherapy under oncology care. Patient is complain of dyspnea on exertion and scalp itching. [facility] Medical History Family history of lung cancer Personal history of nicotine dependence Back pain Osteoporosis (~2018) Pseudogout (~2016) Anxiety Hypertension Hyperlipidemia Surgical History History of colonoscopy Family History Father Lung cancer Mother Diabetes Renal failure Social History Household Members: None Housing: House Do you presently have visiting nurse or other home services: No Alcohol intake: never Patient Tobacco Use Status: Current everyday Tobacco user Tobacco use type: Cigarette Cigarette Packs Per Day: 14 e-Cigarette/Vaping Use: Never Used Second Hand Smoke Exposure: No Advance Directives Date on File: 05/10/23 service: No Current occupational status: retired Current occupational exposures/hazards: No Cognitive needs: No Hearing needs: No Vision needs: Yes Review of Systems Const Denies daytime sleepiness, Denies excessive sweating, Denies fatigue, Denies fever(s), Denies lethargy, Denies malaise, Denies night sweats, Denies snoring and Denies weight loss Eyes Denies blurry vision and Denies itchy eyes ENT Denies nasal congestion, Denies post nasal drip, Denies sinus pain, Denies sinus pressure and Denies other ( Thrush) Card Denies chest pain, Denies pedal edema, Denies dyspnea, Reports dyspnea on exertion, Denies orthopnea and Denies paroxysmal nocturnal dyspnea Resp Denies cough, Denies hemoptysis, Denies excessive phlegm production, Denies dyspnea, Reports dyspnea on exertion, Denies snoring and Denies wheezing GI Denies abdominal pain and Denies heartburn Musc Denies myalgias, Denies arthralgias and Denies joint swelling Skin/Breast Denies rash Neuro Denies memory loss and Denies seizure-like activity Psych Denies abnormal sleep pattern, Denies anxiety and Denies memory loss Endo Denies excessive sweating, Denies fatigue and Denies heat intolerance Luis [place]/Lymph Denies easy bruising Aller/Immun Denies itchy eyes, Denies seasonal rhinorrhea and Denies wheezing Physical Exam Vital Signs: Last Vital Signs Pulse 74 10/15/23 10:50 BP 119/77 10/15/23 10:50 Pulse Ox 96 10/15/23 10:50 Oxygen Delivery Method Room Air 10/15/23 10:50 BMI result Body Mass Index 18.9 Const General: no acute distress and alert Nutritional Appearance: thin Orientation/consciousness: Other orientation findings ( oriented) HEENT Head: Yes atraumatic Eyes General: appearance normal, both eyes and all related structures Sclerae: sclerae normal EOM: EOMs intact bilaterally Neck Neck: Yes supple Lymphatic: no lymphadenopathy noted Resp Effort & Inspection: normal respiratory effort and no use of accessory muscles Auscultation: clear to auscultation bilaterally Cardio Rate: regular rate Rhythm: regular rhythm Heart sounds: no gallops, no murmurs and no rubs Skin General skin exam: other ( warm) Extrem General: No clubbing, No cyanosis and No edema Assessment & Plan Assessment & Plan (1) Lung cancer: Code(s): C34.90 - Malignant neoplasm of unspecified part of unspecified bronchus or lung Category: Surgical Plan: Now on chemotherapy under oncology care for underlying stage IV adenocarcinoma of the lung. Today patient is complain scalp itching, will add p.r.n. Benadryl. (2) Emphysema lung: Code(s): J43.9 - Emphysema, unspecified Category: Medical Plan: Previously symptomatic, now complain of dyspnea on exertion. Will start on empiric Spiriva. Medications: New diphenhydramine HCl (Benadryl Allergy) 50 mg PO BID-QID 30 days PRN 60 tabs 1RF itching tiotropium bromide (Spiriva with HandiHaler) puncture 1 cap using device; one dose = 2 inhalations 1 cap inhalation DAILY 30 days 30 inhalations 6RF Coding Level of Care Code Est Pt Level 4 (88910) Diagnoses Lung cancer C34.90 Emphysema lung J43.9
[2023-10-15 10:50] VITALS: BP 119/77; PULSE 74; O2SAT 96; BMI 18.9
== END 2023-10-15 11:05 | disposition home or self-care (01) ==
PROVIDERS: PCP Internal Medicine; Visit Provider Internal Medicine Pulmonary Disease
DX: C34.90 Malignant neoplasm of unspecified part of unspecified bronchus or lung (principal); J43.9 Emphysema, unspecified
CPT/HCPCS: 99214

== ENCOUNTER → 2023-10-15 10:46 | Outpatient (BNVA) | payer MEDICARE, SELFPAY | PROVIDERS: PCP Internal Medicine; Visit Provider Internal Medicine Pulmonary Disease | DX: C34.90 Malignant neoplasm of unspecified part of unspecified bronchus or lung (principal); C79.31 Secondary malignant neoplasm of brain; J43.9 Emphysema, unspecified | CPT/HCPCS: 99212 ==

== ENCOUNTER 2023-11-22 09:21 | Outpatient (REF) | payer MEDICARE, SELFPAY ==
--- NOTE | ~2023-11-22 | MR_ITS ---
EXAMINATION: MR BRAIN WITHOUT AND WITH CONTRAST CLINICAL INFORMATION: Brain mets COMPARISON: MR brain with and without contrast 09/09/23 TECHNIQUE: Multiplanar multisequence MR imaging of the brain was obtained without and following the administration of 5 mL Gadavist intravenous contrast. FINDINGS: Evidence of interval treatment response with resolution of previously scattered punctate foci of enhancement in the supratentorial brain including previously referenced lesions in the left middle frontal gyrus, left postcentral gyrus, right parietal lobe, left temporal lobe. No new intracranial metastases are identified. There is no acute infarct on diffusion-weighted imaging. There is no intracranial hemorrhage on iron-sensitive imaging. No extra-axial collection or mass effect/herniation. Scattered periventricular and deep white matter T2 FLAIR hyperintensities consistent with mild underlying microangiopathy. No hydrocephalus. Mild generalized cerebral volume loss with commensurate sulcal and ventricular prominence. No abnormal parenchymal or extra-axial enhancement. The major flow voids at the skull base are preserved. The midline structures are normal. The cerebellar tonsils are normally positioned. The craniocervical junction is normal. Marrow signal is within normal limits. The visualized soft tissues are without significant abnormality. No signal abnormality within the paranasal sinuses or within the mastoid air cells. MR/MR head/brain wo/w con IMPRESSION: Evidence of interval treatment response with resolution of previously referenced scattered punctate foci of enhancement in the supratentorial brain. No evidence of new or progressive intracranial metastatic disease.
[2023-11-22] MEDS: gadobutroL 7.5 ML VIAL IVPUSH (10:39)
== END 2023-11-22 09:22 | disposition home or self-care (01) ==
LOC: HO.MRI 09:21
PROVIDERS: PCP Internal Medicine; Visit Provider Internal Medicine
DX: C34.92 Malignant neoplasm of unspecified part of left bronchus or lung (principal)
CPT/HCPCS: 70553; A9585

== ENCOUNTER 2023-12-01 11:56 | Outpatient (REF) | payer MEDICARE, SELFPAY ==
--- NOTE | ~2023-12-01 | XR_ITS ---
EXAMINATION: XR CHEST CLINICAL INFORMATION: Shortness of breath COMPARISON: 07/12/2023 TECHNIQUE: 2 views of the chest were obtained. FINDINGS: Minor patchy airspace opacity left mid to upper lung appears unchanged or smaller. Lungs otherwise grossly clear. New infiltrates are not seen. No effusions. Heart and pulmonary vessels normal. Right-sided port seen with its distal tip in the right atrium XR/XR chest 2V IMPRESSION: No active disease.
== END 2023-12-01 11:57 | disposition home or self-care (01) ==
LOC: HO.XRAY 11:56
PROVIDERS: PCP Internal Medicine; Visit Provider Internal Medicine
DX: C34.10 Malignant neoplasm of upper lobe, unspecified bronchus or lung (principal)
CPT/HCPCS: 71046

== ENCOUNTER 2024-01-07 10:33 | Day surgery (SDC) | payer MEDICARE, SELFPAY ==
--- NOTE | ~2024-01-07 | IR_ITS ---
CLINICAL HISTORY: Metastatic lung cancer. Due to weight loss, the patient's right chest wall port is starting to erode to the skin.. The patient presents for removal of the port and placement of a new low-profile port. PROCEDURES: 1. Real-time ultrasound-guided access into the left internal jugular vein after documentation of selected vessel patency, and permanent image storing in the patient records. 2. Placement of a 6.0 [place] single-lumen slim power port. 3. Removal of the right port CLINICIAN: Maximiliano Montiel PA-C MEDICATIONS: - Versed 1 mg, Fentanyl 50 mcg, Lidocaine 1% 10 mL SQ -Antibiotics: Clindamycin 600 mg -For additional details, please see nursing flowsheet. Complications: None. Estimated blood loss: <5 ml Specimens: None. Contrast: None. Fluoroscopy time: 0.9 min MODERATE SEDATION TIME: 50 min PROCEDURE NOTE: The procedure, risks, benefits, and alternatives were carefully explained to the patient and written informed consent was obtained. The patient was placed supine on the fluoroscopy table. A timeout was performed. The left neck and chest was prepped and draped in usual sterile fashion. Maximum barrier technique was utilized. Local anesthesia was administered to the access site with 1% lidocaine. Under ultrasound guidance, the left internal jugular vein was accessed with a 5 fr micropuncture set. A 0.035 in wire was advanced into the IVC. A peel-away sheath was advanced over the wire and into the SVC, and the wire was removed. Next, subcutaneous lidocaine was administered to the chest. The port pocket was created after the skin incision, utilizing blunt dissection. Using blunt dissection, a subcutaneous tunnel was created that connects from the port pocket to the venotomy site. Through the peel-away sheath, the 6.0 fr port catheter was placed. The catheter position was verified with fluoroscopy to be at the cavoatrial junction. The port was connected to the catheter and was placed in the pocket. The venotomy site was closed with a 3-0 Vicryl subcutaneous suture. The port incision site was closed with interrupted 3-0 Vicryl subcutaneous sutures and surgical glue. The port was tested, flushed, and packed with heparin per routine protocol. Next, the right chest was prepped and draped in usual sterile fashion. The skin was anesthetized with 1% lidocaine. An incision was made over the previous scar. Utilizing blunt dissection, the port was removed from the chest with the catheter intact. The pocket was irrigated with 50 mL of normal saline. There was no evidence of the deep infection. Due to the mild skin breakdown above incision due to the eroding hub, an excisional debridement of this necrotic tissue was performed with an 11 blade. The incision was closed with multiple interrupted 3-0 nylon sutures. The patient tolerated the procedure well. A sterile dressing was applied The patient was stable after the procedure and was transferred to the PACU. The procedure was performed under moderate sedation and with a dedicated nurse with continuous monitoring of vital signs. A permanent image of the ultrasound the neck and fluoroscopic image of the chest was saved and sent to PACS. FINDINGS: 1. Patent left internal jugular vein 2. Placement of a 6.0 [place] single lumen Slim power port. 3. Port flushes and aspirates very well with a 10 mL syringe. No pneumothorax. IR/IR cvc remove tunnel w prt/auto seat cover installer IMPRESSION: 1) Placement of a 6.0 [place] single-lumen slim power port. 2) Removal of the right chest wall port PLAN: - The patient will be discharged home when stable by sedation protocol. - Port may be used immediately. -Patient will return in 10 days for suture removal. This procedure was performed by Maximiliano Montiel PA-C, and directly supervised by Dr. Ceja
--- NOTE | ~2024-01-07 | IR_ITS ---
CLINICAL HISTORY: Metastatic lung cancer. Due to weight loss, the patient's right chest wall port is starting to erode to the skin.. The patient presents for removal of the port and placement of a new low-profile port. PROCEDURES: 1. Real-time ultrasound-guided access into the left internal jugular vein after documentation of selected vessel patency, and permanent image storing in the patient records. 2. Placement of a 6.0 [place] single-lumen slim power port. 3. Removal of the right port CLINICIAN: Maximiliano Montiel PA-C MEDICATIONS: - Versed 1 mg, Fentanyl 50 mcg, Lidocaine 1% 10 mL SQ -Antibiotics: Clindamycin 600 mg -For additional details, please see nursing flowsheet. Complications: None. Estimated blood loss: <5 ml Specimens: None. Contrast: None. Fluoroscopy time: 0.9 min MODERATE SEDATION TIME: 50 min PROCEDURE NOTE: The procedure, risks, benefits, and alternatives were carefully explained to the patient and written informed consent was obtained. The patient was placed supine on the fluoroscopy table. A timeout was performed. The left neck and chest was prepped and draped in usual sterile fashion. Maximum barrier technique was utilized. Local anesthesia was administered to the access site with 1% lidocaine. Under ultrasound guidance, the left internal jugular vein was accessed with a 5 fr micropuncture set. A 0.035 in wire was advanced into the IVC. A peel-away sheath was advanced over the wire and into the SVC, and the wire was removed. Next, subcutaneous lidocaine was administered to the chest. The port pocket was created after the skin incision, utilizing blunt dissection. Using blunt dissection, a subcutaneous tunnel was created that connects from the port pocket to the venotomy site. Through the peel-away sheath, the 6.0 fr port catheter was placed. The catheter position was verified with fluoroscopy to be at the cavoatrial junction. The port was connected to the catheter and was placed in the pocket. The venotomy site was closed with a 3-0 Vicryl subcutaneous suture. The port incision site was closed with interrupted 3-0 Vicryl subcutaneous sutures and surgical glue. The port was tested, flushed, and packed with heparin per routine protocol. Next, the right chest was prepped and draped in usual sterile fashion. The skin was anesthetized with 1% lidocaine. An incision was made over the previous scar. Utilizing blunt dissection, the port was removed from the chest with the catheter intact. The pocket was irrigated with 50 mL of normal saline. There was no evidence of the deep infection. Due to the mild skin breakdown above incision due to the eroding hub, an excisional debridement of this necrotic tissue was performed with an 11 blade. The incision was closed with multiple interrupted 3-0 nylon sutures. The patient tolerated the procedure well. A sterile dressing was applied The patient was stable after the procedure and was transferred to the PACU. The procedure was performed under moderate sedation and with a dedicated nurse with continuous monitoring of vital signs. A permanent image of the ultrasound the neck and fluoroscopic image of the chest was saved and sent to PACS. FINDINGS: 1. Patent left internal jugular vein 2. Placement of a 6.0 [place] single lumen Slim power port. 3. Port flushes and aspirates very well with a 10 mL syringe. No pneumothorax. IR/IR cvc insert tunnel w prt/underwear finisher IMPRESSION: 1) Placement of a 6.0 [place] single-lumen slim power port. 2) Removal of the right chest wall port PLAN: - The patient will be discharged home when stable by sedation protocol. - Port may be used immediately. -Patient will return in 10 days for suture removal. This procedure was performed by Maximiliano Montiel PA-C, and directly supervised by Dr. Ceja
[2024-01-07 11:18] VITALS: BMI 17.2
--- NOTE | 2024-01-07 12:32 | MHC.SHP ---
Pre-Procedural Eval Section A - 24 Hr Update-Section A only Date of Service: 01/07/24 Section B - Complete if H&P > 30 days Chief Complaint: malignant neoplasm bronchus or lung ,REMOVE/REPLAC Details of Present Illness: 73 y/o female with lung cancer and a right port that is starting to erode through the skin. She presents for removal of her port and placement of a left port Relevant Family History (Specify if Yes): No Relevant Social History: None Present Medications: see Short Stay Collaborative assessment Medical History: Significant History History of Previous Operations: Relevant previous surgery/procedure and date(s) (Right port- 2023) Allergies: Allergies Allergy/AdvReac Type Severity Reaction Status Date / Time Penicillins [PENICILLINS] Allergy Intermediate HIVES/ITCHI Verified 01/07/24 11:20 NG Review of Systems Sugical H&P ROS: Negative: Constitution and Cardiovascular and Yes, Specify: Integumentary (scab over right port) Exam Surgical H&P Exam: Normal: Heart and Normal: Neurological and Significant Findings: Lungs (left rhonchi,) and Significant Findings: Skin (scab over right port) Plan Right port removal, placement of left port Time Spent With Patient Time: Total time managing care of this patient today ____ minutes.
[2024-01-07 15:00] VITALS: BP 135/60; PULSE 64; RESP 16; TEMP 36.4; O2SAT 96
== END 2024-01-07 15:18 | disposition home or self-care (01) ==
PROVIDERS: Radiology Vascular & Interventional Radiology; PCP Internal Medicine; Visit Provider Internal Medicine
DX: Z45.2 Encounter for adjustment and management of vascular access device (principal); C34.90 Malignant neoplasm of unspecified part of unspecified bronchus or lung; R63.4 Abnormal weight loss; Z68.1 Body mass index [BMI] 19.9 or less, adult; I10 Essential (primary) hypertension; E78.5 Hyperlipidemia, unspecified; Z79.1 Long term (current) use of non-steroidal anti-inflammatories (NSAID); Z88.0 Allergy status to penicillin; F17.210 Nicotine dependence, cigarettes, uncomplicated
CPT/HCPCS: 36561; 36590; 99152; 99153; C1769; C1788; J0736; J1642; J1644; J2250; J2310; J3010

== ENCOUNTER → 2024-01-07 13:07 | Outpatient (BNV) | payer MEDICARE, SELFPAY | PROVIDERS: PCP Internal Medicine; Visit Provider Physician Assistant Surgical | DX: Z45.2 Encounter for adjustment and management of vascular access device (principal) | CPT/HCPCS: 36561; 36590; 76937; 77001 ==

== ENCOUNTER 2024-01-14 11:07 | Outpatient (AMB) | payer MEDICARE, SELFPAY ==
[2024-01-14 11:11] VITALS: BP 140/67; PULSE 74; O2SAT 94; BMI 18.4
--- NOTE | 2024-01-14 11:11 | A.OFFVIS_ITS ---
Vital Signs 01/14/24 11:11 Height 5 ft 4 in Weight 106 lb 14.787 oz BMI 18.4 BP 140/67 H Blood Pressure Location Rt brachial Position Sitting Pulse 74 Pulse Source Doppler Pulse Oximetry (%) 94 Oxygen Delivery Method Room Air Intake Visit Reasons: Cavitary Lesion of Lung Allergies Penicillins [PENICILLINS] Allergy (Intermediate, Verified 01/07/24 11:20) HIVES/ITCHING HPI HPI Cavitary Lesion of Lung: Details: 73-year-old lady followed for COPD. 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 She did have follow-up bed that showed improvement in underlying metastatic disease, but also any new cavitary lesion which may be infectious. Patient does complain of cough productive of whitish sputum. She has been using Spiriva and albuterol MDI with reasonable control of her dyspnea. She does complain of lower extremity edema. [facility] Medical History Family history of lung cancer Personal history of nicotine dependence Back pain Osteoporosis (~2018) Pseudogout (~2016) Anxiety Hypertension Hyperlipidemia Surgical History History of colonoscopy Family History Father Lung cancer Mother Diabetes Renal failure Social History Household Members: None Housing: House Do you presently have visiting nurse or other home services: No Alcohol intake: never Patient Tobacco Use Status: Current everyday Tobacco user Tobacco use type: Cigarette Cigarette Packs Per Day: 14 e-Cigarette/Vaping Use: Never Used Second Hand Smoke Exposure: No Advance Directives Date on File: 05/10/23 service: No Current occupational status: retired Current occupational exposures/hazards: No Cognitive needs: No Hearing needs: No Vision needs: Yes Review of Systems Const Denies daytime sleepiness, Denies excessive sweating, Denies fatigue, Denies fever(s), Denies lethargy, Denies malaise, Denies night sweats, Denies snoring and Denies weight loss Eyes Denies blurry vision and Denies itchy eyes ENT Denies nasal congestion, Denies post nasal drip, Denies sinus pain, Denies sinus pressure and Denies other ( Thrush) Card Denies chest pain, Reports pedal edema, Denies dyspnea, Reports dyspnea on e xertion, Denies orthopnea and Denies paroxysmal nocturnal dyspnea Resp Reports cough, Denies hemoptysis, Reports excessive phlegm production, Denies dyspnea, Reports dyspnea on exertion, Denies snoring and Denies wheezing GI Denies abdominal pain and Denies heartburn Musc Denies myalgias, Denies arthralgias and Denies joint swelling Skin/Breast Denies rash Neuro Denies memory loss and Denies seizure-like activity Psych Denies abnormal sleep pattern, Denies anxiety and Denies memory loss Endo Denies excessive sweating, Denies fatigue and Denies heat intolerance Luis Carlos/Lymph Denies easy bruising Aller/Immun Denies itchy eyes, Denies seasonal rhinorrhea and Denies wheezing Physical Exam Vital Signs: Last Vital Signs Pulse 74 01/14/24 11:11 BP 140/67 H 01/14/24 11:11 Pulse Ox 94 01/14/24 11:11 Oxygen Delivery Method Room Air 01/14/24 11:11 BMI result Body Mass Index 18.4 Const General: no acute distress and alert Nutritional Appearance: not obese Orientation/consciousness: Other orientation findings ( oriented) HEENT Head: Yes atraumatic Eyes General: appearance normal, both eyes and all related structures Sclerae: sclerae normal EOM: EOMs intact bilaterally Neck Neck: Yes supple Lymphatic: no lymphadenopathy noted Resp Effort & Inspection: normal respiratory effort and no use of accessory muscles Auscultation: clear to auscultation bilaterally Cardio Rate: regular rate Rhythm: regular rhythm Heart sounds: no gallops, no murmurs and no rubs Skin General skin exam: other ( warm) Extrem General: No clubbing, No cyanosis and Yes edema (1+ bilateral) Assessment & Plan Assessment & Plan (1) COPD (chronic obstructive pulmonary disease): Code(s): J44.9 - Chronic obstructive pulmonary disease, unspecified Category: Medical Plan: Improved control on Spiriva and albuterol MDI. Continue current regimen. Lower extremity edema treat with empiric brief course of Lasix. (2) Cavitary lesion of lung: Code(s): J98.4 - Other disorders of lung Category: Medical Plan: Metastatic versus infectious, infectious etiology asthma likely. Will treat with 4 weeks of Levaquin and then obtain follow-up CT chest. (3) Lung cancer: Code(s): C34.90 - Malignant neoplasm of unspecified part of unspecified bronchus or lung Category: Surgical Plan: Currently under oncology care and on chemotherapy with at least some response on follow-up PET scan. Medications: New furosemide (Lasix) 20 mg PO DAILY 5 tabs 0RF levofloxacin 500 mg PO DAILY 28 tabs 0RF Coding Level of Care Code Est Pt Level 4 (91560) Complex EM visit Add On G2211 Diagnoses COPD (chronic obstructive pulmonary disease) J44.9 Cavitary lesion of lung J98.4 Lung cancer C34.90
== END 2024-01-14 11:24 | disposition home or self-care (01) ==
PROVIDERS: PCP Internal Medicine; Visit Provider Internal Medicine Pulmonary Disease
DX: J44.9 Chronic obstructive pulmonary disease, unspecified (principal); J98.4 Other disorders of lung; C34.90 Malignant neoplasm of unspecified part of unspecified bronchus or lung
CPT/HCPCS: 99214; G2211

== ENCOUNTER → 2024-01-14 11:07 | Outpatient (BNVA) | payer MEDICARE, SELFPAY | PROVIDERS: PCP Internal Medicine; Visit Provider Internal Medicine Pulmonary Disease | DX: J44.9 Chronic obstructive pulmonary disease, unspecified (principal); J98.4 Other disorders of lung; C34.10 Malignant neoplasm of upper lobe, unspecified bronchus or lung | CPT/HCPCS: 99212 ==

== ENCOUNTER 2024-01-20 13:53 | Inpatient (IN) | payer MEDICARE, SELFPAY ==
[2024-01-20] VITALS (22 sets, daily range): BP systolic 71–131; BP diastolic 44–67; PULSE 70–140; RESP 15–24; TEMP 36.4–36.9; O2SAT 94–100; BMI 19.3; BMI 17.8
--- NOTE | ~2024-01-20 | XR_ITS ---
EXAMINATION: XR CHEST CLINICAL INFORMATION: Rapid A. fib COMPARISON: Chest radiograph 12/01/2023 PET/CT 08/10/2023. TECHNIQUE: Frontal view of the chest was obtained. FINDINGS: A left pectoral tunneled catheter terminates in the region of the cavoatrial junction. Dense aortic calcific atherosclerosis. Normal heart size. No effusions or pneumothoraces. Normal pattern of pulmonary vasculature. No focal pulmonary consolidation. Ill-defined density over an approximate 3.0 cm diameter region is projected over the superior aspect of the left lower pulmonary lobe corresponding to the location of the 3.6 cm diameter mass identified on the comparison CT of 08/10/2023. XR/XR chest 1V IMPRESSION: *No acute cardiopulmonary abnormalities. *Left pectoral tunneled catheter terminating in the region of the cavoatrial junction. *Partially visualized mass within the superior segment of the left lower pulmonary lobe measuring approximately 3.0 cm in diameter. This finding corresponds to the suspicious masses identified on the comparison PET/CT of 08/10/2023.
--- NOTE | ~2024-01-20 | CT_ITS ---
EXAMINATION: CT ANGIOGRAM OF THE CHEST WITH AND WITHOUT CONTRAST (CT PULMONARY ANGIOGRAM FOR PE) CLINICAL INFORMATION: Reason for Exam cp/ca/ a fib/ r/o PE Previous report indicates malignant neoplasm left lower lobe of lung COMPARISON: Report from previous 05/04/22 TECHNIQUE: Prior to contrast administration, noncontrast localization images were obtained. Subsequently, multidetector volumetric imaging was performed from the thoracic inlet to below the diaphragms following the administration of 65 mL Omnipaque 350 intravenous contrast. No contrast reaction reported Sagittal, coronal, and MIP oblique sagittal reformatted images were obtained on the CT workstation, uploaded to PACS, and reviewed. This CT examination was performed using dose optimization techniques as appropriate, variously including the following: *Automated exposure control *Adjustment of mA and/or kV according to patient size (this includes techniques or standardized protocols for targeted exams where dose is matched to indication/reason for exam; i.e. extremities or head) *Use of iterative reconstruction technique Total exam dose-length product 164 mGy-cm FINDINGS: QUALITY OF STUDY/CONTRAST BOLUS: Satisfactory. PULMONARY ARTERIES: No pulmonary emboli. THORACIC AORTA: Extensive atherosclerosis of the thoracic aorta. The maximum external diameter of the ascending aorta is 3.7 cm. The maximum diameter of the mid aortic arch is 3.4 cm. Only partially included but no abdominal aortic aneurysm. LUNG: Known malignancy in the superior segment of the left lower lobe manifests as a partially solid mass with irregular margin abutting the posterolateral pleural reflection and chest wall. Thick-walled cavitary lesion in the left apex. Underlying emphysema. Scattered additional nonspecific opacities with some focal areas of pleural thickening and some cavity and indistinct wall in the most superior aspect of the right lower lobe. There are areas of airway thickening. Thin-walled cyst in the anteromedial right lower lobe. There are masslike opacities in the posterior costophrenic sulci. PLEURA: There is no significant pleural fluid or pneumothorax MEDIASTINUM: There were areas of abnormal metabolic activity in the mediastinum and hilar lymph nodes on previous PET/CT. No suspicious abnormality the esophagus. No evidence of septal bowing or right heart strain. CORONARY ARTERY CALCIFICATION: Moderate coronary calcification. No pericardial fluid. CHEST WALL/AXILLA: No axillary or internal mammary lymphadenopathy. OSSEOUS STRUCTURES: No acute or suspicious osseous abnormality. UPPER ABDOMEN: There are some fairly circumscribed low attenuating liver lesions. There is a cyst in the left kidney that does not require any specific imaging follow-up. As described there is incompletely included abdominal aortic aneurysm. No reflux of contrast into the hepatic veins to suggest elevated right heart pressures. CT/CT angio chest PE protocol IMPRESSION: No pulmonary embolus. Known lung cancer. Multiple additional pulmonary findings including emphysema. VTE: negative
[2024-01-20] MEDS: Digoxin 0.5 MG/2 ML AMPUL 0.25 MG IVPUSH ×2 (14:06→18:24)
[2024-01-20] MEDS: Metoprolol Tartrate 5 MG/5 ML VIAL IVPUSH (14:09)
[2024-01-20] MEDS: 0.9 % Sodium Chloride 1,000 ML 999 ML IV (14:11)
--- NOTE | 2024-01-20 14:21 | ED.GENADULT ---
HPI - General Adult General Chief complaint: General Medical Stated complaint: AFIB Time Seen by Provider: 01/20/24 13:56 Source: patient and family Mode of arrival: ambulatory Limitations: no limitations History of Present Illness ED Provider: DR. Simons HPI narrative: 73-year-old female history of lung cancer on chemotherapy was sent from the oncology department for evaluation of dizziness and patient was found to have rapid atrial fibrillation. Patient otherwise declined chest pain, no dizziness, no near syncope. Related Data Home Medications ?Medication ?Instructions ?Recorded ?Confirmed ibuprofen 800 mg tablet 800 mg PO TID 06/29/23 01/07/24 Previous Rx's ?Medication ?Instructions ?Recorded cyclobenzaprine 10 mg tablet 10 mg PO BEDTIME #10 tabs 09/14/23 folic acid 1 mg tablet 1 mg PO DAILY #90 tabs 09/14/23 ondansetron 8 mg disintegrating 8 mg PO Q8H PRN Nausea #30 tabs 09/14/23 tablet atorvastatin 10 mg tablet 10 mg PO DAILY #90 tabs 10/04/23 nadolol 40 mg tablet 40 mg PO DAILY #90 tabs 10/12/23 diphenhydramine HCl 50 mg tablet 50 mg PO BID-QID PRN itching 30 10/15/23 (Benadryl Allergy) days #60 tabs fluticasone 232 mcg-salmeterol 14 1 inh inhalation BID 30 days #1 ea 10/19/23 mcg/actuation breath activated powdr (AirDuo RespiClick) lorazepam 1 mg tablet 2 mg (2 x 1 mg) PO BEDTIME anxiety 11/12/23 #60 tabs hydrochlorothiazide 25 mg tablet 25 mg PO DAILY #90 tabs 01/03/24 potassium chloride 10 mEq 10 meq PO DAILY #90 tabs 01/11/24 tablet,extended release potassium chloride 20 mEq 20 meq PO DAILY #90 tabs 01/11/24 tablet,extended release tramadol 50 mg tablet 50 mg PO Q8H PRN Pain (Scale Score 01/11/24 7-10) #30 tabs furosemide 20 mg tablet (Lasix) 20 mg PO DAILY #5 tabs 01/14/24 levofloxacin 500 mg tablet 500 mg PO DAILY #28 tabs 01/14/24 Allergies Allergy/AdvReac Type Severity Reaction Status Date / Time Penicillins [PENICILLINS] Allergy Intermediate HIVES/ITCHI Verified 01/20/24 13:57 NG Review of Systems Review of Systems: All other systems are reviewed and are negative Constitutional: Reports as per HPI and Reports no additional constitutional complaints Eyes: Reports as per HPI and Reports no additional eye complaints Reports system reviewed and no additional complaints, except as documented Cardiovascular: Reports as per HPI and Reports no additional cardiovascular complaints Respiratory: Reports as per HPI and Reports no additional respiratory complaints Gastrointestinal: Reports as per HPI and Reports no additional gastrointestinal complaints Genitourinary: Reports no additional female genitourinary complaints Musculoskeletal: Reports no additional musculoskeletal complaints Skin/Breast: Reports system reviewed and no additional complaints, except as docu Psychiatric: Reports no additional psychiatric complaints Endocrine: Reports no additional endocrine complaints Hematologic/Lymphatic: Reports no additional hematologic/lymphatic complaints Allergic/Immunologic: Reports no additional allergic/immunologic complaints Reports system reviewed and no additional complaints, except as documented and Reports Abnormal speech present [facility] Past Medical History Medical History Family history of lung cancer Personal history of nicotine dependence Back pain Osteoporosis (~2017) Pseudogout (~2015) Anxiety Hypertension Hyperlipidemia Surgical History History of colonoscopy Family History Family History Father Lung cancer Mother Diabetes Renal failure Social History Social History Household Members: None Housing: House Do you presently have visiting nurse or other home services: No Alcohol intake: never Patient Tobacco Use Status: Current everyday Tobacco user Tobacco use type: Cigarette Cigarette Packs Per Day: 14 e-Cigarette/Vaping Use: Never Used Second Hand Smoke Exposure: No Advance Directives: Yes Advance Directives on File: Yes Advance Directives Date on File: 05/10/23 Do you have a plan to hurt others: No Plan service: No Current occupational status: retired Current occupational exposures/hazards: No Cognitive needs: No Hearing needs: No Vision needs: Yes Physical Exam ED Vital Signs: Vital Signs - 24 hr 01/20/24 14:13 01/20/24 14:20 01/20/24 14:25 Temperature 97.9 F Pulse Rate 140 H 122 H Respiratory Rate 20 20 Blood Pressure 71/44 L 86/54 L 80/45 L Pulse Oximetry 95 Oxygen Delivery Method Room Air 01/20/24 15:05 01/20/24 15:10 01/20/24 15:16 Temperature Pulse Rate Respiratory Rate Blood Pressure 93/63 99/60 102/61 Pulse Oximetry Oxygen Delivery Method BMI result Body Mass Index 19.3 Vital signs have been reviewed and appear to be correct. Blood pressure low. Heart rate elevated. Respiratory rate normal. Temperature normal. Oxygen saturation normal. Appearance: Alert. Oriented X3. No acute distress. Head: Normal external exam. Normocephalic. Atraumatic. No Garcia signs noted. No raccoon eyes noted Eyes: PERRLA. EOMI. Conjunctiva and sclera normal. Eyelids normal. ENT: TM's Normal. Pharynx normal. Uvula midline. Moist mucous membranes. No trismus noted. No drooling noted. No muffled voice noted. Neck: Normal inspection. Neck supple. FROM. No adenopathy. Thyroid Normal. No meningeal signs. No neck mass noted. CVS: Normal heart rate and rhythm. Heart sound normal. No murmurs noted. Pulses normal throughout. Respiratory: No respiratory distress. Painless inspiration. Breath sounds normal. No wheezes/rales/rhonchi noted. Chest nontender. No accessory muscle usage noted or decreased air movement noted. Abdomen: Soft and nontender. Bowel sounds normal in all 4 quadrants. No distention noted. No organomegaly noted. No visible injury noted. Back: No CVA tenderness. Full range of motion noted. Skin: Skin warm and dry. Normal skin color. Normal skin turgor. No rashes/lesions/lacerations noted. Extremities: No lower extremity edema. Extremities exhibit normal range of motion. Extremities nontender. Neuro: Oriented X 3. Cranial nerve exam: II-XII are grossly intact No motor deficit. No sensory deficit. Reflexes normal. Course Reevaluation(s) Reevaluation #1: Rapid AFib/hypotension. 1. Received metoprolol/digoxin heart rate went down from 170s to 119th. 2. Patient is hypotensive responding to IV fluids. 3. Cardiology consultation. 4. Will consider CT angio of the chest rule out pulmonary embolism. 5. anticoagulate with Eliquis for AFib. 6. Hypotension secondary to rapid AFib and using beta heather/digoxin. 7. Sepsis is unlikely diagnosis patient will be covered with broad-spectrum antibiotic and 30 cc/kg fluids. 8. Potassium replacement. Signed out to Dr. Lei expected to be admitted. Time: 16:00 Medications Administered Discontinued Medications Generic Name Dose Route Start Last Admin Trade Name Freq PRN Reason Stop Dose Admin Digoxin 0.25 mg 01/20/24 13:57 01/20/24 14:06 Digoxin 0.5 Mg/2 Ml Ampul IVPUSH 01/20/24 13:58 0.25 mg ONCE ONE Administration Sodium Chloride 1,000 mls @ 999 mls/hr 01/20/24 13:56 01/20/24 14:11 Ns IV 01/20/24 14:56 999 mls/hr .Q1H1M ONE Administration Ceftriaxone Sodium 1 gm/ 50 mls @ 100 mls/hr 01/20/24 14:26 01/20/24 15:01 Sodium Chloride IV 01/20/24 14:55 100 mls/hr ONCE ONE Administration Metoprolol Tartrate 5 mg 01/20/24 13:57 01/20/24 14:09 Metoprolol Tartrate 5 Mg/5 Ml Vial IVPUSH 01/20/24 13:58 5 mg ONCE ONE Administration Protocol Medical Decision Making Differential Diagnosis Differential Diagnoses: The differential diagnosis associated with the presentation includes (Pulmonary embolism, pneumonia, pleural effusion, pneumothorax, hypotension, severe anemia, electrolyte derangement.) Admission/Observation Consideration of admission/observation: Escalation of care including admission/observation considered Consult Healthcare Provider Management of the patient was discussed with: [employer] Equipment Operator (Dr. iWlks) Lab Data MDM Lab Attestation statement: I reviewed the patient's lab results. 01/20/24 14:54 01/20/24 14:54 Labs: Lab Results 01/20/24 Range/Units 14:54 WBC 33.2 H* (4.8-10.8) X10*3/uL RBC 2.86 L (4.20-5.50) X10*6/uL Hgb 10.0 L (12.0-16.0) g/dl Hct 29.3 L (37.0-47.0) % MCV 102.4 H (80.0-98.0) fL MCH 35.0 H (27.0-33.0) pg MCHC 34.1 (31.0-35.0) g/dl RDW 16.9 H (11.0-16.0) % PT 13.3 (11.1-13.3) SEC INR 1.1 (0.9-1.1) APTT 25.7 L (26.0-36.8) SEC Sodium 135 (135-145) mmol/L Potassium 3.1 L (3.3-5.1) mmol/L Chloride 101 (96-108) mmol/L Carbon Dioxide 25 (22-29) mmol/L Anion Gap 12 (12-20) BUN 28 H (9-16) mg/dL Creatinine 0.87 (0.5-1.4) mg/dL Estim Creat Clear Calc 46.2 Estimated GFR > 60 Random Glucose 112 (60-115) mg/dL Lactic Acid 1.0 (0.5-2.0) mmol/L Calcium 8.5 D (8.4-10.2) mg/dL Total Bilirubin 0.5 (0.0-1.0) mg/dL Direct Bilirubin 0.2 (0.0-0.5) mg/dL AST 14 (5-31) U/L ALT 14 (0-31) U/L Alkaline Phosphatase 153 H (39-117) U/L Troponin I High Sens 9.3 D (<3.5-17.0) ng/L B-Natriuretic Peptide 223 H (<100) pg/mL Total Protein 5.5 L (6.5-8.0) g/dL Albumin 3.3 L (3.5-5.0) g/dL Lipase 19 (8-78) U/L Independent Interpretation I performed an independent interpretation of an: EKG (Rapid atrial fibrillation at 173.), Plain X-Ray (Chest:*No acute cardiopulmonary abnormalities. *Left pectoral tunneled catheter terminating in the region of the cavoatrial junction. *Partially visualized mass within the superior segment of the left lower pulmonary lobe measuring approximately 3.0 cm in diameter. This finding corresponds to the garcias) and CT Scan (CT angio of the chest pending signed out to Dr. Lei ) Radiology Impression Discussion of test interpretation with radiology: I have reviewed the radiologist's reading. Discharge Plan Discharge Clinical Impression: Atrial fibrillation with RVR, Hypotension, Hypokalemia Patient Disposition: Still a Patient Prescriptions: No Action atorvastatin 10 mg tablet 10 mg PO DAILY Qty: 90 2RF nadolol 40 mg tablet 40 mg PO DAILY Qty: 90 3RF fluticasone propion-salmeterol [AirDuo RespiClick] 232-14 mcg/actuation aerosol powdr breath activated 1 inh inhalation BID 30 Days Qty: 1 6RF lorazepam 1 mg tablet 2 mg PO BEDTIME Qty: 60 2RF hydrochlorothiazide 25 mg tablet 25 mg PO DAILY Qty: 90 8RF potassium chloride 10 mEq Tablet Extended Release 10 meq PO DAILY Qty: 90 3RF cyclobenzaprine 10 mg Tablet 10 mg PO BEDTIME Qty: 10 3RF ondansetron 8 mg Tablet,Disintegrating 8 mg PO Q8H PRN (Reason: Nausea) Qty: 30 0RF folic acid 1 mg Tablet 1 mg PO DAILY Qty: 90 3RF tramadol 50 mg Tablet 50 mg PO Q8H PRN (Reason: Pain (Scale Score 7-10)) Qty: 30 0RF potassium chloride 20 mEq Tablet Extended Release 20 meq PO DAILY Qty: 90 3RF ibuprofen 800 mg tablet 800 mg PO TID Benadryl Allergy 50 mg tablet 50 mg PO BID-QID PRN (Reason: itching) 30 Days Qty: 60 1RF furosemide [Lasix] 20 mg tablet 20 mg PO DAILY Qty: 5 0RF levofloxacin 500 mg tablet 500 mg PO DAILY Qty: 28 0RF Print Language: Ugandan
[2024-01-20] MEDS: cefTRIAXone sodium 1 GM in 0.9 % Sodium Chloride 50 ML IV (15:01)
[2024-01-20 15:05] LABS: Basophils Absolute Auto 0.2 X10*3/uL (0.0-0.2); Basophils Percent Auto 0.6 % (0-2); Hematocrit 29.3 % (37.0-47.0); Imm Gran Abs Auto 1.41 X10*3/uL (0.00-0.03); Imm Gran Pct Auto 4.3 % (0.0-0.4); Lymphocytes Absolute Auto 1.2 X10*3/uL (1.2-4.9); Lymphocytes Percent Auto 3.5 % (20-40); MANUAL DIFF FLAG SCAN; Mean Corpuscular HGB Conc 34.1 g/dl (31.0-35.0); Mean Corpuscular Volume 102.4 fL (80.0-98.0); Mean Platelet Volume 11.4 fL (9.4-12.3); Monocytes Absolute Auto 1.3 X10*3/uL (0.1-1.2); Monocytes Percent Auto 3.9 % (2-11); Neutrophils Absolute Auto 29.1 x10*3/uL (2.0-8.3); Neutrophils Percent Auto 87.7 % (45-73); Red Blood Count 2.86 X10*6/uL (4.20-5.50); Red Cell Distribution Width 16.9 % (11.0-16.0); SCAN SMEAR FLAG 1
[2024-01-20 15:09] LABS: INTERNATIONAL NORM RATIO 1.1 (0.9-1.1); Prothrombin Time 13.3 SEC (11.1-13.3)
[2024-01-20 15:11] LABS: Partial Thromboplastin Time 25.7 SEC (26.0-36.8)
[2024-01-20 15:18] LABS: White Blood Count 33.2 X10*3/uL (4.8-10.8)
[2024-01-20 15:19] LABS: Alanine Aminotransferase 14 U/L (0-31); Albumin Level 3.3 g/dL (3.5-5.0); Alkaline Phosphatase 153 U/L (39-117); Anion Gap 12 (12-20); Aspartate Amino Transferase 14 U/L (5-31); Bilirubin Direct 0.2 mg/dL (0.0-0.5); Bilirubin Total 0.5 mg/dL (0.0-1.0); Blood Urea Nitrogen 28 mg/dL (9-16); Calcium 8.5 mg/dL (8.4-10.2); Carbon Dioxide 25 mmol/L (22-29); Chloride 101 mmol/L (96-108); Creatinine Clr Calc Pharmacy 46.2; Estimated Glomerular Filt Rate > 60; Glucose Random 112 mg/dL (60-115); Lipase 19 U/L (8-78); Potassium 3.1 mmol/L (3.3-5.1); Sodium 135 mmol/L (135-145); Total Protein 5.5 g/dL (6.5-8.0)
[2024-01-20 15:24] LABS: B Type Natriuretic Peptide 223 pg/mL (<100)
[2024-01-20 15:27] LABS: Troponin-I High Sensitivity 9.3 ng/L (<3.5-17.0)
[2024-01-20 15:31] LABS: Platelet Count 81 X10*3/uL (160-400)
[2024-01-20 15:41] LABS: Influenza A PCR NEGATIVE (Negative); Influenza B PCR NEGATIVE (Negative); Resp Syncy Virus RNA Qual PCR NEGATIVE (Negative); SARS COV2 PCR INHOUSE NEGATIVE (Negative); SLIDE REVIEW VERIFIED
--- NOTE | 2024-01-20 15:49 | P.CONCA_ITS ---
History of Present Illness History of Present Illness Date of Service: 01/20/24 Requesting physician: Naomi Simons Chief complaint: AFIB Narrative: 73-year-old female with known history of [id number] lung cancer on chemotherapy and radiation presenting with dizziness, dyspnea and chest discomfort. She was noticed to be in AFib with RVR. She said she was feeling dizzy and also had chest discomfort which was worse with breathing in but felt like a pressure-like sensation. She is on active chemotherapy and radiation currently. In the ER she was noticed to be in AFib with RVR. She was given metoprolol and digoxin with some improvement in the heart rate. She is hypokalemic. Chest x-ray showing emphysematous changes but no obvious congestive heart failure or infiltrate. [facility] Past Medical History Medical History Family history of lung cancer Personal history of nicotine dependence Back pain Osteoporosis (~2018) Pseudogout (~2015) Anxiety Hypertension Hyperlipidemia Family History Family History Father Lung cancer Mother Diabetes Renal failure Surgical History Surgical History History of colonoscopy Social History Social History Household Members: None Housing: House Do you presently have visiting nurse or other home services: No Alcohol intake: never Patient Tobacco Use Status: Current everyday Tobacco user Tobacco use type: Cigarette Cigarette Packs Per Day: 14 e-Cigarette/Vaping Use: Never Used Second Hand Smoke Exposure: No Advance Directives: Yes Advance Directives on File: Yes Advance Directives Date on File: 05/10/23 Do you have a plan to hurt others: No Plan service: No Current occupational status: retired Current occupational exposures/hazards: No Cognitive needs: No Hearing needs: No Vision needs: Yes Meds Allergies Allergy/AdvReac Type Severity Reaction Status Date / Time Penicillins [PENICILLINS] Allergy Intermediate HIVES/ITCHI Verified 01/20/24 13:57 NG Active Medications: Current Medications Vancomycin HCl 1,250 mg/ (Sodium Chloride) 250 mls @ 166.667 mls/hr IV ONCE ONE Stop: 01/20/24 15:59 Sodium Chloride (Ns) 1,527 mls @ 1,527 mls/hr 30 ml/kg infuse over 1 hr (1527 ml) IV .Q1H STA Stop: 01/20/24 16:28 Potassium Chloride (Potassium Chloride/H20) 10 meq in 100 mls @ 100 mls/hr IV ONCE ONE Stop: 01/20/24 16:41 Home Medications ?Medication ?Instructions ?Recorded ?Confirmed ?Last Taken ?Type ibuprofen 800 mg tablet 800 mg PO TID 06/29/23 01/07/24 12/24/23 History Physical Exam 2 Vital Signs: Vital Signs: Last Vital Signs Temp 97.9 F 01/20/24 14:25 Pulse 122 H 01/20/24 14:25 Resp 20 01/20/24 14:25 BP 102/61 01/20/24 15:16 Pulse Ox 95 01/20/24 14:25 O2 Del Method Room Air 01/20/24 14:25 BMI result Body Mass Index 19.3 GENERAL APPEARANCE: in no acute distress, pleasant. NECK: no carotid bruit, no jugular venous distention. SKIN: no suspicious lesions, warm and dry. HEART: no murmurs, irregular rate and rhythm. Tachycardic. LUNGS: clear to auscultation bilaterally. ABDOMEN: soft, nontender. EXTREMITIES: no edema. PERIPHERAL PULSES: equal. NEUROLOGIC: No gross deficits, AAO X 3 Objective Labs and Meds 01/20/24 14:54 01/20/24 14:54 Lab results: Laboratory Results - last 24 hr 01/20/24 14:54 WBC 33.2 H* RBC 2.86 L Hgb 10.0 L Hct 29.3 L MCV 102.4 H MCH 35.0 H MCHC 34.1 RDW 16.9 H Plt Count 81 L MPV 11.4 Immature Gran % (Auto) 4.3 H Neut % (Auto) 87.7 H Lymph % (Auto) 3.5 L [place] % (Auto) 3.9 Eos % (Auto) 0.0 Baso % (Auto) 0.6 Lymph # (Auto) 1.2 [place] # (Auto) 1.3 H Eos # (Auto) 0.0 Baso # (Auto) 0.2 Abs Immat Gran (auto) 1.41 H Absolute Neuts (auto) 29.1 H Absolute Nucleated RBC 0.000 Nucleated RBC % (auto) 0.0 Smear Tech's Comments VERIFIED PT 13.3 INR 1.1 APTT 25.7 L Sodium 135 Potassium 3.1 L Chloride 101 Carbon Dioxide 25 Anion Gap 12 BUN 28 H Creatinine 0.87 Estim Creat Clear Calc 46.2 Estimated GFR > 60 Random Glucose 112 Lactic Acid 1.0 Calcium 8.5 D Total Bilirubin 0.5 Direct Bilirubin 0.2 AST 14 ALT 14 Alkaline Phosphatase 153 H Troponin I High Sens 9.3 D B-Natriuretic Peptide 223 H Total Protein 5.5 L Albumin 3.3 L Lipase 19 Influenza Type A (PCR) NEGATIVE Influenza Type B (PCR) NEGATIVE RSV RNA Qual (PCR) NEGATIVE SARS-CoV-2 RNA (RT-PCR) NEGATIVE Imaging Radiologist's impression: Impressions Chest X-Ray 01/20/24 14:32 IMPRESSION: *No acute cardiopulmonary abnormalities. *Left pectoral tunneled catheter terminating in the region of the cavoatrial junction. *Partially visualized mass within the superior segment of the left lower pulmonary lobe measuring approximately 3.0 cm in diameter. This finding corresponds to the suspicious masses identified on the comparison PET/CT of 08/10/2023. Assessment and Plan (1) Atrial fibrillation with RVR: Status: Acute (2) Hypokalemia: Status: Acute Plan Pleasant 73 year female presenting for shortness of breath, dizziness and chest discomfort and was noticed to be in AFib with RVR. She has [id number] lung cancer and is currently getting chemotherapy and radiation. Blood pressure is low. She was given a dose of digoxin and metoprolol. She is hypokalemic. Start metoprolol 25 mg twice a day. We will titrate his based on her heart rate and blood pressure. She is on thiazide diuretics which could be the cause for hypokalemia. Thiazide should be discontinued. Given chest discomfort and shortness of breath worse than before and no obvious congestive heart failure I think we should do CT scan to rule out pulmonary embolism with are active cancer. Anticoagulated for atrial fibrillation regardless. Thank you for allowing me to participate in the care of your patient. Please feel free to contact me if you have any questions. Procedures Date of Service Date of Service: 01/20/24
--- NOTE | 2024-01-20 16:22 | PC.NURSE ---
patient only received 1 liter of NS all together per attending.
[2024-01-20] MEDS: iohexoL 350 MG/ML 100 ML INFUS..BTL 65 ML IV (16:47)
[2024-01-20] MEDS: vancomycin HCL 1,250 MG in 0.9 % Sodium Chloride 250 ML 166.67 MG IV (16:51)
[2024-01-20] MEDS: Apixaban 5 MG TABLET PO (17:26)
[2024-01-20] MEDS: Potassium Chloride/H20 10 MEQ/100 ML PIGGYBACK 100 MEQ IV (17:26)
[2024-01-20] MEDS: Phenylephrine HCL 1,000 MCG/10 ML SYRINGE 100 MCG IVPUSH (18:57)
--- NOTE | 2024-01-20 19:04 | PC.NURSE ---
Dr Sher administered 1ml of Phenylephrine to the patient through her port within 45 seconds without any incidience.
--- NOTE | 2024-01-20 19:24 | PHA.MEDREC ---
Addendum entered by Julián Mahoney [facility] 01/20/24 19:41: DOUBLE CHECKED MED BY [facility] Original Note: Pharmacy Consult ? Medication Reconciliation Pharmacy has completed the medication reconciliation. Went to speak to patient and she was a poor historian was not sure what she was taking but she said to call her son Alex and confirm them. I called her son and he was able to confirm her medications and was able to confirm her Potassium Chloride tablets are now up to 20meq daily.
[2024-01-20] MEDS: cefEPime HCl 1 GM in 0.9 % Sodium Chloride 50 ML IV (19:34)
--- NOTE | 2024-01-20 19:39 | PC.NURSE ---
Assumed care for pt at 1930. Pt alert and oriented to self and situation. Medicated as per AUG. Phenyleprhine drip not started at this time as pts BP and MAP are WNL. BP 102/52 MAP 68. Phenylephrine drip given to ICU nurse. Pt to be transferred to the ICU. Report provided to JASSON Collazo by previous nurse. Pt aware of plan of care.
[2024-01-20] MEDS: Phenylephrine HCL 20 MG in 0.9 % Sodium Chloride 250 ML 19.24 MG IVCONT (19:50)
--- NOTE | 2024-01-20 19:52 | PC.NURSE ---
CARYL Mary NP at bedside. Verbal order received to start Phenylephrine drip. Drip started at 0.5mcg/kg/min. Pt tolerating well. Pt in transit to ICU and aware of plan of care.
--- NOTE | 2024-01-20 20:01 | P.HPCC_ITS ---
History of Present Illness Date of Service: 01/20/24 Attending physician on admission: Garland Pena Chief Complaint: AFib The patient is a 73-year-old female with a past medical history of metastatic lung adenocarcinoma? on chemo (last chemo 1 week ago), COPD, hypertension, hyperlipidemia, and anxiety who presented to emergency department? who presented to the emergency department with atrial fibrillation.? Patient reported she went to see her oncologist? for evaluation of dizziness and was found to be in atrial fibrillation with RVR and was advised to go to the emergency department.? ? In the emergency department? patient in AFib RVR? rate of 130s, hypotensive to 83/56,? afebrile.? ?Laboratory data was significant for? WBC 46.7 platelets 91, potassium 3.1 and? Mag 1.5 ?Patient received, metoprolol 5 mg IV push and digoxin 0.25,? ED physician consulted Cardiology, Dr Coles,? who did not recommend cardioversion,? recommend full? digoxin load.? ?Imaging:? ??Chest CTA-? negative for PE, no infectious process ED course:? patient received a 1L bolus,? 5 mg IV push Lopressor, digoxin 0.25 x 2, vancomycin 1250,? ceftriaxone 1g,? Eliquis 5 mg, IV push ? phenylephrine .1,? and started on phenylephrine drip. Review of Systems 2 Review of Systems: Yes all other systems are reviewed and are negative PMFSH Past Medical History Medical History Family history of lung cancer Personal history of nicotine dependence Back pain Osteoporosis (~2018) Pseudogout (~2016) Anxiety Hypertension Hyperlipidemia Family History Family History Father Lung cancer Mother Diabetes Renal failure Surgical History Surgical History History of colonoscopy Social History Social History Household Members: None Housing: House Do you presently have visiting nurse or other home services: No Alcohol intake: never Patient Tobacco Use Status: Current everyday Tobacco user Tobacco use type: Cigarette Cigarette Packs Per Day: 14 e-Cigarette/Vaping Use: Never Used Second Hand Smoke Exposure: No Advance Directives: Yes Advance Directives on File: Yes Advance Directives Date on File: 05/10/23 Do you have a plan to hurt others: No Plan service: No Current occupational status: retired Current occupational exposures/hazards: No Cognitive needs: No Hearing needs: No Vision needs: Yes Meds Allergies Allergy/AdvReac Type Severity Reaction Status Date / Time Penicillins [PENICILLINS] Allergy Intermediate HIVES/ITCHI Verified 01/20/24 13:57 NG Active Medications: Current Medications Enoxaparin Sodium (Enoxaparin Sodium 60 Mg/0.6 Ml Syringe) 50 mg 1 mg/kg (50 mg) SUBCUT Q12H EREN Phenylephrine HCl 20 mg/ (Sodium Chloride) 252 mls @ 0 mls/hr IVCONT .Q0M EREN; Protocol Last Admin: 01/20/24 19:50 Dose: 0.5 mcg/kg/min, 19.24 mls/hr Cefepime HCl 1 gm/ Sodium (Chloride) 50 mls @ 100 mls/hr IV Q12H [facility] Last Infusion: 01/20/24 19:52 Dose: Infused Physical Exam 2 Vital Signs: Vital Signs: Last Vital Signs Temp 97.8 F 01/20/24 18:45 Pulse 84 01/20/24 19:50 Resp 20 01/20/24 19:42 BP 102/60 01/20/24 19:50 Pulse Ox 97 01/20/24 19:42 O2 Del Method Room Air 01/20/24 19:42 BMI result Body Mass Index 19.3 ?General:? Alert oriented x3 no acute distress.? Speaking full sentences.? Speech is well articulated, thought process is coherent.? Following all commands. ?HEENT:? Head is normocephalic, atraumatic, pupils equal round reactive to light accommodation bilaterally.? Extraocular movements appear intact.? Buccal mucosa is dry, Neck is supple without lymphadenopathy. ?Cardiac:? Sinus rhythm, Clear S1-S2, no murmurs rubs or gallops. ?Pulmonary:? Rhonchi at bases. no wheezes ?Abdomen:? ?Abdomen soft, non-tender, non-distended. Normal bowel sounds. No pulsatile mass. No hepatosplenomegaly. ?Musculoskeletal:? Moving all 4 extremities upon request a major joints, there is no crepitus or tenderness.? The strength is 5/5 bilaterally and throughout all 4 extremities.? Gait not assessed at this point. ?Neurologic:? cranial nerves 2-12 are grossly intact.? No focal deficits noted.Motor strength as above.?? ?Skin:? Intact, no lesions, edema, erythema, clubbing or cyanosis.? No ulcers. Vascular:? 2+ pulses upper and lower extremities distally.? Results Labs 01/21/24 04:39 01/21/24 04:39 Labs: Laboratory Results - last 24 hr 01/20/24 14:54 MCV 102.4 H MCH 35.0 H MCHC 34.1 RDW 16.9 H Plt Count 81 L MPV 11.4 Immature Gran % (Auto) 4.3 H Neut % (Auto) 87.7 H Lymph % (Auto) 3.5 L [place] % (Auto) 3.9 Eos % (Auto) 0.0 Baso % (Auto) 0.6 Lymph # (Auto) 1.2 [place] # (Auto) 1.3 H Eos # (Auto) 0.0 Baso # (Auto) 0.2 Abs Immat Gran (auto) 1.41 H Absolute Neuts (auto) 29.1 H Absolute Nucleated RBC 0.000 Nucleated RBC % (auto) 0.0 Smear Tech's Comments VERIFIED PT 13.3 INR 1.1 APTT 25.7 L Anion Gap 12 Estim Creat Clear Calc 46.2 Estimated GFR > 60 Random Glucose 112 Lactic Acid 1.0 Calcium 8.5 D Total Bilirubin 0.5 Direct Bilirubin 0.2 AST 14 ALT 14 Alkaline Phosphatase 153 H Troponin I High Sens 9.3 D B-Natriuretic Peptide 223 H Total Protein 5.5 L Albumin 3.3 L Lipase 19 Influenza Type A (PCR) NEGATIVE Influenza Type B (PCR) NEGATIVE RSV RNA Qual (PCR) NEGATIVE SARS-CoV-2 RNA (RT-PCR) NEGATIVE Imaging Radiologist's Impressions: Impressions Chest X-Ray 01/20/24 14:32 IMPRESSION: *No acute cardiopulmonary abnormalities. *Left pectoral tunneled catheter terminating in the region of the cavoatrial junction. *Partially visualized mass within the superior segment of the left lower pulmonary lobe measuring approximately 3.0 cm in diameter. This finding corresponds to the suspicious masses identified on the comparison PET/CT of 08/10/2023. Chest CTA 08/01/24 16:17 IMPRESSION: No pulmonary embolus. Known lung cancer. Multiple additional pulmonary findings including emphysema. VTE: negative Assessment and Plan (1) Atrial fibrillation with RVR: Status: Acute (2) Hypotension: Status: Acute (3) Hypokalemia: Status: Acute (4) Sepsis: Status: Acute (5) Hypomagnesemia: Status: Acute Plan 73-year-old female with a past medical history of metastatic lung adenocarcinoma? on chemo (last chemo 1 week ago), COPD, hypertension, hyperlipidemia, and anxiety? admitted to ICU with AFib with RVR and? sepsis? of unknown origin Neuro:? No acute issues Cardiac:?? ?AFib RVR- ? EKG confirmed AFib? with RVR,? new diagnoses for patient,? she received 5 mg IV push of pressor,? digoxin 0.25 x 2, ? she converted to sinus rhythm prior to transfer to ICU.? she also received Eliquis.? Will complete a full load of digoxin,? and continue Eliquis.? Appreciate cardiology services Sepsis-? no signs of septic shock,? despite the patient being hypotensive requiring pressor support,? lactic acid was negative.? White count significantly elevated to 40,? patient?s chest CT does not show acute infectious process,? she is 100% on room air, urine is negative, abdomen? assessment is benign,? no skin breakdown. ? She does report a cough,? we will send for respiratory panel. She was covered with ceftriaxone? and vancomycin in the emergency department.? We will switch to cefepime. ? Wean off pressors as tolerated Pulmonary:?? ?Underlying history of metastatic lung adenocarcinoma-? last chemo was last week.? ?Renal:?? ?No acute issues GI:?No acute issues Endo:?hypokalemia/? hypomagnesemia:? we will replace. Cont to trend? Heme/Onc:? ?No acute? issues ID:? Sepsis- ? unknown source, patient?s chest CT does not show acute infectious process,? she is 100% on room air, urine is negative, abdomen? assessment is benign,? no skin breakdown.? She was covered with ceftriaxone? and vancomycin in the emergency department.? We will switch to cefepime. Blood cultures are pending Psych:? No acute issues. Misc no acute issues Diet: cardiac? Prophylaxis:? ? Lovenox Code? status: ? ? FULL CODE.? Critical care time: x 60 min of critical care time? Case reviewed with attending Dr Pena
[2024-01-20 20:05] LABS: Appearance Urine Clear; Color Urine Yellow; Glucose Urine UA Negative (Negative); Leukocyte Esterase Urine Negative (Negative); Nitrite Urine Negative (Negative); Specific Gravity - Urine 1.025 (1.005-1.025); UMIC TRIGGER UACC YES; Urine Blood Trace (Negative); Urine Ketones Negative (Negative); Urine Protein Negative (Neg-Trace)
[2024-01-20 20:14] LABS: Bacteria Urine None Seen (None Seen); Hyaline Casts Urine 0-2 /LPF (0-2); Squamous Epithelial Cell Urine 0-2 /HPF (0-2); WBC Urine 0-5 /HPF (0-5)
[2024-01-20] MEDS: Albumin Human 25 % 100 ML 133.33 ML IV ×2 (20:45→21:31)
[2024-01-20] MEDS: Enoxaparin Sodium 60 MG/0.6 ML SYRINGE 50 MG SUBCUT (20:45)
[2024-01-20 20:57] LABS: Phosphorus 3.7 mg/dL (2.7-4.5)
[2024-01-20] MEDS: LORazepam 1 MG TABLET PO (21:26)
[2024-01-20] MEDS: Potassium Chloride ER 20 MEQ TAB.ER.PRT 40 MEQ PO (21:27)
[2024-01-20] MEDS: Magnesium Sulfate/H2O 2 GM/50 ML PIGGYBACK IV (21:38)
[2024-01-21] VITALS (14 sets, daily range): BP systolic 111–152; BP diastolic 53–63; PULSE 64–84; RESP 13–23; TEMP 36.4–37; O2SAT 93–98; BMI 18.1
[2024-01-21] MEDS: Digoxin 0.5 MG/2 ML AMPUL 0.25 MG IVPUSH (00:30)
--- NOTE | 2024-01-21 03:54 | PC.NURSE ---
ADMIT TO 262-1 APPROX 8PM...ALERT..ORIENTED X3..SPEECH CLEAR....NSR..ISOLATED PAC AND PVC...PHENYLEPHRINE DRIP INFUSING PER MAR VIA LEFT CHEST PORT PREVIOUSLY ACCESSED IN ER DEPT...2ND IV SITE #[id number] STARTED TO RIGHT ARM...MILTON CATHETER PREVIOUSLY INSERTED IN ER DEPT..PER ER REPORT PATIENT BLADDER SCANNED 741ML AND 800ML OBTAINED ON CATHETER INSERTION..MILTON DRAINING CLEAR YELLOW URINE...ALBUMEN AND MGSO4 INFUSED PER AUG...ATIVAN PO AT HS PER REQUEST FOR SLEEP....
[2024-01-21 04:48] LABS: VBG Base Excess 1.4 mmol/L; VBG HCO3 24 mmol/L (22-26); VBG pCO2 31 mmHg; VBG pH 7.49 (7.32-7.43); VBG pO2 34 mmHg
[2024-01-21 04:51] LABS: Venous Blood Gas Refer to POC result
[2024-01-21 04:52] LABS: MANUAL DIFF FLAG NO
[2024-01-21 04:56] LABS: Basophils Absolute Auto 0.1 X10*3/uL (0.0-0.2); Basophils Percent Auto 0.6 % (0-2); Hematocrit 25.7 % (37.0-47.0); Hemoglobin 8.6 g/dl (12.0-16.0); Imm Gran Abs Auto 0.35 X10*3/uL (0.00-0.03); Imm Gran Pct Auto 1.6 % (0.0-0.4); Lymphocytes Absolute Auto 1.1 X10*3/uL (1.2-4.9); Lymphocytes Percent Auto 4.8 % (20-40); Mean Corpuscular HGB Conc 33.5 g/dl (31.0-35.0); Mean Corpuscular Hemoglobin 34.4 pg (27.0-33.0); Mean Corpuscular Volume 102.8 fL (80.0-98.0); Mean Platelet Volume 10.3 fL (9.4-12.3); Monocytes Absolute Auto 0.9 X10*3/uL (0.1-1.2); Monocytes Percent Auto 3.9 % (2-11); Neutrophils Absolute Auto 19.4 x10*3/uL (2.0-8.3); Neutrophils Percent Auto 89.1 % (45-73); Red Cell Distribution Width 16.6 % (11.0-16.0); White Blood Count 21.8 X10*3/uL (4.8-10.8)
[2024-01-21 04:57] LABS: Platelet Count 80 X10*3/uL (160-400)
[2024-01-21 05:11] LABS: Alanine Aminotransferase 11 U/L (0-31); Albumin Level 4.1 g/dL (3.5-5.0); Alkaline Phosphatase 122 U/L (39-117); Anion Gap 12 (12-20); Aspartate Amino Transferase 12 U/L (5-31); Bilirubin Total 0.9 mg/dL (0.0-1.0); Blood Urea Nitrogen 16 mg/dL (9-16); Calcium 9.1 mg/dL (8.4-10.2); Carbon Dioxide 24 mmol/L (22-29); Chloride 105 mmol/L (96-108); Estimated Glomerular Filt Rate > 60; Glucose Random 79 mg/dL (60-115); Magnesium 1.8 mg/dL (1.6-2.6); Phosphorus 2.8 mg/dL (2.7-4.5); Potassium 3.4 mmol/L (3.3-5.1); Sodium 138 mmol/L (135-145)
[2024-01-21] MEDS: cefEPime HCl 1 GM in 0.9 % Sodium Chloride 50 ML IV (06:08)
[2024-01-21] MEDS: Potassium Chloride ER 20 MEQ TAB.ER.PRT 40 MEQ PO (06:09)
[2024-01-21] MEDS: Enoxaparin Sodium 60 MG/0.6 ML SYRINGE 50 MG SUBCUT (06:11)
[2024-01-21 08:35] LABS: Adenovirus PCR Not Detected (Not Detect.); Bordetella parapertussis PCR Not Detected (Not Detect.); Bordetella pertussis PCR Not Detected (Not Detect.); Chlamydia pneumoniae PCR Not Detected (Not Detect.); Coronavirus 229E PCR Not Detected (Not Detect.); Coronavirus HKU1 PCR Not Detected (Not Detect.); Coronavirus NL63 PCR Not Detected (Not Detect.); Coronavirus OC43 PCR Not Detected (Not Detect.); Human metapneumovirus PCR Not Detected (Not Detect.); Influenza A PCR Not Detected (Not Detect.); Influenza B PCR Not Detected (Not Detect.); Mycoplasma pneumoniae PCR Not Detected (Not Detect.); Parainfluenza 1 PCR Not Detected (Not Detect.); Parainfluenza 2 PCR Not Detected (Not Detect.); Parainfluenza 3 PCR Not Detected (Not Detect.); Parainfluenza 4 PCR Not Detected (Not Detect.); RSV PCR Not Detected (Not Detect.); Rhino/Enterovirus PCR Not Detected (Not Detect.)
--- NOTE | 2024-01-21 09:21 | P.PNCA_ITS ---
Subjective Subjective Date of Service: 01/21/24 Interval history: Seen and examined at bedside. Back in sinus rhythm. Physical Exam Vital Signs: Last Vital Signs Temp 97.9 F 01/21/24 09:00 Pulse 82 01/21/24 09:00 Resp 23 H 01/21/24 09:00 BP 111/58 L 01/21/24 09:00 Pulse Ox 97 01/21/24 09:00 O2 Del Method Room Air 01/21/24 09:00 BMI result Body Mass Index 18.1 GENERAL APPEARANCE: in no acute distress, pleasant. NECK: no carotid bruit, no jugular venous distention. SKIN: no suspicious lesions, warm and dry. HEART: no murmurs, regular rate and rhythm. LUNGS: clear to auscultation bilaterally. ABDOMEN: soft, nontender. EXTREMITIES: no edema. PERIPHERAL PULSES: equal. NEUROLOGIC: No gross deficits, AAO X 3 Objective Labs and Meds 01/21/24 04:39 01/21/24 04:39 Lab results: Laboratory Results - last 24 hr 01/20/24 01/20/24 01/21/24 14:54 19:50 04:37 WBC 33.2 H* RBC 2.86 L Hgb 10.0 L Hct 29.3 L MCV 102.4 H MCH 35.0 H MCHC 34.1 RDW 16.9 H Plt Count 81 L MPV 11.4 Immature Gran % (Auto) 4.3 H Neut % (Auto) 87.7 H Lymph % (Auto) 3.5 L [place] % (Auto) 3.9 Eos % (Auto) 0.0 Baso % (Auto) 0.6 Lymph # (Auto) 1.2 [place] # (Auto) 1.3 H Eos # (Auto) 0.0 Baso # (Auto) 0.2 Abs Immat Gran (auto) 1.41 H Absolute Neuts (auto) 29.1 H Absolute Nucleated RBC 0.000 Nucleated RBC % (auto) 0.0 Smear Tech's Comments VERIFIED PT 13.3 INR 1.1 APTT 25.7 L VBG pH 7.49 H VBG pCO2 31 VBG pO2 34 VBG HCO3 24 VBG O2 Saturation 57.0 VBG Base Excess 1.4 Sodium 135 Potassium 3.1 L Chloride 101 Carbon Dioxide 25 Anion Gap 12 BUN 28 H Creatinine 0.87 Estim Creat Clear Calc 46.2 Estimated GFR > 60 Random Glucose 112 Lactic Acid 1.0 Calcium 8.5 D Phosphorus 3.7 Magnesium Total Bilirubin 0.5 Direct Bilirubin 0.2 AST 14 ALT 14 Alkaline Phosphatase 153 H Troponin I High Sens 9.3 D B-Natriuretic Peptide 223 H Total Protein 5.5 L Albumin 3.3 L Lipase 19 Urine Color Yellow Urine Appearance Clear Urine pH 7.0 Ur Specific [place] 1.025 Urine Protein Negative Urine Glucose (UA) Negative Urine Ketones Negative Urine Blood Trace H Urine Nitrite Negative Ur Leukocyte Esterase Negative Urine RBC 3-5 H Urine WBC 0-5 Ur Squamous Epith Cells 0-2 Urine Bacteria None Seen Hyaline Casts 0-2 Influenza Type A (PCR) NEGATIVE Influenza Type B (PCR) NEGATIVE RSV RNA Qual (PCR) NEGATIVE SARS-CoV-2 RNA (RT-PCR) NEGATIVE 01/21/24 04:39 WBC 21.8 H RBC 2.50 L Hgb 8.6 L Hct 25.7 L MCV 102.8 H MCH 34.4 H MCHC 33.5 RDW 16.6 H Plt Count 80 L MPV 10.3 Immature Gran % (Auto) 1.6 H Neut % (Auto) 89.1 H Lymph % (Auto) 4.8 L [place] % (Auto) 3.9 Eos % (Auto) 0.0 Baso % (Auto) 0.6 Lymph # (Auto) 1.1 L [place] # (Auto) 0.9 Eos # (Auto) 0.0 Baso # (Auto) 0.1 Abs Immat Gran (auto) 0.35 H Absolute Neuts (auto) 19.4 H Absolute Nucleated RBC 0.000 Nucleated RBC % (auto) 0.0 Smear Tech's Comments PT INR APTT VBG pH VBG pCO2 VBG pO2 VBG HCO3 VBG O2 Saturation VBG Base Excess Sodium 138 Potassium 3.4 Chloride 105 Carbon Dioxide 24 Anion Gap 12 BUN 16 Creatinine 0.76 Estim Creat Clear Calc 49.0 Estimated GFR > 60 Random Glucose 79 Lactic Acid Calcium 9.1 D Phosphorus 2.8 Magnesium 1.8 Total Bilirubin 0.9 Direct Bilirubin AST 12 ALT 11 Alkaline Phosphatase 122 H Troponin I High Sens B-Natriuretic Peptide Total Protein 6.0 L Albumin 4.1 Lipase Urine Color Urine Appearance Urine pH Ur Specific [place] Urine Protein Urine Glucose (UA) Urine Ketones Urine Blood Urine Nitrite Ur Leukocyte Esterase Urine RBC Urine WBC Ur Squamous Epith Cells Urine Bacteria Hyaline Casts Influenza Type A (PCR) Influenza Type B (PCR) RSV RNA Qual (PCR) SARS-CoV-2 RNA (RT-PCR) Imaging Radiologist's impression: Impressions Chest X-Ray 01/20/24 14:32 IMPRESSION: *No acute cardiopulmonary abnormalities. *Left pectoral tunneled catheter terminating in the region of the cavoatrial junction. *Partially visualized mass within the superior segment of the left lower pulmonary lobe measuring approximately 3.0 cm in diameter. This finding corresponds to the suspicious masses identified on the comparison PET/CT of 08/10/2023. Chest CTA 01/20/24 16:17 IMPRESSION: No pulmonary embolus. Known lung cancer. Multiple additional pulmonary findings including emphysema. VTE: negative Progress Note: A&P Assessment and plan (1) Atrial fibrillation with RVR: Status: Acute Plan Pleasant 73 year female with lung cancer on chemotherapy and radiation presenting with hypokalemia, leukocytosis and new onset atrial fibrillation. She was fluid resuscitated and given digoxin and spontaneously converted back to sinus rhythm. Given chemotherapy would avoid any antiarrhythmic drugs for now because of risk of electrolyte imbalances from vomiting etc. which can cause higher risk of toxicity. Low-dose metoprolol. Anticoagulation with Eliquis or Xarelto. Thank you for allowing me to participate in the care of your patient. Please feel free to contact me if you have any questions. Time Spent With Patient Time: Total time managing care of this patient today ____ minutes. Procedures Date of Service Date of Service: 01/21/24
--- NOTE | 2024-01-21 09:34 | MHC.CM.PN ---
Pt in ICU for tx of Afib: hx of late treated metastatic disease: opting to leave AMA: met with pt who continued to support her decision: verbalized understanding that services cannot be arranged ([facility], etc) if she leaves AMA. Pt states her son is coming to transport. HCP on file.
[2024-01-21 09:36] LABS: SARS-CoV-2 PCR Not Detected (Not Detect.)
--- NOTE | 2024-01-21 09:51 | P.CDIM_ITS ---
PROVIDER RESPONSE TEXT: To clarify, the appropriate diagnosis supported by the clinical indicators: Weight loss QUERY TEXT: PHYSICIAN'S DOCUMENTATION REQUEST Date of Query: 01/21/2024 09:33 AM EDT Patient Name: Carmina Maria Admit Date: 01/20/2024 Dear Garland Pena MD, A review of the medical record indicates additional documentation may be needed. Please review below and update the documentation accordingly. Clinical Indicators: Height: 5ft 4in Weight: 47.8kg BMI: 18 Other Clinical Notes Supporting Significance of the BMI: Nursing notes Height and Weight: Underweight with BMI 18 If possible, please provide an associated diagnosis related to the abnormal BMI, such as: Underweight Weight loss Cachexia Anorexia Other (explain) Clinically unable to determine (explain) Thank you, Eula Mascorro, CCS, CDIS Use of terms such as suspected, likely, concern for, or probable (associated with a specific diagnosi s that is being evaluated, monitored, or treated as if it exists) are acceptable and can be coded in the inpatient se tting, when documented at the time of discharge. Please use your independent medical judgment in providing your response. THIS QUERY IS PART OF THE PERMANENT MEDICAL RECORD
--- NOTE | 2024-01-21 09:57 | P.DS_ITS ---
DS: Providers Provider Date of Service: 01/21/24 Date of admission: 01/20/24 18:13 Primary care physician: Andriy Sherwood MD Consults: 01/20/24 15:25 Consult to Cardiology Stat Consulting Provider: [facility] Reason for consultation: rapid afib Has provider been notified: Yes DS: Diagnosis Discharge Diagnosis (1) Atrial fibrillation with RVR: Status: Acute (2) Hypotension: Status: Acute (3) Hypokalemia: Status: Acute (4) Sepsis: Status: Acute (5) Hypomagnesemia: Status: Acute DS: Summary Hospital Course Hospital Course: 73-year-old lady with underlying metastatic lung adenocarcinoma chemotherapy, last 1 week prior to this admission admitted 01/20/2024 with AFib with RVR in related hypotension, also leukocytosis, noted infection source. Patient treated with empiric antibiotics, digoxin load, and pressor support and admitted to intensive care unit. In the intensive care unit patient converted to normal sinus rhythm and was titrated off pressor support. Patient left against medical advice in the morning of 01/21/2024. Status at Discharge Functional status at discharge: independent ambulation Time Attestation Total time managing care of this patient today: 30 mintues. Discharge Coordination Time (in mins): 30 Quality: Safe Use of Opioids Does Pt have an Active Cancer Diagnosis on the Problem List?: Yes Opioid Measure Date for [facility] Report: 12/22/23 Opioid Measure Time for [facility] Report: 09:58 Quality: Stroke Does the patient have a stroke diagnosis?: No Physical Exam Vital Signs: Vital Signs: Last Vital Signs Temp 97.9 F 01/21/24 09:00 Pulse 82 01/21/24 09:00 Resp 23 H 01/21/24 09:00 BP 111/58 L 01/21/24 09:00 Pulse Ox 97 01/21/24 09:00 O2 Del Method Room Air 01/21/24 09:00 BMI result Body Mass Index 18.1 Const: General: no acute distress, alert and awake Nutritional Appearance: malnourished Eyes: Sclerae: sclerae normal EOM: EOMs intact bilaterally Neck: Neck: Yes no lymphadenopathy, Yes trachea midline and Yes supple Resp: Effort & Inspection: normal respiratory effort and no respiratory distress Auscultation: clear to auscultation bilaterally Cardio: Rate: regular rate Rhythm: regular rhythm Heart sounds: no gallops, no murmurs and no rubs GI: Palpation (GI): Soft to palpation and Other GI palpation findings present ( Nontender) Auscultation: normal bowel sounds Extrem: General: Yes no pedal edema, No clubbing and No cyanosis DS: Data Data Completed and Pending Labs on day of discharge: Laboratory Results - last 24 hr 01/20/24 01/20/24 01/20/24 14:54 19:50 21:00 WBC 33.2 H* RBC 2.86 L Hgb 10.0 L Hct 29.3 L MCV 102.4 H MCH 35.0 H MCHC 34.1 RDW 16.9 H Plt Count 81 L MPV 11.4 Immature Gran % (Auto) 4.3 H Neut % (Auto) 87.7 H Lymph % (Auto) 3.5 L [place] % (Auto) 3.9 Eos % (Auto) 0.0 Baso % (Auto) 0.6 Lymph # (Auto) 1.2 [place] # (Auto) 1.3 H Eos # (Auto) 0.0 Baso # (Auto) 0.2 Abs Immat Gran (auto) 1.41 H Absolute Neuts (auto) 29.1 H Absolute Nucleated RBC 0.000 Nucleated RBC % (auto) 0.0 Smear Tech's Comments VERIFIED PT 13.3 INR 1.1 APTT 25.7 L VBG pH VBG pCO2 VBG pO2 VBG HCO3 VBG O2 Saturation VBG Base Excess Sodium 135 Potassium 3.1 L Chloride 101 Carbon Dioxide 25 Anion Gap 12 BUN 28 H Creatinine 0.87 Estim Creat Clear Calc 46.2 Estimated GFR > 60 Random Glucose 112 Lactic Acid 1.0 Calcium 8.5 D Phosphorus 3.7 Magnesium Total Bilirubin 0.5 Direct Bilirubin 0.2 AST 14 ALT 14 Alkaline Phosphatase 153 H Troponin I High Sens 9.3 D B-Natriuretic Peptide 223 H Total Protein 5.5 L Albumin 3.3 L Lipase 19 Urine Color Yellow Urine Appearance Clear Urine pH 7.0 Ur Specific [place] 1.025 Urine Protein Negative Urine Glucose (UA) Negative Urine Ketones Negative Urine Blood Trace H Urine Nitrite Negative Ur Leukocyte Esterase Negative Urine RBC 3-5 H Urine WBC 0-5 Ur Squamous Epith Cells 0-2 Urine Bacteria None Seen Hyaline Casts 0-2 Respiratory Panel Lorenzo See Note Adenovirus (Rapid PCR) Not Detected B.pert (TEM-PCR) Not Detected B.parapertussis DNA PCR Not Detected C. pneumoniae DNA (PCR) Not Detected Coronavirus OC43 (PCR) Not Detected Coronavirus HKU1 (PCR) Not Detected Coronavirus 229E (PCR) Not Detected Coronavirus NL63 (PCR) Not Detected Human Metapneumovir PCR Not Detected Influenza A (RT-PCR) Not Detected Influenza Type A (PCR) NEGATIVE Influenza B (RT-PCR) Not Detected Influenza Type B (PCR) NEGATIVE M. pneumoniae (PCR) Not Detected Parainfluenza 1 (PCR) Not Detected Parainfluenza 2 (PCR) Not Detected Parainfluenza 3 (PCR) Not Detected Parainfluenza 4 (PCR) Not Detected RSV (PCR) Not Detected RSV RNA Qual (PCR) NEGATIVE Entero/Rhino (PCR) Not Detected SARS-CoV-2 RNA (RT-PCR) NEGATIVE Not Detected 01/21/24 01/21/24 04:37 04:39 WBC 21.8 H RBC 2.50 L Hgb 8.6 L Hct 25.7 L MCV 102.8 H MCH 34.4 H MCHC 33.5 RDW 16.6 H Plt Count 80 L MPV 10.3 Immature Gran % (Auto) 1.6 H Neut % (Auto) 89.1 H Lymph % (Auto) 4.8 L [place] % (Auto) 3.9 Eos % (Auto) 0.0 Baso % (Auto) 0.6 Lymph # (Auto) 1.1 L [place] # (Auto) 0.9 Eos # (Auto) 0.0 Baso # (Auto) 0.1 Abs Immat Gran (auto) 0.35 H Absolute Neuts (auto) 19.4 H Absolute Nucleated RBC 0.000 Nucleated RBC % (auto) 0.0 Smear Tech's Comments PT INR APTT VBG pH 7.49 H VBG pCO2 31 VBG pO2 34 VBG HCO3 24 VBG O2 Saturation 57.0 VBG Base Excess 1.4 Sodium 138 Potassium 3.4 Chloride 105 Carbon Dioxide 24 Anion Gap 12 BUN 16 Creatinine 0.76 Estim Creat Clear Calc 49.0 Estimated GFR > 60 Random Glucose 79 Lactic Acid Calcium 9.1 D Phosphorus 2.8 Magnesium 1.8 Total Bilirubin 0.9 Direct Bilirubin AST 12 ALT 11 Alkaline Phosphatase 122 H Troponin I High Sens B-Natriuretic Peptide Total Protein 6.0 L Albumin 4.1 Lipase Urine Color Urine Appearance Urine pH Ur Specific [place] Urine Protein Urine Glucose (UA) Urine Ketones Urine Blood Urine Nitrite Ur Leukocyte Esterase Urine RBC Urine WBC Ur Squamous Epith Cells Urine Bacteria Hyaline Casts Respiratory Panel Lorenzo Adenovirus (Rapid PCR) B.pert (TEM-PCR) B.parapertussis DNA PCR C. pneumoniae DNA (PCR) Coronavirus OC43 (PCR) Coronavirus HKU1 (PCR) Coronavirus 229E (PCR) Coronavirus NL63 (PCR) Human Metapneumovir PCR Influenza A (RT-PCR) Influenza Type A (PCR) Influenza B (RT-PCR) Influenza Type B (PCR) M. pneumoniae (PCR) Parainfluenza 1 (PCR) Parainfluenza 2 (PCR) Parainfluenza 3 (PCR) Parainfluenza 4 (PCR) RSV (PCR) RSV RNA Qual (PCR) Entero/Rhino (PCR) SARS-CoV-2 RNA (RT-PCR) Discharge Plan Discharge Anticipated Discharge Date/Time: 01/21/24 09:50 Patient Disposition: Left Against Medical Advice Discharge Diagnosis: Atrial fibrillation with rapid ventricular response Referrals: Andriy Sherowod MD [Primary Care Provider] - 1 Week Discharge Medications: No Action atorvastatin 10 mg tablet 10 mg PO DAILY Qty: 90 2RF nadolol 40 mg tablet 40 mg PO DAILY Qty: 90 3RF fluticasone propion-salmeterol [AirDuo RespiClick] 232-14 mcg/actuation aerosol powdr breath activated 1 inh inhalation BID 30 Days Qty: 1 6RF lorazepam 1 mg tablet 2 mg PO BEDTIME Qty: 60 2RF hydrochlorothiazide 25 mg tablet 25 mg PO DAILY Qty: 90 8RF digoxin 125 mcg (0.125 mg) tablet 125 mcg PO DAILY Qty: 30 3RF ondansetron 8 mg Tablet,Disintegrating 8 mg PO Q8H PRN (Reason: Nausea) Qty: 30 0RF folic acid 1 mg Tablet 1 mg PO DAILY Qty: 90 3RF tramadol 50 mg Tablet 50 mg PO Q8H PRN (Reason: Pain (Scale Score 7-10)) Qty: 30 0RF potassium chloride 20 mEq Tablet Extended Release 20 meq PO DAILY Qty: 90 3RF furosemide [Lasix] 20 mg tablet 20 mg PO DAILY Qty: 5 0RF levofloxacin 500 mg tablet 500 mg PO DAILY Qty: 28 0RF Discharge Orders: Discharge Order (Routine); Ordered 01/21/24 Ordered By: Garland Pena Print Language: Slovak Care Plan Goals: Patient left against medical advice Health Concerns: Patient left against medical advice Plan of Treatment: Patient left against medical advice Assessment: Patient left against medical advice
== END 2024-01-21 09:45 | disposition left against medical advice (07) | DRG 872 ==
LOC: HO.ED 17:01 → HO.EDOVER 18:18 → HO.ICU 18:58
PROVIDERS: Emergency Medicine; Registered Nurse Community Health; Admitting Provider Internal Medicine Pulmonary Disease; Emergency Provider Emergency Medicine; PCP Internal Medicine; Visit Provider Internal Medicine Pulmonary Disease
DX: A41.9 Sepsis, unspecified organism (principal); C34.32 Malignant neoplasm of lower lobe, left bronchus or lung; Z68.1 Body mass index [BMI] 19.9 or less, adult; I48.91 Unspecified atrial fibrillation; F17.210 Nicotine dependence, cigarettes, uncomplicated; I10 Essential (primary) hypertension; E78.5 Hyperlipidemia, unspecified; E83.42 Hypomagnesemia; F41.9 Anxiety disorder, unspecified; I95.9 Hypotension, unspecified; R63.4 Abnormal weight loss; E87.6 Hypokalemia; Z71.6 Tobacco abuse counseling; Z20.822 Contact with and (suspected) exposure to COVID-19; Z88.0 Allergy status to penicillin; Z79.51 Long term (current) use of inhaled steroids; Z79.899 Other long term (current) drug therapy
CPT/HCPCS: 0241U; 36415; 71045; 71275; 80048; 80053; 80076; 81001; 81003; 82803; 83605; 83690; 83735; 83880; 84100; 84484; 85025; 85610; 85730; 87040; 87633; 99285; C1758; J0692; J0696; J1160; J1650; J2371; J3371; J3475; J3480; P9047; Q9957; Q9967

== ENCOUNTER → 2024-01-20 14:20 | Outpatient (BNV) | payer MEDICARE, SELFPAY | PROVIDERS: Emergency Provider Emergency Medicine; PCP Internal Medicine; Visit Provider Internal Medicine Cardiovascular Disease | DX: I48.91 Unspecified atrial fibrillation (principal); E87.6 Hypokalemia | CPT/HCPCS: 93010; 99223; 99232 ==

== ENCOUNTER → 2024-01-20 18:13 | Outpatient (BNV) | payer MEDICARE, SELFPAY | PROVIDERS: Admitting Provider Internal Medicine Pulmonary Disease; Emergency Provider Emergency Medicine; PCP Internal Medicine; Visit Provider Internal Medicine Pulmonary Disease | DX: I48.91 Unspecified atrial fibrillation (principal); I95.9 Hypotension, unspecified; E87.6 Hypokalemia; A41.9 Sepsis, unspecified organism; E83.42 Hypomagnesemia | CPT/HCPCS: 99238 ==

== ENCOUNTER → 2024-01-20 18:13 | Outpatient (BNV) | payer MEDICARE, SELFPAY | PROVIDERS: Admitting Provider Internal Medicine Pulmonary Disease; Emergency Provider Emergency Medicine; PCP Internal Medicine; Visit Provider Registered Nurse Community Health | DX: I48.91 Unspecified atrial fibrillation (principal); I95.9 Hypotension, unspecified; E87.6 Hypokalemia; A41.9 Sepsis, unspecified organism; E83.42 Hypomagnesemia | CPT/HCPCS: 99291 ==

== ENCOUNTER 2024-01-31 08:35 | Outpatient (REF) | payer MEDICARE, SELFPAY ==
[2024-01-31 09:55] LABS: MANUAL DIFF FLAG NO
[2024-01-31 10:02] LABS: Basophils Percent Auto 0.3 % (0-2); Eosinophils Percent Auto 0.3 % (0-4); Hematocrit 34.7 % (37.0-47.0); Hemoglobin 11.5 g/dl (12.0-16.0); Imm Gran Abs Auto 0.04 X10*3/uL (0.00-0.03); Imm Gran Pct Auto 0.5 % (0.0-0.4); Lymphocytes Absolute Auto 1.1 X10*3/uL (1.2-4.9); Lymphocytes Percent Auto 14.5 % (20-40); Mean Corpuscular HGB Conc 33.1 g/dl (31.0-35.0); Mean Corpuscular Hemoglobin 35.4 pg (27.0-33.0); Mean Corpuscular Volume 106.8 fL (80.0-98.0); Mean Platelet Volume 10.6 fL (9.4-12.3); Monocytes Absolute Auto 0.4 X10*3/uL (0.1-1.2); Monocytes Percent Auto 4.5 % (2-11); Neutrophils Absolute Auto 6.3 x10*3/uL (2.0-8.3); Neutrophils Percent Auto 79.9 % (45-73); Platelet Count 115 X10*3/uL (160-400); Red Blood Count 3.25 X10*6/uL (4.20-5.50); Red Cell Distribution Width 17.4 % (11.0-16.0); White Blood Count 7.8 X10*3/uL (4.8-10.8)
[2024-01-31 10:19] LABS: Alanine Aminotransferase 13 U/L (0-31); Albumin Level 4.4 g/dL (3.5-5.0); Alkaline Phosphatase 102 U/L (39-117); Anion Gap 15 (12-20); Aspartate Amino Transferase 22 U/L (5-31); Bilirubin Total 0.5 mg/dL (0.0-1.0); Blood Urea Nitrogen 17 mg/dL (9-16); Carbon Dioxide 26 mmol/L (22-29); Chloride 101 mmol/L (96-108); Estimated Glomerular Filt Rate 53; Glucose Random 109 mg/dL (60-115); Magnesium 1.8 mg/dL (1.6-2.6); Potassium 3.8 mmol/L (3.3-5.1); Sodium 138 mmol/L (135-145); Total Protein 7.2 g/dL (6.5-8.0)
== END 2024-01-31 08:36 | disposition home or self-care (01) ==
LOC: HO.HMGCLDS 08:35
PROVIDERS: PCP Internal Medicine; Visit Provider Internal Medicine
DX: C34.92 Malignant neoplasm of unspecified part of left bronchus or lung (principal); C34.90 Malignant neoplasm of unspecified part of unspecified bronchus or lung
CPT/HCPCS: 36415; 80053; 83735; 85025

== ENCOUNTER → 2024-02-01 12:00 | Outpatient (BNV) | payer MEDICARE, SELFPAY | PROVIDERS: PCP Internal Medicine; Visit Provider Internal Medicine | DX: R00.0 Tachycardia, unspecified (principal); R94.31 Abnormal electrocardiogram [ECG] [EKG] | CPT/HCPCS: 93010 ==

== ENCOUNTER → 2024-02-04 12:51 | Outpatient (REF) | payer MEDICARE, SELFPAY ==
--- NOTE | 2024-02-04 12:54 | CA_ITS ---
Transthoracic Echocardiogram Patient (Last, First, Middle): Carmina Maria A Gender: Female Date of : 1950 Age: 73 Procedure Date: 02/04/2024 Procedure Type: Transthoracic Echocardiogram Location: OP Height: 160.02 cm Weight: 45.36 kg BSA: 1.44 m2 Heart Rate: bpm BP: 130 / 72 mmHg Ending Machine Operator: TO Referring MD: Garland Pena MD Symptoms: R06.09 - Other forms of dyspnea Study Quality: Technically Difficult ECG Rhythm: Sinus Conclusions: - Patient uncoperative; limited quality. - The left ventricular systolic function is normal. The visually estimated ejection fraction is between 55-60%. - No obvious valvular pathology seen on this study. - There is no evidence of pulmonary hypertension. Findings Procedure Information The study quality is limited by the patients inability to tolerate the test, patients body habitus, lung artifact, and an uncooperative patient. Left Ventricle Normal left ventricular cavity size. The left ventricular systolic function is normal. The visually estimated ejection fraction is between 55-60%. Regional wall motion abnormalities can not be excluded due to suboptimal endocardial definition. Evidence suggests grade I (mild) diastolic dysfunction. Right Ventricle The right ventricle was not well visualized. Atria Both atria are normal in size. Aortic Valve The aortic valve was not well visualized. There is no aortic valve stenosis. There is trace (trivial) aortic valve regurgitation. Mitral Valve The mitral valve appears normal. There is no mitral valve regurgitation. There is no mitral valve stenosis. Pulmonic Valve The pulmonic valve is likely normal. Tricuspid Valve There is trace tricuspid valve regurgitation. There is no evidence of pulmonary hypertension. Great Vessels The aortic annulus and sinuses of valsalva are normal in size. Venous The inferior vena cava is normal in size and collapses greater than 50% with inspiration. Pericardium/Pleural There is no evidence of pericardial effusion. Prior Study Comparison No prior study available for comparison. Recommendations, Care & Conclusions No obvious valvular pathology seen on this study. Measurements 2D Linear Measurements IVSd: 1.00 0.6-0.9/0.6-1.0 cm LVIDd: 3.75 3.9-5.3/4.2-5.9 cm LVIDd Index: 2.60 2.4-3.2/2.2-3.1 cm/m2 LVIDs: 2.62 2.0-3.6 cm LVPWd: 1.01 0.7-1.1 cm LV Mass: 143.90 67-162/88-224 g LV Mass Index: 99.93 43-95/49-115 g/m2 LVOT Diam: 2.10 3.0+(-)1.3 cm Mitral Valve MV Pk E: 0.61 MV PK A: 0.86 MV Decel Time: 294.00 E/A: 0.70 E'Lateral: 2.72 E'Medial: 3.70 E/E' Med: 16.60 E/E' Lat: 22.50 PHT: 86.00 MVA PHT: 2.56 Decel [place]: 2.08 LVOT LVOT Pk [place]: 0.74 LVOT Mn [place]: 0.45 LVOT VTI: 0.18 LVOT Pk Grad: 2.00 LVOT Mn Grad: 1.00 LVOT Diam: 2.10 LVOT Area: 3.46 Diastolic Function MV Pk E: 0.61 MV Pk A: 0.86 E/A: 0.70 E'Medial: 3.70 E/E' Med: 16.60 E' Laterial: 2.72 E/E' Lat: 22.50 Right Ventricle TVS' [place]: 7.07 Tricuspid Valve TR Pk [place]: 2.21 TR Pk Grad: 20.00 RA Press: 3.00 RVSP: 23.00 Great Vessels Aorta Sinus of Valsalva: 2.88 2.0-3.5 cm Updated in Other Vendor System with Status of Final Krystian Us MD electronically signed on 02/05/2024 3:40:33 PM with status of Final
== END ==
LOC: HO.CARD 12:51
PROVIDERS: PCP Internal Medicine; Referring Provider Internal Medicine; Visit Provider Internal Medicine Pulmonary Disease
DX: R06.09 Other forms of dyspnea (principal)
CPT/HCPCS: 93306

== ENCOUNTER → 2024-02-04 12:54 | Outpatient (BNV) | payer MEDICARE, SELFPAY | PROVIDERS: PCP Internal Medicine; Referring Provider Internal Medicine; Visit Provider Internal Medicine | DX: I51.89 Other ill-defined heart diseases (principal) | CPT/HCPCS: 93306 ==

== ENCOUNTER 2024-02-07 09:22 | Outpatient (REF) | payer MEDICARE, SELFPAY ==
[2024-02-07 10:32] LABS: MANUAL DIFF FLAG NO
[2024-02-07 10:39] LABS: Basophils Percent Auto 0.3 % (0-2); Eosinophils Absolute Auto 0.1 X10*3/uL (0.0-0.4); Eosinophils Percent Auto 1.8 % (0-4); Hematocrit 37.5 % (37.0-47.0); Hemoglobin 12.6 g/dl (12.0-16.0); Imm Gran Abs Auto 0.07 X10*3/uL (0.00-0.03); Lymphocytes Absolute Auto 1.5 X10*3/uL (1.2-4.9); Lymphocytes Percent Auto 20.8 % (20-40); Mean Corpuscular HGB Conc 33.6 g/dl (31.0-35.0); Mean Corpuscular Hemoglobin 34.8 pg (27.0-33.0); Mean Corpuscular Volume 103.6 fL (80.0-98.0); Mean Platelet Volume 10.2 fL (9.4-12.3); Monocytes Absolute Auto 0.7 X10*3/uL (0.1-1.2); Monocytes Percent Auto 9.4 % (2-11); Neutrophils Absolute Auto 4.8 x10*3/uL (2.0-8.3); Neutrophils Percent Auto 66.7 % (45-73); Platelet Count 211 X10*3/uL (160-400); Red Blood Count 3.62 X10*6/uL (4.20-5.50); Red Cell Distribution Width 16.3 % (11.0-16.0); White Blood Count 7.3 X10*3/uL (4.8-10.8)
[2024-02-07 11:06] LABS: Alanine Aminotransferase 15 U/L (0-31); Albumin Level 4.1 g/dL (3.5-5.0); Alkaline Phosphatase 82 U/L (39-117); Anion Gap 15 (12-20); Aspartate Amino Transferase 24 U/L (5-31); Bilirubin Total 0.5 mg/dL (0.0-1.0); Blood Urea Nitrogen 14 mg/dL (9-16); Carbon Dioxide 26 mmol/L (22-29); Chloride 97 mmol/L (96-108); Estimated Glomerular Filt Rate > 60; Glucose Random 107 mg/dL (60-115); Potassium 3.9 mmol/L (3.3-5.1); Sodium 134 mmol/L (135-145); Total Protein 6.9 g/dL (6.5-8.0)
== END 2024-02-07 09:23 | disposition home or self-care (01) ==
LOC: HO.HMGCLDS 09:22
PROVIDERS: PCP Internal Medicine; Visit Provider Internal Medicine
DX: C34.92 Malignant neoplasm of unspecified part of left bronchus or lung (principal)
CPT/HCPCS: 36415; 80053; 85025

== ENCOUNTER 2024-02-28 09:29 | Outpatient (REF) | payer MEDICARE, SELFPAY ==
[2024-02-28 13:19] LABS: MANUAL DIFF FLAG NO
[2024-02-28 13:26] LABS: Basophils Percent Auto 0.1 % (0-2); Eosinophils Absolute Auto 0.1 X10*3/uL (0.0-0.4); Eosinophils Percent Auto 1.1 % (0-4); Hematocrit 37.8 % (37.0-47.0); Hemoglobin 12.7 g/dl (12.0-16.0); Imm Gran Abs Auto 0.06 X10*3/uL (0.00-0.03); Imm Gran Pct Auto 0.6 % (0.0-0.4); Lymphocytes Absolute Auto 1.3 X10*3/uL (1.2-4.9); Lymphocytes Percent Auto 13.1 % (20-40); Mean Corpuscular HGB Conc 33.6 g/dl (31.0-35.0); Mean Corpuscular Hemoglobin 34.2 pg (27.0-33.0); Mean Corpuscular Volume 101.9 fL (80.0-98.0); Mean Platelet Volume 10.6 fL (9.4-12.3); Monocytes Absolute Auto 1.1 X10*3/uL (0.1-1.2); Monocytes Percent Auto 11.2 % (2-11); Neutrophils Absolute Auto 7.3 x10*3/uL (2.0-8.3); Neutrophils Percent Auto 73.9 % (45-73); Platelet Count 331 X10*3/uL (160-400); Red Blood Count 3.71 X10*6/uL (4.20-5.50); Red Cell Distribution Width 15.4 % (11.0-16.0); White Blood Count 9.8 X10*3/uL (4.8-10.8)
[2024-02-28 13:50] LABS: Alanine Aminotransferase 17 U/L (0-31); Alkaline Phosphatase 87 U/L (39-117); Anion Gap 17 (12-20); Aspartate Amino Transferase 26 U/L (5-31); Bilirubin Total 0.4 mg/dL (0.0-1.0); Blood Urea Nitrogen 13 mg/dL (9-16); Calcium 9.9 mg/dL (8.4-10.2); Carbon Dioxide 26 mmol/L (22-29); Chloride 99 mmol/L (96-108); Estimated Glomerular Filt Rate > 60; Glucose Random 126 mg/dL (60-115); Potassium 3.5 mmol/L (3.3-5.1); Sodium 138 mmol/L (135-145); Total Protein 6.9 g/dL (6.5-8.0)
== END 2024-02-28 09:30 | disposition home or self-care (01) ==
LOC: HO.HMGCLDS 09:29
PROVIDERS: PCP Internal Medicine; Visit Provider Internal Medicine
DX: C34.92 Malignant neoplasm of unspecified part of left bronchus or lung (principal)
CPT/HCPCS: 36415; 80053; 85025

== ENCOUNTER 2024-03-17 11:11 | Outpatient (AMB) | payer MEDICARE, SELFPAY ==
[2024-03-17 11:13] VITALS: BP 110/62; PULSE 104; O2SAT 100; BMI 17.2
--- NOTE | 2024-03-17 11:13 | A.OFFVIS_ITS ---
Vital Signs 03/17/24 11:13 Height 5 ft 4 in Weight 100 lb 4.965 oz BMI 17.2 BP 110/62 Blood Pressure Location Rt brachial Position Sitting Pulse 104 H Pulse Source Doppler Pulse Oximetry (%) 100 Oxygen Delivery Method Room Air Intake Visit Reasons: COPD Allergies Penicillins [PENICILLINS] Allergy (Intermediate, Verified 01/20/24 13:57) HIVES/ITCHING HPI HPI COPD: Details: 73-year-old lady followed for COPD. 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 Patient does Continue to complain of cough productive of whitish sputum. She has been using Spiriva and albuterol MDI with reasonable control of her dyspnea. she does complain of significant weight loss and poor appetite. [facility] Medical History Family history of lung cancer Personal history of nicotine dependence Back pain Osteoporosis (~2018) Pseudogout (~2016) Anxiety Hypertension Hyperlipidemia Surgical History History of colonoscopy Family History Father Lung cancer Mother Diabetes Renal failure Social History Household Members: None Housing: House Do you presently have visiting nurse or other home services: No Alcohol intake: never Patient Tobacco Use Status: Current everyday Tobacco user Tobacco use type: Cigarette Cigarette Packs Per Day: 14 e-Cigarette/Vaping Use: Never Used Second Hand Smoke Exposure: No Advance Directives Date on File: 05/10/23 service: No Current occupational status: retired Current occupational exposures/hazards: No Cognitive needs: No Hearing needs: No Vision needs: Yes Review of Systems Const Reports fatigue, Reports lethargy, Reports malaise and Reports weight loss Card Reports pedal edema, Denies dyspnea, Reports dyspnea on exertion and Denies orthopnea Resp Reports cough, Denies hemoptysis, Reports excessive phlegm production, Denies dyspnea, Reports dyspnea on exertion and Denies wheezing Endo Reports fatigue Aller/Immun Denies wheezing Physical Exam Vital Signs: Last Vital Signs Pulse 104 H 03/17/24 11:13 BP 110/62 03/17/24 11:13 Pulse Ox 100 03/17/24 11:13 Oxygen Delivery Method Room Air 03/17/24 11:13 BMI result Body Mass Index 17.2 Const General: no acute distress and alert Nutritional Appearance: cachectic Orientation/consciousness: Other orientation findings ( oriented) HEENT Head: Yes atraumatic Eyes General: appearance normal, both eyes and all related structures Sclerae: sclerae normal EOM: EOMs intact bilaterally Neck Neck: Yes supple Lymphatic: no lymphadenopathy noted Resp Effort & Inspection: normal respiratory effort and no use of accessory muscles Auscultation: clear to auscultation bilaterally Cardio Rate: tachycardic Rhythm: regular rhythm Heart sounds: no gallops, no murmurs and no rubs Skin General skin exam: other ( warm) Extrem General: No clubbing, No cyanosis and No edema Assessment & Plan Assessment & Plan (1) COPD (chronic obstructive pulmonary disease): Code(s): J44.9 - Chronic obstructive pulmonary disease, unspecified Category: Medical Plan: Controlled on current regimen of AirDuo and albuterol MDI. Continue current regimen. (2) Lung cancer: Code(s): C34.90 - Malignant neoplasm of unspecified part of unspecified bronchus or lung Category: Surgical Plan: On chemotherapy under oncology care. Now with significant weight loss and poor appetite. Will add dronabinol. Medications: New dronabinol administer before lunch and evening meal/dinner 10 mg PO BID 60 caps 3RF azithromycin For 250 mg dose pack: take 500 mg today (day 1), then 250 mg for 4 days (days 2-5) PO 6 tabs 0RF Coding Level of Care Code Est Pt Level 4 (92373) Diagnoses COPD (chronic obstructive pulmonary disease) J44.9 Lung cancer C34.90
== END 2024-03-17 11:36 | disposition home or self-care (01) ==
PROVIDERS: PCP Internal Medicine; Visit Provider Internal Medicine Pulmonary Disease
DX: J44.9 Chronic obstructive pulmonary disease, unspecified (principal); C34.90 Malignant neoplasm of unspecified part of unspecified bronchus or lung
CPT/HCPCS: 99214

== ENCOUNTER → 2024-03-17 11:11 | Outpatient (BNVA) | payer MEDICARE, SELFPAY | PROVIDERS: PCP Internal Medicine; Visit Provider Internal Medicine Pulmonary Disease | DX: J44.9 Chronic obstructive pulmonary disease, unspecified (principal); C34.90 Malignant neoplasm of unspecified part of unspecified bronchus or lung | CPT/HCPCS: 99212 ==

== ENCOUNTER 2024-03-20 09:36 | Outpatient (REF) | payer MEDICARE, SELFPAY ==
[2024-03-20 13:20] LABS: MANUAL DIFF FLAG NO
[2024-03-20 13:25] LABS: Basophils Percent Auto 0.3 % (0-2); Eosinophils Absolute Auto 0.2 X10*3/uL (0.0-0.4); Eosinophils Percent Auto 2.9 % (0-4); Hemoglobin 11.4 g/dl (12.0-16.0); Imm Gran Abs Auto 0.09 X10*3/uL (0.00-0.03); Imm Gran Pct Auto 1.3 % (0.0-0.4); Lymphocytes Absolute Auto 1.3 X10*3/uL (1.2-4.9); Lymphocytes Percent Auto 18.6 % (20-40); Mean Corpuscular HGB Conc 33.5 g/dl (31.0-35.0); Mean Corpuscular Hemoglobin 33.8 pg (27.0-33.0); Mean Corpuscular Volume 100.9 fL (80.0-98.0); Mean Platelet Volume 10.2 fL (9.4-12.3); Monocytes Percent Auto 14.6 % (2-11); Neutrophils Absolute Auto 4.3 x10*3/uL (2.0-8.3); Neutrophils Percent Auto 62.3 % (45-73); Platelet Count 412 X10*3/uL (160-400); Red Blood Count 3.37 X10*6/uL (4.20-5.50); Red Cell Distribution Width 15.8 % (11.0-16.0); White Blood Count 6.9 X10*3/uL (4.8-10.8)
[2024-03-20 13:53] LABS: Alanine Aminotransferase 15 U/L (0-31); Albumin Level 3.8 g/dL (3.5-5.0); Alkaline Phosphatase 82 U/L (39-117); Anion Gap 15 (12-20); Aspartate Amino Transferase 27 U/L (5-31); Bilirubin Total 0.3 mg/dL (0.0-1.0); Blood Urea Nitrogen 21 mg/dL (9-16); Calcium 9.6 mg/dL (8.4-10.2); Carbon Dioxide 26 mmol/L (22-29); Chloride 101 mmol/L (96-108); Estimated Glomerular Filt Rate 58; Glucose Random 90 mg/dL (60-115); Magnesium 1.8 mg/dL (1.6-2.6); Potassium 3.5 mmol/L (3.3-5.1); Sodium 138 mmol/L (135-145); Total Protein 6.8 g/dL (6.5-8.0)
== END 2024-03-20 09:37 | disposition home or self-care (01) ==
LOC: HO.HMGCLDS 09:36
PROVIDERS: PCP Internal Medicine; Visit Provider Internal Medicine
DX: C34.10 Malignant neoplasm of upper lobe, unspecified bronchus or lung (principal); C34.92 Malignant neoplasm of unspecified part of left bronchus or lung
CPT/HCPCS: 36415; 80053; 83735; 85025

== ENCOUNTER 2024-04-04 11:40 | Outpatient (AMB) | payer MEDICARE, SELFPAY ==
[2024-04-04 11:41] VITALS: BP 142/70; PULSE 99; O2SAT 97; BMI 18.2
--- NOTE | 2024-04-04 11:41 | A.OFFPC_ITS ---
Vital Signs 04/04/24 11:41 Height 5 ft 4 in Weight 106 lb BMI 18.2 BP 142/70 H Blood Pressure Location Lt brachial Position Sitting Pulse 99 Pulse Source Pulse Oximeter Pulse Oximetry (%) 97 Oxygen Delivery Method Room Air Intake Visit Reasons: overdue 4 month f/u Pain Management Nurse Practitioner Required: No Accompanied by: Self / Same As Patient Allergies Penicillins [PENICILLINS] Allergy (Intermediate, Verified 04/04/24 11:41) HIVES/ITCHING Medication List - Last Reconciled 04/05/24 by Andriy Sherwood MD atorvastatin 10 mg PO DAILY digoxin 125 mcg PO DAILY dronabinol 10 mg PO BID fluticasone propion-salmeterol 232-14 mcg/actuation (AirDuo RespiClick) 1 inh inhalation BID 30 days folic acid 1 mg PO DAILY hydrochlorothiazide 25 mg PO DAILY lorazepam 2 mg (2 x 1 mg) PO BEDTIME metoprolol tartrate 25 mg PO BID ondansetron 8 mg PO Q8H PRN oxycodone 5 mg PO Q8H PRN polyethylene glycol 3350 (Miralax) 17 grams PO DAILY potassium chloride ER 20 mEq PO DAILY prednisone 10 mg PO DAILY sennosides-docusate sodium 8.6-50 mg (Senna with Docusate Sodium) 1 tab-cap PO BEDTIME tramadol 50 mg PO Q8H PRN Tobacco use date assessed: 04/04/24 Fall risk assessment: No Falls in past year Last assessed Fall Risk: 04/04/24 Dental Screening Dental Screen Date: 08/23/23 HPI overdue 4 month f/u HPI Details lung cancer being treated in oncology; not in remission; weight stable and eating better [facility] Medical History Family history of lung cancer Personal history of nicotine dependence Back pain Osteoporosis (~2018) Pseudogout (~2016) Anxiety Hypertension Hyperlipidemia Surgical History History of colonoscopy Family History Father Lung cancer Mother Diabetes Renal failure Social History Household Members: None Housing: House Do you presently have visiting nurse or other home services: No Alcohol intake: never Patient Tobacco Use Status: Current everyday Tobacco user Tobacco use type: Cigarette Cigarettes Per Day: 14 e-Cigarette/Vaping Use: Never Used Second Hand Smoke Exposure: No Advance Directives Date on File: 05/10/23 service: No Current occupational status: retired Current occupational exposures/hazards: No Cognitive needs: No Hearing needs: No Vision needs: Yes Questionnaire Thrive Questionnaire Date Thrive assessed: 01/21/24 Are you currently unemployed and looking for a job?: No AUDIT C Alcohol Use Questionnaire (AUDIT-C) 3. How often do you have six or more drinks on one occasion?: Never Total Score: 0 NICOLE-7 AMB Questionnaire NICOLE-7 Date NICOLE - 7 assessed: 08/23/23 Source: Developed by Drs. Alex Barkley, Nilam Rainey, Júnior Haro and colleagues, with an educational elsie from [employer]. Review of Systems Const Denies chills, Denies headache(s) and Denies weight loss ENT Denies headache(s) Card Denies chest pain, Denies syncope, Denies irregular heart rhythm and Denies dyspnea Resp Denies chest congestion, Denies cough and Denies dyspnea GI Denies abdominal pain, Denies change in stool character, Denies nausea and Denies vomiting Musc Denies deformity and Denies joint swelling Neuro Denies syncope and Denies headache(s) Physical exam (Primary Care) Vital Signs: Last Vital Signs Pulse 99 04/04/24 11:41 BP 142/70 H 04/04/24 11:41 Pulse Ox 97 04/04/24 11:41 Oxygen Delivery Method Room Air 04/04/24 11:41 BMI result Body Mass Index 18.2 Tobacco/Smoking Status: Tobacco use Status Tobacco use date assessed 04/04/24 04/04/24 11:47 Patient Tobacco Use Status Current everyday Tobacco 04/04/24 11:47 Tobacco use type Cigarette 04/04/24 11:47 e-Cigarette/Vaping Use Never Used 04/04/24 11:47 Thrive Assessment: Date of Thrive Assessment Date Thrive assessed 01/21/24 04/04/24 11:47 Const General: cooperative, comfortable, no acute distress and alert Neck Neck: Yes no lymphadenopathy Thyroid: Thyroid normal Resp Effort & Inspection: normal respiratory effort Auscultation: clear to auscultation bilaterally Percussion: percussion normal Cardio Jugular venous distension: no JVD Palpation: normal PMI Rate: regular rate Rhythm: regular rhythm Heart sounds: S1 normal heart sound present and S2 normal heart sound present GI Inspection: Yes normal to inspection Palpation (GI): No hepatosplenomegaly present Skin General skin exam: no rashes or lesions noted Extrem General: Yes no clubbing, cyanosis or edema Coding Level of Care Code Est Pt Level 3 (72763) Diagnoses Non-small cell cancer of left lung C34.92 Assessment & Plan Assessment & Plan (1) Non-small cell cancer of left lung: Code(s): C34.92 - Malignant neoplasm of unspecified part of left bronchus or lung Category: Medical Plan: stable; as per oncology
== END 2024-04-04 12:35 | disposition home or self-care (01) ==
PROVIDERS: PCP Internal Medicine; Visit Provider Internal Medicine
DX: C34.92 Malignant neoplasm of unspecified part of left bronchus or lung (principal)

== ENCOUNTER → 2024-04-04 11:40 | Outpatient (BNVA) | payer MEDICARE, SELFPAY | PROVIDERS: PCP Internal Medicine; Visit Provider Internal Medicine | DX: C34.92 Malignant neoplasm of unspecified part of left bronchus or lung (principal) | CPT/HCPCS: 99212 ==

== ENCOUNTER 2024-04-10 09:46 | Outpatient (REF) | payer MEDICARE, SELFPAY ==
[2024-04-10 13:17] LABS: MANUAL DIFF FLAG NO
[2024-04-10 13:28] LABS: Basophils Percent Auto 0.3 % (0-2); Eosinophils Absolute Auto 0.1 X10*3/uL (0.0-0.4); Eosinophils Percent Auto 0.6 % (0-4); Hematocrit 35.1 % (37.0-47.0); Hemoglobin 11.2 g/dl (12.0-16.0); Imm Gran Abs Auto 0.18 X10*3/uL (0.00-0.03); Imm Gran Pct Auto 2.3 % (0.0-0.4); Lymphocytes Absolute Auto 1.3 X10*3/uL (1.2-4.9); Lymphocytes Percent Auto 16.9 % (20-40); Mean Corpuscular HGB Conc 31.9 g/dl (31.0-35.0); Mean Corpuscular Hemoglobin 33.6 pg (27.0-33.0); Mean Corpuscular Volume 105.4 fL (80.0-98.0); Mean Platelet Volume 9.9 fL (9.4-12.3); Monocytes Absolute Auto 1.3 X10*3/uL (0.1-1.2); Monocytes Percent Auto 16.6 % (2-11); Neutrophils Percent Auto 63.3 % (45-73); Platelet Count 346 X10*3/uL (160-400); Red Blood Count 3.33 X10*6/uL (4.20-5.50); Red Cell Distribution Width 18.5 % (11.0-16.0); White Blood Count 7.9 X10*3/uL (4.8-10.8)
[2024-04-10 13:33] LABS: Alanine Aminotransferase 34 U/L (0-31); Albumin Level 3.8 g/dL (3.5-5.0); Alkaline Phosphatase 61 U/L (39-117); Anion Gap 12 (12-20); Aspartate Amino Transferase 30 U/L (5-31); Bilirubin Total 0.3 mg/dL (0.0-1.0); Blood Urea Nitrogen 21 mg/dL (9-16); Calcium 9.4 mg/dL (8.4-10.2); Carbon Dioxide 28 mmol/L (22-29); Chloride 104 mmol/L (96-108); Estimated Glomerular Filt Rate > 60; Glucose Random 103 mg/dL (60-115); Potassium 3.3 mmol/L (3.3-5.1); Sodium 141 mmol/L (135-145); Total Protein 6.7 g/dL (6.5-8.0)
== END 2024-04-10 09:47 | disposition home or self-care (01) ==
LOC: HO.HMGCLDS 09:46
PROVIDERS: PCP Internal Medicine; Visit Provider Internal Medicine
DX: C34.92 Malignant neoplasm of unspecified part of left bronchus or lung (principal); C34.90 Malignant neoplasm of unspecified part of unspecified bronchus or lung
CPT/HCPCS: 36415; 80053; 85025

== ENCOUNTER 2024-04-11 11:03 | Outpatient (REF) | payer MEDICARE, SELFPAY ==
--- NOTE | ~2024-04-11 | PE_ITS ---
EXAMINATION: FLUORINE-18 FDG PET/CT SCAN CLINICAL INFORMATION: Subsequent treatment management. Malignant neoplasm of left lower lobe of the lung. To assess response to treatment. TECHNIQUE: 60 minutes following the intravenous administration of 17.6 mCi of fluorine 18 FDG, images from the base of skull to mid-thigh were obtained using a combined PET/CT scanner with CT scan based attenuation correction. No intravenous contrast was administered. Transverse, coronal, sagittal, and volume reconstruction projections were obtained. The patient's blood glucose as determined by a finger stick, was 72 mg/dL immediately prior to injection. The radiotracer was injected intravenously through a right antecubital superficial vein, without any complications. Total CT exam dose-length product 347.43 mGy-cm. * These CT images were obtained using dose optimization techniques as appropriate, variously including the following: Automated exposure control * Adjustment of mA and/or kV according to patient size (this includes techniques or standardized protocols for targeted exams where dose is matched to indication/reason for exam; i.e. extremities or head) * Use of iterative reconstruction technique COMPARISON: The baseline PET/CT study done on 02/04/2020 2012 the most recent prior study done on 08/10/2023. FINDINGS: SUV MAX REFERENCE: Blood: 1.8 (previously 2.1). Liver: 2.3 (2.5-prior). HEAD AND NECK: Previously documented, clinically known focal area of hypermetabolism at the superficial part of the left parotid salivary gland currently shows SUV max of 4.5 (241/267), previously 7.0 and 6.4 on the baseline study, overall appear stable. No large intracranial hemorrhage, acute territorial infarct or significant shift of midline structures. CHEST: Ports and Devices: Left-sided Port-A-Cath is present with its tip seen projecting at cavoatrial junction. Lungs: Interval development of a 11 mm irregular spiculated noncalcified lung nodule is noted at left lung apex associated with overlying pleural thickening and subtle cavitation with the inferior nodular component showing mild hypermetabolism with SUV max of 2.5 (207/267), highly suspicious for evolving new/second lung primary and less likely to represent metastatic disease and/or superimposed infection or inflammatory changes. The site of peripheral hypermetabolic nodule seen at superior segment of left lower lobe of the lung with SUV max of 5.0 on the study dated 08/10/2023 shows interval decreased hypermetabolism and somewhat linear subpleural opacity with current SUV max of 2.0 (188/267), most consistent with posttreatment changes. Previously documented pleural-based approximately 1 cm nodule associated with subtle central cavitation at superior segment of right lower lobe of the lung abutting the adjacent posterior medial pleural lining remain non-FDG avid and is unchanged in morphology. Previously documented nonspecific pleuroparenchymal airspace disease associated with mild tracer activity also seen at superior part of the superior segment of right lower lobe of the lung shows interval decreased hypermetabolism, consistent with likely resolving posttreatment changes. Additional subpleural nodule seen at the level of the posterior right costophrenic sulcus at right lower lobe of the lung remain non-FDG avid, may represent atelectatic changes. Similar-appearing lesser pronounced changes also noted on the contralateral left lung base also posteromedially, appear overall unchanged since the most recent prior study dated 08/10/2023. Interval development of subtle subcentimeter nodule noted at the apical segment of the right upper lobe (CT: 198/267), without any hypermetabolism, too small for accurate Pleura: No significant pleural effusion. Lymph Nodes: Previously documented multiple superior and middle mediastinal hypermetabolic lymph nodes show interval normalization. Currently no evidence of any hypermetabolic mediastinal or hilar lymph nodes present. Mediastinum: There is no significant pericardial effusion/thickening. Breasts/Chest Wall: No abnormal radiotracer uptake. ABDOMEN/PELVIS: Liver/Biliary System: No focal tracer-avid liver lesion. The gallbladder appears unremarkable. Pancreas: Normal. Spleen: No abnormal radiotracer uptake. No evidence of splenomegaly. Adrenal Glands: No abnormal radiotracer uptake. Kidneys: No hydronephrosis, hydroureter or renal calculi bilaterally. Exophytic left renal simple-appearing cortical renal cyst is present, similar to prior studies. Bowel: There is no significant bowel dilatation to suggest obstruction. Lymph Nodes: No tracer avid retroperitoneal, mesenteric or pelvic and/or groin lymphadenopathy. Pelvic Organs: The urinary bladder is underdistended. MUSCULOSKELETAL: No suspicious hypermetabolic osseous disease to suspect metastasis, unchanged. VASCULAR: Infrarenal abdominal aortic aneurysm is present measuring 4.0 cm at its maximum dimension, shows interval increase by 0.4 cm since the prior study dated 08/10/2023. The patient is at risk for aneurysmal rupture. Vascular surgical consultation as appropriate is recommended. THE SITE(S) OF MOST INTENSE FDG AVIDITY AND SUV MAX: Stable left parotid salivary gland focal hypermetabolism with SUV max of 4.5. New hypermetabolic focal airspace disease at left lung apex with SUV max of 2.5. PET/PET CT fusion skull to thigh IMPRESSION: * Compared to most recent prior study dated 08/10/2023: * Interval development of a 11 mm irregular spiculated noncalcified lung nodule is noted at left lung apex associated with overlying pleural thickening and subtle cavitation with the inferior nodular component showing mild hypermetabolism with SUV max of 2.5, highly suspicious for evolving new/second lung primary and less likely to represent metastatic disease and/or superimposed infection or inflammatory changes. * Interval normalization of previously documented multiple superior and middle mediastinal hypermetabolic lymph nodes. * Interval decrease in hypermetabolism at the site of previously documented peripheral hypermetabolic nodule seen at superior segment of left lower lobe of the lung with SUV max of 5.0 on the study dated 08/10/2023 shows interval decreased hypermetabolism and somewhat linear subpleural opacity with current SUV max of 2.0, most consistent with posttreatment changes. * Previously documented pleural-based approximately 1 cm nodule associated with subtle central cavitation at superior segment of right lower lobe of the lung abutting the adjacent posterior medial pleural lining remain non-FDG avid and is unchanged in morphology. * Previously documented nonspecific pleuroparenchymal airspace disease associated with mild tracer activity also seen at superior part of the superior segment of right lower lobe of the lung shows interval decreased hypermetabolism, consistent with likely resolving posttreatment changes. * Interval development of subtle subcentimeter nodule noted at the apical segment of the right upper lobe (CT: 198/267), without any hypermetabolism, too small for accurate characterization. * Infrarenal abdominal aortic aneurysm is present measuring 4.0 cm at its maximum dimension, shows interval increase by 0.4 cm since the prior study dated 08/10/2023. The patient is at risk for aneurysmal rupture. Vascular surgical consultation as appropriate is recommended. * Additional subpleural nodule seen at the level of the posterior right costophrenic sulcus at right lower lobe of the lung remain non-FDG avid, may represent atelectatic changes. * No evidence of hypermetabolic disease below the diaphragm, unchanged. Electronically signed by: Aure Loo MD 04/13/2024 03:43 PM EDT RP
== END 2024-04-11 11:04 | disposition home or self-care (01) ==
LOC: HO.PET 11:03
PROVIDERS: PCP Internal Medicine; Visit Provider Internal Medicine
DX: Z13.89 Encounter for screening for other disorder (principal)

== ENCOUNTER 2024-05-01 09:38 | Outpatient (REF) | payer MEDICARE, SELFPAY ==
[2024-05-01 13:29] LABS: Basophils Absolute Auto 0.1 X10*3/uL (0.0-0.2); Basophils Percent Auto 0.4 % (0-2); Eosinophils Absolute Auto 0.1 X10*3/uL (0.0-0.4); Eosinophils Percent Auto 0.7 % (0-4); Hemoglobin 13.1 g/dl (12.0-16.0); Imm Gran Abs Auto 0.56 X10*3/uL (0.00-0.03); Imm Gran Pct Auto 4.8 % (0.0-0.4); Lymphocytes Absolute Auto 1.3 X10*3/uL (1.2-4.9); Lymphocytes Percent Auto 11.2 % (20-40); MANUAL DIFF FLAG SCAN; Mean Corpuscular HGB Conc 32.8 g/dl (31.0-35.0); Mean Corpuscular Hemoglobin 34.6 pg (27.0-33.0); Mean Corpuscular Volume 105.5 fL (80.0-98.0); Mean Platelet Volume 10.2 fL (9.4-12.3); Monocytes Absolute Auto 1.8 X10*3/uL (0.1-1.2); Monocytes Percent Auto 15.1 % (2-11); Neutrophils Absolute Auto 7.9 x10*3/uL (2.0-8.3); Neutrophils Percent Auto 67.8 % (45-73); Platelet Count 368 X10*3/uL (160-400); Red Blood Count 3.79 X10*6/uL (4.20-5.50); Red Cell Distribution Width 18.5 % (11.0-16.0); SCAN SMEAR FLAG 1; White Blood Count 11.6 X10*3/uL (4.8-10.8)
[2024-05-01 13:43] LABS: Alanine Aminotransferase 27 U/L (0-31); Albumin Level 4.1 g/dL (3.5-5.0); Alkaline Phosphatase 69 U/L (39-117); Anion Gap 17 (12-20); Aspartate Amino Transferase 32 U/L (5-31); Bilirubin Total 0.7 mg/dL (0.0-1.0); Blood Urea Nitrogen 20 mg/dL (9-16); Calcium 9.8 mg/dL (8.4-10.2); Carbon Dioxide 25 mmol/L (22-29); Chloride 98 mmol/L (96-108); Estimated Glomerular Filt Rate 52; Glucose Random 93 mg/dL (60-115); Potassium 3.2 mmol/L (3.3-5.1); Sodium 137 mmol/L (135-145); Total Protein 7.1 g/dL (6.5-8.0)
[2024-05-01 14:05] LABS: SLIDE REVIEW VERIFIED
== END 2024-05-01 09:39 | disposition home or self-care (01) ==
LOC: HO.HMGCLDS 09:38
PROVIDERS: PCP Internal Medicine; Visit Provider Internal Medicine
DX: C34.92 Malignant neoplasm of unspecified part of left bronchus or lung (principal)
CPT/HCPCS: 36415; 80053; 85025

== ENCOUNTER 2024-05-16 11:10 | Outpatient (AMB) | payer MEDICARE, SELFPAY ==
[2024-05-16 11:11] VITALS: BP 109/78; PULSE 93; O2SAT 97; BMI 17.7
--- NOTE | 2024-05-16 11:11 | MHC.OFFVIS ---
Vital Signs 05/16/24 11:11 Height 5 ft 4 in Weight 103 lb BMI 17.7 BP 109/78 Blood Pressure Location Lt brachial Position Sitting Pulse 93 Pulse Source Doppler Pulse Oximetry (%) 97 Oxygen Delivery Method Room Air Intake Visit Reasons: COPD Allergies Penicillins [PENICILLINS] Allergy (Intermediate, Verified 05/16/24 11:17) HIVES/ITCHING HPI HPI COPD: Details: 73-year-old lady followed for COPD. 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 Patient does Continue to complain of cough productive of whitish sputum. She has been using AirDuo and albuterol MDI with reasonable control of her dyspnea. She did gain 3 lb. [facility] Medical History Family history of lung cancer Personal history of nicotine dependence Back pain Osteoporosis (~2017) Pseudogout (~2015) Anxiety Hypertension Hyperlipidemia Surgical History History of colonoscopy Family History Father Lung cancer Mother Diabetes Renal failure Social History Household Members: None Housing: House Do you presently have visiting nurse or other home services: No Alcohol intake: never Patient Tobacco Use Status: Current everyday Tobacco user Tobacco use type: Cigarette Cigarettes Per Day: 14 e-Cigarette/Vaping Use: Never Used Second Hand Smoke Exposure: No Advance Directives Date on File: 05/10/23 service: No Current occupational status: retired Current occupational exposures/hazards: No Cognitive needs: No Hearing needs: No Vision needs: Yes Review of Systems Card Reports dyspnea on exertion (Improved) Resp Denies cough, Denies excessive phlegm production, Reports dyspnea on exertion (Improved) and Denies wheezing Aller/Immun Denies wheezing Physical Exam Vital Signs: Last Vital Signs Pulse 93 05/16/24 11:11 BP 109/78 05/16/24 11:11 Pulse Ox 97 05/16/24 11:11 Oxygen Delivery Method Room Air 05/16/24 11:11 BMI result Body Mass Index 17.7 Const General: no acute distress and alert Nutritional Appearance: underweight Orientation/consciousness: Other orientation findings ( oriented) HEENT Head: Yes atraumatic Eyes General: appearance normal, both eyes and all related structures Sclerae: sclerae normal EOM: EOMs intact bilaterally Neck Neck: Yes supple Lymphatic: no lymphadenopathy noted Resp Effort & Inspection: normal respiratory effort and no use of accessory muscles Auscultation: clear to auscultation bilaterally Cardio Rate: regular rate Rhythm: regular rhythm Heart sounds: no gallops, no murmurs and no rubs Skin General skin exam: other ( warm) Extrem General: No clubbing, No cyanosis and Yes edema (1+ bilateral feet) Assessment & Plan Assessment & Plan (1) COPD (chronic obstructive pulmonary disease): Code(s): J44.9 - Chronic obstructive pulmonary disease, unspecified Category: Medical Plan: Baseline well controlled current regimen of AirDuo and albuterol MDI. Continue current regimen. (2) Lung cancer: Code(s): C34.90 - Malignant neoplasm of unspecified part of unspecified bronchus or lung Category: Surgical Plan: Continues under oncology care. Continues on dronabinol with some improvement in weight. (3) Dyspnea on effort: Code(s): R06.09 - Other forms of dyspnea Category: Medical Plan: Improving, but now with worsening lower extremity edema, will restart low-dose diuretic. Coding Level of Care Code Est Pt Level 4 (32392) Complex EM visit Add On G2211 Diagnoses COPD (chronic obstructive pulmonary disease) J44.9 Lung cancer C34.90 Dyspnea on effort R06.09
== END 2024-05-16 11:28 | disposition home or self-care (01) ==
PROVIDERS: PCP Internal Medicine; Visit Provider Internal Medicine Pulmonary Disease
DX: J44.9 Chronic obstructive pulmonary disease, unspecified (principal); C34.90 Malignant neoplasm of unspecified part of unspecified bronchus or lung; R06.09 Other forms of dyspnea
CPT/HCPCS: 99214; G2211

== ENCOUNTER → 2024-05-16 11:10 | Outpatient (BNVA) | payer MEDICARE, SELFPAY | PROVIDERS: PCP Internal Medicine; Visit Provider Internal Medicine Pulmonary Disease | DX: J44.9 Chronic obstructive pulmonary disease, unspecified (principal); C34.90 Malignant neoplasm of unspecified part of unspecified bronchus or lung; R06.09 Other forms of dyspnea; F17.210 Nicotine dependence, cigarettes, uncomplicated | CPT/HCPCS: 99212 ==

== ENCOUNTER 2024-05-22 09:16 | Outpatient (REF) | payer MEDICARE, SELFPAY ==
[2024-05-22 13:19] LABS: MANUAL DIFF FLAG NO
[2024-05-22 13:32] LABS: Basophils Percent Auto 0.3 % (0-2); Eosinophils Absolute Auto 0.1 X10*3/uL (0.0-0.4); Eosinophils Percent Auto 0.7 % (0-4); Hematocrit 42.6 % (37.0-47.0); Hemoglobin 13.7 g/dl (12.0-16.0); Imm Gran Abs Auto 0.21 X10*3/uL (0.00-0.03); Imm Gran Pct Auto 1.8 % (0.0-0.4); Lymphocytes Absolute Auto 1.6 X10*3/uL (1.2-4.9); Lymphocytes Percent Auto 13.8 % (20-40); Mean Corpuscular HGB Conc 32.2 g/dl (31.0-35.0); Mean Corpuscular Hemoglobin 34.1 pg (27.0-33.0); Monocytes Absolute Auto 1.1 X10*3/uL (0.1-1.2); Monocytes Percent Auto 9.6 % (2-11); Neutrophils Absolute Auto 8.8 x10*3/uL (2.0-8.3); Neutrophils Percent Auto 73.8 % (45-73); Platelet Count 223 X10*3/uL (160-400); Red Blood Count 4.02 X10*6/uL (4.20-5.50); White Blood Count 11.9 X10*3/uL (4.8-10.8)
[2024-05-22 14:18] LABS: Alanine Aminotransferase 20 U/L (0-31); Alkaline Phosphatase 57 U/L (39-117); Anion Gap 14 (12-20); Aspartate Amino Transferase 30 U/L (5-31); Bilirubin Total 0.5 mg/dL (0.0-1.0); Blood Urea Nitrogen 18 mg/dL (9-16); Calcium 9.8 mg/dL (8.4-10.2); Carbon Dioxide 26 mmol/L (22-29); Chloride 101 mmol/L (96-108); Estimated Glomerular Filt Rate 57; Glucose Random 80 mg/dL (60-115); Potassium 3.7 mmol/L (3.3-5.1); Sodium 137 mmol/L (135-145)
== END 2024-05-22 09:17 | disposition home or self-care (01) ==
LOC: HO.HMGCLDS 09:16
PROVIDERS: PCP Internal Medicine; Visit Provider Internal Medicine
DX: C34.92 Malignant neoplasm of unspecified part of left bronchus or lung (principal)
CPT/HCPCS: 36415; 80053; 82378; 85025

== ENCOUNTER 2024-06-12 08:34 | Outpatient (REF) | payer MEDICARE, SELFPAY ==
[2024-06-12 10:38] LABS: MANUAL DIFF FLAG NO
[2024-06-12 10:39] LABS: Basophils Percent Auto 0.5 % (0-2); Eosinophils Absolute Auto 0.2 X10*3/uL (0.0-0.4); Eosinophils Percent Auto 3.5 % (0-4); Hematocrit 41.4 % (37.0-47.0); Hemoglobin 13.4 g/dl (12.0-16.0); Imm Gran Abs Auto 0.03 X10*3/uL (0.00-0.03); Imm Gran Pct Auto 0.5 % (0.0-0.4); Lymphocytes Absolute Auto 1.4 X10*3/uL (1.2-4.9); Lymphocytes Percent Auto 21.8 % (20-40); Mean Corpuscular HGB Conc 32.4 g/dl (31.0-35.0); Mean Corpuscular Hemoglobin 33.8 pg (27.0-33.0); Mean Corpuscular Volume 104.5 fL (80.0-98.0); Mean Platelet Volume 10.2 fL (9.4-12.3); Monocytes Absolute Auto 0.7 X10*3/uL (0.1-1.2); Monocytes Percent Auto 10.6 % (2-11); Neutrophils Absolute Auto 3.9 x10*3/uL (2.0-8.3); Neutrophils Percent Auto 63.1 % (45-73); Platelet Count 231 X10*3/uL (160-400); Red Blood Count 3.96 X10*6/uL (4.20-5.50); Red Cell Distribution Width 13.7 % (11.0-16.0); White Blood Count 6.2 X10*3/uL (4.8-10.8)
[2024-06-12 11:19] LABS: Alanine Aminotransferase 14 U/L (0-31); Albumin Level 3.8 g/dL (3.5-5.0); Alkaline Phosphatase 58 U/L (39-117); Anion Gap 13 (12-20); Aspartate Amino Transferase 28 U/L (5-31); Bilirubin Total 0.4 mg/dL (0.0-1.0); Blood Urea Nitrogen 16 mg/dL (9-16); Calcium 9.1 mg/dL (8.4-10.2); Carbon Dioxide 27 mmol/L (22-29); Chloride 104 mmol/L (96-108); Estimated Glomerular Filt Rate 50; Glucose Random 99 mg/dL (60-115); Potassium 3.6 mmol/L (3.3-5.1); Sodium 140 mmol/L (135-145); Total Protein 6.8 g/dL (6.5-8.0)
[2024-06-13 09:53] LABS: Thyroid Stimulating Hormone 3.74 uIU/mL (0.32-4.0)
== END 2024-06-12 08:35 | disposition home or self-care (01) ==
LOC: HO.HMGCLDS 08:34
PROVIDERS: PCP Internal Medicine; Visit Provider Internal Medicine
DX: C34.92 Malignant neoplasm of unspecified part of left bronchus or lung (principal)
CPT/HCPCS: 36415; 80053; 84443; 85025

== ENCOUNTER 2024-07-07 10:07 | Outpatient (REF) | payer MEDICARE, SELFPAY ==
--- NOTE | ~2024-07-07 | CT_ITS ---
CLINICAL HISTORY: Assess response to treatment CT chest with contrast Comparison: 01/20/2024 Findings: Left-sided Port-A-Cath with distal tip in the right atrium. Small atherosclerotic ulcers at level of aortic arch/descending thoracic aorta and some of the aortic arch branches. Improved mediastinal lymphadenopathy (there is no evidence of enlarged lymphadenopathy on current exam). Smoking-related lung changes. Interval decrease in size of the following lesions: - 12 x 27 mm (versus a 20 x 35 mm previously; per prior report known primary lung malignancy) in the posterior aspect of the apical segment of the left upper lobe - Decreased solid portion of thick-walled cavity in the apical segment of the left upper lobe measuring up to 10 x 5 mm in the axial plane versus 10 x 13 mm previously. Other scattered bilateral lung opacities/nodules are either stable or less conspicuous than prior study. No new lung lesion identified. For the upper abdominal findings please refer to the same-day abdomen CT report. No acute fractures. IMPRESSION: 1. Interval decrease in size of left lower lung mass (known malignancy) and solid component of thick-walled left upper lobe cavity. Other scattered bilateral lung opacities/nodules are either stable or less conspicuous than prior study. No new lung lesion identified. 2. Improved mediastinal lymphadenopathy. This document has been electronically signed by: Radha Davenport MD on 07/10/2024 12:12:10
--- NOTE | ~2024-07-07 | CT_ITS ---
CLINICAL HISTORY: respone to rx CT abdomen and pelvis with contrast Comparison: None Findings: For the lower thoracic findings please refer to the same-day chest CT report. Unremarkable gallbladder. Unremarkable adrenal glands, spleen, and pancreas. Scattered small/too small to characterize more likely benign than malignant (the ones that were included in the [id number] of the exam were also present on chest CTs dating back to 05/10/2023) scattered hepatic lesions. Simple left renal cyst along with additional too small to characterize left renal hypodensities. Mild bilateral renal scarring. No hydronephrosis. Small nonobstructive left renal stone. Mild to-moderate colonic stool. No bowel obstruction. Fusiform abdominal aortic aneurysm at and inferior to the level of the renal arteries measuring up to 4.2 x 3.8 cm in the axial plane with up to 2 cm thick eccentric mural thrombosis. Calcified small mesenteric lymph nodes. No evidence of enlarged noncalcified lymphadenopathy. No evidence of appendicitis. Prominent parauterine and bilateral gonadal veins may be seen with pelvic congestion syndrome especially in premenopausal females. Chronic appearing [id number] compression fracture of the L4 superior endplate. Spinal degenerative changes. Decreased bone mineralization/osteoporosis. No suspicious bony lesion seen. IMPRESSION: 1. Fusiform abdominal aortic aneurysm at and inferior to the level of the renal arteries measuring up to 4.2 x 3.8 cm in the axial plane with up to 2 cm thick eccentric mural thrombosis. 2. Scattered small/too small to characterize more likely benign than malignant (the ones that were included in the [id number] of the exam were also present on chest CTs dating back to 05/10/2023) scattered hepatic lesions. 3. No evidence of enlarged noncalcified lymphadenopathy. This document has been electronically signed by: Radha Davenport MD on 07/10/2024 12:26:59
[2024-07-07] MEDS: iohexoL 350 MG/ML 100 ML INFUS..BTL IV (11:44)
== END 2024-07-07 10:08 | disposition home or self-care (01) ==
LOC: HO.CT 10:07
PROVIDERS: PCP Internal Medicine; Visit Provider Internal Medicine
DX: C34.10 Malignant neoplasm of upper lobe, unspecified bronchus or lung (principal)
CPT/HCPCS: 71260; 74177; Q9967

== ENCOUNTER 2024-07-24 08:33 | Outpatient (REF) | payer MEDICARE, SELFPAY ==
[2024-07-24 10:25] LABS: MANUAL DIFF FLAG NO
[2024-07-24 10:31] LABS: Basophils Percent Auto 0.3 % (0-2); Eosinophils Absolute Auto 0.2 X10*3/uL (0.0-0.4); Eosinophils Percent Auto 2.6 % (0-4); Hematocrit 41.9 % (37.0-47.0); Hemoglobin 13.7 g/dl (12.0-16.0); Imm Gran Abs Auto 0.04 X10*3/uL (0.00-0.03); Imm Gran Pct Auto 0.5 % (0.0-0.4); Lymphocytes Absolute Auto 1.4 X10*3/uL (1.2-4.9); Lymphocytes Percent Auto 17.8 % (20-40); Mean Corpuscular HGB Conc 32.7 g/dl (31.0-35.0); Mean Corpuscular Hemoglobin 31.6 pg (27.0-33.0); Mean Corpuscular Volume 96.5 fL (80.0-98.0); Mean Platelet Volume 10.2 fL (9.4-12.3); Monocytes Absolute Auto 0.5 X10*3/uL (0.1-1.2); Monocytes Percent Auto 6.6 % (2-11); Neutrophils Absolute Auto 5.6 x10*3/uL (2.0-8.3); Neutrophils Percent Auto 72.2 % (45-73); Platelet Count 260 X10*3/uL (160-400); Red Blood Count 4.34 X10*6/uL (4.20-5.50); Red Cell Distribution Width 13.3 % (11.0-16.0); White Blood Count 7.8 X10*3/uL (4.8-10.8)
[2024-07-24 10:56] LABS: Alanine Aminotransferase 9 U/L (0-31); Albumin Level 3.6 g/dL (3.5-5.0); Alkaline Phosphatase 67 U/L (39-117); Anion Gap 15 (12-20); Aspartate Amino Transferase 23 U/L (5-31); Bilirubin Total 0.4 mg/dL (0.0-1.0); Blood Urea Nitrogen 16 mg/dL (9-16); Calcium 9.4 mg/dL (8.4-10.2); Carbon Dioxide 25 mmol/L (22-29); Chloride 103 mmol/L (96-108); Estimated Glomerular Filt Rate > 60; Glucose Random 121 mg/dL (60-115); Magnesium 1.8 mg/dL (1.6-2.6); Potassium 3.7 mmol/L (3.3-5.1); Sodium 139 mmol/L (135-145); Total Protein 6.8 g/dL (6.5-8.0)
== END 2024-07-24 08:34 | disposition home or self-care (01) ==
LOC: HO.HMGCLDS 08:33
PROVIDERS: PCP Internal Medicine; Visit Provider Internal Medicine
DX: C34.92 Malignant neoplasm of unspecified part of left bronchus or lung (principal)
CPT/HCPCS: 36415; 80053; 83735; 85025

== ENCOUNTER 2024-08-03 09:45 | Outpatient (AMB) | payer MEDICARE, SELFPAY ==
--- NOTE | 2024-08-03 09:53 | MHC.PC.OV ---
Vital Signs 08/03/24 09:55 Height 5 ft 4 in Weight 110 lb 4 oz BMI 18.9 BP 132/70 Blood Pressure Location Lt brachial Position Sitting Pulse Source Pulse Oximeter Temp 97.1 F Temp Source Skin Oxygen Delivery Method Room Air Intake Visit Reasons: F/u check up Intake Note: Patient is here to follow up on COPD, Asthma, HTN. Instant Print Operator Required: No Risk Management Manager: Present Accompanied by: Son Allergies Penicillins [PENICILLINS] Allergy (Intermediate, Verified 08/03/24 09:54) HIVES/ITCHING Medication List - Last Reconciled 08/03/24 by Adnriy Sherwood MD digoxin 125 mcg PO DAILY dronabinol 10 mg PO BID fluticasone propion-salmeterol 232-14 mcg/actuation (AirDuo RespiClick) 1 inh inhalation BID 30 days folic acid 1 mg PO DAILY hydrochlorothiazide 25 mg PO DAILY lorazepam 2 mg (2 x 1 mg) PO BEDTIME metoprolol tartrate 25 mg PO BID ondansetron 8 mg PO Q8H PRN oxycodone 5 mg PO Q8H PRN polyethylene glycol 3350 (Miralax) 17 grams PO DAILY potassium chloride ER 20 mEq PO DAILY sennosides-docusate sodium 8.6-50 mg (Senna with Docusate Sodium) 1 tab-cap PO BEDTIME tramadol 50 mg PO Q8H PRN Tobacco use date assessed: 08/03/24 Fall risk assessment: 1 Fall in past year Last assessed Fall Risk: 08/03/24 Dental Screening Dental Screen Date: 08/03/24 Did you have a dental visit in the last 12 months?: Yes Did you have a dental problem in the last 6 months where you did not have access to dental care?: No Was dental information given to patient?: Patient has dentist HPI F/u check up HPI Details HTN on Rx; lung cancer on chemo; tumor responding PFSH Medical History Family history of lung cancer Personal history of nicotine dependence Back pain Osteoporosis (~2018) Pseudogout (~2015) Anxiety Hypertension Hyperlipidemia Surgical History History of colonoscopy Family History Father Lung cancer Mother Diabetes Renal failure Social History (Updated 08/03/24 @ 09:59 by MULUGETA Hartmann) Household Members: None Housing: House Do you presently have visiting nurse or other home services: No Alcohol intake: never Patient Tobacco Use Status: Current everyday Tobacco user Tobacco use type: Cigarette Cigarette Packs Per Day: 0.5 Cigarettes Per Day: 10 e-Cigarette/Vaping Use: Never Used Second Hand Smoke Exposure: Yes Advance Directives Date on File: 05/10/23 service: No Current occupational status: retired Current occupational exposures/hazards: No Cognitive needs: No Hearing needs: No Vision needs: Yes (Glasses) Questionnaire PHQ-9 Over the last 2 weeks, how often have you been bothered by any of the following problems? 1. Little interest or pleasure in doing things: not at all 2. Feeling down, depressed, or hopeless: nearly every day 3. Trouble falling or staying asleep, or sleeping too much: not at all 4. Feeling tired or having little energy: nearly every day 5. Poor appetite or overeating: not at all 6. Feeling bad about yourself - or that you are a failure or have let yourself or your family down: more than half the days 7. Trouble concentrating on things, such as reading the newspaper or watching television: not at all 8. Moving or speaking so slowly that other people could have noticed. Or the opposite - being so fidgety or restless that you have been moving around a lot more than usual: not at all 9. Thoughts that you would be better off or of hurting yourself in some way: not at all Total score: 8 Depression Screening Interpretation: Positive Depression Screening Done: Yes Source: Developed by Drs. Alex Barkley, Nilam Rainey, Júnior Haro and colleagues, with an educational elsie from [facility]. Thrive Questionnaire Date Thrive assessed: 08/03/24 I am a: Patient What is your living situation today?: I have a steady place to live Within the past 12 months, did the food you bought not last and you didn't have the money to get more?: Never true Within the past 12 months, did you worry whether your food would run out before you got money to buy more?: Never true Do you have trouble paying for medicines?: No Do you have trouble getting transportation to medical appointments?: No Do you have trouble paying your heating and electricity bill?: No Do you have trouble taking care of your child, family member or friend?: No Do you have trouble with day-to-day activities such as bathing, preparing meals, shopping, managing finances, etc.?: No Are you currently unemployed and looking for a job?: No Are you interested in more education?: No Please select the resources that you would like help with: None Currently or been in a relationship where the following occur: No concerns reported THRIVE Score: 0 AUDIT C Alcohol Use Questionnaire (AUDIT-C) 1. How often do you have a drink containing alcohol?: Never Total Score: 0 NICOLE-7 AMB Questionnaire NICOLE-7 Date NICOLE - 7 assessed: 08/03/24 Feeling nervous, anxious, or on edge: 3 = Nearly every day Not being able to stop or control worryin = Several days Worrying too much about different things: 0 = Not at all Trouble relaxin = Not at all Being so restless that it is hard to sit still: 0 = Not at all Becoming easily annoyed or irritable: 3 = Nearly every day Feeling afraid as if something awful might happen: 2 = More than half the days Total NICOLE-7 score (0-4 normal; 5-9 mild; 10-14 moderate; 15-21 severe): 9 Source: Developed by Drs. Alex Barkley, Nilam Rainey, Júnior Haro and colleagues, with an educational elsie from [facility]. Review of Systems Const Denies chills, Denies headache(s) and Denies weight loss ENT Denies headache(s) Card Denies chest pain, Denies syncope, Denies irregular heart rhythm and Denies dyspnea Resp Denies chest congestion, Denies cough and Denies dyspnea GI Denies abdominal pain, Denies change in stool character, Denies nausea and Denies vomiting Musc Denies deformity and Denies joint swelling Neuro Denies syncope and Denies headache(s) Physical exam (Primary Care) Vital Signs: Last Vital Signs Temp 97.1 F 08/03/24 09:55 BP 132/70 08/03/24 09:55 Oxygen Delivery Method Room Air 08/03/24 09:55 BMI result Body Mass Index 18.9 Tobacco/Smoking Status: Tobacco use Status Tobacco use date assessed 08/03/24 08/03/24 10:02 Patient Tobacco Use Status Current everyday Tobacco 08/03/24 10:02 Tobacco use type Cigarette 08/03/24 10:02 e-Cigarette/Vaping Use Never Used 08/03/24 10:02 PHQ-9: PHQ-9 Score PHQ-9: Total score 8 08/03/24 10:02 Depression Screening Interpretation: Positive Thrive Assessment: Date of Thrive Assessment Date Thrive assessed 08/03/24 08/03/24 10:02 Currently or been in a relationship where the following occur: No concerns reported Const General: cooperative, comfortable, no acute distress and alert Neck Neck: Yes no lymphadenopathy Thyroid: Thyroid normal Resp Effort & Inspection: normal respiratory effort Auscultation: clear to auscultation bilaterally Percussion: percussion normal Cardio Jugular venous distension: no JVD Palpation: normal PMI Rate: regular rate Rhythm: regular rhythm Heart sounds: S1 normal heart sound present and S2 normal heart sound present GI Inspection: Yes normal to inspection Palpation (GI): No hepatosplenomegaly present Skin General skin exam: no rashes or lesions noted Extrem General: Yes no clubbing, cyanosis or edema Coding Level of Care Code Est Pt Level 3 (33601) Diagnoses Hypertension I10 Assessment & Plan Assessment & Plan (1) Hypertension: Code(s): I10 - Essential (primary) hypertension Category: Medical Plan: stable; same rx
[2024-08-03 09:55] VITALS: BP 132/70; TEMP 36.2; BMI 18.9
== END 2024-08-03 10:22 | disposition home or self-care (01) ==
PROVIDERS: PCP Internal Medicine; Visit Provider Internal Medicine
DX: I10 Essential (primary) hypertension (principal)

== ENCOUNTER → 2024-08-03 09:45 | Outpatient (BNVA) | payer MEDICARE, SELFPAY | PROVIDERS: PCP Internal Medicine; Visit Provider Internal Medicine | DX: I10 Essential (primary) hypertension (principal) | CPT/HCPCS: 99212 ==

== ENCOUNTER 2024-08-14 09:14 | Outpatient (REF) | payer MEDICARE, SELFPAY ==
[2024-08-14 10:27] LABS: MANUAL DIFF FLAG NO
[2024-08-14 10:45] LABS: Basophils Percent Auto 0.2 % (0-2); Eosinophils Absolute Auto 0.2 X10*3/uL (0.0-0.4); Eosinophils Percent Auto 2.8 % (0-4); Hematocrit 43.6 % (37.0-47.0); Hemoglobin 13.9 g/dl (12.0-16.0); Imm Gran Abs Auto 0.05 X10*3/uL (0.00-0.03); Imm Gran Pct Auto 0.6 % (0.0-0.4); Lymphocytes Absolute Auto 1.6 X10*3/uL (1.2-4.9); Lymphocytes Percent Auto 19.2 % (20-40); Mean Corpuscular HGB Conc 31.9 g/dl (31.0-35.0); Mean Corpuscular Hemoglobin 30.4 pg (27.0-33.0); Mean Corpuscular Volume 95.4 fL (80.0-98.0); Mean Platelet Volume 10.2 fL (9.4-12.3); Monocytes Absolute Auto 0.6 X10*3/uL (0.1-1.2); Neutrophils Absolute Auto 5.8 x10*3/uL (2.0-8.3); Neutrophils Percent Auto 70.2 % (45-73); Platelet Count 194 X10*3/uL (160-400); Red Blood Count 4.57 X10*6/uL (4.20-5.50); Red Cell Distribution Width 13.6 % (11.0-16.0); White Blood Count 8.2 X10*3/uL (4.8-10.8)
[2024-08-14 11:30] LABS: Alanine Aminotransferase 10 U/L (0-31); Albumin Level 3.7 g/dL (3.5-5.0); Alkaline Phosphatase 68 U/L (39-117); Anion Gap 14 (12-20); Aspartate Amino Transferase 23 U/L (5-31); Bilirubin Total 0.3 mg/dL (0.0-1.0); Blood Urea Nitrogen 21 mg/dL (9-16); Calcium 9.7 mg/dL (8.4-10.2); Carbon Dioxide 27 mmol/L (22-29); Chloride 102 mmol/L (96-108); Estimated Glomerular Filt Rate 48; Glucose Random 119 mg/dL (60-115); Potassium 3.5 mmol/L (3.3-5.1); Sodium 139 mmol/L (135-145)
== END 2024-08-14 09:15 | disposition home or self-care (01) ==
LOC: HO.HMGCLDS 09:14
PROVIDERS: PCP Internal Medicine; Visit Provider Internal Medicine
DX: C34.92 Malignant neoplasm of unspecified part of left bronchus or lung (principal)
CPT/HCPCS: 36415; 80053; 85025

== ENCOUNTER 2024-08-31 09:11 | Outpatient (AMB) | payer MEDICARE, SELFPAY ==
[2024-08-31 09:14] VITALS: BP 112/67; PULSE 97; O2SAT 98; BMI 18.0
--- NOTE | 2024-08-31 09:14 | A.OFFVIS_ITS ---
Vital Signs 08/31/24 09:14 Height 5 ft 4 in Weight 105 lb BMI 18.0 BP 112/67 Blood Pressure Location Lt brachial Position Sitting Pulse 97 Pulse Source Doppler Pulse Oximetry (%) 98 Oxygen Delivery Method Room Air Intake Visit Reasons: copd Allergies Penicillins [PENICILLINS] Allergy (Intermediate, Verified 08/31/24 09:24) HIVES/ITCHING HPI HPI copd: Details: 73-year-old lady followed for COPD. Patient does have metastatic lung adeno carcinoma, currently under oncologist care and on Keytruda single agent therapy. She has been using AirDuo and albuterol MDI with reasonable control of her dyspnea. Her weight continues to improve. She denies recent exacerbations. [facility] Medical History Family history of lung cancer Personal history of nicotine dependence Back pain Osteoporosis (~2018) Pseudogout (~2016) Anxiety Hypertension Hyperlipidemia Surgical History History of colonoscopy Family History Father Lung cancer Mother Diabetes Renal failure Social History (Updated 08/03/24 @ 09:59 by MULUGETA Hartmann) Household Members: None Housing: House Do you presently have visiting nurse or other home services: No Alcohol intake: never Patient Tobacco Use Status: Current everyday Tobacco user Tobacco use type: Cigarette Cigarette Packs Per Day: 0.5 Cigarettes Per Day: 10 e-Cigarette/Vaping Use: Never Used Second Hand Smoke Exposure: Yes Advance Directives Date on File: 05/10/23 service: No Current occupational status: retired Current occupational exposures/hazards: No Cognitive needs: No Hearing needs: No Vision needs: Yes (Glasses) Review of Systems Const Denies daytime sleepiness, Denies excessive sweating, Denies fatigue, Denies fever(s), Denies lethargy, Denies malaise, Denies night sweats, Denies snoring and Denies weight loss Eyes Denies blurry vision and Denies itchy eyes ENT Denies nasal congestion, Denies post nasal drip, Denies sinus pain, Denies sinus pressure and Denies other ( Thrush) Card Denies chest pain, Denies pedal edema, Denies dyspnea, Denies orthopnea and Denies paroxysmal nocturnal dyspnea Resp Denies cough, Denies hemoptysis, Denies excessive phlegm production, Denies dyspnea, Denies snoring and Denies wheezing GI Denies abdominal pain and Denies heartburn Musc Denies myalgias, Denies arthralgias and Denies joint swelling Skin/Breast Denies rash Neuro Denies memory loss and Denies seizure-like activity Psych Denies abnormal sleep pattern, Denies anxiety and Denies memory loss Endo Denies excessive sweating, Denies fatigue and Denies heat intolerance Ulis Carlos/Lymph Denies easy bruising Aller/Immun Denies itchy eyes, Denies seasonal rhinorrhea and Denies wheezing Physical Exam Vital Signs: Last Vital Signs Pulse 97 08/31/24 09:14 BP 112/67 08/31/24 09:14 Pulse Ox 98 08/31/24 09:14 Oxygen Delivery Method Room Air 08/31/24 09:14 BMI result Body Mass Index 18.0 Const General: no acute distress and alert Nutritional Appearance: not obese Orientation/consciousness: Other orientation findings ( oriented) HEENT Head: Yes atraumatic Eyes General: appearance normal, both eyes and all related structures Sclerae: sclerae normal EOM: EOMs intact bilaterally Neck Neck: Yes supple Lymphatic: no lymphadenopathy noted Resp Effort & Inspection: normal respiratory effort and no use of accessory muscles Auscultation: clear to auscultation bilaterally Cardio Rate: regular rate Rhythm: regular rhythm Heart sounds: no gallops, no murmurs and no rubs Skin General skin exam: other ( warm) Extrem General: No clubbing, No cyanosis and No edema Assessment & Plan Assessment & Plan (1) COPD (chronic obstructive pulmonary disease): Code(s): J44.9 - Chronic obstructive pulmonary disease, unspecified Category: Medical Plan: Well controlled on AirDuo and albuterol MDI. Continue current regimen. (2) Lung cancer: Code(s): C34.90 - Malignant neoplasm of unspecified part of unspecified bronchus or lung Category: Surgical Plan: Metastatic, on single agent Keytruda under oncology care. (3) Weight loss, unintentional: Code(s): R63.4 - Abnormal weight loss Category: Medical Plan: Improved on dronabinol. Continue current regimen. Coding Level of Care Code Est Pt Level 4 (46486) Complex EM visit Add On G2211 Diagnoses COPD (chronic obstructive pulmonary disease) J44.9 Lung cancer C34.90 Weight loss, unintentional R63.4
== END 2024-08-31 09:37 | disposition home or self-care (01) ==
LOC: HO.HPS 09:12
PROVIDERS: PCP Internal Medicine; Visit Provider Internal Medicine Pulmonary Disease
DX: J44.9 Chronic obstructive pulmonary disease, unspecified (principal); C34.90 Malignant neoplasm of unspecified part of unspecified bronchus or lung; R63.4 Abnormal weight loss
CPT/HCPCS: 99214; G2211

== ENCOUNTER → 2024-08-31 09:11 | Outpatient (BNVA) | payer MEDICARE, SELFPAY | PROVIDERS: PCP Internal Medicine; Visit Provider Internal Medicine Pulmonary Disease | DX: J44.9 Chronic obstructive pulmonary disease, unspecified (principal); C34.90 Malignant neoplasm of unspecified part of unspecified bronchus or lung; R63.4 Abnormal weight loss | CPT/HCPCS: 99212 ==

== ENCOUNTER 2024-09-04 09:15 | Outpatient (REF) | payer MEDICARE, SELFPAY ==
[2024-09-04 10:25] LABS: MANUAL DIFF FLAG NO
[2024-09-04 10:31] LABS: Basophils Percent Auto 0.4 % (0-2); Eosinophils Absolute Auto 0.3 X10*3/uL (0.0-0.4); Eosinophils Percent Auto 3.7 % (0-4); Hematocrit 42.7 % (37.0-47.0); Hemoglobin 13.9 g/dl (12.0-16.0); Imm Gran Abs Auto 0.03 X10*3/uL (0.00-0.03); Imm Gran Pct Auto 0.4 % (0.0-0.4); Lymphocytes Absolute Auto 1.5 X10*3/uL (1.2-4.9); Lymphocytes Percent Auto 20.6 % (20-40); Mean Corpuscular HGB Conc 32.6 g/dl (31.0-35.0); Mean Corpuscular Hemoglobin 30.8 pg (27.0-33.0); Mean Corpuscular Volume 94.7 fL (80.0-98.0); Mean Platelet Volume 10.9 fL (9.4-12.3); Monocytes Absolute Auto 0.5 X10*3/uL (0.1-1.2); Monocytes Percent Auto 7.7 % (2-11); Neutrophils Absolute Auto 4.7 x10*3/uL (2.0-8.3); Neutrophils Percent Auto 67.2 % (45-73); Platelet Count 173 X10*3/uL (160-400); Red Blood Count 4.51 X10*6/uL (4.20-5.50); Red Cell Distribution Width 14.2 % (11.0-16.0)
[2024-09-04 12:30] LABS: Alanine Aminotransferase 10 U/L (0-31); Albumin Level 3.7 g/dL (3.5-5.0); Alkaline Phosphatase 88 U/L (39-117); Anion Gap 12 (12-20); Aspartate Amino Transferase 20 U/L (5-31); Bilirubin Total 0.3 mg/dL (0.0-1.0); Blood Urea Nitrogen 16 mg/dL (9-16); Calcium 9.3 mg/dL (8.4-10.2); Carbon Dioxide 26 mmol/L (22-29); Chloride 105 mmol/L (96-108); Estimated Glomerular Filt Rate > 60; Glucose Random 82 mg/dL (60-115); Potassium 3.6 mmol/L (3.3-5.1); Sodium 139 mmol/L (135-145); Total Protein 6.8 g/dL (6.5-8.0)
== END 2024-09-04 09:16 | disposition home or self-care (01) ==
LOC: HO.HMGCLDS 09:15
PROVIDERS: PCP Internal Medicine; Visit Provider Internal Medicine
DX: C34.92 Malignant neoplasm of unspecified part of left bronchus or lung (principal)
CPT/HCPCS: 36415; 80053; 85025

== ENCOUNTER → 2024-09-15 08:20 | Outpatient (BNV) | payer MEDICARE, SELFPAY | PROVIDERS: PCP Internal Medicine; Visit Provider Radiology Diagnostic Radiology | DX: R42 Dizziness and giddiness (principal); C34.12 Malignant neoplasm of upper lobe, left bronchus or lung; C77.9 Secondary and unspecified malignant neoplasm of lymph node, unspecified; Z91.81 History of falling | CPT/HCPCS: 70553 ==

== ENCOUNTER 2024-09-15 08:30 | Outpatient (REF) | payer MEDICARE, SELFPAY ==
--- NOTE | ~2024-09-15 | MR_ITS ---
EXAMINATION: MR BRAIN WITHOUT AND WITH CONTRAST CLINICAL INFORMATION: Recurrent falls. Dizziness. Lung cancer. Concerning metastasis. COMPARISON: November 22, 2023. TECHNIQUE: Multiplanar, multisequence MRI of the brain was obtained before and after the intravenous administration of 4.5 mL (Gadavist) no reported immediate complications.. FINDINGS: No intra-axial or extra-axial enhancing mass. No restricted diffusion. No acute intracranial hemorrhage, mass effect, midline shift, hydrocephalus or herniation. Bilateral multifocal patchy and punctate nonenhancing deep periventricular white matter and subcortical white matter hyperintense T2 FLAIR signal involving centrum semiovale and silva radiata. Old lacunar infarct, head of the right caudate nucleus. Sellar/suprasellar region demonstrated no signal abnormality or enhancing lesion. Craniocervical junction is intact and normal. Main cerebral venous sinuses are patent without intraluminal filling defect. Breaux-white matter differentiation is normal. Flow-void signal within the main cerebral vessels is normal. Retention cyst in the sphenoid sinus. No enhancing lesion and or mass in the intraconal or extraconal compartments of the orbits. MR/MR head/brain wo/w con IMPRESSION: No intracranial metastasis. No acute intracranial hemorrhage. White matter disease old lacunar infarcts suggesting small vessel occlusive disease. Electronically signed by: Luis Daly MD 09/15/2024 09:36 AM EDT
[2024-09-15] MEDS: gadobutroL 7.5 ML VIAL IVPUSH (09:27)
== END 2024-09-15 08:31 | disposition home or self-care (01) ==
LOC: HO.MRI 08:30
PROVIDERS: PCP Internal Medicine; Visit Provider Internal Medicine
DX: C34.92 Malignant neoplasm of unspecified part of left bronchus or lung (principal); R29.6 Repeated falls
CPT/HCPCS: 70553; A9585

== ENCOUNTER 2024-09-25 09:33 | Outpatient (REF) | payer MEDICARE, SELFPAY ==
[2024-09-25 13:03] LABS: MANUAL DIFF FLAG NO
[2024-09-25 13:19] LABS: Basophils Percent Auto 0.3 % (0-2); Eosinophils Absolute Auto 0.2 X10*3/uL (0.0-0.4); Eosinophils Percent Auto 2.8 % (0-4); Hematocrit 44.2 % (37.0-47.0); Hemoglobin 14.7 g/dl (12.0-16.0); Imm Gran Abs Auto 0.03 X10*3/uL (0.00-0.03); Imm Gran Pct Auto 0.4 % (0.0-0.4); Lymphocytes Absolute Auto 1.3 X10*3/uL (1.2-4.9); Lymphocytes Percent Auto 16.3 % (20-40); Mean Corpuscular HGB Conc 33.3 g/dl (31.0-35.0); Mean Corpuscular Hemoglobin 30.9 pg (27.0-33.0); Mean Corpuscular Volume 93.1 fL (80.0-98.0); Mean Platelet Volume 10.7 fL (9.4-12.3); Monocytes Absolute Auto 0.5 X10*3/uL (0.1-1.2); Neutrophils Percent Auto 74.2 % (45-73); Platelet Count 153 X10*3/uL (160-400); Red Blood Count 4.75 X10*6/uL (4.20-5.50); Red Cell Distribution Width 14.1 % (11.0-16.0)
[2024-09-25 14:08] LABS: Alanine Aminotransferase 8 U/L (0-31); Alkaline Phosphatase 79 U/L (39-117); Anion Gap 14 (12-20); Aspartate Amino Transferase 23 U/L (5-31); Bilirubin Total 0.6 mg/dL (0.0-1.0); Blood Urea Nitrogen 19 mg/dL (9-16); Calcium 9.6 mg/dL (8.4-10.2); Carbon Dioxide 23 mmol/L (22-29); Chloride 106 mmol/L (96-108); Estimated Glomerular Filt Rate 59; Glucose Random 83 mg/dL (60-115); Potassium 3.6 mmol/L (3.3-5.1); Sodium 139 mmol/L (135-145); Thyroid Stimulating Hormone 2.21 uIU/mL (0.32-4.0); Total Protein 6.8 g/dL (6.5-8.0)
== END 2024-09-25 09:34 | disposition home or self-care (01) ==
LOC: HO.HMGCLDS 09:33
PROVIDERS: PCP Internal Medicine; Visit Provider Internal Medicine
DX: C34.92 Malignant neoplasm of unspecified part of left bronchus or lung (principal)
CPT/HCPCS: 36415; 80053; 84443; 85025

== ENCOUNTER 2024-10-16 09:21 | Outpatient (REF) | payer MEDICARE, SELFPAY ==
[2024-10-16 10:03] LABS: MANUAL DIFF FLAG NO
[2024-10-16 10:10] LABS: Basophils Percent Auto 0.4 % (0-2); Eosinophils Absolute Auto 0.2 X10*3/uL (0.0-0.4); Eosinophils Percent Auto 2.3 % (0-4); Hematocrit 43.6 % (37.0-47.0); Hemoglobin 14.4 g/dl (12.0-16.0); Imm Gran Abs Auto 0.04 X10*3/uL (0.00-0.03); Imm Gran Pct Auto 0.5 % (0.0-0.4); Lymphocytes Absolute Auto 1.3 X10*3/uL (1.2-4.9); Lymphocytes Percent Auto 15.7 % (20-40); Mean Corpuscular Hemoglobin 30.6 pg (27.0-33.0); Mean Corpuscular Volume 92.6 fL (80.0-98.0); Monocytes Absolute Auto 0.6 X10*3/uL (0.1-1.2); Monocytes Percent Auto 7.3 % (2-11); Neutrophils Absolute Auto 6.2 x10*3/uL (2.0-8.3); Neutrophils Percent Auto 73.8 % (45-73); Platelet Count 183 X10*3/uL (160-400); Red Blood Count 4.71 X10*6/uL (4.20-5.50); Red Cell Distribution Width 13.8 % (11.0-16.0); White Blood Count 8.4 X10*3/uL (4.8-10.8)
[2024-10-16 10:58] LABS: Alanine Aminotransferase 11 U/L (0-31); Albumin Level 3.9 g/dL (3.5-5.0); Alkaline Phosphatase 85 U/L (39-117); Anion Gap 14 (12-20); Aspartate Amino Transferase 23 U/L (5-31); Bilirubin Total 0.5 mg/dL (0.0-1.0); Blood Urea Nitrogen 20 mg/dL (9-16); Calcium 9.6 mg/dL (8.4-10.2); Carbon Dioxide 30 mmol/L (22-29); Chloride 99 mmol/L (96-108); Estimated Glomerular Filt Rate 57; Glucose Random 94 mg/dL (60-115); Potassium 4.2 mmol/L (3.3-5.1); Sodium 139 mmol/L (135-145); Thyroid Stimulating Hormone 2.75 uIU/mL (0.32-4.0); Total Protein 6.8 g/dL (6.5-8.0)
== END 2024-10-16 09:22 | disposition home or self-care (01) ==
LOC: HO.HMGCLDS 09:21
PROVIDERS: Visit Provider Internal Medicine
DX: C34.10 Malignant neoplasm of upper lobe, unspecified bronchus or lung (principal)
CPT/HCPCS: 36415; 80053; 84443; 85025

== ENCOUNTER 2024-10-26 08:24 | Outpatient (REF) | payer MEDICARE, SELFPAY ==
--- NOTE | ~2024-10-26 | CT_ITS ---
EXAMINATION: CT CHEST WITH CONTRAST CLINICAL INFORMATION: Access response to treatment. Primary lung malignancy (left lower lobe). COMPARISON: July 07, 2024 TECHNIQUE: Multidetector volumetric CT imaging of the chest was obtained after the administration of 65 mL of Omnipaque 350 intravenous contrast without immediate adverse reactions. Axial MIP volume rendering provided. Sagittal and coronal reformatted images were obtained. This CT examination was performed using dose optimization techniques as appropriate, variously including the following: *Automated exposure control *Adjustment of mA and/or kV according to patient size. this includes techniques or standardized protocols for targeted exams where dose is matched to indication/reason for exam; i.e. extremities or head) *Use of iterative reconstruction technique. DLP: 91 mGy centimeter. FINDINGS: CREDIT AUTHORIZER: Hyperinflated lungs. Scoliosis. Calcifications in the aortic arch. Upper extremities at the both sides of the head and away from the chest. LUNGS: Right lun mm spiculated noncalcified nodule, right lower lung lobe/superior segment region. 14 mm spiculated noncalcified pulmonary nodule abutting the pleura, right lung base. Linear attenuation abnormalities extending from the peribronchial septal/interlobular septa, superior segment right lower lung lobe. Less than 2 mm ill-defined pulmonary nodules in the right upper lung lobe. Left lung: There is a cluster of confluent ill-defined attenuation in the periphery of the left lower lung which measures 36 mm in maximum dimension. There is an 11 mm ill-defined attenuation in the periphery of the left lower lung lobe. There is a 9 mm ill-defined attenuation in the posterior medial left lower lung lobe. Linear attenuation abnormality in the periphery of the left upper lung lobe abutting the major fissure. Centrilobular emphysematous changes both lungs. Secretions layering within the dependent portion of the distal trachea, arturo and both mainstem bronchi more accentuated on the right pulmonary airway. Bilateral apical lung scarring. MEDIASTINUM: Calcified plaques with a mixed density throughout the thoracic aorta wall. The ascending thoracic aorta measures 4 cm in maximum diameter, the aortic arch measures 3.5 cm in maximum diameter and the distal descending thoracic aorta measures 3.0 cm in maximum diameter. No intimal flap. Calcified plaques in the origin of the main branches. Calcified plaques in the coronary arteries. Ventral deformity of the right heart chambers secondary to decreased AP diameter of the lower sternum. No pericardial effusion. No lymphadenopathy in the mediastinum or pulmonary ashley. PLEURA: No pleural effusion. No pneumothorax. AXILLA: No lymphadenopathy. UPPER ABDOMEN: Infrarenal abdominal aorta diameter: 4.4 cm with a 2 cm crescent-shaped mixed density plaque in the right anterior lateral wall. Multifocal hypodense liver lesions. 4.5 cm exophytic cyst in the upper pole left kidney and few scattered subcentimeter cyst in left kidney. OSSEOUS STRUCTURES: Sclerotic superior endplate compression deformity representing 40-50% volume loss without retropulsion at T9 vertebra. Sclerotic superior endplate compression deformity representing 30% volume loss at T3. No gross malalignment. Osteopenia versus osteoporosis. Multilevel cervical thoracic spondylosis. No gross lytic or blastic lesions. CT/CT chest w IV con IMPRESSION: Stable morphology, size and distribution pattern of the lung lesions, the largest in the left lower lung lobe. No lymphadenopathy, mediastinal and or perihilar. Stable nonruptured aneurysm, thoracic aorta. 4.4 cm no fracture aneurysm, infrarenal abdominal aorta with a 2 cm right lateral mixed plaque. Multifocal hypodense liver lesions, stable. Acute to subacute superior endplate compression fractures at T3 and T9 vertebral bodies. Fleischner guidelines were followed. Electronically signed by: Luis Daly MD 10/26/2024 09:44 AM EDT
[2024-10-26] MEDS: iohexoL 350 MG/ML 100 ML INFUS..BTL IV (09:12)
== END 2024-10-26 08:25 | disposition home or self-care (01) ==
LOC: HO.CT 08:24
PROVIDERS: PCP Internal Medicine; Visit Provider Internal Medicine
DX: C34.92 Malignant neoplasm of unspecified part of left bronchus or lung (principal)
CPT/HCPCS: 71260; Q9967

== ENCOUNTER → 2024-10-26 08:26 | Outpatient (BNV) | payer MEDICARE, SELFPAY | PROVIDERS: PCP Internal Medicine; Visit Provider Radiology Diagnostic Radiology | DX: C34.32 Malignant neoplasm of lower lobe, left bronchus or lung (principal) | CPT/HCPCS: 71260 ==

== ENCOUNTER 2024-11-07 06:43 | Outpatient (REF) | payer MEDICARE, SELFPAY ==
[2024-11-07 10:25] LABS: MANUAL DIFF FLAG NO
[2024-11-07 10:30] LABS: Basophils Absolute Auto 0.1 X10*3/uL (0.0-0.2); Basophils Percent Auto 0.5 % (0-2); Eosinophils Absolute Auto 0.3 X10*3/uL (0.0-0.4); Eosinophils Percent Auto 3.1 % (0-4); Hematocrit 47.5 % (37.0-47.0); Hemoglobin 15.9 g/dl (12.0-16.0); Imm Gran Abs Auto 0.15 X10*3/uL (0.00-0.03); Imm Gran Pct Auto 1.5 % (0.0-0.4); Lymphocytes Percent Auto 19.9 % (20-40); Mean Corpuscular HGB Conc 33.5 g/dl (31.0-35.0); Mean Corpuscular Hemoglobin 31.2 pg (27.0-33.0); Mean Corpuscular Volume 93.3 fL (80.0-98.0); Mean Platelet Volume 10.6 fL (9.4-12.3); Monocytes Absolute Auto 0.8 X10*3/uL (0.1-1.2); Neutrophils Absolute Auto 6.6 x10*3/uL (2.0-8.3); Platelet Count 182 X10*3/uL (160-400); Red Blood Count 5.09 X10*6/uL (4.20-5.50); Red Cell Distribution Width 14.3 % (11.0-16.0); White Blood Count 9.9 X10*3/uL (4.8-10.8)
[2024-11-07 10:55] LABS: Alanine Aminotransferase 18 U/L (0-31); Alkaline Phosphatase 78 U/L (39-117); Anion Gap 13 (12-20); Aspartate Amino Transferase 23 U/L (5-31); Bilirubin Total 0.3 mg/dL (0.0-1.0); Blood Urea Nitrogen 19 mg/dL (9-16); Calcium 9.3 mg/dL (8.4-10.2); Carbon Dioxide 28 mmol/L (22-29); Chloride 100 mmol/L (96-108); Estimated Glomerular Filt Rate 54; Glucose Random 74 mg/dL (60-115); Potassium 3.5 mmol/L (3.3-5.1); Sodium 137 mmol/L (135-145); Total Protein 6.8 g/dL (6.5-8.0)
== END 2024-11-07 06:44 | disposition home or self-care (01) ==
LOC: HO.HMGCLDS 06:43
PROVIDERS: PCP Internal Medicine; Visit Provider Internal Medicine
DX: C34.92 Malignant neoplasm of unspecified part of left bronchus or lung (principal)
CPT/HCPCS: 36415; 80053; 85025

== ENCOUNTER → 2024-11-21 11:04 | Outpatient (REF) | payer MEDICARE, SELFPAY ==
--- NOTE | ~2024-11-21 | NM_ITS ---
EXAMINATION: NM BONE SCAN OF THE WHOLE BODY CLINICAL INFORMATION: Status post fall one month ago. Low back pain. History of lung lung cancer, nonsmall cell type. COMPARISON: CT chest 10/26/2024. TECHNIQUE: Multiple gamma scintillation camera images of the whole body were performed 3 hours following the intravenous administration of 20 mCi Tc-99m MDP. FINDINGS: In the head, there is no abnormal isotope activity In the thoracic cage and upper extremities, no abnormal activity seen in the thoracic cage or the upper x-ray. In the spine, mild to moderate horizontal activity seen in T9 vertebra. No additional areas of abnormal activity seen in the spine. No additional areas of abnormal isotope activity spleen especially in the T3 vertebra. Mild superior endplate deformity seen on the CT chest exam There is mild dextro scoliosis upper dorsal spine. In the pelvis, no abnormal activity seen. In the lower extremities, punctate activity seen in the right medial ankle likely DJD. No additional areas of activity seen in the lower extremity. Punctate activity seen in the right elbow likely site of injection.. The urinary bladder and faint visualization of both kidneys are noted. NM/NM bone scan whole body IMPRESSION: Mild to moderate horizontal activity at T9 vertebra consistent with acute compression fracture. There is corresponding compression fracture deformity on the thoracic spine 10/26/2024. Mild deformities of mid T3 vertebra on CT chest does not correspond right knee abnormal isotope activity on bone scan. Mild dextroscoliosis of upper thoracic spine. Electronically signed by: Beni Porter MD 11/21/2024 03:18 PM EDT
== END ==
LOC: HO.NUCMED 11:04
PROVIDERS: PCP Internal Medicine; Visit Provider Internal Medicine
DX: C34.90 Malignant neoplasm of unspecified part of unspecified bronchus or lung (principal)
CPT/HCPCS: 78306; A9503

== ENCOUNTER → 2024-11-21 11:06 | Outpatient (BNV) | payer MEDICARE, SELFPAY | PROVIDERS: PCP Internal Medicine; Visit Provider Radiology Diagnostic Radiology | DX: C34.92 Malignant neoplasm of unspecified part of left bronchus or lung (principal); M54.50 Low back pain, unspecified | CPT/HCPCS: 78306 ==

== ENCOUNTER 2024-11-28 06:32 | Outpatient (REF) | payer MEDICARE, SELFPAY ==
[2024-11-28 10:30] LABS: MANUAL DIFF FLAG NO
[2024-11-28 10:31] LABS: Basophils Percent Auto 0.5 % (0-2); Eosinophils Absolute Auto 0.2 X10*3/uL (0.0-0.4); Eosinophils Percent Auto 3.7 % (0-4); Hematocrit 43.8 % (37.0-47.0); Hemoglobin 14.7 g/dl (12.0-16.0); Imm Gran Abs Auto 0.02 X10*3/uL (0.00-0.03); Imm Gran Pct Auto 0.3 % (0.0-0.4); Lymphocytes Absolute Auto 1.4 X10*3/uL (1.2-4.9); Lymphocytes Percent Auto 22.4 % (20-40); Mean Corpuscular HGB Conc 33.6 g/dl (31.0-35.0); Mean Corpuscular Hemoglobin 31.4 pg (27.0-33.0); Mean Corpuscular Volume 93.6 fL (80.0-98.0); Monocytes Absolute Auto 0.4 X10*3/uL (0.1-1.2); Monocytes Percent Auto 6.3 % (2-11); Neutrophils Percent Auto 66.8 % (45-73); Platelet Count 340 X10*3/uL (160-400); Red Blood Count 4.68 X10*6/uL (4.20-5.50)
[2024-11-28 10:42] LABS: Alanine Aminotransferase 15 U/L (0-31); Albumin Level 3.8 g/dL (3.5-5.0); Alkaline Phosphatase 84 U/L (39-117); Anion Gap 15 (12-20); Aspartate Amino Transferase 23 U/L (5-31); Bilirubin Total 0.3 mg/dL (0.0-1.0); Blood Urea Nitrogen 22 mg/dL (9-16); Calcium 9.5 mg/dL (8.4-10.2); Carbon Dioxide 28 mmol/L (22-29); Chloride 103 mmol/L (96-108); Estimated Glomerular Filt Rate 51; Glucose Random 102 mg/dL (60-115); Potassium 3.6 mmol/L (3.3-5.1); Sodium 142 mmol/L (135-145); Total Protein 6.3 g/dL (6.5-8.0)
[2024-11-28 11:50] LABS: TSH reflex Free T4 2.46 uIU/mL (0.32-4.0)
== END 2024-11-28 06:33 | disposition home or self-care (01) ==
LOC: HO.HMGCLDS 06:32
PROVIDERS: Nurse Practitioner Family; PCP Internal Medicine; Visit Provider Internal Medicine
DX: C34.92 Malignant neoplasm of unspecified part of left bronchus or lung (principal)
CPT/HCPCS: 36415; 80053; 84443; 85025

== ENCOUNTER 2024-12-06 12:11 | Outpatient (AMB) | payer MEDICARE, SELFPAY ==
--- NOTE | 2024-12-06 12:26 | A.OFFPC_ITS ---
Vital Signs 12/06/24 12:30 Height 5 ft 4 in Weight 101 lb BMI 17.3 BP 152/90 H Blood Pressure Location Lt brachial Position Sitting Intake Visit Reasons: LORETTA Dr Sherwood - see comments Slag Worker Required: No Accompanied by: Son Allergies Penicillins (PENICILLINS) Allergy (Intermediate, Verified 12/06/24 12:46) HIVES/ITCHING Medication List - Last Reconciled 12/06/24 by Margot Guerra MD digoxin 125 mcg PO DAILY dronabinol 10 mg PO BID escitalopram oxalate 10 mg PO DAILY fluticasone propion-salmeterol 232-14 mcg/actuation (AirDuo RespiClick) 1 inh inhalation BID 30 days folic acid 1 mg PO DAILY hydrochlorothiazide 25 mg PO DAILY ibuprofen 800 mg PO Q8H PRN lorazepam 2 mg (2 x 1 mg) PO BEDTIME 30 days metoprolol tartrate 25 mg PO BID ondansetron 8 mg PO Q8H PRN oxycodone 5 mg PO Q8H PRN polyethylene glycol 3350 (Miralax) 17 grams PO DAILY potassium chloride ER 20 mEq PO DAILY sennosides-docusate sodium 8.6-50 mg (Senna with Docusate Sodium) 1 tab-cap PO BEDTIME tramadol 50 mg PO Q8H PRN Tobacco use date assessed: 08/03/24 Fall risk assessment: 1 Fall in past year Last assessed Fall Risk: 12/06/24 Dental Screening Dental Screen Date: 08/03/24 HPI HPI Comments History of Present Illness Details This is a 73-year-old female that comes accompanied by son for transfer of care. She has emphysema secondary to smoking, [id number] lung cancer on chemotherapy, atrial fibrillation, hypertension, mild major depression and anxiety as well as the acute fracture of T9 after falling which will have another imaging this week. Was advised to quit smoking but she declines. Follows with pulmonology and Hematology-Oncology. Use oxycodone as needed. On benzodiazepines for anxiety. On escitalopram for depression. Denies any chest pain or shortness on breath. Has abdominal aortic aneurysm that will be monitor. [facility] Medical History (Updated 12/06/24 @ 21:31 by Margot Guerra MD) Atrial fibrillation with RVR Hypomagnesemia Sepsis Hypokalemia Hypotension Family history of lung cancer Personal history of nicotine dependence Back pain Osteoporosis (~2018) Pseudogout (~2016) Anxiety Hypertension Hyperlipidemia Surgical History History of colonoscopy Family History Father Lung cancer Mother Diabetes Renal failure Social History Household Members: None Housing: House Do you presently have visiting nurse or other home services: No Alcohol intake: never Patient Tobacco Use Status: Current everyday Tobacco user Tobacco use type: Cigarette Cigarette Packs Per Day: 0.5 Cigarettes Per Day: 10 e-Cigarette/Vaping Use: Never Used Second Hand Smoke Exposure: Yes Advance Directives Date on File: 05/10/23 service: No Current occupational status: retired Current occupational exposures/hazards: No Cognitive needs: No Hearing needs: No Vision needs: Yes (Glasses) Questionnaire PHQ-9 Over the last 2 weeks, how often have you been bothered by any of the following problems? 1. Little interest or pleasure in doing things: nearly every day 2. Feeling down, depressed, or hopeless: more than half the days 3. Trouble falling or staying asleep, or sleeping too much: several days 4. Feeling tired or having little energy: several days 5. Poor appetite or overeating: several days 6. Feeling bad about yourself - or that you are a failure or have let yourself or your family down: not at all 7. Trouble concentrating on things, such as reading the newspaper or watching television: several days 8. Moving or speaking so slowly that other people could have noticed. Or the opposite - being so fidgety or restless that you have been moving around a lot more than usual: more than half the days 9. Thoughts that you would be better off or of hurting yourself in some way: not at all Total score: 11 Depression Screening Interpretation: Positive Depression Screening Follow-up: Existing condition and Follow-up Visit Requested Depression Screening Done: Yes 33218 - PHQ-9 Billing: Yes Source: Developed by Drs. Alex Barkley, Nilam Rainey, Júnior Haro and colleagues, with an educational elsie from [employer]. Thrive Questionnaire Date Thrive assessed: 08/03/24 I am a: Parent/Caregiver What is your living situation today?: I have a steady place to live Within the past 12 months, did the food you bought not last and you didn't have the money to get more?: Often true Within the past 12 months, did you worry whether your food would run out before you got money to buy more?: Never true Do you have trouble paying for medicines?: No Do you have trouble getting transportation to medical appointments?: No Do you have trouble paying your heating and electricity bill?: No Do you have trouble taking care of your child, family member or friend?: No Do you have trouble with day-to-day activities such as bathing, preparing meals, shopping, managing finances, etc.?: Yes Are you currently unemployed and looking for a job?: No Are you interested in more education?: No Please select the resources that you would like help with: None Currently or been in a relationship where the following occur: I choose not to answer THRIVE Score: 1 AUDIT C Alcohol Use Questionnaire (AUDIT-C) 1. How often do you have a drink containing alcohol?: Never Total Score: 0 Score Reviewed/Action Taken: No NICOLE-7 AMB Questionnaire NICOLE-7 Date NICOLE - 7 assessed: 08/03/24 Feeling nervous, anxious, or on edge: 0 = Not at all Not being able to stop or control worryin = Not at all Worrying too much about different things: 0 = Not at all Trouble relaxin = Not at all Being so restless that it is hard to sit still: 0 = Not at all Becoming easily annoyed or irritable: 0 = Not at all Feeling afraid as if something awful might happen: 0 = Not at all Total NICOLE-7 score (0-4 normal; 5-9 mild; 10-14 moderate; 15-21 severe): 0 Source: Developed by Drs. Alex Barkley, Nilam Rainey, Júnior Haro and colleagues, with an educational elsie from [employer]. NICOLE-7 Assessment Billing NICOLE-7 Assessment Tool: NICOLE-7 Assessment 48581 Review of Systems Const All systems reviewed & are unremarkable except as noted in HPI and below Card Denies chest pain at rest, Denies chest pain with activity, Denies edema, Denies irregular heart rhythm, Denies claudication, Denies dyspnea, Denies dyspnea on exertion, Denies orthopnea, Denies paroxysmal nocturnal dyspnea and Denies slow heart rate Resp Denies cough, Denies dyspnea and Denies dyspnea on exertion GI Denies abdominal pain, Denies change in bowel habits, Denies excessive flatus, Denies nausea and Denies vomiting Neuro Denies lack of coordination Physical exam (Primary Care) Vital Signs: Last Vital Signs BP 152/90 H 12/06/24 12:30 BMI result Body Mass Index 17.3 Tobacco/Smoking Status: Tobacco use Status Tobacco use date assessed 08/03/24 12/06/24 12:41 Patient Tobacco Use Status Current everyday Tobacco 12/06/24 12:41 Tobacco use type Cigarette 12/06/24 12:41 e-Cigarette/Vaping Use Never Used 12/06/24 12:41 Are you ready to quit: No Tobacco cessation counseling provided: No PHQ-9: PHQ-9 Score PHQ-9: Total score 11 12/06/24 17:56 Depression Screening Interpretation: Positive Depression Screening Follow-up: Existing condition and Follow-up Visit Requested Thrive Assessment: Date of Thrive Assessment Date Thrive assessed 08/03/24 12/06/24 12:41 Currently or been in a relationship where the following occur: I choose not to answer Resp Effort & Inspection: normal respiratory effort Auscultation: clear to auscultation bilaterally Cardio Jugular venous distension: no JVD Rate: regular rate Rhythm: regular rhythm Heart sounds: S1 normal heart sound present and S2 normal heart sound present Extrem General: Yes full ROM Coding Level of Care Code Est Pt Level 4 (24359) Complex EM visit Add On G2211 Diagnoses Anxiety F41.9 Dilatation of aorta I77.819 Non-small cell cancer of left lung C34.92 Emphysema lung J43.9 Atrial fibrillation with RVR I48.91 Mild major depression F32.0 Compression fracture of T9 vertebra S22.070A Additional Codes NICOLE-7 Assessment Billing - NICOLE-7 Assessment Tool: NICOLE-7 Assessment 62323 ([id number]) PHQ-9 - 14794 - PHQ-9 Billing: Yes ([id number]) Time Spent (min) 24 Assessment & Plan Assessment & Plan (1) Anxiety: Code(s): F41.9 - Anxiety disorder, unspecified Category: Medical (2) Dilatation of aorta: Comment: (Aneurysmal dilatation of infrarenal abdominal aorta, 3.5 cm - noted on 01/2022 PET) Code(s): I77.819 - Aortic ectasia, unspecified site Category: Medical (3) Non-small cell cancer of left lung: Code(s): C34.92 - Malignant neoplasm of unspecified part of left bronchus or lung Category: Medical (4) Emphysema lung: Code(s): J43.9 - Emphysema, unspecified Category: Medical (5) Atrial fibrillation with RVR: Code(s): I48.91 - Unspecified atrial fibrillation Category: Medical (6) Mild major depression: Code(s): F32.0 - Major depressive disorder, single episode, mild Category: Medical (7) Compression fracture of T9 vertebra: Code(s): S22.070A - Wedge compression fracture of T9-T10 vertebra, initial encounter for closed fracture Category: Medical Plan Continue current meds. Continue inhaler as needed. Advised to quit smoking. Continue chemotherapy. Follow-up with Hematology Oncology and pulmonology
[2024-12-06 12:30] VITALS: BP 152/90; BMI 17.3
== END 2024-12-06 13:05 | disposition home or self-care (01) ==
LOC: HO.HMCH 12:12
PROVIDERS: PCP Internal Medicine; Visit Provider Internal Medicine
DX: J43.9 Emphysema, unspecified (principal); C34.92 Malignant neoplasm of unspecified part of left bronchus or lung; I48.91 Unspecified atrial fibrillation; S22.070A Wedge compression fracture of T9-T10 vertebra, initial encounter for closed fracture; F41.9 Anxiety disorder, unspecified; I77.819 Aortic ectasia, unspecified site; F32.0 Major depressive disorder, single episode, mild

== ENCOUNTER → 2024-12-06 12:11 | Outpatient (BNVA) | payer MEDICARE, SELFPAY | PROVIDERS: PCP Internal Medicine; Visit Provider Internal Medicine | DX: F32.0 Major depressive disorder, single episode, mild (principal); J43.9 Emphysema, unspecified; I48.91 Unspecified atrial fibrillation; I10 Essential (primary) hypertension; F32.A Depression, unspecified; F41.9 Anxiety disorder, unspecified; I77.819 Aortic ectasia, unspecified site; C34.92 Malignant neoplasm of unspecified part of left bronchus or lung; S22.070A Wedge compression fracture of T9-T10 vertebra, initial encounter for closed fracture; F17.210 Nicotine dependence, cigarettes, uncomplicated; X58.XXXA Exposure to other specified factors, initial encounter; Y93.9 Activity, unspecified; Y92.9 Unspecified place or not applicable; Y99.9 Unspecified external cause status; Z79.891 Long term (current) use of opiate analgesic | CPT/HCPCS: 96127; 99212 ==

== ENCOUNTER 2024-12-11 08:19 | Outpatient (REF) | payer MEDICARE, SELFPAY ==
[2024-12-11 10:22] LABS: MANUAL DIFF FLAG NO
[2024-12-11 10:28] LABS: Basophils Percent Auto 0.4 % (0-2); Eosinophils Absolute Auto 0.2 X10*3/uL (0.0-0.4); Eosinophils Percent Auto 2.5 % (0-4); Hematocrit 45.6 % (37.0-47.0); Hemoglobin 15.1 g/dl (12.0-16.0); Imm Gran Abs Auto 0.05 X10*3/uL (0.00-0.03); Imm Gran Pct Auto 0.7 % (0.0-0.4); Lymphocytes Absolute Auto 1.3 X10*3/uL (1.2-4.9); Lymphocytes Percent Auto 17.6 % (20-40); Mean Corpuscular HGB Conc 33.1 g/dl (31.0-35.0); Mean Corpuscular Volume 93.6 fL (80.0-98.0); Mean Platelet Volume 10.8 fL (9.4-12.3); Monocytes Absolute Auto 0.6 X10*3/uL (0.1-1.2); Monocytes Percent Auto 8.2 % (2-11); Neutrophils Absolute Auto 5.3 x10*3/uL (2.0-8.3); Neutrophils Percent Auto 70.6 % (45-73); Platelet Count 169 X10*3/uL (160-400); Red Blood Count 4.87 X10*6/uL (4.20-5.50); Red Cell Distribution Width 14.5 % (11.0-16.0); White Blood Count 7.5 X10*3/uL (4.8-10.8)
[2024-12-11 11:15] LABS: Alanine Aminotransferase 14 U/L (0-31); Albumin Level 4.1 g/dL (3.5-5.0); Alkaline Phosphatase 80 U/L (39-117); Anion Gap 13 (12-20); Aspartate Amino Transferase 21 U/L (5-31); Bilirubin Total 0.5 mg/dL (0.0-1.0); Blood Urea Nitrogen 18 mg/dL (9-16); Calcium 9.7 mg/dL (8.4-10.2); Carbon Dioxide 28 mmol/L (22-29); Chloride 101 mmol/L (96-108); Estimated Glomerular Filt Rate 46; Glucose Random 96 mg/dL (60-115); Potassium 3.7 mmol/L (3.3-5.1); Sodium 138 mmol/L (135-145); Total Protein 6.8 g/dL (6.5-8.0)
== END 2024-12-11 08:20 | disposition home or self-care (01) ==
LOC: HO.HMGCLDS 08:19
PROVIDERS: PCP Internal Medicine; Visit Provider Internal Medicine
DX: C34.92 Malignant neoplasm of unspecified part of left bronchus or lung (principal)
CPT/HCPCS: 36415; 80053; 85025

== ENCOUNTER 2024-12-18 07:30 | Outpatient (REF) | payer MEDICARE, SELFPAY ==
[2024-12-18 10:13] LABS: MANUAL DIFF FLAG NO
[2024-12-18 10:31] LABS: Basophils Percent Auto 0.4 % (0-2); Eosinophils Absolute Auto 0.3 X10*3/uL (0.0-0.4); Eosinophils Percent Auto 3.9 % (0-4); Hemoglobin 15.3 g/dl (12.0-16.0); Imm Gran Abs Auto 0.04 X10*3/uL (0.00-0.03); Imm Gran Pct Auto 0.6 % (0.0-0.4); Lymphocytes Absolute Auto 1.3 X10*3/uL (1.2-4.9); Lymphocytes Percent Auto 18.7 % (20-40); Mean Corpuscular HGB Conc 33.3 g/dl (31.0-35.0); Mean Corpuscular Hemoglobin 31.2 pg (27.0-33.0); Mean Corpuscular Volume 93.9 fL (80.0-98.0); Mean Platelet Volume 10.7 fL (9.4-12.3); Monocytes Absolute Auto 0.5 X10*3/uL (0.1-1.2); Monocytes Percent Auto 7.7 % (2-11); Neutrophils Absolute Auto 4.7 x10*3/uL (2.0-8.3); Neutrophils Percent Auto 68.7 % (45-73); Platelet Count 193 X10*3/uL (160-400); Red Cell Distribution Width 14.6 % (11.0-16.0); White Blood Count 6.9 X10*3/uL (4.8-10.8)
[2024-12-18 10:47] LABS: Alanine Aminotransferase 12 U/L (0-31); Albumin Level 4.1 g/dL (3.5-5.0); Alkaline Phosphatase 73 U/L (39-117); Anion Gap 13 (12-20); Aspartate Amino Transferase 26 U/L (5-31); Bilirubin Total 0.6 mg/dL (0.0-1.0); Blood Urea Nitrogen 19 mg/dL (9-16); Calcium 9.4 mg/dL (8.4-10.2); Carbon Dioxide 28 mmol/L (22-29); Chloride 102 mmol/L (96-108); Estimated Glomerular Filt Rate 49; Glucose Random 105 mg/dL (60-115); Magnesium 1.8 mg/dL (1.6-2.6); Potassium 3.4 mmol/L (3.3-5.1); Sodium 140 mmol/L (135-145); Total Protein 6.7 g/dL (6.5-8.0)
== END 2024-12-18 07:31 | disposition home or self-care (01) ==
LOC: HO.HMGCLDS 07:30
PROVIDERS: PCP Internal Medicine; Visit Provider Internal Medicine
DX: C34.92 Malignant neoplasm of unspecified part of left bronchus or lung (principal)
CPT/HCPCS: 36415; 80053; 83735; 84443; 85025

== ENCOUNTER 2025-01-08 07:16 | Outpatient (REF) | payer MEDICARE, SELFPAY ==
[2025-01-08 10:07] LABS: MANUAL DIFF FLAG NO
[2025-01-08 10:20] LABS: Hematocrit 44.0 % (37.0-47.0); Hemoglobin 14.9 g/dl (12.0-16.0); Imm Gran Abs Auto 0.03 X10*3/uL (0.00-0.03); Imm Gran Pct Auto 0.4 % (0.0-0.4); Lymphocytes Absolute Auto 1.3 X10*3/uL (1.2-4.9); Mean Corpuscular HGB Conc 33.9 g/dl (31.0-35.0); Mean Corpuscular Hemoglobin 31.8 pg (27.0-33.0); Mean Corpuscular Volume 94.0 fL (80.0-98.0); NRBC Abs Auto 0.000 X10*3/uL (0.0-0.012); NRBC Pct Auto 0.0 /100WBC (0.0-0.2); Platelet Count 166 X10*3/uL (160-400); Red Blood Count 4.68 X10*6/uL (4.20-5.50); White Blood Count 6.8 X10*3/uL (4.8-10.8)
[2025-01-08 10:49] LABS: Alanine Aminotransferase 11 U/L (0-31); Albumin Level 4.2 g/dL (3.5-5.0); Alkaline Phosphatase 72 U/L (39-117); Anion Gap 13 (12-20); Aspartate Amino Transferase 23 U/L (5-31); Blood Urea Nitrogen 19 mg/dL (9-16); Calcium 9.6 mg/dL (8.4-10.2); Carbon Dioxide 28 mmol/L (22-29); Chloride 102 mmol/L (96-108); Estimated Glomerular Filt Rate 53; Potassium 3.3 mmol/L (3.3-5.1); Sodium 140 mmol/L (135-145); Thyroid Stimulating Hormone 2.79 uIU/mL (0.32-4.0); Total Protein 7.0 g/dL (6.5-8.0)
== END 2025-01-08 07:17 | disposition home or self-care (01) ==
LOC: HO.HMGCLDS 07:16
PROVIDERS: PCP Internal Medicine; Visit Provider Internal Medicine
DX: C34.92 Malignant neoplasm of unspecified part of left bronchus or lung (principal)
CPT/HCPCS: 36415; 80053; 84443; 85025

== ENCOUNTER 2025-01-29 07:31 | Outpatient (REF) | payer MEDICARE, SELFPAY ==
[2025-01-29 10:12] LABS: MANUAL DIFF FLAG NO
[2025-01-29 10:14] LABS: Hematocrit 43.0 % (37.0-47.0); Hemoglobin 14.2 g/dl (12.0-16.0); Imm Gran Abs Auto 0.02 X10*3/uL (0.00-0.03); Imm Gran Pct Auto 0.3 % (0.0-0.4); Lymphocytes Absolute Auto 1.3 X10*3/uL (1.2-4.9); Mean Corpuscular HGB Conc 33.0 g/dl (31.0-35.0); Mean Corpuscular Hemoglobin 31.2 pg (27.0-33.0); Mean Corpuscular Volume 94.5 fL (80.0-98.0); NRBC Abs Auto 0.000 X10*3/uL (0.0-0.012); NRBC Pct Auto 0.0 /100WBC (0.0-0.2); Platelet Count 174 X10*3/uL (160-400); Red Blood Count 4.55 X10*6/uL (4.20-5.50); White Blood Count 6.9 X10*3/uL (4.8-10.8)
[2025-01-29 10:31] LABS: Alanine Aminotransferase 10 U/L (0-31); Albumin Level 4.1 g/dL (3.5-5.0); Alkaline Phosphatase 72 U/L (39-117); Anion Gap 11 (12-20); Aspartate Amino Transferase 24 U/L (5-31); Blood Urea Nitrogen 24 mg/dL (9-16); Calcium 9.6 mg/dL (8.4-10.2); Carbon Dioxide 29 mmol/L (22-29); Chloride 103 mmol/L (96-108); Estimated Glomerular Filt Rate 58; Potassium 3.3 mmol/L (3.3-5.1); Sodium 140 mmol/L (135-145); Total Protein 6.8 g/dL (6.5-8.0)
== END 2025-01-29 07:32 | disposition home or self-care (01) ==
LOC: HO.HMGCLDS 07:31
PROVIDERS: PCP Internal Medicine; Visit Provider Internal Medicine
DX: C34.92 Malignant neoplasm of unspecified part of left bronchus or lung (principal)
CPT/HCPCS: 36415; 80053; 85025

== ENCOUNTER 2025-02-20 07:03 | Outpatient (REF) | payer MEDICARE, SELFPAY ==
--- OUTSIDE RECORDS SUMMARY | 2025-02-15 08:19 | XMS_ITS | Encounter Summary ---
Author Organization [facility] Address [address] [place] [address] Care Team Providers Care Bag Loader Name Role Phone Unavailable Primary Care Provider Unavailabl e Reason for Referral * Imaging (Routine) - Pending Review Specialty Diagnoses / Procedures Referred By Contac t Referred To Contact Radiology Diagnoses Malignant neoplasm of unspecified part of unspecified bronchus or lung (CMS/HCC V24, CMS/HCC V28) Procedures PET CT Skull to Mid Thigh Subsequent Adriana Soliman MD [address] [place] [address] HEMATOLOGY / [place] [address] Phone: tel: fax: [facility] Referral ID Status Reason Start Date Expiration Date V isits Requested Visits Authorized [id number] Pending Review 02/14/2025 02/14/2026 1 1 Reason for Visit * Imaging (Routine) - Pending Review Specialty Diagnoses / Procedures Referred By Anitha childress Referred To Contact Radiology Diagnoses Malignant neoplasm of unspecified part of unspecified bronchus or lung (CMS/HCC V24, CMS/HCC V28) Procedures PET CT Skull to Mid Thigh Subsequent Adriana Soliman MD [address] [place] [address] HEMATOLOGY / [place] [address] Phone: tel: fax: [facility] Referral ID Status Reason Start Date Expiration Date V isits Requested Visits Authorized [id number] Pending Review 02/14/2025 02/14/2026 1 1 Encounter Details Date Type Department Care Team (Latest Contact Info) Description 02/15/2025 8:19 AM EDT Hospital Encounter [facility] PET Scan [address] [place] [id number] Malignant neoplasm of unspecified part of unspecified bronchus or lung (CMS/HCC V24, CMS/HCC V28) Social History Tobacco Use Types Packs/Day Years Used Date Smoking Tobacco: Never Assessed Comments Unknown Sex and Gender Information Value Date Recorded Sex Assigned at Not on file Legal Sex Female 3:42 PM EDT Gender Identity Not on file Sexual Orientation Not on file documented as of this encounter Plan of Treatment Not on file documented as of this encounter Procedures Procedure Name Priority Date/Time Associated Diagnosis Comments PET CT SKULL TO MID THIGH SUBSEQUENT Routine 02/15/2025 10:51 AM EDT Malignant neoplasm of unspecified part of unspecified bronchus or lung (CMS/HCC V24, CMS/HCC V28) documented in this encounter Results * PET CT Skull to Mid Thigh Subsequent (02/15/2025 10:51 AM EDT) Anatomical Region Laterality Modality Body Radiographic Nikki ging 02/17/2025 11:0 5 AM EDT Impressions 02/17/2025 11:29 AM EDT Impression: Low-level FDG uptake within nodules as described above. No new or significantly worsening hypermetabolic tumor activity. Continued surveillance advised. Ascending and abdominal aortic aneurysms, recommend vascular consultation if not already performed. -------- FINAL REPORT -------- Dictated By: George Yuen Dictated Date: 02/17/2025 11:05 ET Assigned Physician: George Yuen Reviewed and Electronically Signed By: George Yuen Signed Date: 02/17/2025 11:29 ET Workstation ID: [id number] Transcribed By: Self Edit Transcribed Date: 02/17/2025 11:05 ET Narrative 02/17/2025 11:[address] Scan CLINICAL HISTORY: LUNG CANCER . Technique: The patient received an intravenous injection of fluorine 18 fluorodeoxyglucose. After a short delay a whole body PET scan was obtained from the skull base through midthighs. Additionally a low dose, unenhanced CT scan was acquired for attenuation correction and anatomic localization. The CT portion of the examination was done strictly for attenuation correction and is not a true diagnostic CT examination. Total DLP: 371 mGy/cm Blood glucose level in mg/dl: 89 FDG dose in mCi: 11.4 Comparison: Outside PET 04/11/2024 Findings: Head and Neck: No hypermetabolic abnormality. Chest: The left apical 11 mm spiculated nodule with adjacent scarring SUVmax = 1.04, previous SUV was 2.5 on 04/11/2024. Peripheral consolidation in the superior segment left lower lobe SUVmax = 2.88, previous SUV was 2.0 on 04/11/2024. 0.9 cm peripheral groundglass opacity left lower lobe abutting the fissure without FDG uptake, similar to prior accounting for technique. There is an area of scarring superior segment right lower lobe without hypermetabolism. Just inferior to this in the same segment there is a approximately 1 cm nodule with slight central cavitation without significant FDG uptake. Stable from prior. Stable atelectasis at the lung bases. Ascending aortic aneurysm measuring 4.1 cm. Left chest wall port. Abdomen and Pelvis: No hypermetabolic abnormality. 4.7 cm infrarenal abdominal aortic aneurysm this does measure slightly increased compared to prior examination where the aneurysm measured 4.5 cm.. Calcifications in the mesentery. Left renal cyst. Low-attenuation lesions in the liver are presumably benign. Prominent stool burden throughout the right colon. Nonobstructing calculus lower pole left kidney. Musculoskeletal: No hypermetabolic abnormality. Degenerative changes throughout. Osteopenia. Procedure Note George Yuen MD - 02/17/[address] Scan CLINICAL HISTORY: LUNG CANCER . Technique: The patient received an intravenous injection of fluorine 18fluorodeoxyglucose. After a short delay a whole body PET scan wasobtained from the skull base through midthighs. Additionally a low dose,unenhanced CT scan was acquired for attenuation correction and anatomiclocalization. The CT portion of the examination was done strictly forattenuation correction and is not a true diagnostic CT examination. TotalDLP: 371 mGy/cm Blood glucose level in mg/dl: 89 FDG dose in mCi: 11.4 Comparison: Outside PET 04/11/2024 Findings: Head and Neck: No hypermetabolic abnormality. Chest: The left apical 11 mm spiculated nodule with adjacent scarringSUVmax = 1.04, previous SUV was 2.5 on 04/11/2024. Peripheral consolidation in the superior segment left lower lobe SUVmax =2.88, previous SUV was 2.0 on 04/11/2024. 0.9 cm peripheral groundglass opacity left lower lobe abutting the fissurewithout FDG uptake, similar to prior accounting for technique. There is an area of scarring superior segment right lower lobe withouthypermetabolism. Just inferior to this in the same segment there is aapproximately 1 cm nodule with slight central cavitation withoutsignificant FDG uptake. Stable from prior. Stable atelectasis at the lung bases. Ascending aortic aneurysm measuring 4.1 cm. Left chest wall port. Abdomen and Pelvis: No hypermetabolic abnormality. 4.7 cm infrarenalabdominal aortic aneurysm this does measure slightly increased compared toprior examination where the aneurysm measured 4.5 cm.. Calcifications inthe mesentery. Left renal cyst. Low-attenuation lesions in the liver arepresumably benign. Prominent stool burden throughout the right colon.Nonobstructing calculus lower pole left kidney. Musculoskeletal: No hypermetabolic abnormality. Degenerative changesthroughout. Osteopenia. IMPRESSION: Impression: Low-level FDG uptake within nodules as described above. No new orsignificantly worsening hypermetabolic tumor activity. Continuedsurveillance advised. Ascending and abdominal aortic aneurysms, recommend vascular consultationif not already performed. -------- FINAL REPORT -------- Dictated By: George Yuen Dictated Date: 02/17/2025 11:05 ET Assigned Physician: George Yuen Reviewed and Electronically Signed By: George Yuen Signed Date: 02/17/2025 11:29 ET Workstation ID: [id number] Transcribed By: Self Edit Transcribed Date: 02/17/2025 11:05 ET Adriana Soliman MD [facility] PROCEDURES Final Result documented in this encounter Visit Diagnoses Diagnosis Malignant neoplasm of unspecified part of unspecified bronchus or lung (CMS/HCC V24, CMS/HCC V28) documented in this encounter Administered Medications Inactive Administered Medications - up to 3 most recent administrations Medication Order MAR Action Action Date Dose Rate Site F-18 FDG pet diag radio-isotope injection 11.4 millicurie 11.4 millicurie, intravenous, Once in imaging, Starting on Shea 02/15/25 at 0913, For 1 dose Given 02/15/2025 9:13 AM EDT 11.4 millicuries Right Antecubital documented in this encounter Orders Medications Ordered That Antelmo ht Not Have Been Administered Count Last Ordered Date First Ordered Date F-18 FDG pet diag radio-isot ope injection 11.4 millicurie 1 02/15/2025 documented in this encounter
--- OUTSIDE RECORDS SUMMARY | 2025-02-20 07:08 | XMS_ITS | Clinical Summary ---
Author Organization [facility] Address [address] [place] [address] Phone Care Team Providers Care Harp Repairer Name Role Phone Unavailable Primary Care Provider Unavailabl e Encounters Date Type Department Care Team Description 02/15/2025 8:19 AM EDT Hospital Encounter [facility] PET Scan [address] [place] [address] Malignant neoplasm of unspecified part of unspecified bronchus or lung (CMS/HCC V24, CMS/HCC V28) from Last 3 Months Social History Tobacco Use Types Packs/Day Years Used Date Smoking Tobacco: Never Assessed Comments Unknown Sex and Gender Information Value Date Recorded Sex Assigned at Not on file Legal Sex Female 3:42 PM EDT Gender Identity Not on file Sexual Orientation Not on file Plan of Treatment Health Maintenance Due Date Last Done Comments Breast Cancer Screening 1950 DTaP,Tdap,and Td Vaccines (1 - Tdap) 1969 Zoster Vaccines (1 of 2) 2000 Cholesterol Screening (Lipid Panel) 04/12/2024 Colorectal Cancer Screening: Colonoscopy 04/12/2024 Falls Risk Assessment 04/12/2024 Hepatitis C Screening 04/12/2024 Medicare Annual Wellness Visit 04/12/2024 Osteoporosis Screening (Bone Density Screening) 04/12/2024 Social Influencers of Health Screening 04/12/2024 Depression Screening 06/21/2024 COVID-19 Vaccine ( season) 2025 Influenza Vaccine (#1) 2025 , 03/31/2021, 03/04/2020, Additional history exists RSV Immunization Adult Patients (1 - 1-dose 75+ series) 2025 Pneumococcal Vaccine: 50+ Years Completed 04/03/2022, 03/31/2021, 03/10/2017 HIB Vaccines Aged Out No longer eligi ble based on patient's age to complete this topic HPV Vaccines Aged Out No longer eligi ble based on patient's age to complete this topic Hepatitis A Vaccines Aged Out No long er eligible based on patient's age to complete this topic Hepatitis B Vaccines Aged Out No long er eligible based on patient's age to complete this topic IPV Vaccines Aged Out No longer eligi ble based on patient's age to complete this topic MMR Vaccines Aged Out No longer eligi ble based on patient's age to complete this topic Meningococcal ACWY Vaccine Aged Out N o longer eligible based on patient's age to complete this topic Meningococcal B Vaccine Aged Out No l onger eligible based on patient's age to complete this topic RSV Immunization Patients Under 20 months Aged Out No longer eligible based on patient's age to complete this topic Varicella Vaccines Aged Out No longer eligible based on patient's age to complete this topic Procedures Procedure Name Priority Date/Time Associated Diagnosis Comments PET CT SKULL TO MID THIGH SUBSEQUENT Routine 02/15/2025 10:51 AM EDT Malignant neoplasm of unspecified part of unspecified bronchus or lung (CMS/[facility] V24, CMS/[facility] V28) from Last 3 Months Results * PET CT Skull to Mid [...] Signed Date: 02/17/2025 11:29 ET Workstation ID: [id number] Transcribed By: Self Edit Transcribed Date: 02/17/2025 [...] Signed Date: 02/17/2025 11:29 ET Workstation ID: [id number] Transcribed By: Self Edit Transcribed Date: 02/17/2025 11:05 ET [facility] PROCED[facility] Final Result from Last 3 Months Insurance [employer]
[2025-02-20 10:50] LABS: MANUAL DIFF FLAG NO
[2025-02-20 11:01] LABS: Hematocrit 42.4 % (37.0-47.0); Hemoglobin 13.9 g/dl (12.0-16.0); Imm Gran Abs Auto 0.03 X10*3/uL (0.00-0.03); Imm Gran Pct Auto 0.4 % (0.0-0.4); Lymphocytes Absolute Auto 1.2 X10*3/uL (1.2-4.9); Mean Corpuscular HGB Conc 32.8 g/dl (31.0-35.0); Mean Corpuscular Hemoglobin 31.6 pg (27.0-33.0); Mean Corpuscular Volume 96.4 fL (80.0-98.0); NRBC Abs Auto 0.000 X10*3/uL (0.0-0.012); NRBC Pct Auto 0.0 /100WBC (0.0-0.2); Platelet Count 188 X10*3/uL (160-400); Red Blood Count 4.40 X10*6/uL (4.20-5.50); White Blood Count 8.2 X10*3/uL (4.8-10.8)
[2025-02-20 11:45] LABS: Alanine Aminotransferase 9 U/L (0-31); Albumin Level 4.0 g/dL (3.5-5.0); Alkaline Phosphatase 73 U/L (39-117); Anion Gap 14 (12-20); Aspartate Amino Transferase 23 U/L (5-31); Blood Urea Nitrogen 21 mg/dL (9-16); Calcium 9.4 mg/dL (8.4-10.2); Carbon Dioxide 25 mmol/L (22-29); Chloride 104 mmol/L (96-108); Estimated Glomerular Filt Rate 53; Potassium 4.2 mmol/L (3.3-5.1); Sodium 139 mmol/L (135-145); Total Protein 6.6 g/dL (6.5-8.0)
[2025-02-20 12:26] LABS: Thyroid Stimulating Hormone 3.33 uIU/mL (0.32-4.0)
== END 2025-02-20 07:04 | disposition home or self-care (01) ==
LOC: HO.HMGCLDS 07:03
PROVIDERS: PCP Internal Medicine; Visit Provider Internal Medicine
DX: C34.92 Malignant neoplasm of unspecified part of left bronchus or lung (principal)
CPT/HCPCS: 36415; 80053; 84443; 85025

== ENCOUNTER 2025-03-12 08:36 | Outpatient (REF) | payer MEDICARE, SELFPAY ==
--- OUTSIDE RECORDS SUMMARY | 2025-03-12 09:57 | XMS_ITS | Clinical Summary ---
Author Organization [facility] Address [address] [place] [address] Phone Care Team Providers Care Chaser Helper Name Role Phone Unavailable Primary Care Provider Unavailabl e Encounters Date Type Department Care Team Description 02/15/2025 8:19 AM EDT - 02/15/2025 11:59 PM EDT Hospital Encounter [facility] PET Scan [address] [place] [address] Malignant neoplasm of unspecified part of unspecified bronchus or lung (CMS/HCC V24, CMS/HCC V28) Discharge Disposition: Home or Self Care from Last 3 Months Social History Tobacco [...] Screening 04/12/2024 Depression Screening 06/21/2024 COVID-19 Vaccine (2023- season) 2025 Influenza Vaccine (#1) 2025 , [...] unspecified part of unspecified bronchus or lung ([facility] V24, [facility] V28) from Last 3 Months Results * [...] Signed Date: 02/17/2025 11:29 ET Workstation ID: [id number] Transcribed By: Self Edit Transcribed Date: 02/17/2025 [...] Signed Date: 02/17/2025 11:29 ET Workstation ID: [id number] Transcribed By: Self Edit Transcribed Date: 02/17/2025 11:05 ET Adriana Dulala MD IMG NM PROCEDURES Final Result from Last 3 Months Insurance [employer]
[2025-03-12 10:26] LABS: MANUAL DIFF FLAG NO
[2025-03-12 10:32] LABS: Hematocrit 42.4 % (37.0-47.0); Hemoglobin 14.5 g/dl (12.0-16.0); Imm Gran Abs Auto 0.04 X10*3/uL (0.00-0.03); Imm Gran Pct Auto 0.5 % (0.0-0.4); Lymphocytes Absolute Auto 1.2 X10*3/uL (1.2-4.9); Mean Corpuscular HGB Conc 34.2 g/dl (31.0-35.0); Mean Corpuscular Hemoglobin 31.9 pg (27.0-33.0); Mean Corpuscular Volume 93.2 fL (80.0-98.0); NRBC Abs Auto 0.000 X10*3/uL (0.0-0.012); NRBC Pct Auto 0.0 /100WBC (0.0-0.2); Platelet Count 160 X10*3/uL (160-400); Red Blood Count 4.55 X10*6/uL (4.20-5.50); White Blood Count 8.1 X10*3/uL (4.8-10.8)
[2025-03-12 11:16] LABS: Alanine Aminotransferase 9 U/L (0-31); Albumin Level 4.0 g/dL (3.5-5.0); Alkaline Phosphatase 81 U/L (39-117); Anion Gap 12 (12-20); Aspartate Amino Transferase 20 U/L (5-31); Blood Urea Nitrogen 17 mg/dL (9-16); Calcium 9.4 mg/dL (8.4-10.2); Carbon Dioxide 27 mmol/L (22-29); Chloride 103 mmol/L (96-108); Estimated Glomerular Filt Rate > 60; Potassium 4.1 mmol/L (3.3-5.1); Sodium 138 mmol/L (135-145); Total Protein 6.6 g/dL (6.5-8.0)
[2025-03-12 11:20] LABS: Thyroid Stimulating Hormone 2.82 uIU/mL (0.32-4.0)
== END 2025-03-12 08:37 | disposition home or self-care (01) ==
LOC: HO.HMGCLDS 08:36
PROVIDERS: PCP Internal Medicine; Visit Provider Internal Medicine
DX: C34.12 Malignant neoplasm of upper lobe, left bronchus or lung (principal)
CPT/HCPCS: 36415; 80053; 84443; 85025

== ENCOUNTER 2025-04-03 08:14 | Outpatient (REF) | payer MEDICARE, SELFPAY ==
[2025-04-03 10:06] LABS: MANUAL DIFF FLAG NO
[2025-04-03 10:30] LABS: Hematocrit 45.5 % (37.0-47.0); Hemoglobin 15.2 g/dl (12.0-16.0); Imm Gran Abs Auto 0.02 X10*3/uL (0.00-0.03); Imm Gran Pct Auto 0.3 % (0.0-0.4); Lymphocytes Absolute Auto 1.3 X10*3/uL (1.2-4.9); Mean Corpuscular HGB Conc 33.4 g/dl (31.0-35.0); Mean Corpuscular Hemoglobin 31.0 pg (27.0-33.0); Mean Corpuscular Volume 92.7 fL (80.0-98.0); NRBC Abs Auto 0.000 X10*3/uL (0.0-0.012); NRBC Pct Auto 0.0 /100WBC (0.0-0.2); Platelet Count 165 X10*3/uL (160-400); Red Blood Count 4.91 X10*6/uL (4.20-5.50); White Blood Count 7.6 X10*3/uL (4.8-10.8)
[2025-04-03 10:48] LABS: Alanine Aminotransferase 18 U/L (0-31); Albumin Level 4.1 g/dL (3.5-5.0); Alkaline Phosphatase 91 U/L (39-117); Anion Gap 14 (12-20); Aspartate Amino Transferase 29 U/L (5-31); Blood Urea Nitrogen 19 mg/dL (9-16); Calcium 9.3 mg/dL (8.4-10.2); Carbon Dioxide 24 mmol/L (22-29); Chloride 105 mmol/L (96-108); Estimated Glomerular Filt Rate 60; Potassium 4.0 mmol/L (3.3-5.1); Sodium 139 mmol/L (135-145); Total Protein 7.0 g/dL (6.5-8.0)
[2025-04-03 11:15] LABS: Thyroid Stimulating Hormone 0.62 uIU/mL (0.32-4.0)
[2025-04-03 12:56] LABS: Carcinoembryonic Antigen 4.90 ng/mL
== END 2025-04-03 08:15 | disposition home or self-care (01) ==
LOC: HO.HMGCLDS 08:14
PROVIDERS: PCP Internal Medicine; Visit Provider Internal Medicine
DX: C34.92 Malignant neoplasm of unspecified part of left bronchus or lung (principal); Z13.29 Encounter for screening for other suspected endocrine disorder
CPT/HCPCS: 36415; 80053; 82378; 84443; 85025

== ENCOUNTER 2025-04-23 08:02 | Outpatient (REF) | payer MEDICARE, SELFPAY ==
--- OUTSIDE RECORDS SUMMARY | 2025-04-23 08:08 | XMS_ITS | Clinical Summary ---
Author Organization [facility] Address [address] [place] [address] Phone Care Team Providers Care Carving Machine Operator Name Role Phone Unavailable Primary Care Provider Unavailabl e Encounters Date Type Department Care Team Description 02/15/2025 8:19 AM EDT - 02/15/2025 11:59 PM EDT Hospital Encounter [facility] PET Scan [address] [place] [address] Malignant neoplasm of unspecified part [...] Last Done Comments Breast Cancer Screening 1950 Colorectal Cancer Screening: Colonoscopy 1950 DTaP,Tdap,and Td Vaccines (1 - Tdap) 1969 Zoster Vaccines (1 of 2) 2000 Cholesterol Screening (Lipid Panel) 04/12/2024 Falls Risk Assessment 04/12/2024 Hepatitis C Screening 04/12/2024 Medicare Annual Wellness Visit 04/12/2024 Osteoporosis Screening (Bone Density Screening) 04/12/2024 Social Influencers of Health Screening 04/12/2024 Depression Screening 06/21/2024 COVID-19 Vaccine ( - 2023- season) 2025 Influenza Vaccine (#1) 2025 , [...] unspecified part of unspecified bronchus or lung ([facility] V24, [facility] V28) from Last 3 Months [...] Signed Date: 02/17/2025 11:29 ET Workstation ID: [id number] Transcribed By: Self Edit Transcribed Date: 02/17/2025 [...] Signed Date: 02/17/2025 11:29 ET Workstation ID: [id number] Transcribed By: Self Edit Transcribed Date: 02/17/2025 11:05 ET Adriana Dulala MD IMG NM PROCEDURES Final Result from Last 3 Months Insurance [employer]
[2025-04-23 10:38] LABS: MANUAL DIFF FLAG NO
[2025-04-23 10:52] LABS: Hematocrit 46.6 % (37.0-47.0); Hemoglobin 15.3 g/dl (12.0-16.0); Imm Gran Abs Auto 0.04 X10*3/uL (0.00-0.03); Imm Gran Pct Auto 0.5 % (0.0-0.4); Lymphocytes Absolute Auto 1.5 X10*3/uL (1.2-4.9); Mean Corpuscular HGB Conc 32.8 g/dl (31.0-35.0); Mean Corpuscular Hemoglobin 30.5 pg (27.0-33.0); Mean Corpuscular Volume 92.8 fL (80.0-98.0); NRBC Abs Auto 0.000 X10*3/uL (0.0-0.012); NRBC Pct Auto 0.0 /100WBC (0.0-0.2); Platelet Count 179 X10*3/uL (160-400); Red Blood Count 5.02 X10*6/uL (4.20-5.50); White Blood Count 7.8 X10*3/uL (4.8-10.8)
[2025-04-23 11:14] LABS: Alanine Aminotransferase 15 U/L (0-31); Albumin Level 4.3 g/dL (3.5-5.0); Alkaline Phosphatase 91 U/L (39-117); Anion Gap 12 (12-20); Aspartate Amino Transferase 21 U/L (5-31); Blood Urea Nitrogen 17 mg/dL (9-16); Calcium 9.7 mg/dL (8.4-10.2); Carbon Dioxide 28 mmol/L (22-29); Chloride 102 mmol/L (96-108); Estimated Glomerular Filt Rate > 60; Potassium 4.2 mmol/L (3.3-5.1); Sodium 138 mmol/L (135-145); Total Protein 7.0 g/dL (6.5-8.0)
== END 2025-04-23 08:03 | disposition home or self-care (01) ==
LOC: HO.HMGCLDS 08:02
PROVIDERS: Nurse Practitioner Family; PCP Internal Medicine; Visit Provider Internal Medicine
DX: C34.92 Malignant neoplasm of unspecified part of left bronchus or lung (principal); Z13.29 Encounter for screening for other suspected endocrine disorder
CPT/HCPCS: 36415; 80053; 84443; 85025

== ENCOUNTER 2025-05-29 09:58 | Outpatient (REF) | payer MEDICARE, SELFPAY | END 2025-05-29 09:59 | LOC: HO.HMGCLDS 09:58 | PROVIDERS: PCP Internal Medicine; Visit Provider Internal Medicine | DX: C34.10 Malignant neoplasm of upper lobe, unspecified bronchus or lung (principal) | CPT/HCPCS: 36415 ==

== ENCOUNTER 2025-06-07 09:58 | Outpatient (AMB) | payer MEDICARE, SELFPAY ==
--- NOTE | 2025-06-07 10:14 | A.OFFPC_ITS ---
Vital Signs 06/07/25 10:15 Height 5 ft 4 in Weight 108 lb 5 oz BMI 18.6 BP 180/98 H Blood Pressure Location Lt brachial Position Sitting Respiration 20 Pulse 81 Pulse Source Pulse Oximeter Temp 97.4 F Temp Source Temporal Artery Scan Pulse Oximetry (%) 95 Oxygen Delivery Method Room Air Intake Visit Reasons: bp Traffic Division Commanding Officer Required: No Accompanied by: garcia Allergies Penicillins (PENICILLINS) Allergy (Intermediate, Verified 06/07/25 10:30) HIVES/ITCHING Medication List - Last Reconciled 06/07/25 by Margot Guerra MD escitalopram oxalate 10 mg PO DAILY fluticasone propion-salmeterol 232-14 mcg/actuation (AirDuo RespiClick) 1 inh inhalation BID 30 days ibuprofen 800 mg PO Q8H PRN lorazepam 2 mg (2 x 1 mg) PO BEDTIME 30 days ondansetron 8 mg PO Q8H PRN oxycodone 5 mg PO Q8H PRN Tobacco use date assessed: 08/03/24 Fall risk assessment: 2 + Falls in past year Last assessed Fall Risk: 06/07/25 Dental Screening Dental Screen Date: 08/03/24 HPI HPI Comments History of Present Illness Details The patient is a 74-year-old female presenting for a follow-up on her blood pressure. She has a history of atrial fibrillation and was previously prescribed digoxin, which she has not been taking. She was also on hydrochlorothiazide 25 mg for her blood pressure previously. The patient has a history of non-small cell lung carcinoma and is followed by hematology/oncology. She previously had brain metastases which have since resolved, and she is scheduled for a repeat MRI of the brain today. She is currently on chemotherapy. The patient is very thin, weighing 103 pounds, and reports feeling wobbly and lightheaded. She has experienced two recent falls. Her current medications include escitalopram, AirDuo, lorazepam, ondansetron, and oxycodone, with ibuprofen as needed. She has a known allergy to penicillin. She has some depression with anxiety and is on medications. [facility] Medical History Atrial fibrillation with RVR Hypomagnesemia Sepsis Hypokalemia Hypotension Family history of lung cancer Personal history of nicotine dependence Back pain Osteoporosis (~2017) Pseudogout (~2016) Anxiety Hypertension Hyperlipidemia Surgical History History of colonoscopy Family History Father Lung cancer Mother Diabetes Renal failure Social History Household Members: None Housing: House Do you presently have visiting nurse or other home services: No Alcohol intake: never Patient Tobacco Use Status: Current everyday Tobacco user Tobacco use type: Cigarette Cigarette Packs Per Day: 0.5 Cigarettes Per Day: 10 e-Cigarette/Vaping Use: Never Used Second Hand Smoke Exposure: Yes Advance Directives Date on File: 05/10/23 service: No Current occupational status: retired Current occupational exposures/hazards: No Cognitive needs: No Hearing needs: No Vision needs: Yes (Glasses) Questionnaire Thrive Questionnaire Date Thrive assessed: 12/06/24 What is your living situation today?: I have a steady place to live Within the past 12 months, did the food you bought not last and you didn't have the money to get more?: Often true Within the past 12 months, did you worry whether your food would run out before you got money to buy more?: Never true Do you have trouble paying for medicines?: No Do you have trouble getting transportation to medical appointments?: No Do you have trouble paying your heating and electricity bill?: No Do you have trouble taking care of your child, family member or friend?: No Do you have trouble with day-to-day activities such as bathing, preparing meals, shopping, managing finances, etc.?: Yes Are you currently unemployed and looking for a job?: No Are you interested in more education?: No Please select the resources that you would like help with: None Currently or been in a relationship where the following occur: I choose not to answer THRIVE Score: 1 NICOLE-7 AMB Questionnaire NICOLE-7 Date NICOLE - 7 assessed: 08/03/24 Source: Developed by Drs. Alex Barkley, Nilam Rainey, Júnior Haro and colleagues, with an educational elsie from [employer]. Review of Systems Const All systems reviewed & are unremarkable except as noted in HPI and below Card Denies chest pain at rest, Denies chest pain with activity, Denies edema, Denies irregular heart rhythm, Denies claudication, Denies dyspnea, Denies dyspnea on exertion, Denies orthopnea, Denies paroxysmal nocturnal dyspnea and Denies slow heart rate Resp Denies cough, Denies dyspnea and Denies dyspnea on exertion GI Denies abdominal pain, Denies change in bowel habits, Denies excessive flatus, Denies nausea and Denies vomiting Physical exam (Primary Care) Vital Signs: Last Vital Signs Temp 97.4 F 06/07/25 10:15 Pulse 81 06/07/25 10:15 Resp 20 06/07/25 10:15 BP 180/98 H 06/07/25 10:15 Pulse Ox 95 06/07/25 10:15 Oxygen Delivery Method Room Air 06/07/25 10:15 BMI result Body Mass Index 18.6 BMI Assessment/Plan discussion: Low BMI Low, Plan discussed: lifestyle, increase calorie intake and dietary Tobacco/Smoking Status: Tobacco use Status Tobacco use date assessed 08/03/24 06/07/25 10:14 Patient Tobacco Use Status Current everyday Tobacco 06/07/25 10:14 Tobacco use type Cigarette 06/07/25 10:14 e-Cigarette/Vaping Use Never Used 06/07/25 10:14 Thrive Assessment: Date of Thrive Assessment Date Thrive assessed 12/06/24 06/07/25 10:14 Currently or been in a relationship where the following occur: I choose not to answer Resp Effort & Inspection: normal respiratory effort Auscultation: clear to auscultation bilaterally Cardio Jugular venous distension: no JVD Rate: regular rate Rhythm: regular rhythm Heart sounds: S1 normal heart sound present and S2 normal heart sound present Extrem General: Yes full ROM Coding Level of Care Code Add On Preventative Visit Only Diagnoses Non-small cell cancer of left lung C34.92 Emphysema lung J43.9 Mild major depression F32.0 Anxiety F41.9 Hypertension I10 Atrial fibrillation with RVR I48.91 Time Spent (min) 23 Assessment & Plan Assessment & Plan (1) Non-small cell cancer of left lung: Code(s): C34.92 - Malignant neoplasm of unspecified part of left bronchus or lung Category: Medical (2) Emphysema lung: Code(s): J43.9 - Emphysema, unspecified Category: Medical (3) Mild major depression: Code(s): F32.0 - Major depressive disorder, single episode, mild Category: Medical (4) Anxiety: Code(s): F41.9 - Anxiety disorder, unspecified Category: Medical (5) Hypertension: Code(s): I10 - Essential (primary) hypertension Category: Medical (6) Atrial fibrillation with RVR: Code(s): I48.91 - Unspecified atrial fibrillation Category: Medical Plan Plan 1. Hypertension The patient had an elevated blood pressure reading during today's visit. A prescription for hydrochlorothiazide will be sent to her pharmacy. A blood pre ssure recheck is scheduled in three weeks, which can be done at her chemotherapy appointment with results forwarded to this office. 2. Atrial Fibrillation The patient has not been taking her previously prescribed digoxin. A prescription for digoxin will be sent to her pharmacy. A non-urgent referral to cardiology will be considered for further management. 3. Non-Small Cell Lung Carcinoma The patient continues to be followed by hematology/oncology. She has a history of resolved brain metastases and is undergoing a repeat MRI of the brain today. Will continue to coordinate care with her oncology team. 4. Underweight The patient weighs 103 pounds, reports feeling wobbly, and has a history of recent falls. She dislikes Ensure. It was suggested that she try hot cocoa with marshmallows to increase her caloric intake and help with weight gain. 5. Emphysema Continue inhalers as needed. Orders: Referrals Cardiology Referral I48.91 - Unspecified atrial fibrillation Medications: New hydrochlorothiazide 25 mg PO DAILY 90 tabs 1RF 90 days digoxin 125 mcg PO DAILY 90 tabs 1RF 90 days
[2025-06-07 10:15] VITALS: BP 180/98; PULSE 81; RESP 20; TEMP 36.3; O2SAT 95; BMI 18.6
--- OUTSIDE RECORDS SUMMARY | 2025-06-07 12:16 | XMS_ITS | Clinical Summary ---
Author Organization [facility] Address [address] [place] [address] Phone Care Team Providers Care Lease Attendant Name Role Phone Unavailable Primary Care Provider Unavailabl e Social History Tobacco Use Types Packs/Day Years [...] Depression Screening 06/21/2024 COVID-19 Vaccine ( - season) 2025 Influenza Vaccine (#1) 2025 , [...] on patient's age to complete this topic Insurance [employer]
== END 2025-06-07 10:46 | disposition home or self-care (01) ==
LOC: HO.HMCH 09:59
PROVIDERS: PCP Internal Medicine; Visit Provider Internal Medicine
DX: I10 Essential (primary) hypertension (principal); C34.92 Malignant neoplasm of unspecified part of left bronchus or lung; J43.9 Emphysema, unspecified; F32.0 Major depressive disorder, single episode, mild; F41.9 Anxiety disorder, unspecified; I48.91 Unspecified atrial fibrillation

== ENCOUNTER → 2025-06-07 15:02 | Outpatient (BNV) | payer MEDICARE, SELFPAY | PROVIDERS: PCP Internal Medicine; Visit Provider Radiology Diagnostic Radiology | DX: C34.10 Malignant neoplasm of upper lobe, unspecified bronchus or lung (principal) | CPT/HCPCS: 70553 ==

== ENCOUNTER 2025-06-07 15:22 | Outpatient (REF) | payer MEDICARE, SELFPAY ==
--- NOTE | ~2025-06-07 | MR_ITS ---
EXAMINATION: MR BRAIN WITHOUT AND WITH CONTRAST CLINICAL INFORMATION: History of brain metastases, lung cancer. COMPARISON: None available. TECHNIQUE: Multiplanar, multisequence MRI of the brain was obtained before and after the intravenous administration of 4.5 mL of Gadavist. FINDINGS: No restricted diffusion to suspect any acute infarct. No magnetic susceptibility artifact either to suspect acute or chronic hemorrhagic products. There are scattered T2 FLAIR signal changes in deep white matter of both cerebral hemispheres without mass effect or edema. The lateral ventricles are symmetrical in size and configuration with mild enlargement. Pre and postcontrast T1 imaging reveals no enhancing parenchymal mass. No abnormal dural or extra-axial enhancement. There is small chronic lacunar infarction in right caudate nucleus. Normal flow-void signal seen in major cerebral vasculature. The bone marrow signal and scalp soft tissues are normal. Bilateral optic globes, optic nerves and periorbital soft tissues are normal. MR/MR head/brain wo/w con IMPRESSION: No acute intracranial process seen. Especially no enhancing mass, edema or acute bleed. Electronically signed by: Beni Porter MD 06/07/2025 04:52 PM EST
== END 2025-06-07 15:23 | disposition home or self-care (01) ==
LOC: HO.MRI 15:22
PROVIDERS: PCP Internal Medicine; Visit Provider Internal Medicine
DX: C34.10 Malignant neoplasm of upper lobe, unspecified bronchus or lung (principal); J43.9 Emphysema, unspecified; F32.0 Major depressive disorder, single episode, mild; F41.9 Anxiety disorder, unspecified; I10 Essential (primary) hypertension; I48.91 Unspecified atrial fibrillation
CPT/HCPCS: 70553; 99212; A9585